=== PATIENT | female | born 1960 | race Caucasian/White ===

== ENCOUNTER 2017-10-07 12:30 | Outpatient (RCR) | payer MEDICAID, SELFPAY ==
--- NOTE | 2017-09-10 13:11 | HP.PTEVAL ---
Patient's Visit Information STACI LAZCANO is a 57 year old F referred to Physical Therapy by Kathy Marr with a diagnosis of R medial meniscus tear. Date of Evaluation: 09/10/17 Physical Therapist: Marques Sheikh - Visit Plan Frequency: 2-3x /Week Duration: 4-6 Weeks Plan: Start with quad re education strengthening, glute med strengthening, HS strengthening. R knee ROM, progress to CKC as tolerated, avoid deep squats and stairs until able to complete with minimal symptoms. May use modalities to aid in symptom relief. - Subjective Subjective: Pt. is here today for her initial evaluation S/P menisectomy DOS on 08/24/17. Pt. had trialed conservative treatment ultimately needing surgery. Pt. was found to have a torn medial meniscus, bone spurring and a medial plica formation. Pt. has all shaven down/removed. Pt. arrives today without AD with reports of minimal pain 2-310. Pt. 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 Pt. is very pleased about her reduction in symptoms since her surgery. Pt. denies N/T and has no pain in her distal LEs. Pt. is hopeful to get back to all work and recreational walking without issues. - Pain R knee Pain Intensity (Out of 10): 3 - Objective POSTURE: Pt. has normal knee positioning in stance. Normal iliac crest heights, she does have slight lateral lean to L side in stance with slight reduction in R TKE. PALPATION: Pt. has normal healing 2 anterior port holes, no signs of infection. Pt. has negative homans signs bilaterally. Pt. has mild increase in edema on R LE. NEUROLOGICAL: Pt. has has normal sensation to light and sharp touch bilaterally. Pt. has 2+ bilateral achilles and patellar DTR. Pt. is able to rise on heels and toes without issues or LOB. ROM: L knee- 0-0-136deg. R knee AROM 0-2-126deg. PROM 0-0-132deg. Pt. has mild increase in symptoms at end ranges of motions, increase NW. MMT: LLE- ankle/knee 5/5 throughout; hip- flexion 4+/5, abd 4/5, ext 4+/5. RLE- ankle 5/5 throughout; knee- ext 4/5, flexion 4-/5; hip- flexion 4/5, abd 4/5, ext 4/5. Core strength0 poor+. GAIT: Pt. ambulates with some mild issues. Pt. has slight lack in R TKE, has decreased step length bilaterally with slight antalgic pattern during R stance phase. Pt. has flat foot initial contact on R side. STAIRS: Pt. completed with step to pattern with 2 HR, pt. has increased pain if attempting to load RLE. - Goals Goal 1:: Pt. to be I with HEP. Goal Time Frame: 4-6 Weeks Goal 2:: Pt. to have full ROM, symmetrical to L without increase in symptoms. Goal Time Frame: 4-6 Weeks Goal 3:: Pt. to have increased RLE strength by 1/2 grade of all effected musculature allwoing for increased ability to complete all functional mobility. Goal Time Frame: 4-6 Weeks Goal 4:: Pt. to ambulate with normal gait pattern with 0-1/10 pain allowing for increased tolerance to work activities. Goal Time Frame: 4-6 Weeks Goal 5:: Pt. to negotiate steps with 1 HR with reciprocal pattern with 0-1/10 pain allowing for increased ease of functional mobility in home. Goal 6:: Pt. to return to work without issues. Goal Time Frame: 4-6 Weeks - Rehabilitation Potential Physical Therapy Diagnosis: Pt. presents S/P R medial menisectomy. She has increased edema, slight hypomiblity, weakness and difficult with gait. Pt. would benefit from PT to increase RLE strength, ROM, stability with gait and to decrease symptoms allowing for return to work and recreational activities without issues. Rehabilitation Potential: Excellent - Anticipated Interventions Patient/Client Instruction: Educate patient on: Condition, Plan of Care, Risk Factors, Benefits of Fitness Program For the Purpose of:: To reduce risk of recurrence, To improve safety, To improve health and function, To foster healthy habits, To improve decision making, To facilitate caregiver knowledge, To improve self management, To prevent re-injury, To improve ability to perform tasks related to life management, To improve tolerance to ADL's Therapeutic Exercise to Include: Strength training, Power training, Endurance training, Balance training, Body mechanics, Postural training, Passive ROM, Active ROM For the Purpose of:: To decrease pain, To decrease swelling/inflammation, To increase ROM, To improve nutrient delivery to tissue, To increase oxygenation perfusion, To improve muscle performance and motor function, To improve ability to perform ADL's, To improve gait and locomotor functions, To improve health of tissue, To decrease soft tissue restriction, To increase flexibility/ROM, To improve endurance, To improve balance, To improve safety with gait IF ES: Yes Cryotherapy (ice pack, ice massage): Yes Vasopneumatic device: Yes For the Purpose of:: To decrease pain, To decrease swelling/inflammation, To increase ROM Thank you for the opportunity to evaluate your patient. For Medicare and Medicare HMO plans, please review the plan of care and approve it. It will need to be FAXED BACK to us at [phone] for Medicare purposes. Please let me know if there are questions or concerns regarding this plan of care. Physician Signature: Date:
--- NOTE | 2018-04-06 16:39 | HP.PT.NRP ---
HP - Discharge Summary (1) - Patient Information STACI LAZCANO was seen in my office for initial evaluation on 09/10/17. The following Plan of Care was established for this patient: Initial Frequency: 2-3x /Week Initial Duration: 4-6 Weeks - Anticipated Interventions Patient/Client Instruction: Educate patient on: Condition, Plan of Care, Risk Factors, Benefits of Fitness Program For the Purpose of:: To reduce risk of recurrence, To improve safety, To improve health and function, To foster healthy habits, To improve decision making, To facilitate caregiver knowledge, To improve self management, To prevent re-injury, To improve ability to perform tasks related to life management, To improve tolerance to ADL's Therapeutic Exercise to Include: Strength training, Power training, Endurance training, Balance training, Body mechanics, Postural training, Passive ROM, Active ROM For the Purpose of:: To decrease pain, To decrease swelling/inflammation, To increase ROM, To improve nutrient delivery to tissue, To increase oxygenation perfusion, To improve muscle performance and motor function, To improve ability to perform ADL's, To improve gait and locomotor functions, To improve health of tissue, To decrease soft tissue restriction, To increase flexibility/ROM, To improve endurance, To improve balance, To improve safety with gait IF ES: Yes Cryotherapy (ice pack, ice massage): Yes Vasopneumatic device: Yes For the Purpose of:: To decrease pain, To decrease swelling/inflammation, To increase ROM This patient was last seen in our office 10/07/17. Pertinent comments regarding their Physical therapy will appear below: Pt. was seen for her meniscal debridement in her knee. Pt. progressed well with ROM and strengthening. At our last visit she was to continue woring on hip ER and glute med strength. She did not return to any subsequent visits. Pt. will be DC from PT at this point in time. At this point I will be discontinuing this patient from physical therapy. I would be happy to see this patient again in the future if found appropriate by the physician. Thank you! Marques Sheikh
== END 2017-10-07 19:00 | disposition home or self-care (01) ==
LOC: PT 12:30
PROVIDERS: Visit Provider Physician Assistant
DX: S83.241D Other tear of medial meniscus, current injury, right knee, subsequent encounter (principal)
CPT/HCPCS: 97014; 97110; 97161; 97530; G0283

== ENCOUNTER → 2017-10-15 10:27 | Outpatient (CLI) | payer MEDICAID, SELFPAY ==
[2017-10-15 09:15] VITALS: BP 117/81; BMI 35.6
[2017-10-15 13:17] LABS: Hemoglobin A1c 6.4 % (4.2-6.3)
== END ==
PROVIDERS: Family Provider Internal Medicine; PCP Internal Medicine; Visit Provider Nurse Practitioner Family
DX: E11.69 Type 2 diabetes mellitus with other specified complication (principal); E66.9 Obesity, unspecified
CPT/HCPCS: 36415; 83036

== ENCOUNTER 2017-10-19 14:25 | Outpatient (RCR) | payer MEDICAID, SELFPAY | END 2017-11-03 23:59 | LOC: NS 14:25 | PROVIDERS: Family Provider Internal Medicine; PCP Internal Medicine; Visit Provider Orthopaedic Surgery | DX: E66.9 Obesity, unspecified (principal); Z68.36 Body mass index [BMI] 36.0-36.9, adult; Z71.3 Dietary counseling and surveillance | CPT/HCPCS: 97802 ==

== ENCOUNTER 2017-11-10 14:00 | Outpatient (RCR) | payer MEDICAID, SELFPAY | END 2017-12-04 23:59 | LOC: NS 14:00 | PROVIDERS: Family Provider Internal Medicine; PCP Internal Medicine; Visit Provider Orthopaedic Surgery | DX: E66.9 Obesity, unspecified (principal); Z68.36 Body mass index [BMI] 36.0-36.9, adult; Z71.3 Dietary counseling and surveillance | CPT/HCPCS: 97803 ==

== ENCOUNTER 2017-11-15 11:56 | Emergency (ER) | payer MEDICAID, SELFPAY ==
[2017-11-15 11:58] VITALS: BP 148/73; PULSE 76; RESP 18; TEMP 36.8; O2SAT 100; BMI 33.3
--- NOTE | 2017-11-15 12:14 | CT_ITS ---
STUDY: CT ABDOMEN AND PELVIS WITHOUT CONTRAST REASON FOR EXAM: Female, 57 years old. Left lower quadrant pain with nausea. History of diverticulitis. RADIATION DOSAGE (If Supplied By Facility): CTDIvol = ( 16.45 ) mGy, DLP = ( 896.13 ) mGycm TECHNIQUE: Transaxial images were obtained from the dome of the diaphragm to the symphysis pubis without oral contrast, and without intravenous contrast. Sagittal and coronal images were reconstructed. Individualized dose optimization techniques were used for this CT. COMPARISON: Comparison is made with prior study dated June 30, 2017. FINDINGS: Stable mild degree of increased markings at the lung bases suggestive mild basilar atelectasis and/or scarring. The visualized portions of the heart are within normal limits. Normal liver. Normal gallbladder and extrahepatic biliary system. Normal spleen. Normal pancreas. Normal bilateral adrenal glands. Normal right kidney. Normal left kidney. There is a small hiatal hernia. Normal small intestine. There is diverticulosis, with thickening of the colon wall, and pericolonic inflammation changes consistent with acute diverticulitis. Diverticulosis of the right hemicolon is seen as well. The appendix is visualized and appears normal. Normal abdominal aorta. Normal inferior vena cava. Normal retroperitoneum. Normal urinary bladder. Normal abdominal wall. There are mild degenerative changes of the visualized lumbar spine. CT/Abdomen/Pelvis without Cont IMPRESSION: Mild degree of sigmoid diverticulitis without complications. Electronically Signed: Reagan Guerin MD at 13:23 EDT Tel [phone], Service support ,
[2017-11-15] MEDS: Ondansetron 4 MG/2 ML Vial IV (12:32)
[2017-11-15] MEDS: 0.9% Normal Saline 1,000 ML 1000 ML IV (12:32)
[2017-11-15 12:37] LABS: Absolute Lymphocyte Count 2.46 X10^3/ul (0.83-4.51); Absolute Neutrophil Count 4.8 X10^3/uL (2.0-7.7); Basophil# 0.02 X10^3/uL; Basophil% 0.3 % (0-1); Eosinophil# 0.11 X10^3/uL; Eosinophils% 1.4 % (0-5); Hematocrit 45.5 % (37-47); Hemoglobin 14.6 g/dl (12.0-15.0); Lymphocyte # 2.46 X10^3/ul (4.0); Lymphocyte % 31.9 % (19-41); Mean Corp Hgb Conc 32.1 g/gl (32-36); Mean Corpuscular Hgb 27.5 pg (27.0-32.0); Mean Corpuscular Volume 85.8 fL (81-99); Mean Platelet Vol. 10.2 fl (6.2-12.0); Monocyte# 0.32 X10^3/uL; Monocyte% 4.2 % (0-10); Neutrophil # 4.77 X10^3/uL (2.7-7.7); Neutrophil % 61.9 % (47-70); Platelet Count 259 K/mm3 (150-450); RBC Distribution Width CV 14.7 % (11.6-14.6); RBC Distribution Width SD 45.6 fl (35.1-43.9); White Blood Count 7.7 K/mm3 (4.4-11.0)
[2017-11-15 12:40] LABS: POSITIVE COUNT NO; POSITIVE DIFFERENTIAL NO; POSITIVE MORPHOLOGY NO
[2017-11-15 12:47] LABS: Anion Gap 9 (5-15); BUN 12 mg/dL (7-18); BUN/Creat Ratio 13.2 RATIO (10-20); Calcium,Total 8.8 mg/dL (8.5-10.1); Chloride 102 mmol/L (98-107); Creatinine, Serum 0.91 mg/dL (0.55-1.02); EST Glomerular Filtration Rate 68 mL/min (>60); Est Glom Filt Rate - Afr Amer 82 mL/min (>60); Estimated Creatinine Clearance 61.38 ml/min; Glucose 112 mg/dL (74-106); Potassium 4.1 mmol/L (3.5-5.1); Sodium Level 138 mmol/L (136-145)
--- NOTE | 2017-11-15 13:45 | ED.VISSUMM ---
- ER Visit Summary Date of Service: 11/15/17 Chief Complaint: Abdominal pain History of Present Illness: The patient is a [address] Guo. She reports that she has left lower quadrant abdominal pain began 2 weeks ago. It is an aching, stabbing pain Zeta 10 at worst and 5 out of 10 currently. Is worsened by nothing relieved by nothing. She has had nausea without vomiting. She reports that she has diarrhea that began yesterday. She has had a proximal me 30 episodes of this. No blood in her stools or black tarry stools. No dysuria or frequency. She reports she has similar symptoms previously with diverticulitis. She was last on Augmentin for this in approximately September of this year. Patient has had chills, but no fever. Physical Examination: Vitals: Stable. Afebrile. General: Well-nourished and well-developed. Head: Normocephalic atraumatic. Neck: Supple, no lymphadenopathy. No JVD. Nontender. Cardiovascular: Regular rate and rhythm. No murmurs. Respiratory: No respiratory distress. Clear to auscultation bilaterally. Abdominal: Soft, mild left lower quadrant tenderness to palpation, nondistended, normal bowel sounds. No guarding, rebound, or peritoneal signs. Back: Nontender. Extremities: Nontender, no edema. Skin: Normal color, no rash. Neurologic: Alert and oriented ?3. Cranial nerves II through XII are intact. Normal strength and sensation. Psych: Normal affect. Test Results: CBC is normal. Chem-7 is marked for glucose of 112. CT flank shows mild degree of sigmoid diverticulitis. No abscess or microperforation. Patient was unable to give a stool sample for C. difficile. Emergency Department Course and Treatment: Patient was treated morphine and Zofran IV. She is resting comfortably. I had a prolonged discussion with her about treatment options for this. She reports that she cannot tolerate Flagyl. She states that Augmentin has not worked for in the past. She is asking for admission for IV antibiotics. Discussed with her that that is not an appropriate way to treat uncomplicated diverticulitis. That she needs to try antibiotics as an outpatient and if this fails then she can be admitted for IV antibiotics. Treatment Plan: Patient is given a prescription for Avelox, which can be used as uni-therapy for diverticulitis, Zofran, and [place]. Instructed follow-up her primary care physician 1 week if not improving. Return to the emergency department for any worsening symptoms. Disposition: To home in improved and stable condition. Impression: 1. Diverticulitis. This note was generated with [employer] dictation software. It may contain incorrect words, spelling, and punctuation that were not noted in review of the chart prior to signing ED Disposition - Plan for ED Patient: Disposition: Home or Assisted Living Chief Complaint: Abd Pain Instructions: ED Diverticulitis Prescriptions: Hydrocodone Bitart/Apap 5-325 [[place] 5/325] 1 - 2 tablet PO Q4H PRN PRN 3 Days #12 tablet PRN Reason: Pain Ondansetron [Zofran Odt] 4 mg PO Q8H PRN PRN #10 tablet PRN Reason: Nausea Moxifloxacin HCl [Avelox] 400 mg PO DAILY #14 tablet Referrals: Roberto Guo MD [Primary Care Provider] - 1 Week
[2017-11-15 14:45] VITALS: BP 128/67; PULSE 56; RESP 18; O2SAT 100
== END 2017-11-15 14:46 | disposition home or self-care (01) ==
PROVIDERS: Emergency Provider Emergency Medicine; Family Provider Internal Medicine; PCP Internal Medicine
DX: K57.32 Diverticulitis of large intestine without perforation or abscess without bleeding (principal); E11.9 Type 2 diabetes mellitus without complications; F32.9 Major depressive disorder, single episode, unspecified; K58.9 Irritable bowel syndrome, unspecified; Z79.899 Other long term (current) drug therapy
CPT/HCPCS: 74176; 80048; 85025; 96361; 96374; 96375; 99283; J7030; J2405

== ENCOUNTER 2017-11-19 12:14 | Observation (INO) | payer MEDICAID, SELFPAY ==
[2017-11-19 12:13] VITALS: BMI 35.0; BMI 77.3
--- NOTE | 2017-11-19 12:17 | NURSING ---
Arrived to floor room 317 approximately 15 min ago. Stacy Charge Nurse in with pt at this time.
[2017-11-19 12:18] VITALS: BP 103/70; PULSE 60; RESP 18; TEMP 36.5; O2SAT 99
[2017-11-19 12:49] VITALS: BMI 40.8
--- NOTE | 2017-11-19 13:09 | NURSING ---
attempted iv start x2, pt particular about where she would like iv states she's a hard stick. pt refusing to allow lab to draw labs without drawing from iv site. primary RN informed, this nurse called IVT to evaluate for midline placement
--- NOTE | 2017-11-19 13:48 | PCM.HP.STD ---
Problem List (1) Sigmoid diverticulitis Status: Acute (2) Urinary, incontinence, stress female Status: Chronic (3) Insomnia Status: Chronic (4) Vitamin D deficiency, unspecified Status: Chronic (5) Arthritis Status: Chronic (6) Asthma Status: Chronic (7) Diabetes mellitus type 2 in obese Status: Chronic (8) Diverticulosis Status: Chronic (9) PTSD (post-traumatic stress disorder) Status: Chronic (10) IBS (irritable bowel syndrome) Status: Chronic (11) Obesity (BMI 30-39.9) Status: Chronic (12) HTN (hypertension) Status: Chronic Qualifiers: (13) HLD (hyperlipidemia) Status: Chronic Qualifiers: (14) Anxiety and depression Status: Chronic History of Present Illness Date of Admission: 11/19/17 Chief Complaint: Left lower quadrant abdominal pain for a week The patient is a 57 year old F with multiple comorbidities including diabetes mellitus type 2 and recurrent colonic diverticulitis about once in 1-2 years was sent for direct admit by Dr. Guo for sigmoid diverticulitis. Prior to that patient has left lower quadrant predominantly abdominal pain for 1 week along with nausea but no vomiting. Patient also has diarrhea. She denies GI bleeding including hematemesis, melena or hematochezia. She failed outpatient therapy with Avelox. She also had not responded to Augmentin in the past. Prior to that, she came to ER on 11/15/[address] abdomen which shows mild degree of sigmoid diverticulitis. No abscess or microperforation. She was discharged on prescription of Avelox. She took for 4 days but is still has abdominal pain and did not get better and therefore was sent for direct admit by PCP. [] Past Medical History Past Medical History (Chronic Problems): Chronic Problems (Last Reviewed 10/15/17 @ 11:55 by Giovanni Madden NP-[facility]) Urinary, incontinence, stress female (Chronic) Chronic recurrent sinusitis (Chronic) Insomnia (Chronic) Vitamin D deficiency, unspecified (Chronic) Arthritis (Chronic) Asthma (Chronic) Diabetes mellitus type 2 in obese (Chronic) Diverticulosis (Chronic) PTSD (post-traumatic stress disorder) (Chronic) IBS (irritable bowel syndrome) (Chronic) Obesity (BMI 30-39.9) (Chronic) HTN (hypertension) (Chronic) HLD (hyperlipidemia) (Chronic) Anxiety and depression (Chronic) Allergies eluxadoline [From Steven] Allergy (Severe, Verified 11/15/17 12:00) Other diverticulitis NSAIDS (Non-Steroidal Anti-Inflamma Allergy (Intermediate, Verified 11/15/17 12:00) Other GI bleeds Sulfa (Sulfonamide Antibiotics) Allergy (Verified 11/15/17 12:00) Rash albuterol Adverse Reaction (Severe, Verified 11/15/17 12:00) other increase heart rate metformin Adverse Reaction (Severe, Verified 11/15/17 12:00) Other diarreah inderal Allergy (Intermediate, Uncoded 11/15/17 12:00) Other hallucinations most antidepressants Adverse Reaction (Severe, Uncoded 11/15/17 12:00) Other varies from rash, to hallucinations, to shakes. Home Medications: Ambulatory Orders Medication Instructions Recorded Lorazepam [Ativan] 2 mg PO TID PRN PRN 06/30/17 Omeprazole 20 mg PO QHS 06/30/17 atenolol 50 mg tablet 50 mg PO QHS #90 tab 09/17/17 atorvastatin 20 mg tablet 20 mg PO QHS 09/17/17 cholecalciferol (vitamin D3) 2,000 2,000 unit PO DAILY 09/17/17 unit capsule estradiol 0.5 mg tablet 0.5 mg PO QHS #30 tab 09/17/17 levalbuterol HFA 45 mcg/actuation 2 inh INHALATION Q6H 09/17/17 aerosol inhaler metro cream 1 applic TOPICAL DAILY PRN PRN 09/17/17 blood sugar diagnostic strips See Dose Instructions .ROUTE 10/15/17 .MEDSUPPLY #50 ea blood-glucose meter kit See Dose Instructions .ROUTE 10/15/17 .MEDSUPPLY #1 ea desvenlafaxine succinate ER 50 mg 50 mg PO Q24H 10/15/17 tablet,extended release 24 hr Hydrocodone Bitart/Apap 5-325 1 - 2 tablet PO Q4H PRN PRN 3 Days 11/15/17 [[place] 5/325] #12 tablet ondansetron 4 mg disintegrating 4 mg PO Q8H PRN PRN #20 tab 11/16/17 tablet Amoxicillin/Potassium Clav [Amox 1 each PO BID 11/19/17 Tr-K Clv 875-125 mg Tab] Desvenlafaxine Succinate [Pristiq] 50 mg PO DAILY 11/19/17 Lisinopril [Zestril] 2.5 mg PO QHS 11/19/17 Multivitamin [Daily Multiple 1 tab PO QHS 11/19/17 Vitamin] Solifenacin Succinate [Vesicare] 5 mg PO QDAY 11/19/17 Zolpidem Tartrate [Ambien 5 mg PO QHS PRN PRN 11/19/17 (Generic)] Surgical History: - - Hysterectomy, L knee surgery for torn meniscus, L ulnar nerve surgery/carpal tunnel release. Psychiatric History: Anxiety, Depression BUSINESS CONTINUITY MANAGER History: No pertinent BUSINESS CONTINUITY MANAGER history Smoking Status: Never smoker - *Family History Maternal History Items: No pertinent history Paternal History Items: Heart Disease Review of Systems Constitutional: Denies: Chills, Fever, Weight Change HEENT: Denies: Head Aches, Sinus Congestion, Sinus Drainage Cardiovascular: Denies: Chest Pain, Palpitations Respiratory: Denies: Cough, Shortness of breath at rest, Sputum production Gastrointestinal: Reports: Diarrhea, Nausea. Denies: Abdominal Pain, Vomiting Genitourinary: Denies: Dysuria Musculoskeletal: Denies: Joint Pain, Joint Tenderness Skin: Denies: Rash, Wounds Neurological: Denies: Numbness, Tingling, Focal weakness Psychiatric: Reports: Anxiety, Depression. Denies: Homicidal Ideations, Suicidal Ideations Hematologic/ Lymphatic: Denies: Easy Bruising, Easy Bleeding VTE Information - Inpt Only VTE Present on Admission: No VTE Mechan Device Prophylaxis: SCD's VTE Pharm Prophylaxis ordered?: Yes Patient Problems: Active and Suspected Problems (Last Reviewed 10/15/17 @ 11:55 by Giovanni Madden NP-[facility]) Sigmoid diverticulitis (Acute) - Physical Exam General: Alert, Oriented x3, Cooperative HEENT: Atraumatic, PERRLA, EOMI, Normocephalic Neck: Supple, No JVD, Negative Carotid Bruits Lungs: Clear to auscultation, Normal air movement, No rhonchi, No wheeze, No rales Cardiovascular: Regular rate, Regular Rhythm, Normal S1, Normal S2, No murmurs Abdomen: Bowel Sounds Present, Soft, Non-Distended, Tender - Present in both lower quadrants, left more than right Extremities: No edema, Capillary Refill Less than 3 Seconds Skin: No rashes, No breakdown Musculoskeletal: No Tenderness to Palpation of Joints or Extremities Neurological: Cranial nerves II-XII grossly intact Psych/Mental Status: Normal Affect, Appropriate Vital Signs Temp Pulse Resp BP Pulse Ox 97.7 F L 60 18 103/70 99 11/19/17 12:18 18 12:18 11/19/17 12:18 11/19/17 12:18 11/19/17 12:18 Oxygen Delivery Method Room Air Weight: 210 lb 9.616 oz Body Mass Index (BMI) 40.8 Assessment/Plan Active and Suspected Problems (Last Reviewed 10/15/17 @ 11:55 by Giovanni Madden NP-[facility]) Sigmoid diverticulitis (Acute) The patient is a 57 year old F with multiple comorbidities including diabetes mellitus type 2 and recurrent colonic diverticulitis about once in 1-2 years was sent for direct admit by Dr. Guo for sigmoid diverticulitis. Prior to that patient has left lower quadrant predominantly abdominal pain for 1 week along with nausea but no vomiting. Patient also has diarrhea. She denies GI bleeding including hematemesis, melena or hematochezia. She failed outpatient therapy with Avelox. She also had not responded to Augmentin in the past. Prior to that, she came to ER on 11/15/[address] abdomen which shows mild degree of sigmoid diverticulitis. No abscess or microperforation. She was discharged on prescription of Avelox. She took for 4 days but is still has abdominal pain and did not get better and therefore was sent for direct admit by PCP. 1. Acute uncomplicated sigmoid diverticulitis: The patient is being directly admitted on the floor. Labs including CBC, CMP UA ordered. Patient had recent CT abdomen on 15 November as mentioned above. IV fluid normal saline at 100 mL/h. Started on IV Cipro and Flagyl. Pain control with IV morphine as needed and Zofran for nausea. Start the patient on clear liquid diet and advanced as per tolerated. 2. Diabetes mellitus type 2: On Accu-Chek in before meals and at bedtime and cover with NovoLog sliding scale. A1c tomorrow a.m. 3. Hypertension, dyslipidemia, asthma and chronic degenerative joint disease: Home medication reconciliation done. Only necessary medications are continued. Other chronic comorbidities include PTSD, anxiety and depression, stress urinary incontinence and insomnia: Stable. DVT prophylaxis: On Lovenox 40 mg subcu daily and bilateral SCDs. This note was generated with [employer] dictation software. Every effort was made to ensure accuracy, however computerized rf microwave engineer mistakes may persist. Code Visit Inpatient E&M: 68234 Init Hosp L2
[2017-11-19] MEDS: 0.9% Normal Saline 1,000 ML 100 ML IV (13:57)
--- NOTE | 2017-11-19 14:01 | HP.PCM_ITS ---
Problem List (1) Sigmoid diverticulitis Status: Acute (2) Urinary, incontinence, stress female Status: Chronic (3) Insomnia Status: Chronic (4) Vitamin D deficiency, unspecified Status: Chronic (5) Arthritis Status: Chronic (6) Asthma Status: Chronic (7) Diabetes mellitus type 2 in obese Status: Chronic (8) Diverticulosis Status: Chronic (9) PTSD (post-traumatic stress disorder) Status: Chronic (10) IBS (irritable bowel syndrome) Status: Chronic (11) Obesity (BMI 30-39.9) Status: Chronic (12) HTN (hypertension) Status: Chronic Qualifiers: (13) HLD (hyperlipidemia) Status: Chronic Qualifiers: (14) Anxiety and depression Status: Chronic History of Present Illness Date of Admission: 11/19/17 Chief Complaint: Left lower quadrant abdominal pain for a week The patient is a 57 year old F with multiple comorbidities including diabetes mellitus type 2 and recurrent colonic diverticulitis about once in 1-2 years was sent for direct admit by Dr. Guo for sigmoid diverticulitis. Prior to that patient has left lower quadrant predominantly abdominal pain for 1 week along with nausea but no vomiting. Patient also has diarrhea. She denies GI bleeding including hematemesis, melena or hematochezia. She failed outpatient therapy with Avelox. She also had not responded to Augmentin in the past. Prior to that, she came to ER on 11/15/[address] abdomen which shows mild degree of sigmoid diverticulitis. No abscess or microperforation. She was discharged on prescription of Avelox. She took for 4 days but is still has abdominal pain and did not get better and therefore was sent for direct admit by PCP. [] Past Medical History Past Medical History (Chronic Problems): Chronic Problems (Last Reviewed 10/15/17 @ 11:55 by Giovanni Madden NP-Twin) Urinary, incontinence, stress female (Chronic) Chronic recurrent sinusitis (Chronic) Insomnia (Chronic) Vitamin D deficiency, unspecified (Chronic) Arthritis (Chronic) Asthma (Chronic) Diabetes mellitus type 2 in obese (Chronic) Diverticulosis (Chronic) PTSD (post-traumatic stress disorder) (Chronic) IBS (irritable bowel syndrome) (Chronic) Obesity (BMI 30-39.9) (Chronic) HTN (hypertension) (Chronic) HLD (hyperlipidemia) (Chronic) Anxiety and depression (Chronic) Allergies eluxadoline [From Steven] Allergy (Severe, Verified 11/15/17 12:00) Other diverticulitis NSAIDS (Non-Steroidal Anti-Inflamma Allergy (Intermediate, Verified 11/15/17 12: 00) Other GI bleeds Sulfa (Sulfonamide Antibiotics) Allergy (Verified 11/15/17 12:00) Rash albuterol Adverse Reaction (Severe, Verified 11/15/17 12:00) other increase heart rate metformin Adverse Reaction (Severe, Verified 11/15/17 12:00) Other diarreah inderal Allergy (Intermediate, Uncoded 11/15/17 12:00) Other hallucinations most antidepressants Adverse Reaction (Severe, Uncoded 11/15/17 12:00) Other varies from rash, to hallucinations, to shakes. Home Medications: Ambulatory Orders Medication Instructions Recorded Lorazepam [Ativan] 2 mg PO TID PRN PRN 06/30/17 Omeprazole 20 mg PO QHS 06/30/17 atenolol 50 mg tablet 50 mg PO QHS #90 tab 09/17/17 atorvastatin 20 mg tablet 20 mg PO QHS 09/17/17 cholecalciferol (vitamin D3) 2,000 2,000 unit PO DAILY 09/17/17 unit capsule estradiol 0.5 mg tablet 0.5 mg PO QHS #30 tab 09/17/17 levalbuterol HFA 45 mcg/actuation 2 inh INHALATION Q6H 09/17/17 aerosol inhaler metro cream 1 applic TOPICAL DAILY PRN PRN 09/17/17 blood sugar diagnostic strips See Dose Instructions .ROUTE 10/15/17 .MEDSUPPLY #50 ea blood-glucose meter kit See Dose Instructions .ROUTE 10/15/17 .MEDSUPPLY #1 ea desvenlafaxine succinate ER 50 mg 50 mg PO Q24H 10/15/17 tablet,extended release 24 hr Hydrocodone Bitart/Apap 5-325 1 - 2 tablet PO Q4H PRN PRN 3 Days 11/15/17 [Elizabeth 5/325] #12 tablet ondansetron 4 mg disintegrating 4 mg PO Q8H PRN PRN #20 tab 11/16/17 tablet Amoxicillin/Potassium Clav [Amox 1 each PO BID 11/19/17 Tr-K Clv 875-125 mg Tab] Desvenlafaxine Succinate [Pristiq] 50 mg PO DAILY 11/19/17 Lisinopril [Zestril] 2.5 mg PO QHS 11/19/17 Multivitamin [Daily Multiple 1 tab PO QHS 11/19/17 Vitamin] Solifenacin Succinate [Vesicare] 5 mg PO QDAY 11/19/17 Zolpidem Tartrate [Ambien 5 mg PO QHS PRN PRN 11/19/17 (Generic)] Surgical History: - - Hysterectomy, L knee surgery for torn meniscus, L ulnar nerve surgery/carpal tunnel release. Psychiatric History: Anxiety, Depression [employer] History: No pertinent [employer] history Smoking Status: Never smoker - *Family History Maternal History Items: No pertinent history Paternal History Items: Heart Disease Review of Systems Constitutional: Denies: Chills, Fever, Weight Change HEENT: Denies: Head Aches, Sinus Congestion, Sinus Drainage Cardiovascular: Denies: Chest Pain, Palpitations Respiratory: Denies: Cough, Shortness of breath at rest, Sputum production Gastrointestinal: Reports: Diarrhea, Nausea. Denies: Abdominal Pain, Vomiting Genitourinary: Denies: Dysuria Musculoskeletal: Denies: Joint Pain, Joint Tenderness Skin: Denies: Rash, Wounds Neurological: Denies: Numbness, Tingling, Focal weakness Psychiatric: Reports: Anxiety, Depression. Denies: Homicidal Ideations, Suicidal Ideations Hematologic/ Lymphatic: Denies: Easy Bruising, Easy Bleeding VTE Information - Inpt Only VTE Present on Admission: No VTE Mechan Device Prophylaxis: SCD's VTE Pharm Prophylaxis ordered?: Yes Patient Problems: Active and Suspected Problems (Last Reviewed 10/15/17 @ 11:55 by Giovanni Madden NP- Twin) Sigmoid diverticulitis (Acute) - Physical Exam General: Alert, Oriented x3, Cooperative HEENT: Atraumatic, PERRLA, EOMI, Normocephalic Neck: Supple, No JVD, Negative Carotid Bruits Lungs: Clear to auscultation, Normal air movement, No rhonchi, No wheeze, No rales Cardiovascular: Regular rate, Regular Rhythm, Normal S1, Normal S2, No murmurs Abdomen: Bowel Sounds Present, Soft, Non-Distended, Tender - Present in both lower quadrants, left more than right Extremities: No edema, Capillary Refill Less than 3 Seconds Skin: No rashes, No breakdown Musculoskeletal: No Tenderness to Palpation of Joints or Extremities Neurological: Cranial nerves II-XII grossly intact Psych/Mental Status: Normal Affect, Appropriate Vital Signs Temp Pulse Resp BP Pulse Ox 97.7 F L 60 18 103/70 99 11/19/17 12:18 18 12:18 11/19/17 12:18 11/19/17 12:18 11/19/17 12:18 Oxygen Delivery Method Room Air Weight: 210 lb 9.616 oz Body Mass Index (BMI) 40.8 Assessment/Plan Active and Suspected Problems (Last Reviewed 10/15/17 @ 11:55 by Giovanni Madden NP- Twin) Sigmoid diverticulitis (Acute) The patient is a 57 year old F with multiple comorbidities including diabetes mellitus type 2 and recurrent colonic diverticulitis about once in 1-2 years was sent for direct admit by Dr. Guo for sigmoid diverticulitis. Prior to that patient has left lower quadrant predominantly abdominal pain for 1 week along with nausea but no vomiting. Patient also has diarrhea. She denies GI bleeding including hematemesis, melena or hematochezia. She failed outpatient therapy with Avelox. She also had not responded to Augmentin in the past. Prior to that, she came to ER on 11/15/[address] abdomen which shows mild degree of sigmoid diverticulitis. No abscess or microperforation. She was discharged on prescription of Avelox. She took for 4 days but is still has abdominal pain and did not get better and therefore was sent for direct admit by PCP. 1. Acute uncomplicated sigmoid diverticulitis: The patient is being directly admitted on the floor. Labs including CBC, CMP UA ordered. Patient had recent CT abdomen on 15 November as mentioned above. IV fluid normal saline at 100 mL/h. Started on IV Cipro and Flagyl. Pain control with IV morphine as needed and Zofran for nausea. Start the patient on clear liquid diet and advanced as per tolerated. 2. Diabetes mellitus type 2: On Accu-Chek in before meals and at bedtime and cover with NovoLog sliding scale. A1c tomorrow a.m. 3. Hypertension, dyslipidemia, asthma and chronic degenerative joint disease: Home medication reconciliation done. Only necessary medications are continued. Other chronic comorbidities include PTSD, anxiety and depression, stress urinary incontinence and insomnia: Stable. DVT prophylaxis: On Lovenox 40 mg subcu daily and bilateral SCDs. This note was generated with [employer] dictation software. Every effort was made to ensure accuracy, however computerized harmonica maker mistakes may persist. Code Visit Inpatient E&M: 04423 Init Hosp L2
[2017-11-19 14:26] LABS: Absolute Lymphocyte Count 2.68 X10^3/ul (0.83-4.51); Absolute Neutrophil Count 5.7 X10^3/uL (2.0-7.7); Basophil# 0.02 X10^3/uL; Basophil% 0.2 % (0-1); Eosinophil# 0.12 X10^3/uL; Eosinophils% 1.3 % (0-5); Hematocrit 45.1 % (37-47); Hemoglobin 14.3 g/dl (12.0-15.0); Lymphocyte # 2.68 X10^3/ul (4.0); Lymphocyte % 29.9 % (19-41); Mean Corp Hgb Conc 31.7 g/gl (32-36); Mean Corpuscular Hgb 27.3 pg (27.0-32.0); Mean Corpuscular Volume 86.2 fL (81-99); Mean Platelet Vol. 10.4 fl (6.2-12.0); Monocyte# 0.47 X10^3/uL; Monocyte% 5.2 % (0-10); Neutrophil # 5.65 X10^3/uL (2.7-7.7); Neutrophil % 63.2 % (47-70); Platelet Count 260 K/mm3 (150-450); RBC Distribution Width CV 14.4 % (11.6-14.6); RBC Distribution Width SD 44.9 fl (35.1-43.9); Red Blood Count 5.23 M/mm3 (4.2-5.4)
[2017-11-19 14:27] LABS: POSITIVE COUNT NO; POSITIVE DIFFERENTIAL NO; POSITIVE MORPHOLOGY NO
[2017-11-19 14:29] LABS: International Normalized Ratio 0.9; Prothrombin Time (Protime)PT. 12.5 SECONDS (11.7-14.9)
[2017-11-19 14:35] LABS: AST(SGOT) 18 U/L (15-37); Alanine Aminotransfer ALT/SGPT 24 U/L (13-56); Albumin, Serum 3.4 g/dL (3.2-5.0); Alkaline Phosphatase 133 U/L (45-117); Bilirubin, Direct 0.08 mg/dL (0.00-0.30); Protein, Total 7.4 g/dL (6.4-8.2)
[2017-11-19 14:41] LABS: Lactic Acid 1.6 mmol/L (0.4-2.0)
[2017-11-19] MEDS: Ondansetron 4 MG/2 ML Vial IV ×2 (14:59→21:01)
[2017-11-19] MEDS: 0.9% NaCl Peripheral Flush Adult/Peds IV ×2 (15:00→18:49)
[2017-11-19] MEDS: Enoxaparin 40 MG/0.4 ML Syringe SC (16:03)
[2017-11-19 19:31] LABS: Bedside Glucose 103 mg/dL (70-110)
[2017-11-19] MEDS: Zolpidem Tartrate 5 MG Tablet PO (21:01)
[2017-11-19 21:04] VITALS: BP 122/72; PULSE 60; RESP 16; TEMP 36.8; O2SAT 98
[2017-11-19] MEDS: Atenolol 50 MG Tablet PO (21:12)
[2017-11-19] MEDS: Atorvastatin Calcium 20 MG Tablet PO (21:12)
[2017-11-19] MEDS: Pantoprazole Sodium 20 MG Tablet PO (21:12)
[2017-11-20] MEDS: 0.9% Normal Saline 1,000 ML 100 ML IV ×2 (00:05→10:58)
[2017-11-20 03:16] VITALS: BP 115/70; PULSE 50; RESP 16; TEMP 36.6; O2SAT 95
[2017-11-20 09:01] LABS: Absolute Lymphocyte Count 3.28 X10^3/ul (0.83-4.51); Basophil# 0.02 X10^3/uL; Basophil% 0.3 % (0-1); Eosinophil# 0.12 X10^3/uL; Eosinophils% 1.5 % (0-5); Hematocrit 38.8 % (37-47); Hemoglobin 11.9 g/dl (12.0-15.0); Lymphocyte # 3.28 X10^3/ul (4.0); Lymphocyte % 41.5 % (19-41); Mean Corp Hgb Conc 30.7 g/gl (32-36); Mean Corpuscular Hgb 27.1 pg (27.0-32.0); Mean Corpuscular Volume 88.4 fL (81-99); Mean Platelet Vol. 10.6 fl (6.2-12.0); Monocyte% 6.3 % (0-10); Neutrophil # 3.97 X10^3/uL (2.7-7.7); Neutrophil % 50.3 % (47-70); Platelet Count 221 K/mm3 (150-450); RBC Distribution Width CV 14.6 % (11.6-14.6); RBC Distribution Width SD 46.5 fl (35.1-43.9); Red Blood Count 4.39 M/mm3 (4.2-5.4); White Blood Count 7.9 K/mm3 (4.4-11.0)
[2017-11-20 09:05] LABS: POSITIVE COUNT NO; POSITIVE DIFFERENTIAL NO; POSITIVE MORPHOLOGY NO
[2017-11-20 09:23] LABS: Anion Gap 6 (5-15); BUN 10 mg/dL (7-18); BUN/Creat Ratio 11.6 RATIO (10-20); Calcium,Total 8.1 mg/dL (8.5-10.1); Chloride 109 mmol/L (98-107); Creatinine, Serum 0.86 mg/dL (0.55-1.02); EST Glomerular Filtration Rate 72 mL/min (>60); Est Glom Filt Rate - Afr Amer 87 mL/min (>60); Estimated Creatinine Clearance 64.94 ml/min; Glucose 97 mg/dL (74-106); Potassium 3.9 mmol/L (3.5-5.1); Sodium Level 142 mmol/L (136-145)
[2017-11-20] MEDS: Enoxaparin 40 MG/0.4 ML Syringe SC (10:54)
[2017-11-20 10:55] VITALS: PULSE 48
[2017-11-20 12:16] VITALS: BP 112/61; PULSE 49; RESP 18; TEMP 36.4; O2SAT 98
[2017-11-20] MEDS: Tolterodine Tartrate 2 MG CAP.SA PO (12:19)
[2017-11-20] MEDS: 0.9% NaCl Peripheral Flush Adult/Peds IV ×3 (12:40→18:44)
[2017-11-20 12:41] LABS: Bedside Glucose 86 mg/dL (70-110)
--- NOTE | 2017-11-20 13:11 | PCM.PN.HOSP ---
Patient Problems: Active and Suspected Problems (Last Reviewed 10/15/17 @ 11:55 by Giovanni Madden NP-Twin) Sigmoid diverticulitis (Acute) Subjective: Patient does not have fever, chills. Still complaining of abdominal pain predominantly left lower quadrant. On clear liquid diet, advance to soft diet. Patient cannot tolerate oral antibiotic; especially Flagyl. Vitals/I&O's: Vital Signs Temp Pulse Resp BP Pulse Ox 97.6 F L 49 L 18 112/61 98 11/20/17 12:16 11/20/17 12:16 11/20/17 12:16 11/20/17 12:16 11/20/17 12:16 Oxygen Delivery Method Room Air Weight: 210 lb 9.616 oz Body Mass Index (BMI) 40.8 Intake and Output for Last 24 Hours 11/18/17 11/19/17 11/20/17 23:59 23:59 23:59 Intake Total 789 / 789 3120 / 3120 Balance 789 / 789 3120 / 3120 General: Alert, Oriented x3, Cooperative HEENT: Atraumatic, PERRLA, EOMI, Normocephalic Neck: Supple, No JVD, Negative Carotid Bruits Lungs: Clear to auscultation, Normal air movement, No rhonchi, No wheeze, No rales Cardiovascular: Regular rate, Regular Rhythm, Normal S1, Normal S2, No murmurs Abdomen: Bowel Sounds Present, Soft, Tender - Tenderness present over left > right lower quadrant Extremities: No edema, Capillary Refill Less than 3 Seconds Skin: No rashes, No breakdown Musculoskeletal: No Tenderness to Palpation of Joints or Extremities Neurological: Cranial nerves II-XII grossly intact Psych/Mental Status: Normal Affect, Appropriate Laboratory Results 11/19/17 14:00: WBC 9.0, RBC 5.23, Hgb 14.3, Hct 45.1, MCV 86.2, MCH 27.3, MCHC 31.7 L, RDW 14.4, RDW Differential 44.9 H, Plt Count 260, MPV 10.4, Immature Gran % (Auto) 0.200, Neut % (Auto) 63.2, Lymph % (Auto) 29.9, [place] % (Auto) 5.2, Eos % (Auto) 1.3, Baso % (Auto) 0.2, Absolute Neuts (auto) 5.7, Absolute Lymphs (auto) 2.68, Total Counted Not Reportable 11/19/17 14:00: PT 12.5, INR 0.9 11/19/17 14:00: Total Bilirubin 0.40, Direct Bilirubin 0.08, AST 18, ALT 24, Alkaline Phosphatase 133 H, Total Protein 7.4, Albumin 3.4, Globulin 4.0 11/19/17 14:00: Lactic Acid 1.6 11/19/17 18:35: POC Glucose 103 11/20/17 08:46: WBC 7.9, RBC 4.39, Hgb 11.9 L, Hct 38.8, MCV 88.4, MCH 27.1, MCHC 30.7 L, RDW 14.6, RDW Differential 46.5 H, Plt Count 221, MPV 10.6, Immature Gran % (Auto) 0.100, Neut % (Auto) 50.3, Lymph % (Auto) 41.5 H, [place] % (Auto) 6.3, Eos % (Auto) 1.5, Baso % (Auto) 0.3, Absolute Neuts (auto) 4.0, Absolute Lymphs (auto) 3.28, Total Counted Not Reportable 11/20/17 08:46: Sodium 142, Potassium 3.9, Chloride 109 H, Carbon Dioxide 27.0, Anion Gap 6, BUN 10, Creatinine 0.86, Estim Creat Clear Calc 64.94, Est GFR (MDRD) Af Amer 87, Est GFR (MDRD) Non-Af 72, BUN/Creatinine Ratio 11.6, Glucose 97, Calcium 8.1 L 11/20/17 12:31: POC Glucose 86 Current Medications Acetaminophen (Tylenol) 650 mg PO Q4H PRN PRN PRN Reason: pain/Fever Al Hydroxide/Mg Hydroxide (Mylanta Ii) 30 ml PO Q6H PRN PRN PRN Reason: Gastric burning Albuterol Sulfate (Ventolin Aerosols) 2.5 mg INHALATION Q6HWA.RT [facility] Last Admin: 11/20/17 07:30 Dose: Not Given Atenolol (Tenormin (Beta Catalina)) 50 mg PO QHS [facility] Last Admin: 11/19/17 21:12 Dose: 50 mg Atorvastatin Calcium (Lipitor) 20 mg PO QHS [facility] Last Admin: 11/19/17 21:12 Dose: 20 mg Enoxaparin Sodium (Lovenox) 40 mg SC DAILY@1000 [facility] Last Admin: 11/20/17 10:54 Dose: 40 mg Ciprofloxacin 400 mg/ N/A 200 mls @ 200 mls/hr IV Q12 [facility] Last Admin: 11/20/17 10:52 Dose: 200 mls/hr Metronidazole 500 mg/ N/A 100 mls @ 100 mls/hr IV Q8 [facility] Last Admin: 11/20/17 05:56 Dose: 100 mls/hr Sodium Chloride () 1,000 mls @ 50 mls/hr IV .Q20H [facility] Morphine Sulfate () 2 mg IV Q3H PRN PRN PRN Reason: SEVERE PAIN (6-06/15) Last Admin: 11/20/17 12:40 Dose: 2 mg Nutritional Formula (Lactose Free) (Ensure Clear) 120 ml PO 4X/DAY [facility] Last Admin: 11/20/17 10:54 Dose: 120 ml Ondansetron HCl (Zofran) 4 mg IV Q6H PRN PRN PRN Reason: NAUSEA Last Admin: 11/19/17 21:01 Dose: 4 mg Pantoprazole Sodium (Protonix) 20 mg PO QHS [facility] Last Admin: 11/19/17 21:12 Dose: 20 mg Promethazine HCl (Phenergan (Ll)) 12.5 mg IV Q6H PRN PRN PRN Reason: NAUSEA/VOMITING Last Admin: 11/20/17 06:02 Dose: 12.5 mg Sodium Chloride () 5 - 30 ml IV UD PRN PRN Reason: SALINE FLUSH Last Admin: 11/20/17 12:40 Dose: 10 ml Tolterodine Tartrate (Detrol La) 2 mg PO DAILY [facility] Last Admin: 11/20/17 12:19 Dose: 2 mg Zolpidem Tartrate (Ambien (Generic)) 5 mg PO QHS PRN PRN PRN Reason: INSOMNIA Last Admin: 11/19/17 21:01 Dose: 5 mg Medical Necessity - Tobacco Use Smoking Status: Never smoker Assessment/Plan Active and Suspected Problems (Last Reviewed 10/15/17 @ 11:55 by Giovanni Madden NP-C) Sigmoid diverticulitis (Acute) The patient is a 57 year old F with multiple comorbidities including diabetes mellitus type 2 and recurrent colonic diverticulitis about once in 1-2 years was sent for direct admit by Dr. Guo for sigmoid diverticulitis. Prior to that patient has left lower quadrant predominantly abdominal pain for 1 week along with nausea but no vomiting. Patient also has diarrhea. She denies GI bleeding including hematemesis, melena or hematochezia. She failed outpatient therapy with Avelox. She also had not responded to Augmentin in the past. Prior to that, she came to ER on 11/15/[address] abdomen which shows mild degree of sigmoid diverticulitis. No abscess or microperforation. She was discharged on prescription of Avelox. She took for 4 days but is still has abdominal pain and did not get better and therefore was sent for direct admit by PCP. 1. Acute uncomplicated sigmoid diverticulitis: The patient is being directly admitted on the floor on the observation status. Labs including CBC, CMP UA reviewed. No leukocytosis. LFTs within normal limits except mild elevated alkaline phosphatase, probably from the bowel origin. Lactic acid normal. Patient had recent CT abdomen on 15 November as mentioned above. Started on IV Cipro and Flagyl. Pain control with IV morphine as needed and Zofran for nausea. Start the patient on clear liquid diet and advanced to soft diet. Taper down the IV fluid gradually with regard to oral intake. 2. Diabetes mellitus type 2: On Accu-Chek in before meals and at bedtime and cover with NovoLog sliding scale. A1c tomorrow 3. Hypertension, dyslipidemia, asthma and chronic degenerative joint disease: Home medication reconciliation done. Only necessary medications are continued. Other chronic comorbidities include PTSD, anxiety and depression, stress urinary incontinence and insomnia: Stable. DVT prophylaxis: On Lovenox 40 mg subcu daily and bilateral SCDs. This note was generated with [employer] dictation software. Every effort was made to ensure accuracy, however computerized bellperson mistakes may persist. Laboratory Results 11/19/17 14:00: WBC 9.0, RBC 5.23, Hgb 14.3, Hct 45.1, MCV 86.2, MCH 27.3, MCHC 31.7 L, RDW 14.4, RDW Differential 44.9 H, Plt Count 260, MPV 10.4, Immature Gran % (Auto) 0.200, Neut % (Auto) 63.2, Lymph % (Auto) 29.9, [place] % (Auto) 5.2, Eos % (Auto) 1.3, Baso % (Auto) 0.2, Absolute Neuts (auto) 5.7, Absolute Lymphs (auto) 2.68, Total Counted Not Reportable 11/19/17 14:00: PT 12.5, INR 0.9 11/19/17 14:00: Total Bilirubin 0.40, Direct Bilirubin 0.08, AST 18, ALT 24, Alkaline Phosphatase 133 H, Total Protein 7.4, Albumin 3.4, Globulin 4.0 11/19/17 14:00: Lactic Acid 1.6 11/19/17 18:35: POC Glucose 103 11/20/17 08:46: WBC 7.9, RBC 4.39, Hgb 11.9 L, Hct 38.8, MCV 88.4, MCH 27.1, MCHC 30.7 L, RDW 14.6, RDW Differential 46.5 H, Plt Count 221, MPV 10.6, Immature Gran % (Auto) 0.100, Neut % (Auto) 50.3, Lymph % (Auto) 41.5 H, [place] % (Auto) 6.3, Eos % (Auto) 1.5, Baso % (Auto) 0.3, Absolute Neuts (auto) 4.0, Absolute Lymphs (auto) 3.28, Total Counted Not Reportable 11/20/17 08:46: Sodium 142, Potassium 3.9, Chloride 109 H, Carbon Dioxide 27.0, Anion Gap 6, BUN 10, Creatinine 0.86, Estim Creat Clear Calc 64.94, Est GFR (MDRD) Af Amer 87, Est GFR (MDRD) Non-Af 72, BUN/Creatinine Ratio 11.6, Glucose 97, Calcium 8.1 L 11/20/17 12:31: POC Glucose 86 Code Visit OBSV E&M: 82643 Subsequent observation care L2
--- NOTE | 2017-11-20 13:16 | PN_ITS ---
Patient Problems: Active and Suspected Problems (Last Reviewed 10/15/17 @ 11:55 by Giovanni Madden NP- Twin) Sigmoid diverticulitis (Acute) Subjective: Patient does not have fever, chills. Still complaining of abdominal pain predominantly left lower quadrant. On clear liquid diet, advance to soft diet. Patient cannot tolerate oral antibiotic; especially Flagyl. Vitals/I&O's: Vital Signs Temp Pulse Resp BP Pulse Ox 97.6 F L 49 L 18 112/61 98 11/20/17 12:16 11/20/17 12:16 11/20/17 12:16 11/20/17 12:16 11/20/17 12:16 Oxygen Delivery Method Room Air Weight: 210 lb 9.616 oz Body Mass Index (BMI) 40.8 Intake and Output for Last 24 Hours 11/18/17 11/19/17 11/20/17 23:59 23:59 23:59 Intake Total 789 / 789 3120 / 3120 Balance 789 / 789 3120 / 3120 General: Alert, Oriented x3, Cooperative HEENT: Atraumatic, PERRLA, EOMI, Normocephalic Neck: Supple, No JVD, Negative Carotid Bruits Lungs: Clear to auscultation, Normal air movement, No rhonchi, No wheeze, No rales Cardiovascular: Regular rate, Regular Rhythm, Normal S1, Normal S2, No murmurs Abdomen: Bowel Sounds Present, Soft, Tender - Tenderness present over left > right lower quadrant Extremities: No edema, Capillary Refill Less than 3 Seconds Skin: No rashes, No breakdown Musculoskeletal: No Tenderness to Palpation of Joints or Extremities Neurological: Cranial nerves II-XII grossly intact Psych/Mental Status: Normal Affect, Appropriate Laboratory Results 11/19/17 14:00: WBC 9.0, RBC 5.23, Hgb 14.3, Hct 45.1, MCV 86.2, MCH 27.3, MCHC 31.7 L, RDW 14.4, RDW Differential 44.9 H, Plt Count 260, MPV 10.4, Immature Gran % (Auto) 0.200, Neut % (Auto) 63.2, Lymph % (Auto) 29.9, Winston % (Auto) 5.2 , Eos % (Auto) 1.3, Baso % (Auto) 0.2, Absolute Neuts (auto) 5.7, Absolute Lymphs (auto) 2.68, Total Counted Not Reportable 11/19/17 14:00: PT 12.5, INR 0.9 11/19/17 14:00: Total Bilirubin 0.40, Direct Bilirubin 0.08, AST 18, ALT 24, Alkaline Phosphatase 133 H, Total Protein 7.4, Albumin 3.4, Globulin 4.0 11/19/17 14:00: Lactic Acid 1.6 11/19/17 18:35: POC Glucose 103 11/20/17 08:46: WBC 7.9, RBC 4.39, Hgb 11.9 L, Hct 38.8, MCV 88.4, MCH 27.1, MCHC 30.7 L, RDW 14.6, RDW Differential 46.5 H, Plt Count 221, MPV 10.6, Immature Gran % (Auto) 0.100, Neut % (Auto) 50.3, Lymph % (Auto) 41.5 H, Winston % (Auto) 6.3, Eos % (Auto) 1.5, Baso % (Auto) 0.3, Absolute Neuts (auto) 4.0, Absolute Lymphs (auto) 3.28, Total Counted Not Reportable 11/20/17 08:46: Sodium 142, Potassium 3.9, Chloride 109 H, Carbon Dioxide 27.0, Anion Gap 6, BUN 10, Creatinine 0.86, Estim Creat Clear Calc 64.94, Est GFR ( MDRD) Af Amer 87, Est GFR (MDRD) Non-Af 72, BUN/Creatinine Ratio 11.6, Glucose 97, Calcium 8.1 L 11/20/17 12:31: POC Glucose 86 Current Medications Acetaminophen (Tylenol) 650 mg PO Q4H PRN PRN PRN Reason: pain/Fever Al Hydroxide/Mg Hydroxide (Mylanta Ii) 30 ml PO Q6H PRN PRN PRN Reason: Gastric burning Albuterol Sulfate (Ventolin Aerosols) 2.5 mg INHALATION Q6HWA.RT [facility] Last Admin: 11/20/17 07:30 Dose: Not Given Atenolol (Tenormin (Beta Catalina)) 50 mg PO QHS [facility] Last Admin: 11/19/17 21:12 Dose: 50 mg Atorvastatin Calcium (Lipitor) 20 mg PO QHS [facility] Last Admin: 11/19/17 21:12 Dose: 20 mg Enoxaparin Sodium (Lovenox) 40 mg SC DAILY@1000 [facility] Last Admin: 11/20/17 10:54 Dose: 40 mg Ciprofloxacin 400 mg/ N/A 200 mls @ 200 mls/hr IV Q12 [facility] Last Admin: 11/20/17 10:52 Dose: 200 mls/hr Metronidazole 500 mg/ N/A 100 mls @ 100 mls/hr IV Q8 [facility] Last Admin: 11/20/17 05:56 Dose: 100 mls/hr Sodium Chloride () 1,000 mls @ 50 mls/hr IV .Q20H [facility] Morphine Sulfate () 2 mg IV Q3H PRN PRN PRN Reason: SEVERE PAIN (6-06/15) Last Admin: 11/20/17 12:40 Dose: 2 mg Nutritional Formula (Lactose Free) (Ensure Clear) 120 ml PO 4X/DAY [facility] Last Admin: 11/20/17 10:54 Dose: 120 ml Ondansetron HCl (Zofran) 4 mg IV Q6H PRN PRN PRN Reason: NAUSEA Last Admin: 11/19/17 21:01 Dose: 4 mg Pantoprazole Sodium (Protonix) 20 mg PO QHS [facility] Last Admin: 11/19/17 21:12 Dose: 20 mg Promethazine HCl (Phenergan (Ll)) 12.5 mg IV Q6H PRN PRN PRN Reason: NAUSEA/VOMITING Last Admin: 11/20/17 06:02 Dose: 12.5 mg Sodium Chloride () 5 - 30 ml IV UD PRN PRN Reason: SALINE FLUSH Last Admin: 11/20/17 12:40 Dose: 10 ml Tolterodine Tartrate (Detrol La) 2 mg PO DAILY [facility] Last Admin: 11/20/17 12:19 Dose: 2 mg Zolpidem Tartrate (Ambien (Generic)) 5 mg PO QHS PRN PRN PRN Reason: INSOMNIA Last Admin: 11/19/17 21:01 Dose: 5 mg Medical Necessity - Tobacco Use Smoking Status: Never smoker Assessment/Plan Active and Suspected Problems (Last Reviewed 10/15/17 @ 11:55 by Giovanni Madden NP- C) Sigmoid diverticulitis (Acute) The patient is a 57 year old F with multiple comorbidities including diabetes mellitus type 2 and recurrent colonic diverticulitis about once in 1-2 years was sent for direct admit by Dr. Guo for sigmoid diverticulitis. Prior to that patient has left lower quadrant predominantly abdominal pain for 1 week along with nausea but no vomiting. Patient also has diarrhea. She denies GI bleeding including hematemesis, melena or hematochezia. She failed outpatient therapy with Avelox. She also had not responded to Augmentin in the past. Prior to that, she came to ER on 11/15/[address] abdomen which shows mild degree of sigmoid diverticulitis. No abscess or microperforation. She was discharged on prescription of Avelox. She took for 4 days but is still has abdominal pain and did not get better and therefore was sent for direct admit by PCP. 1. Acute uncomplicated sigmoid diverticulitis: The patient is being directly admitted on the floor on the observation status. Labs including CBC, CMP UA reviewed. No leukocytosis. LFTs within normal limits except mild elevated alkaline phosphatase, probably from the bowel origin. Lactic acid normal. Patient had recent CT abdomen on 15 November as mentioned above. Started on IV Cipro and Flagyl. Pain control with IV morphine as needed and Zofran for nausea. Start the patient on clear liquid diet and advanced to soft diet. Taper down the IV fluid gradually with regard to oral intake. 2. Diabetes mellitus type 2: On Accu-Chek in before meals and at bedtime and cover with NovoLog sliding scale. A1c tomorrow 3. Hypertension, dyslipidemia, asthma and chronic degenerative joint disease: Home medication reconciliation done. Only necessary medications are continued. Other chronic comorbidities include PTSD, anxiety and depression, stress urinary incontinence and insomnia: Stable. DVT prophylaxis: On Lovenox 40 mg subcu daily and bilateral SCDs. This note was generated with 1calendar dictation software. Every effort was made to ensure accuracy, however computerized wood carver mistakes may persist. Laboratory Results 11/19/17 14:00: WBC 9.0, RBC 5.23, Hgb 14.3, Hct 45.1, MCV 86.2, MCH 27.3, MCHC 31.7 L, RDW 14.4, RDW Differential 44.9 H, Plt Count 260, MPV 10.4, Immature Gran % (Auto) 0.200, Neut % (Auto) 63.2, Lymph % (Auto) 29.9, Winston % (Auto) 5.2 , Eos % (Auto) 1.3, Baso % (Auto) 0.2, Absolute Neuts (auto) 5.7, Absolute Lymphs (auto) 2.68, Total Counted Not Reportable 11/19/17 14:00: PT 12.5, INR 0.9 11/19/17 14:00: Total Bilirubin 0.40, Direct Bilirubin 0.08, AST 18, ALT 24, Alkaline Phosphatase 133 H, Total Protein 7.4, Albumin 3.4, Globulin 4.0 11/19/17 14:00: Lactic Acid 1.6 11/19/17 18:35: POC Glucose 103 11/20/17 08:46: WBC 7.9, RBC 4.39, Hgb 11.9 L, Hct 38.8, MCV 88.4, MCH 27.1, MCHC 30.7 L, RDW 14.6, RDW Differential 46.5 H, Plt Count 221, MPV 10.6, Immature Gran % (Auto) 0.100, Neut % (Auto) 50.3, Lymph % (Auto) 41.5 H, Winston % (Auto) 6.3, Eos % (Auto) 1.5, Baso % (Auto) 0.3, Absolute Neuts (auto) 4.0, Absolute Lymphs (auto) 3.28, Total Counted Not Reportable 11/20/17 08:46: Sodium 142, Potassium 3.9, Chloride 109 H, Carbon Dioxide 27.0, Anion Gap 6, BUN 10, Creatinine 0.86, Estim Creat Clear Calc 64.94, Est GFR ( MDRD) Af Amer 87, Est GFR (MDRD) Non-Af 72, BUN/Creatinine Ratio 11.6, Glucose 97, Calcium 8.1 L 11/20/17 12:31: POC Glucose 86 Code Visit OBSV E&M: 93680 Subsequent observation care L2
[2017-11-20] MEDS: Ondansetron 4 MG/2 ML Vial IV ×2 (14:16→23:22)
[2017-11-20 17:53] VITALS: BP 110/62; PULSE 58; RESP 18; TEMP 37.2; O2SAT 98
--- NOTE | 2017-11-20 18:04 | NURSING ---
HAS BEEN LAYING IN BED ALL DAY. THIS NURSE MADE PT GET OOB, AMBULATE TO BATHROOM, AMBULATE IN [place] AND NOW SITTING IN CHAIR. WILL MEDICATE FOR PAIN AND NAUSEA IN A SHORT WHILE.
[2017-11-20 18:15] LABS: Bedside Glucose 89 mg/dL (70-110)
[2017-11-20 18:35] LABS: Bacteria 0 SEEN /hpf (None Seen); Mucous, Urine 0 SEEN /hpf (<or=2+); Red Blood Cells-Urine 0 SEEN /hpf (0-5)
[2017-11-20 18:43] LABS: Color, Urine Yellow (Yellow); Glucose, Dipstick Normal (Normal); Ketone-Dipstick Negative (Negative); Leukocyte Esterase-Dipstick 25 /ul (Negative); Nitrite-Dipstick Negative (Negative); Occult Blood-Urine Negative /ul (Negative); Protein-Dipstick Negative (Negative); Urine Bilirubin Dipstick Negative (Negative); Urine Clarity Sl. Cloudy (Clear); Urine Urobilinogen Normal (Normal)
[2017-11-20 19:00] LABS: Amorphous Sediment 1+ URATE; Squamous Epithelial Cells - UA 0-5 SEEN /hpf (5-10); White Blood Cells 0-5 SEEN /hpf (0-5)
[2017-11-20 21:39] VITALS: BP 102/66; PULSE 62; RESP 16; TEMP 37.2; O2SAT 100
[2017-11-20] MEDS: Atorvastatin Calcium 20 MG Tablet PO (21:55)
[2017-11-20] MEDS: Pantoprazole Sodium 20 MG Tablet PO (21:55)
[2017-11-20] MEDS: Atenolol 50 MG Tablet PO (21:55)
[2017-11-20 23:21] LABS: Bedside Glucose 90 mg/dL (70-110)
[2017-11-20] MEDS: Zolpidem Tartrate 5 MG Tablet PO (23:57)
[2017-11-20] MEDS: Pramipexole Di-HCl 1 MG Tablet PO (23:58)
[2017-11-20] MEDS: Estradiol 0.5 MG Tablet PO (23:58)
[2017-11-21 03:19] VITALS: BP 101/60; PULSE 71; RESP 14; TEMP 37; O2SAT 98
[2017-11-21 06:26] LABS: Bedside Glucose 110 mg/dL (70-110)
[2017-11-21] MEDS: Ondansetron 4 MG/2 ML Vial IV ×2 (08:05→14:41)
[2017-11-21] MEDS: 0.9% NaCl Peripheral Flush Adult/Peds IV ×2 (08:06→14:41)
[2017-11-21 08:11] VITALS: BP 100/55; PULSE 64; RESP 16; TEMP 37.1; O2SAT 98
[2017-11-21] MEDS: Venlafaxine XR 37.5 MG Capsule PO (09:46)
[2017-11-21] MEDS: Enoxaparin 40 MG/0.4 ML Syringe SC (09:47)
[2017-11-21] MEDS: Tolterodine Tartrate 2 MG CAP.SA PO (09:47)
[2017-11-21] MEDS: Glucerna Shake 120 ML LIQUID PO ×2 (09:49→13:05)
--- NOTE | 2017-11-21 10:07 | PCM.DC ---
- Discharge Diagnoses Current Active Problems: Current Active and Chronic Problems (Last Reviewed 10/15/17 @ 11:55 by JORGE ALBERTO Kemp) Sigmoid diverticulitis (Acute) You will use the following diet at home:: Calorie/Carbohydrate Controlled (specify 1200, 1400, etc) - 1800 ADA, Cardiac Discharge Activity: Return to Normal Activity Allergies/Adverse Reactions: Allergies eluxadoline [From Viberzi] Allergy (Severe, Verified 11/15/17 12:00) Other diverticulitis NSAIDS (Non-Steroidal Anti-Inflamma Allergy (Intermediate, Verified 11/15/17 12:00) Other GI bleeds Sulfa (Sulfonamide Antibiotics) Allergy (Verified 11/15/17 12:00) Rash albuterol Adverse Reaction (Severe, Verified 11/15/17 12:00) other increase heart rate metformin Adverse Reaction (Severe, Verified 11/15/17 12:00) Other diarreah inderal Allergy (Intermediate, Uncoded 11/15/17 12:00) Other hallucinations most antidepressants Adverse Reaction (Severe, Uncoded 11/15/17 12:00) Other varies from rash, to hallucinations, to shakes. Medications to take at Discharge Lorazepam [Ativan] 2 mg PO TID PRN PRN 06/30/17 Omeprazole 20 mg PO QHS 06/30/17 atenolol 50 mg tablet 50 mg PO QHS #90 tab 09/17/17 atorvastatin 20 mg tablet 20 mg PO QHS 09/17/17 cholecalciferol (vitamin D3) 2,000 unit capsule 2,000 unit PO DAILY 09/17/17 estradiol 0.5 mg tablet 0.5 mg PO QHS #30 tab 09/17/17 levalbuterol HFA 45 mcg/actuation aerosol inhaler 2 inh INHALATION Q6H PRN 09/17/17 metro cream 1 applic TOPICAL DAILY PRN PRN 09/17/17 blood sugar diagnostic strips See Dose Instructions .ROUTE .MEDSUPPLY #50 ea 10/15/17 blood-glucose meter kit See Dose Instructions .ROUTE .MEDSUPPLY #1 ea 10/15/17 desvenlafaxine succinate ER 50 mg tablet,extended release 24 hr 50 mg PO Q24H 10/15/17 Hydrocodone Bitart/Apap 5-325 [[place] 5/325] 1 - 2 tablet PO Q4H PRN PRN 3 Days #12 tablet 11/15/17 ondansetron 4 mg disintegrating tablet 4 mg PO Q8H PRN PRN #20 tab 11/16/17 Desvenlafaxine Succinate [Pristiq] 50 mg PO DAILY 11/19/17 Lisinopril [Zestril] 2.5 mg PO QHS 11/19/17 Multivitamin [Daily Multiple Vitamin] 1 tab PO QHS 11/19/17 Solifenacin Succinate [Vesicare] 5 mg PO QDAY 11/19/17 Zolpidem Tartrate [Ambien] 5 mg PO QHS PRN PRN 11/19/17 Pramipexole Di-HCl [Mirapex] 1 mg PO QHS 11/20/17 Ciprofloxacin [Cipro] 500 mg PO BID #10 tab 11/21/17 Metronidazole [Flagyl] 500 mg PO TID #6 tab 11/21/17 The following prescriptions were given: Ciprofloxacin [Cipro] 500 mg PO BID #10 tab Metronidazole [Flagyl] 500 mg PO TID #6 tab Primary Care Physician: Roberto Guo MD [Primary Care Provider] - Please follow up with your Primary Care Physician in: IN 2 WEEKS
--- NOTE | 2017-11-21 10:09 | PCM.DC.SUM ---
Discharge Date and Diagnosis - Problem List Patient Problems: Active and Suspected Problems (Last Reviewed 10/15/17 @ 11:55 by JORGE ALBERTO Kemp) Sigmoid diverticulitis (Acute) Date of Admission: 11/19/17 Date of Discharge: 11/21/17 - Primary Discharge Diagnosis Active and Suspected Problems (Last Reviewed 10/15/17 @ 11:55 by JORGE ALBERTO Kemp) Acute uncomplicated sigmoid diverticulitis: - Secondary Discharge Diagnosis Chronic Problems (Last Reviewed 10/15/17 @ 11:55 by JORGE ALBERTO Kemp) Urinary, incontinence, stress female (Chronic) Chronic recurrent sinusitis (Chronic) Insomnia (Chronic) Vitamin D deficiency, unspecified (Chronic) Arthritis (Chronic) Asthma (Chronic) Diabetes mellitus type 2 in obese (Chronic) Diverticulosis (Chronic) PTSD (post-traumatic stress disorder) (Chronic) IBS (irritable bowel syndrome) (Chronic) Obesity (BMI 30-39.9) (Chronic) HTN (hypertension) (Chronic) HLD (hyperlipidemia) (Chronic) Anxiety and depression (Chronic) Hospital Course and Treatment Operations: None Summary of Care Provided: [] The patient is a 57 year old F with multiple comorbidities including diabetes mellitus type 2 and recurrent colonic diverticulitis about once in 1-2 years was sent for direct admit by Dr. Guo for sigmoid diverticulitis. Prior to that patient has left lower quadrant predominantly abdominal pain for 1 week along with nausea but no vomiting. Patient also has diarrhea. She denies GI bleeding including hematemesis, melena or hematochezia. She failed outpatient therapy with Avelox. She also had not responded to Augmentin in the past. Prior to that, she came to ER on 11/15/[address] abdomen which shows mild degree of sigmoid diverticulitis. No abscess or microperforation. She was discharged on prescription of Avelox. She took for 4 days but is still has abdominal pain and did not get better and therefore was sent for direct admit by PCP. She was seen and examined today. Left lower abdominal pain still there but improved General: Alert, Oriented x3, Cooperative HEENT: Atraumatic, PERRLA, EOMI, Normocephalic Neck: Supple, No JVD, Negative Carotid Bruits Lungs: Clear to auscultation, Normal air movement, No rhonchi, No wheeze, No rales Cardiovascular: Regular rate, Regular Rhythm, Normal S1, Normal S2, No murmurs Abdomen: Bowel Sounds Present, Soft, mild tenderness present over left lower quadrant Extremities: No edema, Capillary Refill Less than 3 Seconds Skin: No rashes, No breakdown Musculoskeletal: No Tenderness to Palpation of Joints or Extremities Neurological: Cranial nerves II-XII grossly intact Psych/Mental Status: Normal Affect, Appropriate 1. Acute uncomplicated sigmoid diverticulitis: The patient is being directly admitted on the floor on the observation status. Labs including CBC, CMP UA reviewed. No leukocytosis. LFTs within normal limits except mild elevated alkaline phosphatase, probably from the bowel origin. Lactic acid normal. Patient had recent CT abdomen on 15 November as mentioned above. Started on IV Cipro and Flagyl. Pain control with IV morphine as needed and Zofran for nausea. Start the patient on clear liquid diet and advanced to soft diet. Patient tolerated soft diet. Patient Had about 3 days of IV antibiotics. Discharged on 5 more days of oral Cipro and Flagyl for 1 more day, patient can tolerate oral Flagyl. Prescription was given. 2. Diabetes mellitus type 2: On Accu-Chek in before meals and at bedtime and cover with NovoLog sliding scale. Blood sugars controlled. 3. Hypertension, dyslipidemia, asthma and chronic degenerative joint disease: Other chronic comorbidities include PTSD, anxiety and depression, stress urinary incontinence and insomnia: Stable. DVT prophylaxis: On Lovenox 40 mg subcu daily and bilateral SCDs. Discharge medication reconciliation done. Follow-up instructions completed. Follow with PCP in 2 days. Prescription sent to the pharmacy. This note was generated with Pop.it dictation software. Every effort was made to ensure accuracy, however computerized behavioral health aide mistakes may persist. Discharge Activity: Return to Normal Activity Home Medications: Medications to take at Discharge Lorazepam [Ativan] 2 mg PO TID PRN PRN 06/30/17 Omeprazole 20 mg PO QHS 06/30/17 atenolol 50 mg tablet 50 mg PO QHS #90 tab 09/17/17 atorvastatin 20 mg tablet 20 mg PO QHS 09/17/17 cholecalciferol (vitamin D3) 2,000 unit capsule 2,000 unit PO DAILY 09/17/17 estradiol 0.5 mg tablet 0.5 mg PO QHS #30 tab 09/17/17 levalbuterol HFA 45 mcg/actuation aerosol inhaler 2 inh INHALATION Q6H PRN 09/17/17 metro cream 1 applic TOPICAL DAILY PRN PRN 09/17/17 blood sugar diagnostic strips See Dose Instructions .ROUTE .MEDSUPPLY #50 ea 10/15/17 blood-glucose meter kit See Dose Instructions .ROUTE .MEDSUPPLY #1 ea 10/15/17 desvenlafaxine succinate ER 50 mg tablet,extended release 24 hr 50 mg PO Q24H 10/15/17 Hydrocodone Bitart/Apap 5-325 [[place] 5/325] 1 - 2 tablet PO Q4H PRN PRN 3 Days #12 tablet 11/15/17 ondansetron 4 mg disintegrating tablet 4 mg PO Q8H PRN PRN #20 tab 11/16/17 Desvenlafaxine Succinate [Pristiq] 50 mg PO DAILY 11/19/17 Lisinopril [Zestril] 2.5 mg PO QHS 11/19/17 Multivitamin [Daily Multiple Vitamin] 1 tab PO QHS 11/19/17 Solifenacin Succinate [Vesicare] 5 mg PO QDAY 11/19/17 Zolpidem Tartrate [Ambien] 5 mg PO QHS PRN PRN 11/19/17 Pramipexole Di-HCl [Mirapex] 1 mg PO QHS 11/20/17 Ciprofloxacin [Cipro] 500 mg PO BID #10 tab 11/21/17 Metronidazole [Flagyl] 500 mg PO TID #6 tab 11/21/17 Following Prescrptions Were Given to Patient: Ciprofloxacin [Cipro] 500 mg PO BID #10 tab Metronidazole [Flagyl] 500 mg PO TID #6 tab Primary Care Physician: Roberto Guo MD [Primary Care Provider] - Please follow up with your Primary Care Physician in: IN 2 WEEKS Medical Necessity - Tobacco Use Smoking Status: Never smoker Meaningful Use Info Meaningful Use Diagnoses (Choose all that apply): None applicable Code Visit OBSV E&M: 54953 Observation care discharge
[2017-11-21 12:26] LABS: Bedside Glucose 110 mg/dL (70-110)
[2017-11-21 14:38] VITALS: BP 109/52; PULSE 62; RESP 16; TEMP 37.1; O2SAT 96
--- NOTE | 2017-11-21 17:06 | NURSING ---
Pt is awake. This nurse going over discharge instructions, pt stated I can't take Cipro and Flagyl po they make me sick to my stomach and throw up. I need them both for 3 days total and I need them IV or I will be right by here. Pt talked with Dr. Camacho this morning about this and seemed to understand. Pt states she does not remember the conversation. Dr. Camacho paged, aware and coming to talk to pt.
== END 2017-11-21 17:57 | disposition home or self-care (01) ==
PROVIDERS: Admitting Provider Internal Medicine; Family Provider Internal Medicine; PCP Internal Medicine; Visit Provider Internal Medicine
DX: K57.32 Diverticulitis of large intestine without perforation or abscess without bleeding (principal); J45.909 Unspecified asthma, uncomplicated; F41.9 Anxiety disorder, unspecified; F32.9 Major depressive disorder, single episode, unspecified; E78.5 Hyperlipidemia, unspecified; I10 Essential (primary) hypertension; E66.9 Obesity, unspecified; Z71.3 Dietary counseling and surveillance; Z68.35 Body mass index [BMI] 35.0-35.9, adult; K58.9 Irritable bowel syndrome, unspecified; F43.12 Post-traumatic stress disorder, chronic; E11.9 Type 2 diabetes mellitus without complications; M19.90 Unspecified osteoarthritis, unspecified site; N39.3 Stress incontinence (female) (male); Z79.899 Other long term (current) drug therapy; E55.9 Vitamin D deficiency, unspecified
CPT/HCPCS: 36415; 80048; 80076; 81001; 82962; 83605; 85025; 85610; 87040; 96361; 96365; 96366; 96367; 96372; 96375; 96376; 97802; 99218; J7030; A4216; G0378; J0744; J2405

== ENCOUNTER → 2017-12-09 15:38 | Outpatient (CLI) | payer MEDICAID, SELFPAY ==
[2017-12-09 18:03] LABS: Absolute Lymphocyte Count 2.65 X10^3/ul (0.83-4.51); Absolute Neutrophil Count 5.5 X10^3/uL (2.0-7.7); Basophil# 0.03 X10^3/uL; Basophil% 0.3 % (0-1); Eosinophil# 0.13 X10^3/uL; Eosinophils% 1.5 % (0-5); Hematocrit 43.5 % (37-47); Hemoglobin 14.3 g/dl (12.0-15.0); Lymphocyte # 2.65 X10^3/ul (4.0); Lymphocyte % 30.5 % (19-41); Mean Corp Hgb Conc 32.9 g/gl (32-36); Mean Corpuscular Hgb 27.8 pg (27.0-32.0); Mean Corpuscular Volume 84.5 fL (81-99); Mean Platelet Vol. 11.9 fl (6.2-12.0); Monocyte# 0.41 X10^3/uL; Monocyte% 4.7 % (0-10); Neutrophil # 5.46 X10^3/uL (2.7-7.7); Neutrophil % 62.9 % (47-70); Platelet Count 274 K/mm3 (150-450); RBC Distribution Width CV 13.9 % (11.6-14.6); RBC Distribution Width SD 42.5 fl (35.1-43.9); Red Blood Count 5.15 M/mm3 (4.2-5.4); White Blood Count 8.7 K/mm3 (4.4-11.0)
[2017-12-09 18:09] LABS: ALB/GLOB Ratio 0.9 RATIO (0.9-2.4); AST(SGOT) 18 U/L (15-37); Alanine Aminotransfer ALT/SGPT 22 U/L (13-56); Albumin, Serum 3.4 g/dL (3.2-5.0); Alkaline Phosphatase 134 U/L (45-117); Anion Gap 7 (5-15); BUN 13 mg/dL (7-18); BUN/Creat Ratio 14.8 RATIO (10-20); Calcium,Total 8.4 mg/dL (8.5-10.1); Chloride 104 mmol/L (98-107); Creatinine, Serum 0.88 mg/dL (0.55-1.02); EST Glomerular Filtration Rate 70 mL/min (>60); Est Glom Filt Rate - Afr Amer 85 mL/min (>60); Globulin 3.8 g/dL (2.2-4.2); Glucose 117 mg/dL (74-106); Potassium 4.1 mmol/L (3.5-5.1); Protein, Total 7.2 g/dL (6.4-8.2); Sodium Level 138 mmol/L (136-145)
[2017-12-09 18:17] LABS: POSITIVE COUNT NO; POSITIVE DIFFERENTIAL NO; POSITIVE MORPHOLOGY NO
== END ==
PROVIDERS: Family Provider Internal Medicine; PCP Internal Medicine; Visit Provider Internal Medicine
DX: K57.92 Diverticulitis of intestine, part unspecified, without perforation or abscess without bleeding (principal)
CPT/HCPCS: 36415; 80053; 85025

== ENCOUNTER 2018-04-28 08:30 | Outpatient (RCR) | payer MEDICAID, SELFPAY | END 2018-05-06 23:59 | LOC: NS 08:30 | PROVIDERS: Family Provider Internal Medicine; PCP Internal Medicine; Visit Provider Orthopaedic Surgery | DX: E66.9 Obesity, unspecified (principal); Z68.36 Body mass index [BMI] 36.0-36.9, adult; Z71.3 Dietary counseling and surveillance ==

== ENCOUNTER → 2018-05-04 10:52 | Outpatient (CLI) | payer MEDICAID, SELFPAY ==
[2018-05-04 12:25] LABS: Anion Gap 8 (5-15); BUN 10 mg/dL (7-18); BUN/Creat Ratio 10.2 RATIO (10-20); Calcium,Total 9.2 mg/dL (8.5-10.1); Chloride 104 mmol/L (98-107); Creatinine, Serum 0.98 mg/dL (0.55-1.02); EST Glomerular Filtration Rate 62 mL/min (>60); Est Glom Filt Rate - Afr Amer 75 mL/min (>60); Glucose 119 mg/dL (74-106); Potassium 4.7 mmol/L (3.5-5.1); Sodium Level 139 mmol/L (136-145)
[2018-05-04 12:34] LABS: Hemoglobin A1c 6.3 % (4.2-6.3)
[2018-05-04 12:39] LABS: Vitamin D,25 Hydroxy 26.3 ng/mL (29.95-100.01)
== END ==
PROVIDERS: Family Provider Internal Medicine; PCP Internal Medicine; Visit Provider Internal Medicine
DX: K90.9 Intestinal malabsorption, unspecified (principal); E83.51 Hypocalcemia; E11.69 Type 2 diabetes mellitus with other specified complication; E66.9 Obesity, unspecified; E55.9 Vitamin D deficiency, unspecified
CPT/HCPCS: 36415; 80048; 82306; 83036

== ENCOUNTER 2018-05-25 10:30 | Outpatient (RCR) | payer MEDICAID, SELFPAY | END 2018-06-05 23:59 | LOC: NS 10:30 | PROVIDERS: Family Provider Internal Medicine; PCP Internal Medicine; Visit Provider Orthopaedic Surgery | DX: E66.9 Obesity, unspecified (principal); Z68.36 Body mass index [BMI] 36.0-36.9, adult; Z71.3 Dietary counseling and surveillance ==

== ENCOUNTER 2018-06-09 08:39 | Outpatient (RCR) | payer MEDICAID, SELFPAY | END 2018-07-06 23:59 | LOC: NS 08:39 | PROVIDERS: Family Provider Internal Medicine; PCP Internal Medicine; Referring Provider Orthopaedic Surgery; Visit Provider Orthopaedic Surgery | DX: E66.9 Obesity, unspecified (principal); Z68.36 Body mass index [BMI] 36.0-36.9, adult; Z71.3 Dietary counseling and surveillance ==

== ENCOUNTER 2018-08-21 01:02 | Observation (INO) | payer SELFPAY ==
[2018-08-21] VITALS (13 sets, daily range): BP systolic 117–138; BP diastolic 67–84; PULSE 64–95; RESP 14–28; TEMP 36.7–37.1; O2SAT 93–97; BMI 35.6; BMI 36.8; BMI 36.1; BMI 36.2
--- NOTE | 2018-08-21 01:21 | RAD_ITS ---
HISTORY: ASTHMA ATTACK HAD ONE ON WEDNESDAY BUT ONSET SEVERE TONIGHTHX OF PNEUMONIA EXAM: XR Chest 1 View: Portable COMPARISON: 12/21/2013 FINDINGS: EKG leads in place. Normal heart size. No vascular congestion, pleural effusion, or acute pulmonary infiltration. No pneumothorax. RAD/Chest 1 View (Portable) IMPRESSION: No acute cardiopulmonary disease. No significant interval change. at [id number] Reported and signed by: Brian Flaherty MD Electronically Signed: Brian Flaherty, at 2:35 EST Tel , Service support ,
[2018-08-21] MEDS: Ipratropium 0.5 MG/2.5 ML SOLUTION INHALATION ×6 (01:34→19:33)
[2018-08-21] MEDS: MethylPREDNISolone 125 MG/2 ML Vial IV (01:41)
[2018-08-21 01:50] LABS: Absolute Neutrophil Count 4.8 X10^3/uL (2.0-7.7); Basophil# 0.05 X10^3/uL; Basophil% 0.5 % (0-1); Eosinophil# 0.34 X10^3/uL; Eosinophils% 3.5 % (0-5); Hematocrit 38.7 % (37-47); Hemoglobin 12.6 g/dl (12.0-15.0); Lymphocyte % 41.3 % (19-41); Mean Corp Hgb Conc 32.6 g/gl (32-36); Mean Corpuscular Hgb 27.3 pg (27.0-32.0); Mean Corpuscular Volume 83.8 fL (81-99); Mean Platelet Vol. 11.2 fl (6.2-12.0); Monocyte# 0.44 X10^3/uL; Monocyte% 4.5 % (0-10); Neutrophil # 4.83 X10^3/uL (2.7-7.7); Neutrophil % 49.9 % (47-70); Platelet Count 286 K/mm3 (150-450); RBC Distribution Width CV 14.3 % (11.6-14.6); RBC Distribution Width SD 43.2 fl (35.1-43.9); Red Blood Count 4.62 M/mm3 (4.2-5.4); White Blood Count 9.7 K/mm3 (4.4-11.0)
[2018-08-21 01:52] LABS: POSITIVE COUNT NO; POSITIVE DIFFERENTIAL NO; POSITIVE MORPHOLOGY NO
[2018-08-21 01:59] LABS: Anion Gap 9 (5-15); BUN 12 mg/dL (7-18); BUN/Creat Ratio 14.3 RATIO (10-20); Calcium,Total 8.5 mg/dL (8.5-10.1); Chloride 106 mmol/L (98-107); Creatinine, Serum 0.84 mg/dL (0.55-1.02); EST Glomerular Filtration Rate 74 mL/min (>60); Est Glom Filt Rate - Afr Amer 89 mL/min (>60); Estimated Creatinine Clearance 65.69 ml/min; Glucose 116 mg/dL (74-106); Potassium 4.3 mmol/L (3.5-5.1); Sodium Level 140 mmol/L (136-145)
--- NOTE | 2018-08-21 03:06 | ED.DCSUM_ITS ---
- ER Visit Summary Date of Service: 08/21/18 Chief Complaint: Asthma History of Present Illness: The patient is a 58 F who presents with asthma and difficulty breathing. It initially began about 1 week ago. She transiently improved but has been worsening over the last couple of days and particularly tonight. She is severely short of breath. She reports productive cough. No fevers congestion rhinorrhea. No sore throat. No vomiting or diarrhea. Physical Examination: Afebrile respiratory rate 28 pulse ox 97% Moist mucous membranes Heart regular rate and rhythm Patient is tachypneic with retractions speaking short sentences with severe inspiratory and expiratory wheezing Abdomen soft Alert Test Results: CBC BMP unremarkable and chest x-ray shows no acute disease. Emergency Department Course and Treatment: Patient has an albuterol intolerance. We do not have xopenex available. He was treated with Atrovent aerosols and given IV Solu-Medrol. On reevaluation she has shown improvement but remains tachypneic with increased work of breathing and inspiratory and expiratory wheezing. I do not believe she can be discharged at this point. She will be discussed with the hospitalist and admitted for further management. Treatment Plan: [] Disposition: Admit Impression: Acute asthma exacerbation This note was generated with ZeeWhere dictation software. It may contain incorrect words, spelling, and punctuation that were not noted in review of the chart prior to signing ED Disposition - Plan for ED Patient: Chief Complaint: Asthma Referrals: Roberto Guo MD [Primary Care Provider] -
--- NOTE | 2018-08-21 03:38 | PCM.HP.STD ---
Problem List (1) Asthma exacerbation Status: Acute (2) Arthritis Status: Chronic (3) HTN (hypertension) Status: Chronic Qualifiers: History of Present Illness Date of Admission: 08/21/18 Chief Complaint: Asthma exacerbation The patient is a 58 year old female w/ h/o asthma, DMII and HTN is admitted for asthma exacerbation. She has SOB that started on Wednesday. Her SOB improved by Wednesday. For the next several days, she has intermittent SOB. The frequency and duration of SOB have gotten much longer. Her SOB was worse last night. She has a productive cough with her SOB. Nothing improved or worsened her SOB. She usually uses xopenex to help but it has not help. No fever. Past Medical History Past Medical History (Chronic Problems): Chronic Problems (Last Reviewed 06/14/18 @ 14:42 by Vaishnavi Burr) Malabsorption (Chronic) Low libido (Chronic) Hiatal hernia with GERD (Chronic) Urinary, incontinence, stress female (Chronic) Chronic recurrent sinusitis (Chronic) Insomnia (Chronic) Vitamin D deficiency, unspecified (Chronic) Arthritis (Chronic) Asthma (Chronic) Diabetes mellitus type 2 in obese (Chronic) Diverticulosis (Chronic) PTSD (post-traumatic stress disorder) (Chronic) IBS (irritable bowel syndrome) (Chronic) Obesity (BMI 30-39.9) (Chronic) HTN (hypertension) (Chronic) HLD (hyperlipidemia) (Chronic) Anxiety and depression (Chronic) Medical History: Medical History (Last Reviewed 08/21/18 @ 03:49 by Alejandro Holcomb MD) Insomnia (Chronic) G47.00 Vitamin D deficiency, unspecified (Chronic) E55.9 Arthritis (Chronic) M19.90 Asthma (Chronic) J45.909 History of hysterectomy Z98.890, Z90.710 History of hysterectomy Z90.710 Allergies eluxadoline [From Viberzi] Allergy (Severe, Verified 08/21/18 01:03) Other diverticulitis NSAIDS (Non-Steroidal Anti-Inflamma Allergy (Intermediate, Verified 08/21/18 01:03) Other GI bleeds Sulfa (Sulfonamide Antibiotics) Allergy (Verified 08/21/18 01:03) Rash albuterol Adverse Reaction (Severe, Verified 08/21/18 01:03) other increase heart rate metformin Adverse Reaction (Severe, Verified 08/21/18 01:03) Other diarreah inderal Allergy (Intermediate, Uncoded 08/21/18 01:03) Other hallucinations most antidepressants Adverse Reaction (Severe, Uncoded 08/21/18 01:03) Other varies from rash, to hallucinations, to shakes. Home Medications: Ambulatory Orders Medication Instructions Recorded Lorazepam [Ativan] 2 mg PO TID PRN PRN 06/30/17 atenolol 50 mg tablet 50 mg PO QHS #90 tab 09/17/17 atorvastatin 20 mg tablet 20 mg PO QHS 09/17/17 metro cream 1 applic TOPICAL DAILY PRN PRN 09/17/17 blood sugar diagnostic strips See Dose Instructions .ROUTE 10/15/17 .MEDSUPPLY #50 ea Multivitamin [Daily Multiple 1 tab PO QHS 11/19/17 Vitamin] Zolpidem Tartrate [Ambien] 5 mg PO QHS PRN PRN 11/19/17 omeprazole 20 mg capsule,delayed 40 mg PO QHS #90 cap 12/08/17 release duloxetine 60 mg capsule,delayed 120 mg PO QDAY #180 cap 01/10/18 release pramipexole 1 mg tablet 1 mg PO QHS #90 tab 01/10/18 solifenacin 5 mg tablet 5 mg PO QDAY #90 tab 01/26/18 cholecalciferol (vitamin D3) 5,000 5,000 unit PO DAILY #90 cap 05/05/18 unit capsule gabapentin 100 mg capsule 100 mg PO DAILY 05/05/18 exenatide ER 2 mg/0.85 mL 2 mg SC Q7D #3.4 ml 05/06/18 subcutaneous auto-injector estradiol 0.5 mg tablet See Rx Instructions PO DAILY #30 06/01/18 tab prednisone 20 mg tablet 40 mg PO QDAY #10 tab 06/14/18 cyclobenzaprine 10 mg tablet 5 - 10 mg PO TID PRN #30 tab 06/21/18 tramadol 50 mg tablet 50 mg PO Q12H PRN #14 tab 06/21/18 levalbuterol HFA 45 mcg/actuation 2 inh INHALATION Q6H PRN #15 g 08/03/18 aerosol inhaler Surgical History: Surgical History (Last Reviewed 08/21/18 @ 03:49 by Alejandro Holcomb MD) H/O left knee surgery Z98.890 H/O right knee surgery Z98.890 History of carpal tunnel release Z98.890 left hand nerve reconstruction Carpal tunnel syndrome, left G56.02 S/P left knee arthroscopy Z98.890 left arm ulnar nerve transposition left nerve reacttachment Surgical History: - - Hysterectomy, L knee surgery for torn meniscus, L ulnar nerve surgery/carpal tunnel release. 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 Lives: Spouse/ Significant Other Smoking Status: Never smoker Tobacco Use: Non-smoker Alcohol: None - *Family History Maternal Family History: Family History (Last Reviewed 08/21/18 @ 03:49 by Alejandro Holcomb MD) Mother Arthritis Dementia Cancer Depression Father CHF (congestive heart failure) Dementia Bowel disease Sister Breast cancer Sister Cancer History Items: No pertinent history Paternal Family History: Family History (Last Reviewed 08/21/18 @ 03:49 by Alejandro Holcomb MD) Mother Arthritis Dementia Cancer Depression Father CHF (congestive heart failure) Dementia Bowel disease Sister Breast cancer Sister Cancer History Items: Heart Disease Review of Systems Constitutional: Denies: Chills, Fever, Weight Change HEENT: Denies: Head Aches, Sinus Congestion, Sinus Drainage Cardiovascular: Denies: Chest Pain, Palpitations Respiratory: Reports: Cough, Shortness of breath at rest, Sputum production, Wheezing Gastrointestinal: Denies: Abdominal Pain, Nausea, Vomiting Genitourinary: Denies: Dysuria Musculoskeletal: Denies: Joint Pain, Joint Tenderness Skin: Denies: Rash, Wounds Neurological: Denies: Numbness, Tingling, Focal weakness Psychiatric: Denies: Anxiety, Depression, Homicidal Ideations, Suicidal Ideations Hematologic/ Lymphatic: Denies: Easy Bruising, Easy Bleeding VTE Information - Inpt Only VTE Present on Admission: No VTE Mechan Device Prophylaxis: SCD's VTE Pharm Prophylaxis ordered?: Yes Patient Problems: Active and Suspected Problems (Last Reviewed 06/14/18 @ 14:42 by Vaishnavi Burr) Asthma exacerbation (Acute) - Physical Exam General: Alert, Oriented x3, Cooperative HEENT: Atraumatic, PERRLA, EOMI, Normocephalic Neck: Supple, No JVD, Negative Carotid Bruits Lungs: Diminished, Tachypneic, Wheezes Cardiovascular: Regular rate, No murmurs Abdomen: Bowel Sounds Present, Soft, Non Tender Extremities: No edema, Capillary Refill Less than 3 Seconds Skin: No rashes, No breakdown Musculoskeletal: No Tenderness to Palpation of Joints or Extremities Neurological: Cranial nerves II-XII grossly intact Psych/Mental Status: Normal Affect, Appropriate Vital Signs Temp Pulse Resp BP Pulse Ox 98.1 F 69 16 138/84 H 93 08/21/18 01:03 08/21/18 02:45 08/21/18 02:45 08/21/18 01:03 08/21/18 02:31 Oxygen Flow Rate (L/min) 2 Oxygen Delivery Method Nasal Cannula Weight: 100.5 kg Body Mass Index (BMI) 36.8 Laboratory Tests Past 24 Hrs 08/21/18 08/21/18 01:40 01:40 WBC 9.7 RBC 4.62 Hgb 12.6 Hct 38.7 MCV 83.8 MCH 27.3 MCHC 32.6 RDW 14.3 RDW Differential 43.2 Plt Count 286 MPV 11.2 Immature Gran % (Auto) 0.300 Neut % (Auto) 49.9 Lymph % (Auto) 41.3 H [place] % (Auto) 4.5 Eos % (Auto) 3.5 Baso % (Auto) 0.5 Absolute Neuts (auto) 4.8 Absolute Lymphs (auto) 4.00 Total Counted Not Reportable Sodium 140 Potassium 4.3 Chloride 106 Carbon Dioxide 25.0 Anion Gap 9 BUN 12 Creatinine 0.84 Estim Creat Clear Calc 65.69 Est GFR (MDRD) Af Amer 89 Est GFR (MDRD) Non-Af 74 BUN/Creatinine Ratio 14.3 Glucose 116 H Calcium 8.5 Assessment/Plan All Active Problems (Last Reviewed 06/14/18 @ 14:42 by Vaishnavi Burr) Sigmoid diverticulitis (Acute) Asthma exacerbation (Acute) 58 year old female w/ h/o asthma, DMII and HTN is admitted for asthma exacerbation. 1) Asthma exacerbation: Will start bronchodilators and steroid. Will also start ceftriaxone and azithromycin until cultures given that her previous episode of severe exacerbation was from CAP. She also had subjective chill. Allergy reaction to albuterol noted. Cultures pending. Supportive care. 2) HTN: Will resume home meds. Monitor. 3) Lipidemia: Resume home meds. Monitor. 4) Prophylaxis: SCD / lovenox.
[2018-08-21] MEDS: 0.9% Normal Saline 1,000 ML 100 ML IV ×2 (05:28→18:29)
[2018-08-21 06:42] LABS: Absolute Lymphocyte Count 1.27 X10^3/ul (0.83-4.51); Absolute Neutrophil Count 9.6 X10^3/uL (2.0-7.7); Basophil# 0.02 X10^3/uL; Basophil% 0.2 % (0-1); Eosinophil# 0.07 X10^3/uL; Eosinophils% 0.6 % (0-5); Hematocrit 39.5 % (37-47); Hemoglobin 12.6 g/dl (12.0-15.0); Lymphocyte # 1.27 X10^3/ul (4.0); Lymphocyte % 11.5 % (19-41); Mean Corp Hgb Conc 31.9 g/gl (32-36); Mean Corpuscular Hgb 26.9 pg (27.0-32.0); Mean Corpuscular Volume 84.4 fL (81-99); Mean Platelet Vol. 11.1 fl (6.2-12.0); Monocyte# 0.07 X10^3/uL; Monocyte% 0.6 % (0-10); Neutrophil # 9.55 X10^3/uL (2.7-7.7); Neutrophil % 86.8 % (47-70); Platelet Count 243 K/mm3 (150-450); RBC Distribution Width CV 14.2 % (11.6-14.6); Red Blood Count 4.68 M/mm3 (4.2-5.4)
--- NOTE | 2018-08-21 06:48 | CT_ITS ---
STUDY: CTA CHEST REASON FOR EXAM: Female, 58 years old. Elevated d-dimer RADIATION DOSAGE (If Supplied By Facility): CTDIvol = ( 19.75 ) mGy, DLP = ( 659.44 ) mGycm TECHNIQUE: The examination was performed with the intravenous administration of 100ML ml of Isovue 370 contrast material. Post-processing of the angiographic images was performed, with multiplanar reformation and 3D reconstruction. Individualized dose optimization techniques were used for this CT. COMPARISON: None. FINDINGS: Normal enhancement of the main pulmonary artery and right and left pulmonary arteries. Normal enhancement of the bilateral peripheral pulmonary arteries. There is no demonstrated pulmonary embolism. Normal thoracic aorta and visualized great vessels. There is no demonstrated aortic dissection. Normal heart and pericardium. Normal mediastinum. Normal hilar regions. Normal visualized trachea and bronchi. The lungs are well expanded. Normal pulmonary parenchyma. Normal pleura. Normal chest wall structures. Mild spondylosis of the thoracic spine. The adrenal glands are not focally enlarged. CT/CTA Chest W/WO Contrast IMPRESSION: 1. No central or segmental pulmonary embolism. 2. No thoracic aortic aneurysm. Electronically Signed: Asher Acevedo MD at 8:29 EST , Service support ,
[2018-08-21 06:50] LABS: POSITIVE COUNT NO; POSITIVE DIFFERENTIAL NO; POSITIVE MORPHOLOGY NO
[2018-08-21 06:55] LABS: ALB/GLOB Ratio 0.8 RATIO (0.9-2.4); AST(SGOT) 24 U/L (15-37); Alanine Aminotransfer ALT/SGPT 26 U/L (13-56); Albumin, Serum 3.1 g/dL (3.2-5.0); Alkaline Phosphatase 132 U/L (45-117); Anion Gap 11 (5-15); BUN 12 mg/dL (7-18); BUN/Creat Ratio 12.8 RATIO (10-20); Calcium,Total 8.7 mg/dL (8.5-10.1); Chloride 105 mmol/L (98-107); Creatinine, Serum 0.94 mg/dL (0.55-1.02); EST Glomerular Filtration Rate 65 mL/min (>60); Est Glom Filt Rate - Afr Amer 79 mL/min (>60); Globulin 3.8 g/dL (2.2-4.2); Glucose 166 mg/dL (74-106); Potassium 4.1 mmol/L (3.5-5.1); Protein, Total 6.9 g/dL (6.4-8.2); Sodium Level 140 mmol/L (136-145)
[2018-08-21 07:46] LABS: BNP,B-Type NATRIURETIC PEPTIDE 33.3 pg/mL (0-100)
[2018-08-21] MEDS: Ceftriaxone 1 GM/50 ML BAG IV (08:16)
[2018-08-21] MEDS: Enoxaparin 40 MG/0.4 ML Syringe SC (08:24)
--- NOTE | 2018-08-21 08:36 | NURSING ---
Aware of Vital Signs that were taken by Ramon Mckeon around 0627 this morning.
--- NOTE | 2018-08-21 11:14 | PCM.PROGNOTE ---
Patient Problems: Active and Suspected Problems (Last Reviewed 08/21/18 @ 03:49 by Alejandro Holcomb MD) Asthma exacerbation (Acute) Subjective: Ms. Daugherty is a 58YOF with a past medical history of hypertension and asthma who presented to the emergency department at [facility] on 08/21/2018 complaining of increasing shortness of breath since Wednesday. She has been using her Xopenex inhaler more frequently this past week. She has a productive cough but has been unable to give a sputum sample. She was afebrile in the emergency department. White blood cell count was 9.7 with 41.3% lymphocytes. BMP was unremarkable. Chest x-ray showed no infiltrates, pleural effusions or pulmonary vascular congestion. D-dimer was increased at 0.6 and a CTA of the chest was done and showed no pulmonary embolus or infiltrates. She was admitted to the hospital with acute exacerbation of asthma and started on ceftriaxone, azithromycin and high-dose intravenous steroids. Afebrile since admission. Vital signs stable. 95% on room air today. All lab was personally reviewed. The white blood cell count is increased at 11,000 today with 87% neutrophils however this is likely secondary to steroids. BMP is unremarkable. FBS is 166 and this is probably due to steroids as well. She is feeling a little better today. Has not seen a [facility] since the s......only on Xopenex at home she has chest pain with coughing Objective: PHYSICAL EXAM: GENERAL: alert, oriented X 3, Cooperative, NAD ORAL: moist mucosa, no mucosal lesions NECK: No JVD, supple, trachea midline LUNGS: CTA, symmetric chest expansion, no conversational dyspnea, no accessory muscle use, breath sounds are diminished on the left side compared to the right and she has pain on the left side when she takes a deep breath. HEART: RRR, Normal S1 and S2, no rub, no gallop ABDOMEN: soft, NT, ND, BS present, no guarding with palpation, obese EXTREMITIES: no edema, no cyanosis, no calf tenderness SKIN: No rashes, no breakdown NEUROLOGIC: no focal neurologic deficits PSYCH: appropriate, normal affect, pleasant - Physical Exam Vital Signs Temp Pulse Resp BP Pulse Ox 98.3 F 87 16 124/74 H 95 08/21/18 06:27 08/21/18 07:34 08/21/18 07:34 08/21/18 06:27 08/21/18 07:34 Oxygen Flow Rate (L/min) 2 Oxygen Delivery Method Room Air Weight: 217 lb 6.012 oz Body Mass Index (BMI) 36.1 Intake and Output for Last 24 Hours 08/19/18 08/20/18 08/21/18 23:59 23:59 23:59 Intake Total 178 / 178 Balance 178 / 178 Microbiology Past 72 Hours 08/21/18 05:19 Influenza Types A,B Direct FA ([place]) - Final Mucosa - Nasopharyngeal Laboratory Tests Past 24 Hrs 08/21/18 08/21/18 08/21/18 01:40 01:40 05:50 WBC 9.7 RBC 4.62 Hgb 12.6 Hct 38.7 MCV 83.8 MCH 27.3 MCHC 32.6 RDW 14.3 RDW Differential 43.2 Plt Count 286 MPV 11.2 Immature Gran % (Auto) 0.300 Neut % (Auto) 49.9 Lymph % (Auto) 41.3 H [place] % (Auto) 4.5 Eos % (Auto) 3.5 Baso % (Auto) 0.5 Absolute Neuts (auto) 4.8 Absolute Lymphs (auto) 4.00 Total Counted Not Reportable D-Dimer Quant (PE/DVT) Sodium 140 Potassium 4.3 Chloride 106 Carbon Dioxide 25.0 Anion Gap 9 BUN 12 Creatinine 0.84 Estim Creat Clear Calc 65.69 Est GFR (MDRD) Af Amer 89 Est GFR (MDRD) Non-Af 74 BUN/Creatinine Ratio 14.3 Glucose 116 H Calcium 8.5 Total Bilirubin AST ALT Alkaline Phosphatase B-Natriuretic Peptide 33.3 Total Protein Albumin Globulin Albumin/Globulin Ratio 08/21/18 08/21/18 08/21/18 05:50 05:50 05:50 WBC 11.0 RBC 4.68 Hgb 12.6 Hct 39.5 MCV 84.4 MCH 26.9 L MCHC 31.9 L RDW 14.2 RDW Differential 43.0 Plt Count 243 MPV 11.1 Immature Gran % (Auto) 0.300 Neut % (Auto) 86.8 H Lymph % (Auto) 11.5 L [place] % (Auto) 0.6 Eos % (Auto) 0.6 Baso % (Auto) 0.2 Absolute Neuts (auto) 9.6 H Absolute Lymphs (auto) 1.27 Total Counted Not Reportable D-Dimer Quant (PE/DVT) 0.60 H* Sodium 140 Potassium 4.1 Chloride 105 Carbon Dioxide 24.0 Anion Gap 11 BUN 12 Creatinine 0.94 Estim Creat Clear Calc 58.70 Est GFR (MDRD) Af Amer 79 Est GFR (MDRD) Non-Af 65 BUN/Creatinine Ratio 12.8 Glucose 166 H Calcium 8.7 Total Bilirubin 0.40 AST 24 ALT 26 Alkaline Phosphatase 132 H B-Natriuretic Peptide Total Protein 6.9 Albumin 3.1 L Globulin 3.8 Albumin/Globulin Ratio 0.8 L Medical Necessity - Tobacco Use Smoking Status: Never smoker Tobacco Use: Non-smoker Assessment/Plan All Active Problems (Last Reviewed 08/21/18 @ 03:49 by Alejandro Holcomb MD) Sigmoid diverticulitis (Acute) Asthma exacerbation (Acute) Impressions 1. acute exacerbation asthma 2. DM II - managed with Diet. HGBA1C is 6.9 3. morbid obesity 4. depression/anxiety 5. HLD 6. HTN 7. GERD 8. IBS 9. PTSD 10. estrogen supplementation continue current orders transition to oral prednisone in the AM Overnight trending pulse ox....morbidly obese on a few sedating medications.. Including Ambien, gabapentin, cyclobenzaprine, tramadol and lorazepam. DC the antibiotics - no pneumonia on CXR ot CT and she is AF at admission with a normal WBC count Ambulatory pulse ox prior to discharge Follow-up with nurse practitioner in pulmonary office in 2 weeks post discharge pulmonary function tests and possible sleep study
[2018-08-21 12:10] LABS: Hemoglobin A1c 6.9 % (4.2-6.3)
[2018-08-21] MEDS: Acetaminophen 325 MG Tablet 650 MG PO ×3 (14:05→22:30)
[2018-08-21] MEDS: 0.9% NaCl Peripheral Flush Adult/Peds IV (14:05)
[2018-08-21] MEDS: Gabapentin 300 MG Capsule PO (22:24)
[2018-08-21] MEDS: Tolterodine Tartrate 2 MG CAP.SA PO (22:24)
[2018-08-21] MEDS: Atenolol 50 MG Tablet PO (22:24)
[2018-08-21] MEDS: Atorvastatin Calcium 20 MG Tablet PO (22:24)
[2018-08-21] MEDS: Zolpidem Tartrate 5 MG Tablet PO (22:25)
[2018-08-21] MEDS: guaiFENesin 1,200 MG Tablet 1200 MG PO (22:25)
[2018-08-21] MEDS: Pramipexole Di-HCl 1 MG Tablet PO (22:33)
[2018-08-21] MEDS: Estradiol 1 MG Tablet PO (22:33)
[2018-08-21] MEDS: LORazepam 1 MG Tablet PO (22:35)
[2018-08-21] MEDS: Ipratropium Bromide 0.06% NASAL SPRAY 2 SPRAY NASAL (22:51)
[2018-08-22] VITALS (8 sets, daily range): BP systolic 116–144; BP diastolic 70–85; PULSE 76–94; RESP 16–20; TEMP 36.8–37.3; O2SAT 91–95
[2018-08-22] MEDS: Ipratropium 0.5 MG/2.5 ML SOLUTION INHALATION ×3 (07:16→19:16)
[2018-08-22] MEDS: Enoxaparin 40 MG/0.4 ML Syringe SC (10:06)
[2018-08-22] MEDS: DULoxetine Hcl 60 MG Capsule 120 MG PO (10:07)
[2018-08-22] MEDS: Ipratropium Bromide 0.06% NASAL SPRAY 2 SPRAY NASAL ×2 (10:08→21:07)
[2018-08-22] MEDS: Multivitamins,Therapeutic Tablet 1 TABLET PO (10:11)
[2018-08-22] MEDS: guaiFENesin 1,200 MG Tablet 1200 MG PO ×2 (10:11→21:09)
--- NOTE | 2018-08-22 12:02 | CASEMGMT ---
Social Work Note Pt is listed as being self-pay. SW met with pt. Pt's present in room. Pt gave this worker permission to speak to her in front of her guest. SW introduced self and role at [facility]. Pt is alert and orientated x4. Pt states that she did have Medicaid and it was terminated beginning of August. Pt states that it was abruptly terminated due to her spouse now receiving social security. Pt states that she applied for insurance on the Market[employer] (pt states it is [employer]). Pt states that when she spoke with the insurance copy, they were willing to accept pt but when they entered the information on the computer, the computer had stated pt wasn't eligible. Pt states that she should be eligible in the speciality enrollment period as she was abruptly terminated by Medicaid. Pt states that the insurance company had mentioned her doing an appeal and if she wins the appeal then it could be backdated to this [facility] visit. SW encouraged pt to follow up on appeal to see if pt's visit is able to be covered by insurance. SW provided pt with financial resources including HCAP application, [employer], [employer], Mili Stevens, prescription assistance and RX program through [facility]. Pt states that she is able to fill out HCAP application. SW provided pt with PFS number if she would like assistance with HCAP application and once she completes it to call PFS to turn in the application. Pt states understanding. SW informed pt that this worker will follow along to assist with financial resources. SW also encouraged pt to call PFS if she has additional questions or concerns regarding Hospital stay. Renee Granda MUSIC LIBRARIAN, INFRASTRUCTURE DEVELOPER
--- NOTE | 2018-08-22 14:59 | NURSING ---
am vital signs obtained with shift assessment- and thought they were documented in computer- unsure as to why they are not in there.
--- NOTE | 2018-08-22 16:56 | PCM.PROGNOTE ---
Patient Problems: Active and Suspected Problems (Last Reviewed 08/21/18 @ 03:49 by Alejandro Holcomb MD) Asthma exacerbation (Acute) Subjective: All events of the past 24 hours been reviewed. Patient reports that her breathing is better. She has not received her first dose of prednisone and it will not be given till 5 PM this afternoon. The overnight trending pulse ox was not applied properly and we have no results. She remains afebrile. Vital signs are stable. She is 91-95% saturated on room air. Slept better with the Ambien last night Sputum had a lot of squamous epithelial cells and is considered saliva, not sputum Respiratory panel was negative and the influenza was negative also. Objective: General: Alert, oriented ?3, cooperative, pleasant and appropriate Neck: Supple, trachea midline, no enlarged cervical nodes, no enlarged supraclavicular nodes Lungs: Clear to auscultation, symmetric chest expansion, not tachypneic, no conversational dyspnea, no accessory muscle use Heart: Regular rate and rhythm, normal S1, normal S2, no murmur, no gallop, no rub Abdomen: Soft, NT, ND, bowel sounds present Extremities: No clubbing, no peripheral edema, no cyanosis - Physical Exam Vital Signs Temp Pulse Resp BP Pulse Ox 98.4 F 92 20 H 144/85 H 95 08/22/18 14:56 08/22/18 15:27 08/22/18 15:27 08/22/18 14:56 08/22/18 14:56 Oxygen Flow Rate (L/min) 2 Oxygen Delivery Method Room Air Weight: 217 lb 6.012 oz Body Mass Index (BMI) 36.1 Intake and Output for Last 24 Hours 08/20/18 08/21/18 08/22/18 23:59 23:59 23:59 Intake Total 1910 / 1910 1000 / 1000 Output Total 500 / 500 Balance 1410 / 1410 1000 / 1000 Microbiology Past 72 Hours 08/21/18 22:05 Gram Stain - Final Sputum, Expectorated/Coughed Respiratory Culture - Final 08/21/18 12:03 Respiratory Panel (PCR) - Final Mucosa - Nasopharyngeal 08/21/18 05:19 Influenza Types A,B Direct FA ([place]) - Final Mucosa - Nasopharyngeal Medical Necessity - Tobacco Use Smoking Status: Never smoker Tobacco Use: Non-smoker Assessment/Plan All Active Problems (Last Reviewed 08/21/18 @ 03:49 by Alejandro Holcomb MD) Sigmoid diverticulitis (Acute) Asthma exacerbation (Acute) Impressions 1. acute exacerbation asthma 2. DM II - managed with Diet. HGBA1C is 6.9 3. morbid obesity 4. depression/anxiety 5. HLD 6. HTN 7. GERD 8. IBS 9. PTSD 10. estrogen supplementation Reorder overnight trending pulse ox tonight-discussed with RT Ambulatory pulse ox on room air Probable discharge in the a.m. if she remains stable Code Visit OBSV E&M: [id number] Subsequent observation care L2
[2018-08-22] MEDS: predniSONE 20 MG Tablet 40 MG PO (17:30)
--- NOTE | 2018-08-22 20:45 | NURSING ---
Addendum entered by Ophelia Costello 08/23/18 04:30: 94% on room air. Original Note: pt ambulated in hallways with this RN x6 laps with spo2 94%.
[2018-08-22] MEDS: Tolterodine Tartrate 2 MG CAP.SA PO (21:07)
[2018-08-22] MEDS: Estradiol 1 MG Tablet PO (21:08)
[2018-08-22] MEDS: Pramipexole Di-HCl 1 MG Tablet PO (21:08)
[2018-08-22] MEDS: Atorvastatin Calcium 20 MG Tablet PO (21:08)
[2018-08-22] MEDS: Atenolol 50 MG Tablet PO (21:09)
[2018-08-22] MEDS: Gabapentin 300 MG Capsule PO (21:09)
[2018-08-22] MEDS: Zolpidem Tartrate 5 MG Tablet PO (23:01)
[2018-08-23 02:40] VITALS: BP 139/78; PULSE 72; RESP 17; TEMP 36.7; O2SAT 94
[2018-08-23 07:08] VITALS: PULSE 80; RESP 18
[2018-08-23] MEDS: Ipratropium 0.5 MG/2.5 ML SOLUTION INHALATION (07:08)
--- NOTE | 2018-08-23 07:38 | DCINST_ITS ---
- Discharge Diagnoses Current Active Problems: Current Active and Chronic Problems (Last Reviewed 08/21/18 @ 03:49 by Alejandro Holcomb MD) Asthma exacerbation (Acute) You will use the following diet at home:: Calorie/Carbohydrate Controlled (specify 1200, 1400, etc) - carbohydrate controlled Your food should be the consistency of: Regular Your liquids should be the consistency of: Regular/Thin Discharge Activity: - - Avoid exposure to any strong smells such as bleach, cleaning products, strong colognes or perfumes, paint fumes and smoke of any kind. Avoid sudden exposure to cold air because this can cause bronchospasm. You may want to cover your mouth when you go outside in the winter. Avoid exposure to anyone who is sick with a cough or sore throat. Call your doctor if you observe: Fever of 101 or Higher, Shortness of breath, Fainting spells Additional Instructions: The respiratory panel was negative for a viral infection and the flu swab was also negative. I think it would be safe for you to spend XMAS with your family. You are being dischaged on a prednisone taper. Sometimes women will get a vaginal yeast infection with steroids, shayne if they are diabetic. If you experience vaginal itching or discharge you can purchase monostat or a similar product over the counter at your pharmacy to treat the infection. Happy Holidays Allergies/Adverse Reactions: Allergies eluxadoline [From Viberzi] Allergy (Severe, Verified 08/21/18 01:03) Other diverticulitis NSAIDS (Non-Steroidal Anti-Inflamma Allergy (Intermediate, Verified 08/21/18 01:03) Other GI bleeds Sulfa (Sulfonamide Antibiotics) Allergy (Verified 08/21/18 01:03) Rash albuterol Adverse Reaction (Severe, Verified 08/21/18 01:03) other increase heart rate metformin Adverse Reaction (Severe, Verified 08/21/18 01:03) Other diarreah inderal Allergy (Intermediate, Uncoded 08/21/18 01:03) Other hallucinations most antidepressants Adverse Reaction (Severe, Uncoded 08/21/18 01:03) Other varies from rash, to hallucinations, to shakes. Medications to take at Discharge Lorazepam [Ativan] 1 mg PO TID PRN PRN 06/30/17 atorvastatin 20 mg tablet 20 mg PO QHS 09/17/17 Multivitamin [Daily Multiple Vitamin] 1 tab PO DAILY 11/19/17 Zolpidem Tartrate [Ambien] 5 - 10 mg PO QHS PRN PRN 11/19/17 omeprazole 20 mg capsule,delayed release 40 mg PO QHS #90 cap 12/08/17 gabapentin 100 mg capsule 300 mg PO QHS 05/05/18 levalbuterol HFA 45 mcg/actuation aerosol inhaler 2 inh INHALATION Q6H PRN #15 g 08/03/18 Atenolol [Tenormin (beta lex)] 50 mg PO QHS 08/21/18 Cholecalciferol (Vitamin D3) [Vitamin D3] 5,000 unit PO QHS 08/21/18 Duloxetine HCl 120 mg PO DAILY 08/21/18 Estradiol 1 mg PO QHS 08/21/18 Pramipexole Di-HCl [Mirapex] 1 mg PO QHS 08/21/18 Solifenacin Succinate [Vesicare] 5 mg PO QHS 08/21/18 Guaifenesin [Mucinex] 1,200 mg PO BID #20 tab 08/23/18 Prednisone 10 mg PO UD #30 tab 08/23/18 The following prescriptions were given: Prednisone 10 mg PO UD #30 tab Guaifenesin [Mucinex] 1,200 mg PO BID #20 tab Primary Care Physician: Roberto Guo MD [Primary Care Provider] - Please follow up with your Primary Care Physician in: 10-14 days Test Results: Test results from this visit will be discussed in further detail at your follow- up appointment, if applicable. Please Follow Up With: Kalia Arriaga DO When: appt with Jenise MCLEOD in 2 weeks Proposed Discharge Date: 08/23/18
[2018-08-23 08:40] VITALS: BP 140/83; PULSE 97; RESP 18; TEMP 36.9; O2SAT 97
[2018-08-23] MEDS: predniSONE 20 MG Tablet 40 MG PO (08:55)
[2018-08-23] MEDS: Ipratropium Bromide 0.06% NASAL SPRAY 2 SPRAY NASAL (08:55)
[2018-08-23] MEDS: Multivitamins,Therapeutic Tablet 1 TABLET PO (08:55)
[2018-08-23] MEDS: DULoxetine Hcl 60 MG Capsule 120 MG PO (08:56)
[2018-08-23] MEDS: guaiFENesin 1,200 MG Tablet 1200 MG PO (08:56)
--- NOTE | 2018-08-23 10:53 | DS.PCM_ITS ---
Discharge Date and Diagnosis - Problem List Patient Problems: Active and Suspected Problems (Last Reviewed 08/21/18 @ 03:49 by Alejandro Holcomb MD) Acute asthma exacerbation (Acute) Date of Admission: 08/21/18 Date of Discharge: 08/23/18 - Primary Discharge Diagnosis Active and Suspected Problems (Last Reviewed 08/21/18 @ 03:49 by Alejandro Holcomb MD) Asthma exacerbation (Acute) Abnormal overnight trending pulse ox - suspected TRINI - Secondary Discharge Diagnosis Chronic Problems (Last Reviewed 08/21/18 @ 03:49 by Alejandro Holcomb MD) DM type 2 (diabetes mellitus, type 2) (Chronic) Malabsorption (Chronic) Low libido (Chronic) Hiatal hernia with GERD (Chronic) Urinary, incontinence, stress female (Chronic) Chronic recurrent sinusitis (Chronic) Insomnia (Chronic) Vitamin D deficiency, unspecified (Chronic) Arthritis (Chronic) Asthma (Chronic) Diverticulosis (Chronic) PTSD (post-traumatic stress disorder) (Chronic) IBS (irritable bowel syndrome) (Chronic) Obesity (BMI 30-39.9) (Chronic) HTN (hypertension) (Chronic) HLD (hyperlipidemia) (Chronic) Anxiety and depression (Chronic) Hospital Course and Treatment Imaging Results: Clinical Impression(s) from Imaging Studies Chest X-Ray 08/21/18 01:21 IMPRESSION: No acute cardiopulmonary disease. No significant interval change. at 0237 Reported and signed by: Brian Flaherty MD Electronically Signed: Brian Flaherty, at 2:35 EST Tel , Service support , Chest CTA 08/21/18 06:48 IMPRESSION: 1. No central or segmental pulmonary embolism. 2. No thoracic aortic aneurysm. Electronically Signed: Asher Acevedo MD at 8:29 EST , Service support , Microbiology 08/21/18 22:05 Sputum, Expectorated/Coughed Gram Stain - Final 08/21/18 22:05 Sputum, Expectorated/Coughed Respiratory Culture - Final 08/21/18 12:03 Mucosa - Nasopharyngeal Respiratory Panel (PCR) - Final 08/21/18 05:19 Mucosa - Nasopharyngeal Influenza Types A,B Direct FA ([place]) - Final none Operations: None Procedures: None Summary of Care Provided: Ms. Daugherty is a 58YOF with a past medical history of hypertension and asthma who presented to the emergency department at [facility] on She c/o a productive cough. She was afebrile in the emergency department. White blood cell count was 9.7 with 41.3% lymphocytes. BMP was unremarkable. Chest x-ray showed no infiltrates, pleural effusions or pulmonary vascular congestion. D-dimer was increased at 0.6 and a CTA of the chest was done and showed no pulmonary embolus or infiltrates. She was admitted to the hospital with acute exacerbation of asthma and started on ceftriaxone, azithromycin and high-dose intravenous steroids. Respiratory panel was negative. Rapid influenza swab was negative. Sputum Gram stain showed greater than 25 epithelial cells and was considered contaminated and discarded. She was afebrile for the duration of her hospital stay. She improved significantly with IV Solu-Medrol and was transitioned to prednisone 40 mg at 5 PM on 08/22/2018. The following morning she felt well and denied shortness of breath. Her cough had resolved. A pulse ox on room air with ambulation was 94%. An overnight trending pulse ox was done on the night prior to discharge and was abnormal. She was discharged home with a tapering dose of prednisone. She will follow-up with her primary care physician in the next 7-10 days. She was instructed to follow-up with the nurse practitioner in the pulmonary office in 2 weeks to set up pulmonary function tests and a sleep study. Will follow up with Dr. Collins or Dr. Arriaga following completion of the tests. General: Alert, oriented ?3, cooperative, pleasant and appropriate Neck: Supple, trachea midline, no enlarged cervical nodes, no enlarged supraclavicular nodes Lungs: Clear to auscultation, symmetric chest expansion, not tachypneic, no conversational dyspnea, no accessory muscle use Heart: Regular rate and rhythm, normal S1, normal S2, no murmur, no gallop, no rub Abdomen: Soft, NT, ND, bowel sounds present, obese Extremities: No clubbing, no peripheral edema, no cyanosis Patient Problems: Active and Suspected Problems (Last Reviewed 08/21/18 @ 03:49 by Alejandro Holcomb MD) Acute asthma exacerbation (Acute) - Physical Exam Vital Signs Temp Pulse Resp BP Pulse Ox 98.4 F 97 18 140/83 H 97 08/23/18 08:40 08/23/18 08:40 08/23/18 08:40 08/23/18 08:40 08/23/18 08:40 Oxygen Flow Rate (L/min) [ 0 AMBULATING on Room Air] Oxygen Flow Rate (L/min) [At 0 REST on Room Air] Oxygen Flow Rate (L/min) 2 Oxygen Delivery Method Room Air Weight: 217 lb 6.012 oz Body Mass Index (BMI) 36.1 Intake and Output for Last 24 Hours 08/21/18 08/22/18 08/23/18 23:59 23:59 23:59 Intake Total 1910 / 1910 1900 / 1900 Output Total 500 / 500 500 / 500 Balance 1410 / 1410 1400 / 1400 Microbiology Past 72 Hours 08/21/18 22:05 Gram Stain - Final Sputum, Expectorated/Coughed Respiratory Culture - Final 08/21/18 12:03 Respiratory Panel (PCR) - Final Mucosa - Nasopharyngeal 08/21/18 05:19 Influenza Types A,B Direct FA ([place]) - Final Mucosa - Nasopharyngeal Discharge Activity: - - Avoid exposure to any strong smells such as bleach, cleaning products, strong colognes or perfumes, paint fumes and smoke of any kind. Avoid sudden exposure to cold air because this can cause bronchospasm. You may want to cover your mouth when you go outside in the winter. Avoid exposure to anyone who is sick with a cough or sore throat. Call your doctor if you observe: Fever of 101 or Higher, Shortness of breath, F ainting spells Home Medications: Medications to take at Discharge Lorazepam [Ativan] 1 mg PO TID PRN PRN 06/30/17 atorvastatin 20 mg tablet 20 mg PO QHS 09/17/17 Multivitamin [Daily Multiple Vitamin] 1 tab PO DAILY 11/19/17 Zolpidem Tartrate [Ambien] 5 - 10 mg PO QHS PRN PRN 11/19/17 omeprazole 20 mg capsule,delayed release 40 mg PO QHS #90 cap 12/08/17 gabapentin 100 mg capsule 300 mg PO QHS 05/05/18 levalbuterol HFA 45 mcg/actuation aerosol inhaler 2 inh INHALATION Q6H PRN #15 g 08/03/18 Atenolol [Tenormin (beta lex)] 50 mg PO QHS 08/21/18 Cholecalciferol (Vitamin D3) [Vitamin D3] 5,000 unit PO QHS 08/21/18 Duloxetine HCl 120 mg PO DAILY 08/21/18 Estradiol 1 mg PO QHS 08/21/18 Pramipexole Di-HCl [Mirapex] 1 mg PO QHS 08/21/18 Solifenacin Succinate [Vesicare] 5 mg PO QHS 08/21/18 Fluconazole [Diflucan] 150 mg PO X1 #1 tab 08/23/18 Guaifenesin [Mucinex] 1,200 mg PO BID #20 tab 08/23/18 Prednisone 10 mg PO UD #30 tab 08/23/18 Solifenacin Succinate [Vesicare] 10 mg PO DAILY #30 tab 08/23/18 Following Prescrptions Were Given to Patient: Fluconazole [Diflucan] 150 mg PO X1 #1 tab Prednisone 10 mg PO UD #30 tab Solifenacin Succinate [Vesicare] 10 mg PO DAILY #30 tab Guaifenesin [Mucinex] 1,200 mg PO BID #20 tab Primary Care Physician: Roberto Guo MD [Primary Care Provider] - Please follow up with your Primary Care Physician in: 10-14 days Please Follow Up With: Kalia Arriaga DO When: appt with Jenise MCLEOD in 2 weeks Medical Necessity - Tobacco Use Smoking Status: Never smoker Tobacco Use: Non-smoker Meaningful Use Info Meaningful Use Diagnoses (Choose all that apply): None applicable Code Visit Inpatient E&M: 19062 Disch Hosp
--- NOTE | 2018-08-23 12:00 | CASEMGMT ---
Social Work Note Pt's requesting to have this worker speak with him and pt. SW met with pt and pt's . Pt states that she had completed HCAP application and was informed to have this worker drop off HCAP application at [facility]. Pt also asked this worker about RX assistance program through [facility]. SW informed pt that this worker can figure out costs of prescriptions and if the cost is too great, then the RX program could be used as a last resort. SW also informed pt that pt was provided resources on [employer], [employer] and additional prescription resources that pt could look into using to help with costs for prescriptions. Pt states understanding. This worker and RN CM looked into pt's prescription costs and updated pt on costs. Pt states that she doesn't need RX assistance and will be going to pharmacy to picker / packer prescriptions. Renee Granda [employer], [employer] AND NURSERY SPECIALIST
== END 2018-08-23 14:03 | disposition home or self-care (01) ==
LOC: ED 02:44 → MS3 03:35
PROVIDERS: Admitting Provider Internal Medicine; Emergency Provider Emergency Medicine; Family Provider Internal Medicine; PCP Internal Medicine; Visit Provider Internal Medicine
DX: J45.901 Unspecified asthma with (acute) exacerbation (principal); M19.90 Unspecified osteoarthritis, unspecified site; I10 Essential (primary) hypertension; Z79.899 Other long term (current) drug therapy; E11.9 Type 2 diabetes mellitus without complications; F41.9 Anxiety disorder, unspecified; F32.9 Major depressive disorder, single episode, unspecified; E78.5 Hyperlipidemia, unspecified; E66.01 Morbid (severe) obesity due to excess calories; Z68.36 Body mass index [BMI] 36.0-36.9, adult; Z71.3 Dietary counseling and surveillance; K58.9 Irritable bowel syndrome, unspecified; F43.10 Post-traumatic stress disorder, unspecified; K21.9 Gastro-esophageal reflux disease without esophagitis
CPT/HCPCS: 36415; 71045; 71275; 80048; 80053; 83036; 83880; 85025; 85379; 87070; 87205; 87633; 87804; 94640; 94762; 96361; 96365; 96367; 96372; 96375; 96376; 97802; 99218; 99282; J7030; Q9967; A4216; G0378

== ENCOUNTER → 2018-09-27 09:06 | Outpatient (CLI) | payer OTHER, SELFPAY ==
[2018-09-14 09:21] VITALS: BMI 36.8
[2018-09-23 14:15] VITALS: BMI 36.8
--- NOTE | 2018-09-28 11:20 | PFTCOMP ---
COMPLETE PULMONARY FUNCTION TEST INTERPRETATION Brief HPI: Patient is a 58 year old female, currently under the care of Giovanni Madden, who presents to [facility] for complete pulmonary function tests secondary to diagnosis of asthma. Respiratory therapist reports good effort and reproducible results. Interpretation: Forced expiration spirometry shows no large airways obstructive ventilatory defect with an FEV1 of 90% predicted. There is no significant bronchodilator response in FVC or FEV1 by strict ATS criteria. Spirograms are of good quality and plateau normally. The respiratory flow volume loop shows decreased expiratory flow rates at high lung volumes consistent with small airways obstruction. Lung volumes by body plethysmography show a normal total lung capacity at 5.19 L, 102% predicted. All other lung volumes are within normal limits. Diffusion capacity by carbon monoxide is normal at 77% predicted. The airway resistance is normal. No previous pulmonary function tests were available for review. Impression: These pulmonary function tests are grossly within normal limits, but there is some subtle signs of possible small airways obstruction.
== END ==
PROVIDERS: Family Provider Internal Medicine; PCP Internal Medicine; Referring Provider Nurse Practitioner Family; Visit Provider Nurse Practitioner Family
DX: J45.909 Unspecified asthma, uncomplicated (principal)
CPT/HCPCS: 94060; 94726; 94729

== ENCOUNTER 2019-02-11 10:13 | Emergency (ER) | payer OTHER, SELFPAY ==
[2019-02-11 08:52] VITALS: BMI 36.8
[2019-02-11 10:15] VITALS: BP 132/83; PULSE 70; RESP 18; TEMP 36.4; O2SAT 100; BMI 34.5
--- NOTE | 2019-02-11 10:45 | ED.VIS.GEN ---
History of Present Illness Chief Complaint: Cellulitis Informant: Patient Onset: Weeks - one week Context: Gradual Onset Timing: Continuous Quality: redness Location: scalp Current Severity: Severe Maximum Severity: Severe Associated Symptoms: Right eyelid redness Narrative: 58-year-old female sent here to the emergency department today from an urgent care with cellulitis. 1 week ago the patient was outside working in her yard and noticed a bump on the top of her head, scalp, on the right side. Since that time it is gotten progressively more red and swollen. Urgent care sent her in because they were unsure if it was shingles versus cellulitis. Patient is having very mild pain and her concern is that the redness has increased in size. She has some redness above her right eyelid. She has no eye pain redness drainage swelling or any visual changes. She denies constitutional symptoms. She does not remember any specific injury or trauma to the area. She denies any other review of systems. She has not been on antibiotics, was seen for this. Prior similar symptoms: No Recent Illness/Hospitalization: Yes Past Medical History - Allergies and Home Meds Allergies/Adverse Reactions: Allergies eluxadoline [From Viberzi] Allergy (Severe, Verified 12/30/18 11:21) Other diverticulitis NSAIDS (Non-Steroidal Anti-Inflamma Allergy (Intermediate, Verified 12/30/18 11:21) Other GI bleeds Sulfa (Sulfonamide Antibiotics) Allergy (Verified 12/30/18 11:21) Rash albuterol Adverse Reaction (Severe, Verified 12/30/18 11:21) other increase heart rate metformin Adverse Reaction (Severe, Verified 12/30/18 11:21) Other diarreah inderal Allergy (Intermediate, Uncoded 12/30/18 11:21) Other hallucinations most antidepressants Adverse Reaction (Severe, Uncoded 12/30/18 11:21) Other varies from rash, to hallucinations, to shakes. Primary Care Physician: Roberto Guo MD [Primary Care Provider] - Surgical History: - - Hysterectomy, L knee surgery for torn meniscus, L ulnar nerve surgery/carpal tunnel release. Smoking Status: Never smoker - Family History Maternal Family History: Family History (Last Reviewed 02/11/19 @ 08:30 by Monica Gomez) Mother Arthritis Dementia Cancer Depression Father CHF (congestive heart failure) Dementia Bowel disease Sister Breast cancer Sister Cancer Family History: Reports: No pertinent history Paternal Family History: Family History (Last Reviewed 02/11/19 @ 08:30 by Monica Gomez) Mother Arthritis Dementia Cancer Depression Father CHF (congestive heart failure) Dementia Bowel disease Sister Breast cancer Sister Cancer Family History: Reports: Heart Disease Review of Systems All systems negative except as indicated Skin: Reports: Rash Physical Exam Vital Signs/Narrative: Vital Signs Temp Pulse Resp BP Pulse Ox 02/11/19 10:15 97.5 F L 70 18 132/83 H 100 General: Well nourished, Well developed, No Acute Distress Head: Normocephalic, Atraumatic Eyes: Perrl, EOMI ENT: Moist mucous membranes Neck: Supple, Nontender, No lymphadenopathy Cardiovascular: Regular rate, Regular rhythm Respiratory: No distress, CTA bilaterally Abdomen: Soft, Nontender, Nondistended, Normal bowel sounds, No masses Back: Nontender Extremities: Nontender, No edema Skin: No rash - Patient has a mild scalp cellulitis on the right temporal area. There is a very small hair follicle in the center but there it is not indurated or fluctuant. There is no pustule. There is no rash. Neurological: Alert, Oriented x3 Diagnostic/Tx/Re-eval - Medical Decision Making Patient's scalp is consistent with cellulitis. There are no vesicles or signs of shingles and in addition it does cross the midline of her scalp. She is not failed antibiotic therapy therefore we do feel that she is appropriate to start outpatient antibiotic therapy. She has numerous antibiotic allergies therefore she will be placed on doxycycline. She was advised to have a 48-hour wound check with her doctor or return here to the emergency department for worsening symptoms which were discussed. ED Disposition - Plan for ED Patient: Disposition: Home or Assisted Living Diagnosis: Cellulitis of scalp Instructions: Discharge Instructions for Cellulitis Prescriptions: Doxycycline 100 mg PO BID #14 capsule Referrals: Roberto Guo MD [Primary Care Provider] -
[2019-02-11] MEDS: Doxycycline 100 MG CAPSULE PO (12:29)
[2019-02-11 12:33] VITALS: RESP 18
== END 2019-02-11 12:33 | disposition home or self-care (01) ==
PROVIDERS: Emergency Provider Physician Assistant Medical; Family Provider Internal Medicine; PCP Internal Medicine
DX: L03.811 Cellulitis of head [any part, except face] (principal)
CPT/HCPCS: 99283

== ENCOUNTER 2019-02-12 09:47 | Inpatient (IN) | payer OTHER, SELFPAY ==
[2019-02-12 09:47] VITALS: BMI 34.4
[2019-02-12 09:49] VITALS: BP 112/76; PULSE 76; RESP 16; TEMP 36.7; O2SAT 98; BMI 33.3
--- NOTE | 2019-02-12 10:18 | ED.VISSUMM ---
- ER Visit Summary Date of Service: 02/12/19 Chief Complaint: Facial redness History of Present Illness: The patient is a 58 F presenting with redness to the top of her scalp. This has been progressively worsening. She was seen in the ED yesterday. At that time she had redness to her scalp. She was started on doxycycline. She states that it worsened today. She called her primary care physician and was advised to come to the ED. She states there is more pain in the rash today than there was yesterday. She denies fever. Denies other complaints Physical Examination: Vitals are stable. Patient is afebrile. Alert no acute distress. HEENT exam PERRLA, EOMI. TMs normal bilaterally. She has erythema diffusely to the superior scalp. She has erythema to the right forehead down to the right upper eyelid. She has scattered small vesicles right forehead. Neck is supple. Lungs are clear and equal bilaterally. Heart is regular rate and rhythm. Abdomen is soft nontender nondistended. Extremities are unremarkable. Skin is warm and dry. No focal neurologic deficit. Remainder of exam is unremarkable. Emergency Department Course and Treatment: CBC, chemistries unremarkable. She was given acyclovir p.o. Due to concern for possible secondary cellulitis she was given Ancef IV. Discussed with the hospitalist for observation. Disposition: Admission Impression: Shingles concern for secondary cellulitis This note was generated with [employer] dictation software. It may contain incorrect words, spelling, and punctuation that were not noted in review of the chart prior to signing ED Disposition - Plan for ED Patient: Referrals: Roberto Guo MD [Primary Care Provider] -
--- NOTE | 2019-02-12 10:22 | ED.DCSUM_ITS ---
- ER Visit Summary Date of Service: 02/12/19 Chief Complaint: Facial redness History of Present Illness: The patient is a 58 F presenting with redness to the top of her scalp. This has been progressively worsening. She was seen in the ED yesterday. At that time she had redness to her scalp. She was started on doxycycline. She states that it worsened today. She called her primary care physician and was advised to come to the ED. She states there is more pain in the rash today than there was yesterday. She denies fever. Denies other complaints Physical Examination: Vitals are stable. Patient is afebrile. Alert no acute distress. HEENT exam PERRLA, EOMI. TMs normal bilaterally. She has erythema diffusely to the superior scalp. She has erythema to the right forehead down to the right upper eyelid. She has scattered small vesicles right forehead. Neck is supple. Lungs are clear and equal bilaterally. Heart is regular rate and rhythm. Abdomen is soft nontender nondistended. Extremities are unremarkable. Skin is warm and dry. No focal neurologic deficit. Remainder of exam is unremarkable. Emergency Department Course and Treatment: CBC, chemistries unremarkable. She was given acyclovir p.o. Due to concern for possible secondary cellulitis she was given Ancef IV. Discussed with the hospitalist for observation. Disposition: Admission Impression: Shingles concern for secondary cellulitis This note was generated with [employer] dictation software. It may contain incorrect words, spelling, and punctuation that were not noted in review of the chart meggan or to signing ED Disposition - Plan for ED Patient: Referrals: Roberto Guo MD [Primary Care Provider] -
[2019-02-12 10:37] LABS: Absolute Lymphocyte Count 1.46 X10^3/ul (0.83-4.51); Absolute Neutrophil Count 3.7 X10^3/uL (2.0-7.7); Basophil# 0.03 X10^3/uL; Basophil% 0.5 % (0-1); Eosinophil# 0.15 X10^3/uL; Eosinophils% 2.6 % (0-5); Hematocrit 42.5 % (37-47); Hemoglobin 13.7 g/dl (12.0-15.0); Lymphocyte # 1.46 X10^3/ul (4.0); Lymphocyte % 25.3 % (19-41); Mean Corp Hgb Conc 32.2 g/gl (32-36); Mean Corpuscular Hgb 26.5 pg (27.0-32.0); Mean Corpuscular Volume 82.2 fL (81-99); Mean Platelet Vol. 10.9 fl (6.2-12.0); Monocyte# 0.44 X10^3/uL; Monocyte% 7.6 % (0-10); Neutrophil # 3.68 X10^3/uL (2.7-7.7); Neutrophil % 63.8 % (47-70); POSITIVE COUNT NO; POSITIVE DIFFERENTIAL NO; POSITIVE MORPHOLOGY NO; Platelet Count 224 K/mm3 (150-450); RBC Distribution Width CV 15.1 % (11.6-14.6); RBC Distribution Width SD 44.8 fl (35.1-43.9); Red Blood Count 5.17 M/mm3 (4.2-5.4); White Blood Count 5.8 K/mm3 (4.4-11.0)
[2019-02-12] MEDS: Morphine 4 MG/ML Syringe IV ×2 (10:40→17:24)
[2019-02-12] MEDS: Ondansetron 4 MG/2 ML Vial IV (10:40)
[2019-02-12 10:51] LABS: BUN 9 mg/dL (7-18); BUN/Creat Ratio 10.8 RATIO (10-20); Chloride 106 mmol/L (98-107); Creatinine, Serum 0.83 mg/dL (0.55-1.02); EST Glomerular Filtration Rate 75 mL/min (>60); Est Glom Filt Rate - Afr Amer 90 mL/min (>60); Estimated Creatinine Clearance 66.48 ml/min; Glucose 96 mg/dL (74-106); Potassium 4.2 mmol/L (3.5-5.1); Sodium Level 143 mmol/L (136-145)
[2019-02-12 10:52] LABS: Anion Gap 8 (5-15)
[2019-02-12] MEDS: Acyclovir 800 MG Tablet PO ×2 (10:58→13:25)
[2019-02-12 11:52] VITALS: BP 136/74; PULSE 62; RESP 15; O2SAT 96
[2019-02-12 12:08] VITALS: BP 136/74; PULSE 62; RESP 18; O2SAT 98
[2019-02-12 12:20] VITALS: BP 120/80; PULSE 63; RESP 15; TEMP 37.1; O2SAT 100
[2019-02-12] MEDS: Cefazolin 1 GM/50 ML BAG IV (12:28)
[2019-02-12 13:06] VITALS: BMI 34.2; BMI 34.3
[2019-02-12 13:08] VITALS: BP 112/65; PULSE 59; RESP 18; TEMP 37.1; O2SAT 100
--- NOTE | 2019-02-12 13:08 | HP.PCM_ITS ---
Problem List (1) Chronic sinusitis Status: Chronic Qualifiers: (2) Urinary incontinence Status: Chronic (3) Diverticulitis Status: Chronic (4) Postmenopausal Status: Chronic (5) On hormone replacement therapy Status: Chronic (6) DM type 2 (diabetes mellitus, type 2) Status: Chronic (7) Acute asthma exacerbation Status: Acute (8) Asthma exacerbation Status: Acute (9) Malabsorption Status: Chronic (10) Low libido Status: Chronic (11) Hiatal hernia with GERD Status: Chronic (12) Urinary, incontinence, stress female Status: Chronic (13) Chronic recurrent sinusitis Status: Chronic (14) Insomnia Status: Chronic (15) Vitamin D deficiency, unspecified Status: Chronic (16) Arthritis Status: Chronic (17) Asthma Status: Chronic Qualifiers: (18) Diabetes mellitus type 2 in obese Status: Chronic (19) Diverticulosis Status: Chronic (20) PTSD (post-traumatic stress disorder) Status: Chronic (21) IBS (irritable bowel syndrome) Status: Chronic (22) Obesity (BMI 30-39.9) Status: Chronic (23) HTN (hypertension) Status: Chronic Qualifiers: (24) HLD (hyperlipidemia) Status: Chronic Qualifiers: (25) Anxiety and depression Status: Chronic History of Present Illness Date of Admission: 02/12/19 Chief Complaint: Scalp and facial redness/rash. The patient is a 58 year old F who presents the emergency room due to scalp redness which is now spread to her right facial area. She initially went to [facility] yesterday for right scalp rash involving the right face and upper eyelid. She was placed on doxycycline for suspected cellulitis. She was advised to go to the emergency room at that time for further evaluation and treatment. She states she wanted to attempt antibiotics for at least a day prior to going to ER for financial reasons. However, her symptoms worsened and she presented to emergency room today. Patient reports approximately 1 week ago she spent 8 hours working in her garden and later developed a red painful area on her scalp. Area of redness increased since that time and yesterday spread to her forehead and right eyelid. She states this morning her right eyelid was mostly swollen shut. She feels like her vision is intact however right eyelid is very painful and swollen. She complains of severe pain and tenderness of the skin with increased pain with minimal movement including raising of her eyebrows. She has not had similar rash or prior history of shingles. She complains of associated tenderness of neck glands. Shortly after initial scalp redness, she reports she had fever and generalized joint aching which has since resolved. She denies any known bug bites. She has a past medical history of type 2 diabetes mellitus, hypertension, hyperlipidemia, depression, PTSD, IBS, urinary incontinence, chronic maxillary sinusitis, chronic moderate persistent asthma, recurrent diverticulitis, obesity. Past Medical History Past Medical History (Chronic Problems): Chronic Problems (Last Reviewed 02/11/19 @ 08:30 by Monica Gomez) Chronic sinusitis (Chronic) Urinary incontinence (Chronic) Diverticulitis (Chronic) Postmenopausal (Chronic) On hormone replacement therapy (Chronic) DM type 2 (diabetes mellitus, type 2) (Chronic) Malabsorption (Chronic) Low libido (Chronic) Hiatal hernia with GERD (Chronic) Urinary, incontinence, stress female (Chronic) Chronic recurrent sinusitis (Chronic) Insomnia (Chronic) Vitamin D deficiency, unspecified (Chronic) Arthritis (Chronic) Asthma (Chronic) Diabetes mellitus type 2 in obese (Chronic) Diverticulosis (Chronic) PTSD (post-traumatic stress disorder) (Chronic) IBS (irritable bowel syndrome) (Chronic) Obesity (BMI 30-39.9) (Chronic) HTN (hypertension) (Chronic) HLD (hyperlipidemia) (Chronic) Anxiety and depression (Chronic) Medical History: Medical History (Last Reviewed 02/11/19 @ 08:30 by Monica Gomez) Insomnia (Chronic) G47.00 Vitamin D deficiency, unspecified (Chronic) E55.9 Arthritis (Chronic) M19.90 Asthma (Chronic) J45.909 History of hysterectomy Z90.710 Allergies eluxadoline [From Viberzi] Allergy (Severe, Verified 02/12/19 09:49) Other diverticulitis NSAIDS (Non-Steroidal Anti-Inflamma Allergy (Intermediate, Verified 02/12/19 09:49) Other GI bleeds Sulfa (Sulfonamide Antibiotics) Allergy (Verified 02/12/19 09:49) Rash albuterol Adverse Reaction (Severe, Verified 02/12/19 09:49) other increase heart rate metformin Adverse Reaction (Severe, Verified 02/12/19 09:49) Other diarreah inderal Allergy (Intermediate, Uncoded 02/12/19 09:49) Other hallucinations most antidepressants Adverse Reaction (Severe, Uncoded 06/09/19 09:49) Other varies from rash, to hallucinations, to shakes. Home Medications: Ambulatory Orders Medication Instructions Recorded Lorazepam [Ativan] 1 mg PO TID PRN PRN 06/30/17 Multivitamin [Daily Multiple 1 tab PO DAILY 11/19/17 Vitamin] Zolpidem Tartrate [Ambien] 5 - 10 mg PO QHS PRN PRN 11/19/17 Atenolol [Tenormin (beta lex)] 50 mg PO QHS 08/21/18 Cholecalciferol (Vitamin D3) 5,000 unit PO QHS 08/21/18 [Vitamin D3] Duloxetine HCl 120 mg PO DAILY 08/21/18 levalbuterol HFA 45 mcg/actuation 2 inh INHALATION Q6H PRN #15 g 09/14/18 aerosol inhaler atorvastatin 20 mg tablet 20 mg PO QHS #90 tab 09/23/18 dulaglutide 1.5 mg/0.5 mL 1.5 mg SC QWEEK #2 ml 09/23/18 subcutaneous pen injector ipratropium bromide 0.02 % 2.5 ml INHALATION Q6H PRN #62.5 ml 09/23/18 solution for inhalation fluticasone furoate 200 1 inh INHALATION DAILY #60 ea 10/06/18 mcg-vilanterol 25 mcg/dose inhalation powder fluticasone propionate 50 2 spray INTRANASAL DAILY PRN g 10/11/18 mcg/actuation nasal spray,suspension pramipexole 1 mg tablet 1 mg PO QHS #90 tab 10/11/18 omeprazole 20 mg capsule,delayed 40 mg PO QHS #90 cap 10/20/18 release Doxycycline 100 mg PO BID #14 capsule 02/11/19 Blood-Glucose Meter [Contour] 0 dose .ROUTE .MEDSUPPLY 02/12/19 Surgical History: Surgical History (Last Reviewed 02/12/19 @ 13:03 by JORGE ALBERTO Nicolas) H/O left knee surgery Z98.890 H/O right knee surgery Z98.890 History of carpal tunnel release Z98.890 History of hysterectomy Z98.890, Z90.710 left hand nerve reconstruction Carpal tunnel syndrome, left G56.02 S/P left knee arthroscopy Z98.890 left arm ulnar nerve transposition left nerve reacttachment Psychiatric History: Anxiety, Depression LEAF SIZE PICKER History: No pertinent LEAF SIZE PICKER history Lives: Spouse/ Significant Other Smoking Status: Never smoker Alcohol: Occasional Drugs: None - *Family History Maternal Family History: Family History (Last Reviewed 02/12/19 @ 13:03 by JORGE ALBERTO Nicolas) Mother Arthritis Dementia Cancer Depression Father CHF (congestive heart failure) Dementia Bowel disease Sister Breast cancer Sister Cancer History Items: No pertinent history Paternal Family History: Family History (Last Reviewed 02/12/19 @ 13:03 by JORGE ALBERTO Nicolas) Mother Arthritis Dementia Cancer Depression Father CHF (congestive heart failure) Dementia Bowel disease Sister Breast cancer Sister Cancer History Items: Heart Disease Review of Systems Constitutional: Reports: Chills, Fever, Malaise HEENT: Denies: Head Aches, Sinus Congestion, Sinus Drainage Cardiovascular: Denies: Chest Pain, Palpitations Respiratory: Denies: Cough, Shortness of breath at rest, Sputum production Gastrointestinal: Denies: Abdominal Pain, Nausea, Vomiting Genitourinary: Denies: Dysuria Musculoskeletal: Denies: Joint Pain, Joint Tenderness Skin: Reports: Rash - Involving scalp, forehead and right eye area. Neurological: Denies: Numbness, Tingling, Focal weakness Psychiatric: Reports: Anxiety, Depression Hematologic/ Lymphatic: Denies: Easy Bruising, Easy Bleeding VTE Information - Inpt Only VTE Present on Admission: No VTE Mechan Device Prophylaxis: None VTE Pharm Prophylaxis ordered?: Yes - Physical Exam General: Alert, Oriented x3, Cooperative HEENT: Atraumatic, PERRLA, EOMI, Normocephalic Neck: Supple, No JVD, Negative Carotid Bruits Lungs: Clear to auscultation, Normal air movement Cardiovascular: Regular rate, No murmurs Abdomen: Bowel Sounds Present, Soft, Non Tender, Non-Distended Extremities: No clubbing, No cyanosis, No edema, Capillary Refill Less than 3 Seconds Skin: - - Diffuse erythema of scalp extending to right side of forehead and right eyelid with edema. No open vesicles or open wound. Musculoskeletal: No Tenderness to Palpation of Joints or Extremities Neurological: Cranial nerves II-XII grossly intact, Neuro grossly intact Psych/Mental Status: Normal Affect, Appropriate Vital Signs Temp Pulse Resp BP Pulse Ox 98.7 F 63 15 120/80 100 02/12/19 12:20 02/12/19 12:20 02/12/19 12:20 02/12/19 12:20 02/12/19 12:20 Oxygen Delivery Method Room Air Weight: 200 lb Body Mass Index (BMI) 33.3 Laboratory Tests Past 24 Hrs 02/12/19 02/12/19 10:25 10:25 WBC 5.8 RBC 5.17 Hgb 13.7 Hct 42.5 MCV 82.2 MCH 26.5 L MCHC 32.2 RDW 15.1 H RDW Differential 44.8 H Plt Count 224 MPV 10.9 Immature Gran % (Auto) 0.200 Neut % (Auto) 63.8 Lymph % (Auto) 25.3 [place] % (Auto) 7.6 Eos % (Auto) 2.6 Baso % (Auto) 0.5 Absolute Neuts (auto) 3.7 Absolute Lymphs (auto) 1.46 Total Counted Not Reportable Sodium 143 Potassium 4.2 Chloride 106 Carbon Dioxide 29.0 Anion Gap 8 BUN 9 Creatinine 0.83 Estim Creat Clear Calc 66.48 Est GFR (MDRD) Af Amer 90 Est GFR (MDRD) Non-Af 75 BUN/Creatinine Ratio 10.8 Glucose 96 Calcium 9.0 Assessment/Plan All Active Problems (Last Reviewed 02/11/19 @ 08:30 by Monica Gomez) Acute asthma exacerbation (Acute) Asthma exacerbation (Acute) Sigmoid diverticulitis (Resolved) 1. Herpes zoster dermatitis involving the scalp, right forehead and right eyelid with possible superimposed bacterial cellulitis-IV acyclovir 500 mg every 8 hours, IV cefazolin. PRN pain regimen. Will need immediate ophthalmology evaluation if any eye involvement. 2. Type 2 diabetes mellitus-on Trulicity, hold. Accu-Cheks ACHS with sliding scale insulin. 3. Hypertension-stable, continue home atenolol regimen. 4. Hyperlipidemia-continue statin. 5. Depression/PTSD-continue home duloxetine, lorazepam regimen. 6. IBS 7. Urinary incontinence-referred to urology by PCP. 8. Chronic maxillary sinusitis-refer to ENT by PCP. 9. Chronic moderate persistent asthma-no acute exacerbation. As needed albuterol aerosol. 10. Recurrent diverticulitis-PCP recommended colonoscopy, outpatient follow-up. 11. Obesity-encouraged diet and lifestyle modifications. DVT prophylaxis-Lovenox subcu This patient was seen by JORGE ALBERTO Nicolas under the supervision of Dr. Carlos.
[2019-02-12] MEDS: Acetaminophen 500 MG Tablet 1000 MG PO ×2 (13:25→21:47)
[2019-02-12] MEDS: oxyCODONE 5 MG Tablet PO (14:00)
[2019-02-12 14:42] LABS: Erythrocyte Sedimentation Rate 19 mm/hr (0-30)
[2019-02-12] MEDS: 0.9% NaCl Peripheral Flush Adult/Peds IV (17:26)
[2019-02-12] MEDS: Dronabinol 2.5 MG Capsule PO (17:26)
[2019-02-12 18:57] LABS: Lyme Ab Screen Interpretation REF LAB
[2019-02-12 21:16] LABS: Bedside Glucose 124 mg/dL (70-110)
[2019-02-12 21:45] VITALS: BP 112/61; PULSE 70; RESP 16; TEMP 36.9; O2SAT 93
[2019-02-12] MEDS: Pramipexole Di-HCl 1 MG Tablet PO (21:47)
[2019-02-12] MEDS: Atorvastatin Calcium 20 MG Tablet PO (21:47)
[2019-02-12] MEDS: oxyCODONE 5 MG Tablet 10 MG PO (21:48)
[2019-02-12] MEDS: Atenolol 50 MG Tablet PO (21:48)
[2019-02-12 22:16] LABS: Bedside Glucose 130 mg/dL (70-110)
--- NOTE | 2019-02-12 22:53 | NURSING ---
Vibramycin sent back down to pharmacy d/t unable to reconstitute, awaiting new bag.
[2019-02-12] MEDS: Pantoprazole Sodium 40 MG Tablet PO (23:03)
[2019-02-13] MEDS: oxyCODONE 5 MG Tablet 10 MG PO ×4 (02:56→21:19)
[2019-02-13 03:00] VITALS: BP 95/57; PULSE 58; RESP 16; TEMP 36.4; O2SAT 94
[2019-02-13] MEDS: hydrOXYzine PAM 25 MG Capsule PO ×2 (04:13→11:48)
[2019-02-13] MEDS: Acetaminophen 500 MG Tablet 1000 MG PO ×3 (05:48→21:14)
[2019-02-13 06:41] LABS: Bedside Glucose 134 mg/dL (70-110)
[2019-02-13] MEDS: DULoxetine Hcl 60 MG Capsule 120 MG PO (07:51)
[2019-02-13] MEDS: Dronabinol 2.5 MG Capsule PO ×2 (07:52→17:12)
[2019-02-13] MEDS: Pantoprazole Sodium 40 MG Tablet PO (07:52)
[2019-02-13 08:00] VITALS: BP 98/53; PULSE 64; RESP 18; TEMP 36.8; O2SAT 93
[2019-02-13] MEDS: Gabapentin 100 MG Capsule PO ×2 (11:48→17:12)
[2019-02-13 11:55] LABS: Bedside Glucose 88 mg/dL (70-110)
--- NOTE | 2019-02-13 12:21 | PN_ITS ---
<Brenda Luque - Last Filed: 02/13/19 12:23> Subjective: Patient seen and examined. Feels rash is worsening. Complains of significant pain 8/10 of the right facial area, scalp area and right eyelid. - Physical Exam General: Alert, Oriented x3, Cooperative HEENT: Atraumatic, PERRLA, EOMI, Normocephalic Neck: Supple, No JVD, Negative Carotid Bruits Lungs: Clear to auscultation, Normal air movement Cardiovascular: Regular rate, Regular Rhythm, Normal S1, Normal S2, No murmurs Abdomen: Bowel Sounds Present, Soft, Non Tender Extremities: No clubbing, No cyanosis, No edema, Capillary Refill Less than 3 Seconds Skin: - - Diffuse erythema of scalp extending to right side of forehead and right eyelid with edema. No open vesicles or open wound. Musculoskeletal: No Tenderness to Palpation of Joints or Extremities Neurological: Cranial nerves II-XII grossly intact, Neuro grossly intact Psych/Mental Status: Normal Affect, Appropriate Vital Signs Temp Pulse Resp BP Pulse Ox 98.2 F 64 18 98/53 L 93 02/13/19 08:00 02/13/19 08:00 02/13/19 08:00 02/13/19 08:00 02/13/19 08:00 Oxygen Delivery Method Room Air Weight: 205 lb 14.588 oz Body Mass Index (BMI) 34.2 Intake and Output for Last 24 Hours 02/11/19 02/12/19 02/13/19 23:59 23:59 23:59 Intake Total 931 / 931 3 / 2093 Balance 931 / 931 2092 / 209 Laboratory Tests Past 24 Hrs 02/12/19 02/12/19 10:25 18:30 ESR 19 Lyme Total Antibody Pending Lyme Disease Interpret Pending POC Glucose 02/13/19 02/13/19 02/12/19 11:45 06:36 21:41 POC Glucose 88 134 H 130 H 02/12/19 17:30 POC Glucose 124 H Medical Necessity - Tobacco Use Smoking Status: Never smoker Assessment/Plan All Active Problems (Last Reviewed 02/11/19 @ 08:30 by Monica Gomez) Acute asthma exacerbation (Acute) Asthma exacerbation (Acute) Sigmoid diverticulitis (Resolved) 1. Herpes zoster dermatitis involving the scalp, right forehead and right eyelid with possible superimposed bacterial cellulitis, possible Lyme's disease?-IV acyclovir 500 mg every 8 hours, IV doxycycline 100 mg twice daily. PRN pain regimen. Given possible right eye involvement, will attempt to consult optometry. Lyme's antibodies pending. Gabapentin added for further pain control. 2. Type 2 diabetes mellitus-on Trulicity, hold. Accu-Cheks ACHS with sliding scale insulin. 3. Hypertension-stable, continue home atenolol regimen. 4. Hyperlipidemia-continue statin. 5. Depression/PTSD-continue home duloxetine, lorazepam regimen. 6. IBS 7. Urinary incontinence-referred to urology by PCP. 8. Chronic maxillary sinusitis-refer to ENT by PCP. 9. Chronic moderate persistent asthma-no acute exacerbation. As needed albuterol aerosol. 10. Recurrent diverticulitis-PCP recommended colonoscopy, outpatient follow-up. 11. Obesity-encouraged diet and lifestyle modifications. DVT prophylaxis-Lovenox subcu This patient was seen by JORGE ALBERTO Nicolas under the supervision of Dr. Lara. <Ed Lara F - Last Filed: 02/13/19 16:53> - Physical Exam Vital Signs Temp Pulse Resp BP Pulse Ox 98.2 F 64 18 98/53 L 93 02/13/19 08:00 02/13/19 08:00 02/13/19 08:00 02/13/19 08:00 02/13/19 08:00 Oxygen Delivery Method Room Air Weight: 205 lb 14.588 oz Body Mass Index (BMI) 34.2 Intake and Output for Last 24 Hours 02/11/19 02/12/19 02/13/19 23:59 23:59 23:59 Intake Total 931 / 931 2092 / 2092 Balance 931 / 931 2092 Laboratory Tests Past 24 Hrs 02/12/19 18:30 Lyme Total Antibody Pending Lyme Disease Interpret Pending POC Glucose 02/13/19 02/13/19 02/12/19 11:45 06:36 21:41 POC Glucose 88 134 H 130 H 02/12/19 17:30 POC Glucose 124 H Code Visit Addendum: Dr. Lara I personally examined the patient and reviewed the chart. I agree with the above. 58-year-old female with what appears to be shingles rash on her right forehead and right upper eyelid. Her extraocular muscles are intact without any pain or decrease in visual acuity. There are no vesicles on the eye itself. We will continue with IV acyclovir as well as doxycycline to cover for possible Lyme so that is unlikely, and possible cellulitis. Will add gabapentin 100 mg 3 times daily for her pain regimen. If she stable we will plan for discharge tomorrow on Valtrex and doxycycline, we did touch base with an dining room attendant cafeteria to given the physical exam findings was not concerned that she needed an immediate evaluation and could be seen later this week as an outpatient. Inpatient E&M: 44843 Subs Hosp L2
[2019-02-13] MEDS: 0.9% NaCl Peripheral Flush Adult/Peds IV ×4 (13:16→21:53)
--- NOTE | 2019-02-13 13:30 | CASEMGMT ---
RN SUSANNAH Face to Face with patient for initial transition planning/care coordination assessment. RN CM introduced self and role at [facility]. Patient lying in bed, alert and oriented. Patient willing to participate in assessment and is able to answer all questions appropriately. Care providers, pharmacy, and demographics verified. Patient wishes to discharge home, denies need for home health at this time. Patient states she has no further needs or concerns at this time. CM to follow for discharge planning needs that may arise. PCP: Sari Specialists: [facility]ress[facility] Preferred Pharmacy: [facility] Insurance: [employer] [place] Prescription Benefit: yes Living Will/HPOA: none LNOK: Living Arrangements: Patient lives with in 1 story home. Patient independent at home. Transportation: self/ DME/HHC: Patient has nebulizer Disposition Plan: Patient to discharge home with family support and follow-up plans in place. Renee BURKETT, RN, CM
--- NOTE | 2019-02-13 14:51 | CHAPLAIN ---
Type of Pastoral Visit _x__ Initial Visit ___ Follow-up Visit ___ On-call Visit ___ General Patient Visit ___ Spiritual Assessment ___ Family Conference ___ Bereavement ___ Rapid Response ___ Code Blue ___ Other (describe below) Pastoral Care Referral From _x__ Patient ___ Family ___ Nurse ___ Physician ___ Title I Coordinator ___ Burial Vault Maker ___ Other (describe below) Sacrament/Intervention _x__ Active listening ___ Anointing ___ Quaker ___ Bereavement ___ Communion _x__ Altagracia exploration ___ ___ Life review _x__ Prayer ___ Reconciliation ___ Sacrament of Sick _x__ Supportive presence ___ Wedding ___ Other (describe below) Pastoral Comments patient requested that a contact be make on her behalf to her outreach counselor/buddhism; completed; patient had questions about spiritual matters and in relation to current affairs
[2019-02-13 15:00] VITALS: BP 105/58; PULSE 70; RESP 16; TEMP 36.8; O2SAT 94
--- NOTE | 2019-02-13 17:05 | PCM.PROGNOTE ---
- Physical Exam Vital Signs Temp Pulse Resp BP Pulse Ox 98.2 F 64 18 98/53 L 93 02/13/19 08:00 02/13/19 08:00 02/13/19 08:00 02/13/19 08:00 02/13/19 08:00 Oxygen Delivery Method Room Air Weight: 205 lb 14.588 oz Body Mass Index (BMI) 34.2 Intake and Output for Last 24 Hours 02/11/19 02/12/19 02/13/19 23:59 23:59 23:59 Intake Total 931 / 931 2092 Balance 931 / 931 2092 Laboratory Tests Past 24 Hrs 02/12/19 18:30 Lyme Total Antibody Pending Lyme Disease Interpret Pending POC Glucose 02/13/19 02/13/19 02/12/19 11:45 06:36 21:41 POC Glucose 88 134 H 130 H 02/12/19 17:30 POC Glucose 124 H Medical Necessity - Tobacco Use Smoking Status: Never smoker Assessment/Plan All Active Problems (Last Reviewed 02/11/19 @ 08:30 by Monica Gomez) Acute asthma exacerbation (Acute) Asthma exacerbation (Acute) Sigmoid diverticulitis (Resolved)
[2019-02-13 18:56] LABS: Bedside Glucose 85 mg/dL (70-110)
[2019-02-13 21:00] VITALS: BP 103/62; PULSE 77; RESP 16; TEMP 36.8; O2SAT 94
[2019-02-13] MEDS: Pramipexole Di-HCl 1 MG Tablet PO (21:13)
[2019-02-13] MEDS: Atenolol 50 MG Tablet PO (21:13)
[2019-02-13] MEDS: Atorvastatin Calcium 20 MG Tablet PO (21:13)
[2019-02-13] MEDS: Neomycin/Polymyxin/Dexameth 5ML OPTH.BTL 2 DRP RIGHT EYE (21:55)
[2019-02-13 22:10] LABS: Bedside Glucose 102 mg/dL (70-110)
[2019-02-14] MEDS: 0.9% NaCl Peripheral Flush Adult/Peds IV ×3 (00:36→21:11)
[2019-02-14] MEDS: oxyCODONE 5 MG Tablet 10 MG PO ×5 (01:24→20:37)
[2019-02-14 02:00] VITALS: BP 127/77; PULSE 67; RESP 16; TEMP 36.6; O2SAT 93
[2019-02-14] MEDS: Acetaminophen 500 MG Tablet 1000 MG PO ×3 (06:32→22:14)
[2019-02-14] MEDS: Neomycin/Polymyxin/Dexameth 5ML OPTH.BTL 2 DRP RIGHT EYE ×3 (06:34→22:15)
[2019-02-14 06:51] LABS: Bedside Glucose 68 mg/dL (70-110)
[2019-02-14 07:31] LABS: Bedside Glucose 102 mg/dL (70-110)
[2019-02-14 08:00] VITALS: BP 110/71; PULSE 71; RESP 16; TEMP 37.6; O2SAT 99
[2019-02-14] MEDS: Gabapentin 100 MG Capsule PO ×3 (08:20→16:04)
[2019-02-14] MEDS: Dronabinol 2.5 MG Capsule PO ×2 (09:01→16:03)
[2019-02-14] MEDS: Pantoprazole Sodium 40 MG Tablet PO (09:02)
[2019-02-14] MEDS: Enoxaparin 40 MG/0.4 ML Syringe SC (09:02)
[2019-02-14] MEDS: DULoxetine Hcl 60 MG Capsule 120 MG PO (09:02)
[2019-02-14 11:26] LABS: Bedside Glucose 92 mg/dL (70-110)
--- NOTE | 2019-02-14 12:26 | PCM.PROGNOTE ---
<Brenda Luque - Last Filed: 02/14/19 12:30> Subjective: Patient seen and examined. Right eye with increased swelling today. She reports pain is slightly more improved today. Denies right eye vision changes. - Physical Exam General: Alert, Oriented x3, Cooperative HEENT: Atraumatic, PERRLA, EOMI, Normocephalic, - - Right eyelid with redness and edema, increased swelling underneath right eye. Right eye without redness or vesicles. Oral: Moist Mucosa Neck: Supple, No JVD, Negative Carotid Bruits Lungs: Clear to auscultation, Normal air movement Cardiovascular: Regular rate, Regular Rhythm, Normal S1, Normal S2, No murmurs Abdomen: Bowel Sounds Present, Soft, Non Tender, Non-Distended Extremities: No clubbing, No cyanosis, No edema, Capillary Refill Less than 3 Seconds Skin: - - Right forehead and right eyelid with erythema and now scabbed vesicles. Overall redness improving. Musculoskeletal: No Tenderness to Palpation of Joints or Extremities Neurological: Cranial nerves II-XII grossly intact, Neuro grossly intact Psych/Mental Status: Normal Affect, Appropriate Vital Signs Temp Pulse Resp BP Pulse Ox 99.7 F H 71 16 110/71 99 02/14/19 08:00 02/14/19 08:00 02/14/19 08:00 02/14/19 08:00 02/14/19 08:00 Oxygen Delivery Method Room Air Weight: 205 lb 14.588 oz Body Mass Index (BMI) 34.2 Intake and Output for Last 24 Hours 02/12/19 02/13/19 02/14/19 23:59 23:59 23:59 Intake Total 931 / 931 2725 / 2725 1341 / 1341 Balance 931 / 931 2725 / 2725 1341 / 1341 POC Glucose 02/14/19 02/14/19 02/14/19 11:20 07:24 06:29 POC Glucose 92 102 68 L 02/13/19 02/13/19 21:49 17:01 POC Glucose 102 85 Medical Necessity - Tobacco Use Smoking Status: Never smoker Assessment/Plan All Active Problems (Last Reviewed 02/11/19 @ 08:30 by Monica Gomez) Acute asthma exacerbation (Acute) Asthma exacerbation (Acute) Sigmoid diverticulitis (Resolved) 1. Herpes zoster dermatitis involving the scalp, right forehead and right eyelid with possible superimposed bacterial cellulitis, possible Lyme's disease?-IV acyclovir 500 mg every 8 hours, IV doxycycline 100 mg twice daily. PRN pain regimen. Given possible right eye involvement, discussed with optometry who recommended Maxitrol eyedrops 3 times daily and follow-up later this week as outpatient. Lyme's antibodies pending. Continue gabapentin regimen. Anticipate discharge tomorrow. 2. Type 2 diabetes mellitus-on Trulicity, hold. Accu-Cheks ACHS with sliding scale insulin. 3. Hypertension-stable, continue home atenolol regimen. 4. Hyperlipidemia-continue statin. 5. Depression/PTSD-continue home duloxetine, lorazepam regimen. 6. IBS 7. Urinary incontinence-referred to urology by PCP. 8. Chronic maxillary sinusitis-refer to ENT by PCP. 9. Chronic moderate persistent asthma-no acute exacerbation. As needed albuterol aerosol. 10. Recurrent diverticulitis-PCP recommended colonoscopy, outpatient follow-up. 11. Obesity-encouraged diet and lifestyle modifications. DVT prophylaxis-Lovenox subcu This patient was seen by JORGE ALBERTO Nicolas under the supervision of Dr. Lara. <Ed Lara F - Last Filed: 02/14/19 13:32> - Physical Exam Vital Signs Temp Pulse Resp BP Pulse Ox 99.7 F H 71 16 110/71 99 02/14/19 08:00 02/14/19 08:00 02/14/19 08:00 02/14/19 08:00 02/14/19 08:00 Oxygen Delivery Method Room Air Weight: 205 lb 14.588 oz Body Mass Index (BMI) 34.2 Intake and Output for Last 24 Hours 02/12/19 02/13/19 02/14/19 23:59 23:59 23:59 Intake Total 931 / 931 2725 / 2725 1341 / 1341 Balance 931 / 931 2725 / 2725 1341 / 1341 POC Glucose 02/14/19 02/14/19 02/14/19 11:20 07:24 06:29 POC Glucose 92 102 68 L 02/13/19 02/13/19 21:49 17:01 POC Glucose 102 85 Code Visit Addendum: Dr. Lara I personally examined the patient and reviewed the chart. I agree with the above. 58-year-old female with what appears to be shingles rash on her right forehead and right upper lid. Her extra ocular muscles are intact without any pain or decreased visual acuity and there are no vesicles on the eye itself. She does have dependent edema in the lower eyelid on the right, but no signs of infection there. The erythema has significantly improved, will continue with the doxycycline and acyclovir for today, will plan for discharge on p.o. doxy and p.o. Valtrex. Follow-up with outpatient ophthalmology on discharge. Inpatient E&M: 64417 Subs Hosp L2
[2019-02-14 14:00] VITALS: BP 101/60; PULSE 69; RESP 16; TEMP 36.8; O2SAT 95
[2019-02-14 16:41] LABS: Bedside Glucose 116 mg/dL (70-110)
[2019-02-14 20:00] VITALS: BP 135/80; PULSE 77; RESP 18; TEMP 36.6; O2SAT 100
[2019-02-14] MEDS: Atorvastatin Calcium 20 MG Tablet PO (22:14)
[2019-02-14] MEDS: Pramipexole Di-HCl 1 MG Tablet PO (22:15)
[2019-02-14] MEDS: Atenolol 50 MG Tablet PO (22:29)
[2019-02-14 22:41] LABS: Bedside Glucose 111 mg/dL (70-110)
[2019-02-15] MEDS: 0.9% NaCl Peripheral Flush Adult/Peds IV ×2 (00:40→08:52)
[2019-02-15] MEDS: oxyCODONE 5 MG Tablet 10 MG PO ×2 (00:41→07:29)
[2019-02-15 01:02] VITALS: BP 116/72; PULSE 73; RESP 18; TEMP 36.7; O2SAT 97
[2019-02-15 06:50] VITALS: BP 109/63; PULSE 65; RESP 16; TEMP 36.6; O2SAT 96
[2019-02-15] MEDS: Acetaminophen 500 MG Tablet 1000 MG PO (07:01)
[2019-02-15] MEDS: Neomycin/Polymyxin/Dexameth 5ML OPTH.BTL 2 DRP RIGHT EYE (07:01)
[2019-02-15] MEDS: Dronabinol 2.5 MG Capsule PO (07:02)
[2019-02-15 07:10] LABS: Bedside Glucose 95 mg/dL (70-110)
[2019-02-15] MEDS: Gabapentin 100 MG Capsule PO ×2 (08:52→11:06)
[2019-02-15] MEDS: Enoxaparin 40 MG/0.4 ML Syringe SC (09:08)
[2019-02-15] MEDS: Pantoprazole Sodium 40 MG Tablet PO (09:08)
[2019-02-15] MEDS: DULoxetine Hcl 60 MG Capsule 120 MG PO (09:08)
--- NOTE | 2019-02-15 10:43 | DCINST_ITS ---
You will use the following diet at home:: Calorie/Carbohydrate Controlled (specify 1200, 1400, etc) Discharge Activity: Return to Normal Activity, - - May not drive on pain regimen or while continued swelling/vision difficulty right eye. Call your doctor if you observe: Shortness of breath, Dizziness, Fainting spells, Chest pain Allergies/Adverse Reactions: Allergies eluxadoline [From Viberzi] Allergy (Severe, Verified 02/12/19 09:49) Other diverticulitis NSAIDS (Non-Steroidal Anti-Inflamma Allergy (Intermediate, Verified 02/12/19 09:49) Other GI bleeds Sulfa (Sulfonamide Antibiotics) Allergy (Verified 02/12/19 09:49) Rash albuterol Adverse Reaction (Severe, Verified 02/12/19 09:49) other increase heart rate metformin Adverse Reaction (Severe, Verified 02/12/19 09:49) Other diarreah inderal Allergy (Intermediate, Uncoded 02/12/19 09:49) Other hallucinations most antidepressants Adverse Reaction (Severe, Uncoded 02/12/19 09:49) Other varies from rash, to hallucinations, to shakes. Medications to take at Discharge Lorazepam [Ativan] 1 mg PO TID PRN PRN 06/30/17 Multivitamin [Daily Multiple Vitamin] 1 tab PO DAILY 11/19/17 Zolpidem Tartrate [Ambien] 5 - 10 mg PO QHS PRN PRN 11/19/17 Atenolol [Tenormin (beta lex)] 50 mg PO QHS 08/21/18 Cholecalciferol (Vitamin D3) [Vitamin D3] 5,000 unit PO QHS 08/21/18 Duloxetine HCl 120 mg PO DAILY 08/21/18 levalbuterol HFA 45 mcg/actuation aerosol inhaler 2 inh INHALATION Q6H PRN #15 g 09/14/18 atorvastatin 20 mg tablet 20 mg PO QHS #90 tab 09/23/18 dulaglutide 1.5 mg/0.5 mL subcutaneous pen injector 1.5 mg SC QWEEK #2 ml 09/23/18 ipratropium bromide 0.02 % solution for inhalation 2.5 ml INHALATION Q6H PRN #62.5 ml 09/23/18 fluticasone furoate 200 mcg-vilanterol 25 mcg/dose inhalation powder 1 inh INHALATION DAILY #60 ea 10/06/18 fluticasone propionate 50 mcg/actuation nasal spray,suspension 2 spray INTRANASAL DAILY PRN g 10/11/18 pramipexole 1 mg tablet 1 mg PO QHS #90 tab 10/11/18 omeprazole 20 mg capsule,delayed release 40 mg PO QHS #90 cap 10/20/18 Blood-Glucose Meter [Contour] 0 dose .ROUTE .MEDSUPPLY 02/12/19 Doxycycline 100 mg PO BID #14 capsule 02/15/19 Gabapentin [Neurontin] 100 mg PO TIDCM #90 capsule 02/15/19 Neomycin/Polymyxin B/Dexametha [Maxitrol Eye Drops] 2 drop RIGHT EYE TID #1 bottle 02/15/19 Oxycodone [Oxyir] 10 mg PO Q4H PRN PRN 2 Days #10 tablet 02/15/19 Valacyclovir HCl [Valacyclovir] 1,000 mg PO TID #15 tablet 02/15/19 The following prescriptions were given: Oxycodone [Oxyir] 10 mg PO Q4H PRN PRN 2 Days #10 tablet PRN Reason: Severe Pain (-06/15) Doxycycline 100 mg PO BID #14 capsule Gabapentin [Neurontin] 100 mg PO TIDCM #90 capsule Neomycin/Polymyxin B/Dexametha [Maxitrol Eye Drops] 2 drop RIGHT EYE TID #1 bottle Valacyclovir HCl [Valacyclovir] 1,000 mg PO TID #15 tablet Primary Care Physician: Roberto Guo MD [Primary Care Provider] - Please follow up with your Primary Care Physician in: 1 Week Test Results: Test results from this visit will be discussed in further detail at your follow- up appointment, if applicable. Please Follow Up With: Alex Wick MD - [phone] When: Ophthalmology, call for appointment this week. Proposed Discharge Date: 02/15/19
--- NOTE | 2019-02-15 11:00 | DS.PCM_ITS ---
<Brenda Luque - Last Filed: 02/15/19 11:01> Discharge Date and Diagnosis Date of Admission: 02/12/19 Date of Discharge: 02/15/19 - Primary Discharge Diagnosis 1. Herpes zoster dermatitis involving the scalp, right forehead and right eyelid with possible superimposed bacterial cellulitis vs possible Lyme's disease 2. Type 2 diabetes mellitus 3. Hypertension 4. Hyperlipidemia 5. Depression/PTSD 6. IBS 7. Urinary incontinence 8. Chronic maxillary sinusitis 9. Chronic moderate persistent asthma 10. Recurrent diverticulitis 11. Obesity - Secondary Discharge Diagnosis Chronic Problems (Last Reviewed 02/11/19 @ 08:30 by Monica Gomez) Chronic sinusitis (Chronic) Urinary incontinence (Chronic) Diverticulitis (Chronic) Postmenopausal (Chronic) On hormone replacement therapy (Chronic) DM type 2 (diabetes mellitus, type 2) (Chronic) Malabsorption (Chronic) Low libido (Chronic) Hiatal hernia with GERD (Chronic) Urinary, incontinence, stress female (Chronic) Chronic recurrent sinusitis (Chronic) Insomnia (Chronic) Vitamin D deficiency, unspecified (Chronic) Arthritis (Chronic) Asthma (Chronic) Diabetes mellitus type 2 in obese (Chronic) Diverticulosis (Chronic) PTSD (post-traumatic stress disorder) (Chronic) IBS (irritable bowel syndrome) (Chronic) Obesity (BMI 30-39.9) (Chronic) HTN (hypertension) (Chronic) HLD (hyperlipidemia) (Chronic) Anxiety and depression (Chronic) Hospital Course and Treatment Operations: None Procedures: None Summary of Care Provided: The patient is a 58 year old F admitted 02/12/2019 due to scalp and facial redness. 1. Herpes zoster dermatitis involving the scalp, right forehead and right eyelid with possible superimposed bacterial cellulitis, possible Lyme's disease?-IV acyclovir 500 mg every 8 hours and IV doxycycline 100 mg twice daily during admission. Discharge on valacyclovir 1000 mg 3 times daily and PO doxycycline twice daily to complete 10 days of antibiotic therapy and 7 days of antiviral. Given possible right eye involvement, discussed with optometry who recommended Maxitrol eyedrops 3 times daily and follow-up later this week as outpatient. Patient instructed to call [facility], Dr. Wick for appointment. Lyme's antibodies pending. Continue gabapentin regimen, 100 mg 3 times daily. Treated for Lyme's disease on admission given prior symptoms of joint aching, swollen glands, headache. Do suspect initial Lyme's antibodies will come back negative given completed shortly after onset. Recommend repeat antibodies by primary care provider. Patient was treated empirically with doxycycline. Follow-up with primary care provider in 1 week. 2. Type 2 diabetes mellitus-continue Trulicity regimen. 3. Hypertension-stable, continue home atenolol regimen. 4. Hyperlipidemia-continue statin. 5. Depression/PTSD-continue home duloxetine, lorazepam regimen. 6. IBS 7. Urinary incontinence-referred to urology by PCP. 8. Chronic maxillary sinusitis-refer to ENT by PCP. 9. Chronic moderate persistent asthma-no acute exacerbation. 10. Recurrent diverticulitis-PCP recommended colonoscopy, outpatient follow-up. 11. Obesity-encouraged diet and lifestyle modifications. General: Alert, Oriented x3, Cooperative HEENT: Atraumatic, PERRLA, EOMI, Normocephalic, - - Right eyelid with redness and edema, improved. Right eye without redness or vesicles. Oral: Moist Mucosa Neck: Supple, No JVD, Negative Carotid Bruits Lungs: Clear to auscultation, Normal air movement Cardiovascular: Regular rate, Regular Rhythm, Normal S1, Normal S2, No murmurs Abdomen: Bowel Sounds Present, Soft, Non Tender, Non-Distended Extremities: No clubbing, No cyanosis, No edema, Capillary Refill Less than 3 Seconds Skin: - - Right forehead and right eyelid with erythema and now scabbed vesicles. Overall redness improving. Musculoskeletal: No Tenderness to Palpation of Joints or Extremities Neurological: Cranial nerves II-XII grossly intact, Neuro grossly intact Psych/Mental Status: Normal Affect, Appropriate Patient seen and examined prior to discharge. Physical assessment as noted above. Patient is stable for discharge with follow up recommendations as noted above. This patient was seen by JORGE ALBERTO Nicolas under the supervision of Dr. Radha mckeon. - Physical Exam Vital Signs Temp Pulse Resp BP Pulse Ox 97.9 F 65 16 109/63 96 02/15/19 06:50 02/15/19 06:50 02/15/19 06:50 02/15/19 06:50 02/15/19 06:50 Oxygen Delivery Method Room Air Weight: 205 lb 14.588 oz Body Mass Index (BMI) 34.2 Intake and Output for Last 24 Hours 02/13/19 02/14/19 02/15/19 23:59 23:59 23:59 Intake Total 2725 / 2725 1341 / 1341 1222 / 1222 Balance 2725 / 2725 1341 / 1341 1222 / 1222 Microbiology Past 72 Hours 02/12/19 10:25 Blood Culture - Preliminary Blood Culture (Wb) - Anticubital Right No growth in 48 hours. 02/12/19 10:25 Blood Culture - Preliminary Blood Culture (Wb) - Anticubital Left No growth in 48 hours. POC Glucose 02/15/19 02/14/19 02/14/19 07:03 22:20 16:34 POC Glucose 95 111 H 116 H 02/14/19 11:20 POC Glucose 92 Discharge Diet: 1800 Calorie Control Diet, Carb Control Diet Discharge Activity: Return to Normal Activity, - - May not drive on pain regimen or while continued swelling/vision difficulty right eye. Call your doctor if you observe: Shortness of breath, Dizziness, Fainting spells, Chest pain Home Medications: Medications to take at Discharge Lorazepam [Ativan] 1 mg PO TID PRN PRN 06/30/17 Multivitamin [Daily Multiple Vitamin] 1 tab PO DAILY 11/19/17 Zolpidem Tartrate [Ambien] 5 - 10 mg PO QHS PRN PRN 11/19/17 Atenolol [Tenormin (beta lex)] 50 mg PO QHS 08/21/18 Cholecalciferol (Vitamin D3) [Vitamin D3] 5,000 unit PO QHS 08/21/18 Duloxetine HCl 120 mg PO DAILY 08/21/18 levalbuterol HFA 45 mcg/actuation aerosol inhaler 2 inh INHALATION Q6H PRN #15 g 09/14/18 atorvastatin 20 mg tablet 20 mg PO QHS #90 tab 09/23/18 dulaglutide 1.5 mg/0.5 mL subcutaneous pen injector 1.5 mg SC QWEEK #2 ml 09/23/18 ipratropium bromide 0.02 % solution for inhalation 2.5 ml INHALATION Q6H PRN #62.5 ml 09/23/18 fluticasone furoate 200 mcg-vilanterol 25 mcg/dose inhalation powder 1 inh INHALATION DAILY #60 ea 10/06/18 fluticasone propionate 50 mcg/actuation nasal spray,suspension 2 spray INTRANASAL DAILY PRN g 10/11/18 pramipexole 1 mg tablet 1 mg PO QHS #90 tab 10/11/18 omeprazole 20 mg capsule,delayed release 40 mg PO QHS #90 cap 10/20/18 Blood-Glucose Meter [Contour] 0 dose .ROUTE .MEDSUPPLY 02/12/19 Doxycycline 100 mg PO BID #14 capsule 02/15/19 Gabapentin [Neurontin] 100 mg PO TIDCM #90 capsule 02/15/19 Neomycin/Polymyxin B/Dexametha [Maxitrol Eye Drops] 2 drop RIGHT EYE TID #1 bottle 02/15/19 Oxycodone [Oxyir] 10 mg PO Q4H PRN PRN 2 Days #10 tablet 02/15/19 Valacyclovir HCl [Valacyclovir] 1,000 mg PO TID #15 tablet 02/15/19 Following Prescrptions Were Given to Patient: Oxycodone [Oxyir] 10 mg PO Q4H PRN PRN 2 Days #10 tablet PRN Reason: Severe Pain (-06/15) Doxycycline 100 mg PO BID #14 capsule Gabapentin [Neurontin] 100 mg PO TIDCM #90 capsule Neomycin/Polymyxin B/Dexametha [Maxitrol Eye Drops] 2 drop RIGHT EYE TID #1 bottle Valacyclovir HCl [Valacyclovir] 1,000 mg PO TID #15 tablet Primary Care Physician: Roberto Guo MD [Primary Care Provider] - Please follow up with your Primary Care Physician in: 1 Week Please Follow Up With: Alex Wick MD - [phone] When: Ophthalmology, call for appointment this week. Disposition: Home Minutes spent on discharge:: 35 Patient Condition:: Stable Medical Necessity - Tobacco Use Smoking Status: Never smoker Meaningful Use Info Meaningful Use Diagnoses (Choose all that apply): None applicable <Ed Lara - Last Filed: 02/15/19 12:46> Discharge Date and Diagnosis - Secondary Discharge Diagnosis Chronic Problems (Last Reviewed 02/11/19 @ 08:30 by Monica Gomez) Chronic sinusitis (Chronic) Urinary incontinence (Chronic) Diverticulitis (Chronic) Postmenopausal (Chronic) On hormone replacement therapy (Chronic) DM type 2 (diabetes mellitus, type 2) (Chronic) Malabsorption (Chronic) Low libido (Chronic) Hiatal hernia with GERD (Chronic) Urinary, incontinence, stress female (Chronic) Chronic recurrent sinusitis (Chronic) Insomnia (Chronic) Vitamin D deficiency, unspecified (Chronic) Arthritis (Chronic) Asthma (Chronic) Diabetes mellitus type 2 in obese (Chronic) Diverticulosis (Chronic) PTSD (post-traumatic stress disorder) (Chronic) IBS (irritable bowel syndrome) (Chronic) Obesity (BMI 30-39.9) (Chronic) HTN (hypertension) (Chronic) HLD (hyperlipidemia) (Chronic) Anxiety and depression (Chronic) Hospital Course and Treatment Summary of Care Provided: The patient is a 58 year old F [] - Physical Exam Vital Signs Temp Pulse Resp BP Pulse Ox 97.9 F 72 16 105/65 97 02/15/19 11:09 02/15/19 11:09 02/15/19 11:09 02/15/19 11:09 02/15/19 11:09 Oxygen Delivery Method Room Air Weight: 205 lb 14.588 oz Body Mass Index (BMI) 34.2 Intake and Output for Last 24 Hours 02/13/19 02/14/19 02/15/19 23:59 23:59 23:59 Intake Total 2725 / 2725 1341 / 1341 1222 / 1222 Balance 2725 / 2725 1341 / 1341 1222 / 1222 Microbiology Past 72 Hours 02/12/19 10:25 Blood Culture - Preliminary Blood Culture (Wb) - Anticubital Right No growth in 48 hours. 02/12/19 10:25 Blood Culture - Preliminary Blood Culture (Wb) - Anticubital Left No growth in 48 hours. Laboratory Tests Past 24 Hrs 02/12/19 18:30 Lyme Total Antibody <0.91 POC Glucose 02/15/19 02/15/19 02/14/19 10:59 07:03 22:20 POC Glucose 92 95 111 H 02/14/19 16:34 POC Glucose 116 H Code Visit Addendum: Dr. Lara I personally examined the patient and reviewed the chart. I agree with the above. 58-year-old female presenting with right forehead and scalp shingles with possible superimposed bacterial cellulitis. Lyme's titers are negative and even if they are or do become positive completing 10 days of doxycycline will treat most indications for Lyme disease. She has had significant improvement with IV acyclovir and IV doxycycline. She will be discharged on p.o. Valtrex and p.o. doxy to complete course. We did communicate with an manager fraud who felt that since she did not have any vesicles or pain with eye movement that she did not have an emergency and at that point could be seen as an outpatient. He did recommend some antibiotic and steroid eyedrops to be provided. She will be discharged with ophthalmology follow-up as well as gabapentin for her pain. She will not be discharged on any narcotics. Inpatient E&M: [id number] [facility]
[2019-02-15 11:09] VITALS: BP 105/65; PULSE 72; RESP 16; TEMP 36.6; O2SAT 97
[2019-02-15 11:14] LABS: Lyme Scn Total Ab w/Rflx <0.91 ISR (0.00-0.90)
[2019-02-15 11:15] LABS: Bedside Glucose 92 mg/dL (70-110)
--- NOTE | 2019-02-16 15:08 | CASEMGMT ---
[facility] CM DC PHONE CALL DC DATE: 02/15/19 DC Disposition: Home LACE/STRATA: 08/09 Call to home, message left (had name identifier) if pt had questions re: dc instructions, f/u or prescriptions. Elvira SIMMONSN RN ACM
== END 2019-02-15 12:41 | disposition home or self-care (01) | DRG 866 ==
LOC: ED 10:23 → MS3 12:16
PROVIDERS: Nurse Practitioner Family; Admitting Provider Internal Medicine; Emergency Provider Emergency Medicine; Family Provider Internal Medicine; PCP Internal Medicine; Visit Provider Family Medicine
DX: B02.8 Zoster with other complications (principal); L03.211 Cellulitis of face; A69.20 Lyme disease, unspecified; I10 Essential (primary) hypertension; E78.5 Hyperlipidemia, unspecified; E11.9 Type 2 diabetes mellitus without complications; J32.0 Chronic maxillary sinusitis; K58.9 Irritable bowel syndrome, unspecified; E66.9 Obesity, unspecified; Z68.34 Body mass index [BMI] 34.0-34.9, adult; B96.89 Other specified bacterial agents as the cause of diseases classified elsewhere; F32.9 Major depressive disorder, single episode, unspecified; F43.10 Post-traumatic stress disorder, unspecified; J45.40 Moderate persistent asthma, uncomplicated
CPT/HCPCS: 36415; 80048; 82962; 85025; 85652; 86618; 87040; 99284; J7040; A4216; J2405

== ENCOUNTER 2019-05-22 08:10 | Day surgery (SDC) | payer MEDICAID, SELFPAY ==
[2019-05-02 14:20] VITALS: BMI 35.1
--- NOTE | 2019-05-04 10:00 | HP_ITS ---
Intake Vital Signs 05/02/19 Body Mass Index (BMI) 35.1 05/02/19 Height 5 ft 5 in 05/02/19 Weight: 212 lb 05/02/19 Body Mass Index (BMI) 35.2 05/02/19 Blood Pressure 133/71 H 05/02/19 Blood Pressure Location Rt brachial 05/02/19 Blood Pressure Position Sitting 05/02/19 Respiratory Rate 18 05/02/19 Pulse Rate 72 05/02/19 Pulse Source Monitor 05/02/19 Temperature 98.2 F 05/02/19 Temperature Source Oral 05/02/19 Pulse Ox 97 05/02/19 Oxygen Delivery Method room air Intake Visit Reasons: diarrhea, diverticulitis, BRBPR Chief Complaint: 1 Mo FU Laminator Required: No Is patient in pain?: No Allergies eluxadoline [From Viberzi] Allergy (Severe, Verified 05/02/19 14:19) Other NSAIDS (Non-Steroidal Anti-Inflamma Allergy (Intermediate, Verified 05/02/19 14:19) Other Sulfa (Sulfonamide Antibiotics) Allergy (Verified 05/02/19 14:19) Rash albuterol Adverse Reaction (Severe, Verified 05/02/19 14:19) other metformin Adverse Reaction (Severe, Verified 05/02/19 14:19) Other inderal Allergy (Intermediate, Uncoded 04/25/19 13:38) Other most antidepressants Adverse Reaction (Severe, Uncoded 04/25/19 13:38) Other Medications Lorazepam [Ativan] 1 mg PO TID PRN PRN 06/30/17 [History Confirmed 05/02/19] Multivitamin [Daily Multiple Vitamin] 1 tab PO DAILY 11/19/17 [History Confirmed 05/02/19] Zolpidem Tartrate [Ambien] 5 - 10 mg PO QHS PRN PRN 11/19/17 [History Confirmed 05/02/19] Atenolol [Tenormin (beta lex)] 50 mg PO QHS 08/21/18 [History Confirmed 05/02/19] Duloxetine HCl 120 mg PO DAILY 08/21/18 [History Confirmed 05/02/19] levalbuterol HFA 45 mcg/actuation aerosol inhaler 2 inh INHALATION Q6H PRN #15 g 09/14/18 [Rx Confirmed 05/02/19] atorvastatin 20 mg tablet 20 mg PO QHS #90 tab 09/23/18 [Rx Confirmed 05/02/19] ipratropium bromide 0.02 % solution for inhalation 2.5 ml INHALATION Q6H PRN #62.5 ml 09/23/18 [Rx Confirmed 05/02/19] fluticasone propionate 50 mcg/actuation nasal spray,suspension 2 spray INTRANASAL DAILY PRN g 10/11/18 [History Confirmed 05/02/19] Blood-Glucose Meter [Contour] 0 dose .ROUTE .MEDSUPPLY 02/12/19 [History Confirmed 05/02/19] Neomycin/Polymyxin B/Dexametha [Maxitrol Eye Drops] 2 drp RIGHT EYE TID #1 bottle 02/15/19 [Rx Confirmed 05/02/19] dulaglutide 1.5 mg/0.5 mL subcutaneous pen injector 1.5 mg SC QWEEK #2 ml 02/28/19 [Rx Confirmed 05/02/19] oxycodone 10 mg tablet 10 mg PO TID PRN #20 tab 03/14/19 [Rx Confirmed 05/02/19] cholecalciferol (vitamin D3) 5,000 unit capsule 5,000 unit PO QHS #90 cap 03/31/19 [Rx Confirmed 05/02/19] omeprazole 20 mg capsule,delayed release 40 mg PO QHS #90 cap 03/31/19 [Rx Confirmed 05/02/19] gabapentin 300 mg capsule 600 mg PO .QID #120 cap 04/14/19 [Rx Confirmed 05/02/19] pramipexole 1 mg tablet 1 mg PO QHS #90 tab 04/14/19 [Rx Confirmed 05/02/19] dicyclomine 20 mg tablet 20 mg PO TID #42 tab 05/02/19 [Rx Confirmed 05/02/19] sodium,potassium,mag sulfates 17.5 gram-3.13 gram-1.6 gram oral soln 177 ml PO DAILY 0 Days #354 ml 05/02/19 [Rx Confirmed 05/02/19] sodium,potassium,mag sulfates 17.5 gram-3.13 gram-1.6 gram oral soln 180 ml PO DAILY 0 Days #354 ml 05/03/19 [Rx] [facility] Medical History (Updated 05/02/19 @ 14:18 by Mary Huynh) Shingles (Acute) Diverticulitis (Chronic) Postmenopausal (Chronic) On hormone replacement therapy (Chronic) DM type 2 (diabetes mellitus, type 2) (Chronic) Acute asthma exacerbation (Acute) Asthma exacerbation (Acute) Malabsorption (Chronic) Low libido (Chronic) Hiatal hernia with GERD (Chronic) Urinary, incontinence, stress female (Chronic) Chronic recurrent sinusitis (Chronic) Insomnia (Chronic) Vitamin D deficiency, unspecified (Chronic) Arthritis (Chronic) Asthma (Chronic) Diverticulosis (Chronic) PTSD (post-traumatic stress disorder) (Chronic) IBS (irritable bowel syndrome) (Chronic) Obesity (BMI 30-39.9) (Chronic) HTN (hypertension) (Chronic) HLD (hyperlipidemia) (Chronic) Anxiety and depression (Chronic) Abdominal pain (Acute) Acid reflux (Acute) Blood in stool (Acute) Depression with anxiety (Acute) Diabetes (Acute) Diarrhea (Acute) Diverticulitis (Acute) History of hysterectomy (Inactive) Surgical History H/O left knee surgery (Acute) H/O right knee surgery (Acute) History of carpal tunnel release (Acute) History of hysterectomy (Acute) left hand nerve reconstruction (Acute) Carpal tunnel syndrome, left (Inactive) S/P left knee arthroscopy (Inactive) left arm ulnar nerve transposition (Inactive) left nerve reacttachment (Inactive) Family History Mother Arthritis Dementia Cancer skin Depression Father CHF (congestive heart failure) Dementia Bowel disease Sister Breast cancer Sister Cancer leukemia Social History (Updated 05/04/19 @ 10:03 by Marsha Rodriguez MD) Smoking Status: Never smoker alcohol intake: current details: 3 per week substance use type: does not use caffeine: Yes what type of physical activity do you participate in: walking frequency: 1-2 times per week seatbelt use: always do you feel safe at home: Yes additional social history: - [employer]- 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 Patient states she was diagnosed with diverticulosis age 23 and throughout her colon. Patient states she has had IBS all of her life which is typically diarrhea which she states is life debilitating as she has urgency as well as pain associated with it. Patient states that she had about 5 episodes of diverticulitis last year however upon looking through the records I can only find one in November 2017 and then one in October 2018, which she was treated for and only the one in November had a CT which only showed some mild changes at the sigmoid colon. Patient states with the diverticulitis she is unable to tolerate the p.o. Flagyl with nausea vomiting has been admitted for the IV Flagyl in the past. Patient states that earlier this month she had 1 day of bright red blood per rectum and she also had pain in bilateral lower quadrants as well as in the back which did resolve in a couple days but the bleeding resolved by the next day. Patient's last EGD and colonoscopy was in [address] Belcher per patient colonoscopy was negative. Patient did have 2 previous ones as well in [place]. Patient denies any family history of colon cancer. patient has tried elimination diets but not noticed any change with her bowel movements. Patient states that some increased fiber can cause some increased diarrhea with her IBS. Patient states she does have multiple bowel movements daily will have lower abdominal pain about 80% of the time she waits it range from a 4 to a 10 out of 10. Patient states about twice a week she will have a 10 out of 10 pain with it. In the past patient states she had tried Bentyl which did not work she is unsure how often or how much she was taking at that time. She is interested in trying that again. ROS General General: Yes fatigue; no weight change, colon cancer, breast cancer or weakness HEENT HEENT: No difficulty swallowing, eye injury, eye surgery, swollen glands or hoarseness Endo Endocrine: Yes diabetes mellitus; no thyroid disease, thyroid cancer, Hair loss, heat intolerance or cold intolerance Skin Skin: Yes rash; no changing moles Breast Breast: No left breast lump, right breast lump, nipple discharge, breast pain, abnormal mammogram, abnormal US or breast enlargement Musc Musculoskeletal: Yes arthritis; no back problems, rheumatoid arthritis, gout or joint pain Cardio Cardiovascular: No murmur, pacemaker, heart disease, atrial fibrillation, high blood pressure, heart attack, heart stent, palpitations, shortness of breat with exertion or chest pain Psych Psychiatric: Yes depression and anxiety; no hearing voices Resp Respiratory: No shortness of breath, No sleep apnea, No cough, No COPD, Yes asthma, No emphysema, No wheezing Gastro Gastrointestinal: Yes abdominal pain, No nausea or vomiting, Yes diarrhea, No constipation, Yes blood in stool, Yes acid reflux, No hemorrhoids, No ulcers, No gallbladder problem, No black,tarry stools [place] Hematologic: No blood thinners, No blood disorders, No bleeding, No anemia, No blood clots Neuro Neurologic: No system reviewed and no additional complaints, except as docu, No as per HPI, No abnormal walking, No abnormal hearing, No abnormal movements, No abnormal speech, No behavioral changes, No burning sensations, No confusion, No seizure-like activity, No unsteadiness, No dizziness, No localized weakness, No frequent falls, No headache(s), No lack of coordination, No loss of vision, No memory loss, No numbness, No other visual disturbances, No radiating pain, No restless legs, No sensory deficit, No fainting, No tingling, No tremor(s), No weakness, No other Exam Const General: cooperative, comfortable, no acute distress Chest Breast Palpation: No nipple discharge Resp Effort & Inspection: normal respiratory effort Cardio Rate: regular rate Heart Sounds: no murmurs GI Inspection: non-distended Palpation: soft, no guarding, nontender Assessment & Plan Problems 1. Diarrhea R19.7 2. Blood per rectum K62.5 3. History of IBS Z87.19 Plan Patient also was interested in trying bentyl again- tried it decades ago and didn't think it helped but she is unsure how much or how often she took it. Pt states her IBS is worse now with mainly diarrhea, urgency & lower abd pain. Will get records from 2013 colonoscopy- Dr. Belcher, negative per pt. I have discussed the above with the patient. I have offered the patient colonoscopy for evaluation & will do random biopsies due to the diarrhea. I have explained the risks/benefits of the procedure and described the procedure. I have discussed the risks with the patient, including but not limited to: infection, bleeding, perforation of the GI tract requiring emergency surgery, inability to complete the procedure, injury to any internal organs, complications of anesthesia, etc. - the patient understands and agrees to proceed. I have answered all the patient's questions to the patient's satisfaction and the patient has no further questions. The patient has been given instructions for the colon cleansing preparation. Patient will do Suprep unless it is too expensive then she will do 1 day of clears, MiraLAX Dulcolax split prep. Marsha Rodriguez M.D. Pager: [phone] [facility] [address] [place] [address], [facility], [address] [place] [id number] Office: [phone] Orders Orders: Colonoscopy 05/02/19 Medications New: dicyclomine Take 30 minutes before meals 20 mg PO TID 42 tabs 1RF sodium,potassium,mag sulfates 17.5-3.13-1.6 gram (Suprep Bowel Prep Kit) as directed. 177 mL PO DAILY 2 doses 354 mL 0RF Plan Detail Follow Up We will schedule colonoscopy Coding Level of Care Code Off vis,new,level 3 Diagnoses Diarrhea R19.7 Blood per rectum K62.5 History of IBS Z87.19 05/04/19 1003 <Electronically signed by Marsha Pierce am, MD> Date _ Marsha Rodriguez MD I have examined the patient the following changes are noted: Patient states no further bleeding per rectum since office visit.
[2019-05-22] VITALS (7 sets, daily range): BP systolic 97–131; BP diastolic 61–84; PULSE 61–72; RESP 14–18; TEMP 36.1–36.4; O2SAT 94–98; BMI 34.9
[2019-05-22 09:05] LABS: Bedside Glucose 111 mg/dL (70-110)
[2019-05-22] MEDS: Lactated Ringers 1,000 ML 100 ML IV (09:14)
--- NOTE | 2019-05-22 09:30 | COLBX_PTH ---
PATIENT: STACI LAZCANO LOC: EN U#:[id number] AGE/SX: 59/F ROOM: RE05/22/[address]: Dr. Marsha Rodriguez MD : 1960 BED: DIS: 05/22/2019 SPEC #: [id number] RECD: 05/22/19 11:34 STATUS: KAREY SHANNAN #: [id number] DARIEN: 05/22/19 09:[address]: Marsha Rodriguez DEPT: SURGICAL PATHOLOGY RECD BY: Luigi Pratt ENTERED: 05/22/19 12:09 SP TYPE: COLON BX OTHR DR: Dr. Roberto Guo MD Tissues: Transverse colon Procedures: Surgery Specimen Level IV HEADER OPERATION: Colonoscopy (MAC) PRE-OP DIAGNOSIS: Blood per rectum TISSUE SUBMITTED: Proximal transverse biopsy MICROSCOPIC DIAGNOSIS Proximal transverse colon, biopsy: Fragment of benign colonic mucosa. AM:emilie 05/23/19 MICROSCOPIC DESCRIPTION Slides are reviewed. GROSS DESCRIPTION Received in fixative is one container labeled with the patient's name and designated proximal transverse biopsy. The specimen consists of multiple irregular fragments of light verdugo soft tissue that in aggregate measure 0.2 x 0.2 x 0.1 cm. The specimen is totally submitted in one cassette. / SJ:rg 05/22/19 TC:5 CPT: 15019
[2019-05-22] MEDS: Ipratropium 0.5 MG/2.5 ML SOLUTION INHALATION (10:54)
--- NOTE | 2019-05-23 10:05 | OP.ENDO_ITS ---
05/23/2019 Roberto Guo MD [address] [place] [address] [place] [address] Re : Colonoscopy procedure for Michelle Daugherty Dear Dr. Guo This procedure was performed on Wednesday, May 22, 2019. My impressions and recommendations are as follows: Impressions : - Diverticulosis in the entire examined colon. - Non-bleeding internal hemorrhoids. - One less than 5 mm polyp in the proximal transverse colon, removed with a cold biopsy forceps. Resected and retrieved. - The examination was otherwise normal. Recommendations : - Discharge patient to home. - High fiber diet. - Continue present medications. - Await pathology results. - Repeat colonoscopy in 3 - 5 years for surveillance based on pathology results. My findings are described in the full procedure note, which is enclosed. If I can be of further assistance, please feel free to contact me at Doctor phone number(s): , Work: . Sincerely, MD Marsha Armenta MD 05/22/2019 10:19:38 AM This report has been signed electronically.
== END 2019-05-22 12:26 | disposition home or self-care (01) ==
LOC: EN 08:13 → AC 08:15
PROVIDERS: Family Provider Internal Medicine; PCP Internal Medicine; Referring Provider Internal Medicine; Visit Provider Surgery
PROC: 0DJD8ZZ Inspection of Lower Intestinal Tract, Via Natural or Artificial Opening Endoscopic (ICD-10-PCS; CPT 45378; principal; 2019-05-22 09:25)
DX: D12.3 Benign neoplasm of transverse colon (principal); K57.30 Diverticulosis of large intestine without perforation or abscess without bleeding; K64.0 First degree hemorrhoids; K62.5 Hemorrhage of anus and rectum; K56.2 Volvulus; K21.9 Gastro-esophageal reflux disease without esophagitis; K58.0 Irritable bowel syndrome with diarrhea; I10 Essential (primary) hypertension; I34.1 Nonrheumatic mitral (valve) prolapse; E78.00 Pure hypercholesterolemia, unspecified; E11.9 Type 2 diabetes mellitus without complications; F32.9 Major depressive disorder, single episode, unspecified; F41.9 Anxiety disorder, unspecified; J45.909 Unspecified asthma, uncomplicated; E55.9 Vitamin D deficiency, unspecified; M19.90 Unspecified osteoarthritis, unspecified site; E66.9 Obesity, unspecified; Z68.34 Body mass index [BMI] 34.0-34.9, adult; Z79.4 Long term (current) use of insulin; Z79.899 Other long term (current) drug therapy
CPT/HCPCS: 45380; 82962; 88305; 94640; J7120; A4216; J2405

== ENCOUNTER 2019-05-22 16:33 | Inpatient (IN) | payer MEDICAID, SELFPAY ==
[2019-05-22 08:36] VITALS: BMI 34.9
[2019-05-22 16:34] VITALS: BP 123/67; PULSE 119; RESP 18; TEMP 39; O2SAT 95; BMI 34.1
--- NOTE | 2019-05-22 17:20 | ED.DCSUM_ITS ---
History of Present Illness Chief Complaint: Fever Informant: Patient, PCP - Carolee Rodrgiuez called and informed me that she performed a colonoscopy with biopsy earlier today. She informed me that temperature was 102 and patient complained of abdominal pain shortness of breath. She required aerosol treatment for exacerbation asthma status post colonoscopy. Onset: Today Context: Sudden Onset Timing: Continuous Quality: Shortness of breath, fever, abdominal pain Location: Chest and abdomen Current Severity: Mild Maximum Severity: Moderate Worsened by: Possibly movement Relieved by: Nothing Associated Symptoms: Temperature to 102.0 ?F Narrative: Vision is a 59-year-old woman who has history of diverticulosis, IBS who presents because of fever of 102.0 ?F, abdominal pain status post colonoscopy with biopsy. This is her 6 colonoscopy. She states with the last colonoscopy performed by gastrologist in [place] she had a fever. She states the pain is much worse than normal. She denies rhinorrhea, congestion and postnasal drainage. Denies sore throat. She does report slight cough. She also reports headache. She denies neck pain or neck stiffness. She denies nausea, vomiting diarrhea. She denies dysuria, frequency, urgency or hematuria. Prior similar symptoms: Yes - Last colonoscopy by Dr. Belcher Recent Illness/Hospitalization: Yes - Past Medical History (1) Anxiety and depression Status: Chronic (2) Arthritis Status: Chronic (3) Asthma Status: Chronic (4) Chronic recurrent sinusitis Status: Chronic (5) DM type 2 (diabetes mellitus, type 2) Status: Chronic (6) Diverticulitis Status: Chronic (7) HLD (hyperlipidemia) Status: Chronic (8) HTN (hypertension) Status: Chronic (9) Hiatal hernia with GERD Status: Chronic (10) IBS (irritable bowel syndrome) Status: Chronic (11) Insomnia Status: Chronic (12) Obesity (BMI 30-39.9) Status: Chronic (13) PTSD (post-traumatic stress disorder) Status: Chronic (14) Postmenopausal Status: Chronic (15) Urinary incontinence Status: Chronic Past Medical History - Allergies and Home Meds Allergies/Adverse Reactions: Allergies eluxadoline [From Viberzi] Allergy (Severe, Verified 05/22/19 16:34) Other diverticulitis NSAIDS (Non-Steroidal Anti-Inflamma Allergy (Intermediate, Verified 05/22/19 16:34) Other GI bleeds Sulfa (Sulfonamide Antibiotics) Allergy (Verified 05/22/19 16:34) Rash albuterol Adverse Reaction (Severe, Verified 05/22/19 16:34) other increase heart rate metformin Adverse Reaction (Severe, Verified 05/22/19 16:34) Other diarreah inderal Allergy (Intermediate, Uncoded 05/22/19 16:34) Other hallucinations most antidepressants Adverse Reaction (Severe, Uncoded 05/22/19 16:34) Other varies from rash, to hallucinations, to shakes. Primary Care Physician: Roberto Guo MD [Primary Care Provider] - Prior records reviewed: Yes Surgical History: - Lives: Spouse/ Significant Other Smoking Status: Never smoker Alcohol: None Drugs: None - Family History Maternal Family History: Family History (Last Reviewed 05/02/19 @ 14:15 by Mary Huynh) Mother Arthritis Dementia Cancer Depression Father CHF (congestive heart failure) Dementia Bowel disease Sister Breast cancer Sister Cancer Family History: Reports: No pertinent history Paternal Family History: Family History (Last Reviewed 05/02/19 @ 14:15 by Mary Huynh) Mother Arthritis Dementia Cancer Depression Father CHF (congestive heart failure) Dementia Bowel disease Sister Breast cancer Sister Cancer Family History: Reports: Heart Disease Review of Systems General: Reports: Chills, Fever, Malaise Eyes: Denies: Visual changes - bilaterally, Diplopia ENT: Denies: Rhinorrhea, Sore throat Cardiovascular: Denies: Chest pain, Palpitations Respiratory: Reports: Dyspnea, Cough. Denies: Sputum, Dyspnea on exertion, Orthopnea, Paroxysmal nocturnal dyspnea, -, - Gastrointestinal: Reports: Abdominal pain. Denies: Nausea, Vomiting, Diarrhea, Constipation, Melena, Hematochezia, -, - Genitourinary: Denies: Dysuria, Hematuria, Frequency Musculoskeletal: Denies: Back pain, Extremity Pain Skin: Denies: Rash, Abrasions, Wounds Neurological: Denies: Headache, Weakness, Parasthesia, Numbness Hematologic: Denies: Easy bruising, Easy bleeding Allergy: Denies: Uticaria, Swelling of the mouth Physical Exam Vital Signs/Narrative: Vital Signs Temp Pulse Resp BP Pulse Ox 05/22/19 16:34 102.2 F H 119 H 18 123/67 H 95 Inital Vital Signs reviewed: Yes General: Well nourished, Well developed, No Acute Distress Head: Normocephalic, Atraumatic Eyes: Perrl. Negative for: EOMI, Pale conjunctiva, Scleral icterus, - ENT: Moist mucous membranes, No rhinorrhea, TM's clear Neck: Supple, Nontender, No lymphadenopathy, No JVD Cardiovascular: Regular rhythm, No murmurs, Normal S1, Normal S2, Tachycardia Respiratory: No distress, CTA bilaterally, Chest nontender Abdomen: Soft, Nondistended, No masses, Tender, Hypoactive bowel sounds. Negative for: Guarding, Rebound tenderness, Pulsatile mass, Ventral hernia, Umbilical hernia Back: Nontender, Normal Inspection. Negative for: CVA tenderness Extremities: Nontender, No edema Skin: Normal color, No rash, No Trauma. Negative for: Cyanosis, Diaphoresis, Jaundice Neurological: Alert, Oriented x3, Cranial nerves II-XII grossly intact, Normal Strength, Normal Sensation Psychological: Normal affect, Normal Mood Diagnostic/Tx/Re-eval Chest X-Ray - ED: Read by ED Physician, - - View x-ray of the abdomen reveals an infiltrate involving the lingula and left lower lobe. There is no pneumoperitoneum. There is no ossific gas pattern noted. There is no effusion area 05/22/19 18:50 Acute Abdomen Inc Chest [RAD] Stat Laboratory Results 05/22/19 05/22/19 05/22/19 17:30 17:30 17:30 WBC 13.0 H RBC 5.02 Hgb 13.2 Hct 41.9 MCV 83.5 MCH 26.3 L MCHC 31.5 L RDW Std Deviation 43.9 RDW Coeff of Sara 14.6 Plt Count 221 MPV 10.7 Immature Gran % (Auto) 0.200 Neut % (Auto) 87.2 H Lymph % (Auto) 6.4 L Clare % (Auto) 4.1 Eos % (Auto) 1.9 Baso % (Auto) 0.2 Absolute Neuts (auto) 11.3 H Absolute Lymphs (auto) 0.83 Nucleated RBC % 0 Sodium 139 Potassium 3.5 Chloride 103 Carbon Dioxide 28.0 Anion Gap 8 BUN 11 Creatinine 1.11 H Estim Creat Clear Calc 49.10 Est GFR (MDRD) Af Amer 65 Est GFR (MDRD) Non-Af 53 L BUN/Creatinine Ratio 9.9 L Glucose 140 H Lactic Acid 2.9 H Calcium 9.0 - Medical Decision Making With history of biopsy and abdominal pain with fever need to entertain possibility of perforation. Abdominal series was obtained with upright chest to assess for pneumoperitoneum. Since she is complaining of cough and shortness of breath will evaluate for pneumonia. Also obtain urine to rule out UTI. After imaging and lab results are available for review will contact Dr. Rodriugez. Source of patient's symptoms are pneumonia. Will treat with Rocephin and azithromycin. ED Disposition - Plan for ED Patient: Disposition: Acute Care Hospital [facility] Diagnosis: Severe sepsis, Left lower lobe pneumonia, Sinus tachycardia seen on youth nutritional monitor, Exacerbation of asthma Referrals: Roberto Guo MD [Primary Care Provider] -
[2019-05-22] MEDS: 0.9% Normal Saline 1,000 ML 1000 ML IV (17:30)
[2019-05-22 17:54] LABS: Absolute Lymphocyte Count 0.83 X10^3/uL (0.83-4.51); Absolute Neutrophil Count 11.3 X10^3/uL (2.0-7.7); Basophil# 0.03 X10^3/uL; Basophil% 0.2 % (0-1); Eosinophil# 0.25 X10^3/uL; Eosinophils% 1.9 % (0-5); Hematocrit 41.9 % (37-47); Hemoglobin 13.2 g/dL (12.0-15.0); Lymphocyte # 0.83 X10^3/ul (4.0); Lymphocyte % 6.4 % (19-41); Mean Corp Hgb Conc 31.5 g/dL (32-36); Mean Corpuscular Hgb 26.3 pg (27.0-32.0); Mean Corpuscular Volume 83.5 fL (81-99); Mean Platelet Vol. 10.7 fl (6.2-12.0); Monocyte# 0.53 X10^3/uL; Monocyte% 4.1 % (0-10); NRBC Flagged by Analyzer 0 % (0-5); Neutrophil # 11.29 X10^3/uL (2.7-7.7); Neutrophil % 87.2 % (47-70); Platelet Count 221 K/mm3 (150-450); RBC Distribution Width CV 14.6 % (11.6-14.6); RBC Distribution Width SD 43.9 fl (35.1-43.9); Red Blood Count 5.02 M/mm3 (4.2-5.4)
[2019-05-22 18:12] LABS: Anion Gap 8 (5-15); BUN 11 mg/dL (7-18); BUN/Creat Ratio 9.9 RATIO (10-20); Chloride 103 mmol/L (98-107); Creatinine, Serum 1.11 mg/dL (0.55-1.02); EST Glomerular Filtration Rate 53 mL/min (>60); Est Glom Filt Rate - Afr Amer 65 mL/min (>60); Glucose 140 mg/dL (74-106); Potassium 3.5 mmol/L (3.5-5.1); Sodium Level 139 mmol/L (136-145)
[2019-05-22 18:20] LABS: Lactic Acid 2.9 mmol/L (0.4-2.0)
--- NOTE | 2019-05-22 18:20 | ED.RN ---
LACTIC 2.9 MD AWARE.
--- NOTE | 2019-05-22 18:50 | RAD_ITS ---
STUDY: X-RAY - ACUTE ABDOMINAL SERIES REASON FOR EXAM: Female, 59 years old. Fever TECHNIQUE: Single view of the chest. Supine, 3 view(s) of the abdomen were obtained. COMPARISON: X-ray chest August 21, 2018 FINDINGS: Left mid and lower lung zone infiltrates are present. The right lung is clear. There are no pleural effusions. There is no pneumothorax. The heart is normal in size. There is no bowel obstruction. There is air and stool to the level of the rectum. The visualized osseous structures are within normal limits. RAD/Acute Abdomen Inc Chest IMPRESSION: Left mid and lower lung zone infiltrates. Findings suggest pneumonia. No bowel obstruction. Electronically Signed: Cameron Crain, at 19:12 EDT Tel , Service support ,
[2019-05-22 19:00] VITALS: RESP 14
--- NOTE | 2019-05-22 19:16 | HP.PCM_ITS ---
Problem List (1) Community acquired pneumonia Status: Acute (2) Severe sepsis Status: Acute (3) DM type 2 (diabetes mellitus, type 2) Status: Chronic History of Present Illness Date of Admission: 05/22/19 Chief Complaint: shortness of breath The patient is a 59 year old F with a significant history of asthma; hypertension; hyperlipidemia; depression with anxiety; diverticulosis; and IBS who presented to emergency department with shortness of breath. Associated with symptoms is a fever of about 102.5 Fahrenheit while at home. Also she had nausea; and poor appetite; chest congestion and dry cough. Further, she had chills; rigors; lightheadedness; and vertigo. Her symptoms started on the same day of presentation. And on the same day of presentation she had a colonoscopy earlier in the day. She had a colonoscopy because of history of diverticulosis; IBS and hematochezia. Reportedly after colonoscopy she woke up having abdominal pain and shortness of breath for which she requested and was treated with aerosol. Past Medical History Past Medical History (Chronic Problems): Chronic Problems (Last Reviewed 05/23/19 @ 03:09 by Young Brown MD) Chronic sinusitis (Chronic) Urinary incontinence (Chronic) Diverticulitis (Chronic) Postmenopausal (Chronic) On hormone replacement therapy (Chronic) DM type 2 (diabetes mellitus, type 2) (Chronic) Malabsorption (Chronic) Low libido (Chronic) Hiatal hernia with GERD (Chronic) Urinary, incontinence, stress female (Chronic) Chronic recurrent sinusitis (Chronic) Insomnia (Chronic) Vitamin D deficiency, unspecified (Chronic) Arthritis (Chronic) Asthma (Chronic) Diabetes mellitus type 2 in obese (Chronic) Diverticulosis (Chronic) PTSD (post-traumatic stress disorder) (Chronic) IBS (irritable bowel syndrome) (Chronic) Obesity (BMI 30-39.9) (Chronic) HTN (hypertension) (Chronic) HLD (hyperlipidemia) (Chronic) Anxiety and depression (Chronic) Medical History: Medical History (Last Reviewed 05/23/19 @ 07:43 by Young Brown MD) Shingles (Inactive) B02.9 Diverticulitis (Chronic) K57.92 Postmenopausal (Chronic) Z78.0 On hormone replacement therapy (Chronic) Z79.890 DM type 2 (diabetes mellitus, type 2) (Chronic) E11.9 Acute asthma exacerbation (Inactive) J45.901 Asthma exacerbation (Inactive) J45.901 Malabsorption (Chronic) K90.9 Low libido (Chronic) R68.82 Hiatal hernia with GERD (Chronic) K21.9, K44.9 Urinary, incontinence, stress female (Chronic) N39.3 Chronic recurrent sinusitis (Chronic) J32.9 Insomnia (Chronic) G47.00 Vitamin D deficiency, unspecified (Chronic) E55.9 Arthritis (Chronic) M19.90 Asthma (Chronic) J45.909 Diverticulosis (Chronic) K57.90 PTSD (post-traumatic stress disorder) (Chronic) F43.10 IBS (irritable bowel syndrome) (Chronic) Obesity (BMI 30-39.9) (Chronic) E66.9 HTN (hypertension) (Chronic) I10 HLD (hyperlipidemia) (Chronic) E78.5 Anxiety and depression (Chronic) F41.8 Abdominal pain R10.9 Acid reflux K21.9 Blood in stool K92.1 Depression with anxiety F41.8 Diabetes E11.9 Diarrhea R19.7 Diverticulitis K57.92 History of hysterectomy Z90.710 Allergies eluxadoline [From Viberzi] Allergy (Severe, Verified 05/22/19 16:34) Other diverticulitis NSAIDS (Non-Steroidal Anti-Inflamma Allergy (Intermediate, Verified 05/22/19 16:34) Other GI bleeds Sulfa (Sulfonamide Antibiotics) Allergy (Verified 05/22/19 16:34) Rash albuterol Adverse Reaction (Severe, Verified 05/22/19 16:34) other increase heart rate metformin Adverse Reaction (Severe, Verified 05/22/19 16:34) Other diarreah inderal Allergy (Intermediate, Uncoded 05/22/19 16:34) Other hallucinations most antidepressants Adverse Reaction (Severe, Uncoded 05/22/19 16:34) Other varies from rash, to hallucinations, to shakes. Home Medications: Ambulatory Orders Medication Instructions Recorded Lorazepam [Ativan] 1 mg PO TID PRN PRN 06/30/17 Zolpidem Tartrate [Ambien] 5 - 10 mg PO QHS PRN PRN 11/19/17 Atenolol [Tenormin (beta lex)] 50 mg PO QHS 08/21/18 Duloxetine HCl 120 mg PO DAILY 08/21/18 atorvastatin 20 mg tablet 20 mg PO QHS #90 tab 09/23/18 cholecalciferol (vitamin D3) 5,000 5,000 unit PO QHS #90 cap 03/31/19 unit capsule pramipexole 1 mg tablet 1 mg PO QHS #90 tab 04/14/19 Gabapentin [Neurontin] 600 mg PO BID 05/19/19 Dulaglutide [Trulicity] 1.5 mg SUBCUT MO 05/22/19 Levalbuterol Tartrate 2 inh INHALATION Q6H PRN PRN 05/22/19 [Levalbuterol Tartrate Hfa] Omeprazole 20 - 40 mg PO QHS PRN PRN 05/22/19 Surgical History: Surgical History (Last Reviewed 05/23/19 @ 07:43 by Young Brown MD) H/O left knee surgery Z98.890 H/O right knee surgery Z98.890 History of carpal tunnel release Z98.890 History of hysterectomy Z98.890, Z90.710 left hand nerve reconstruction Carpal tunnel syndrome, left G56.02 S/P left knee arthroscopy Z98.890 left arm ulnar nerve transposition left nerve reacttachment Surgical History: - Psychiatric History: Anxiety, 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 [employer] SALES [employer]ATE SEASONAL history Lives: Spouse/ Significant Other Smoking Status: Never smoker Alcohol: None Drugs: None - *Family History Maternal Family History: Family History (Last Reviewed 05/23/19 @ 07:43 by Young Brown MD) Mother Arthritis Dementia Cancer Depression Father CHF (congestive heart failure) Dementia Bowel disease Sister Breast cancer Sister Cancer History Items: No pertinent history Paternal Family History: Family History (Last Reviewed 05/23/19 @ 07:43 by Young Brown MD) Mother Arthritis Dementia Cancer Depression Father CHF (congestive heart failure) Dementia Bowel disease Sister Breast cancer Sister Cancer History Items: Heart Disease Review of Systems Constitutional: Denies: Chills, Fever, Weight Change HEENT: Denies: Head Aches, Sinus Congestion, Sinus Drainage Cardiovascular: Denies: Chest Pain, Palpitations Respiratory: Denies: Cough, Shortness of breath at rest, Sputum production Gastrointestinal: Denies: Abdominal Pain, Nausea, Vomiting Genitourinary: Denies: Dysuria Musculoskeletal: Denies: Joint Pain, Joint Tenderness Skin: Denies: Rash, Wounds Neurological: Denies: Numbness, Tingling, Focal weakness Psychiatric: Denies: Anxiety, Depression, Homicidal Ideations, Suicidal Ideations Hematologic/ Lymphatic: Denies: Easy Bruising, Easy Bleeding VTE Information - Inpt Only VTE Present on Admission: No VTE Mechan Device Prophylaxis: None VTE Pharm Prophylaxis ordered?: Yes Patient Problems: Active and Suspected Problems (Last Reviewed 05/23/19 @ 03:09 by Young Brown MD) Severe sepsis (Acute) Left lower lobe pneumonia (Acute) Sinus tachycardia seen on social service assistant (Acute) Community acquired pneumonia (Acute) - Physical Exam General: Alert, Oriented x3, Cooperative HEENT: Atraumatic, PERRLA, EOMI, Normocephalic Neck: Supple, No JVD, Negative Carotid Bruits Lungs: Clear to auscultation, Normal air movement Cardiovascular: No murmurs, Tachycardic Abdomen: Bowel Sounds Present, Soft, Non Tender Extremities: No edema, Capillary Refill Less than 3 Seconds Skin: No rashes, No breakdown Musculoskeletal: No Tenderness to Palpation of Joints or Extremities Neurological: Cranial nerves II-XII grossly intact Psych/Mental Status: Normal Affect, Appropriate Vital Signs Temp Pulse Resp BP Pulse Ox 102.2 F H 119 H 14 123/67 H 95 05/22/19 16:34 05/22/19 16:34 05/22/19 19:00 05/22/19 16:34 05/22/19 16:34 Oxygen Delivery Method Room Air Weight: 92.986 kg Body Mass Index (BMI) 34.1 Laboratory Tests Past 24 Hrs 05/22/19 05/22/19 05/22/19 17:30 17:30 17:30 WBC 13.0 H RBC 5.02 Hgb 13.2 Hct 41.9 MCV 83.5 MCH 26.3 L MCHC 31.5 L RDW Std Deviation 43.9 RDW Coeff of Sara 14.6 Plt Count 221 MPV 10.7 Immature Gran % (Auto) 0.200 Neut % (Auto) 87.2 H Lymph % (Auto) 6.4 L [place] % (Auto) 4.1 Eos % (Auto) 1.9 Baso % (Auto) 0.2 Absolute Neuts (auto) 11.3 H Absolute Lymphs (auto) 0.83 Nucleated RBC % 0 Sodium 139 Potassium 3.5 Chloride 103 Carbon Dioxide 28.0 Anion Gap 8 BUN 11 Creatinine 1.11 H Estim Creat Clear Calc 49.10 Est GFR (MDRD) Af Amer 65 Est GFR (MDRD) Non-Af 53 L BUN/Creatinine Ratio 9.9 L Glucose 140 H Lactic Acid 2.9 H Calcium 9.0 Assessment/Plan All Active Problems (Last Reviewed 05/23/19 @ 03:09 by Young Brown MD) Severe sepsis (Acute) Left lower lobe pneumonia (Acute) Sinus tachycardia seen on social service assistant (Acute) Community acquired pneumonia (Acute) Sigmoid diverticulitis (Resolved) The patient is a 59 year old F with a significant history of asthma; hypertension; hyperlipidemia; depression with anxiety; diverticulosis; and IBS who presented to emergency department with shortness of breath; fever; nausea; poor appetite; chest congestion; dry cough; chills; rigors; lightheadedness; and vertigo; and was found to have a fever of 102.2 at the hospital; tachycardia and also had leukocytosis and lactic acid of 2.9 consistent with severe sepsis secondary to pneumonia. Severe sepsis secondary to pneumonia. Etiology of her pneumonia could be community acquired pneumonia; it could also be aspiration pneumonia following sedation from colonoscopy. Blood cultures were obtained at the emergency department; follow Patient received IV fluid bolus in the emergency department nurse: Trend lactic acid At the emergency department patient received ceftriaxone and azithromycin. Will continue azithromycin. Will change ceftriaxone to Zosyn to cover aspiration pneumonia. Trend CBC and BMP Strep pneumonia antigen and Legionella urine antigen ordered. Patient has allergy to albuterol. PRN ipratropium ordered Diabetes mellitus At home patient is on dulaglutide weekly. On presentation her blood glucose on BMP was within goal. Hold dulaglutide in the hospital setting. Accu-Chek QA CHS. Correction scale insulin ordered. Depression and anxiety Ativan continued Cymbalta continued Hypertension On presentation her blood pressure was stable We will put parameters on atenolol as patient has severe sepsis and is at risk of hypotension. Hold atenolol for systolic blood pressure less than 120. Consider changing parameter when improved from her sepsis. Restless leg syndrome Mirapex continued DVT prophylaxis Subcutaneous Lovenox Code Visit Inpatient E&M: 20708 Init Hosp L3
[2019-05-22 19:21] VITALS: BMI 34.1
[2019-05-22 19:23] LABS: Bacteria 0 SEEN /hpf (None Seen); Mucous, Urine 0 SEEN /hpf (<or=2+); Red Blood Cells-Urine 0 SEEN /hpf (0-5); White Blood Cells 0 SEEN /hpf (0-5)
[2019-05-22 19:29] VITALS: BP 99/62; PULSE 106; RESP 20; O2SAT 95
[2019-05-22 19:44] LABS: Color, Urine Yellow (Yellow); Glucose, Dipstick Normal (Normal); Ketone-Dipstick 5 mg/dl (Negative); Leukocyte Esterase-Dipstick Negative /ul (Negative); Nitrite-Dipstick Negative (Negative); Occult Blood-Urine Negative /ul (Negative); Protein-Dipstick Negative (Negative); Urine Bilirubin Dipstick Negative (Negative); Urine Clarity Clear (Clear); Urine Urobilinogen Normal (Normal)
[2019-05-22 19:51] VITALS: PULSE 98
--- NOTE | 2019-05-22 19:51 | SEPSISNOTE ---
Sepsis Note - Physical Exam/Vitals Subjective: Patient with shortness of breath; fever; chills and abdominal pain. Objective: Acute Abdomen Series 05/22/19 18:50 IMPRESSION: Left mid and lower lung zone infiltrates. Findings suggest pneumonia. No bowel obstruction. Electronically Signed: Cameron Crain, at 19:12 EDT Tel , Service support , Temp Pulse Resp BP Pulse Ox 102.2 F H 106 H 20 H 99/62 95 05/22/19 16:34 05/22/19 19:29 05/22/19 19:29 05/22/19 19:29 05/22/19 19:29 05/22/19 05/22/19 05/22/19 19:10 17:30 17:30 WBC RBC Hgb Hct MCV MCH MCHC RDW Std Deviation RDW Coeff of Sara Plt Count MPV Immature Gran % (Auto) Neut % (Auto) Lymph % (Auto) [place] % (Auto) Eos % (Auto) Baso % (Auto) Absolute Neuts (auto) Absolute Lymphs (auto) Nucleated RBC % Sodium 139 Potassium 3.5 Chloride 103 Carbon Dioxide 28.0 Anion Gap 8 BUN 11 Creatinine 1.11 H Estim Creat Clear Calc 49.10 Est GFR (MDRD) Af Amer 65 Est GFR (MDRD) Non-Af 53 L BUN/Creatinine Ratio 9.9 L Glucose 140 H Lactic Acid 2.9 H Calcium 9.0 Urine Color Yellow Urine Clarity Clear Urine pH 5.0 Ur Specific [place] 1.020 Urine Protein Negative Urine Glucose (UA) Normal Urine Ketones 5 H Urine Occult Blood Negative Urine Nitrite Negative Urine Bilirubin Negative Urine Urobilinogen Normal Ur Leukocyte Esterase Negative Urine RBC Pending Urine WBC Pending Ur Squamous Epith Cells Pending Urine Bacteria Pending Urine Mucus Pending 05/22/19 17:30 WBC 13.0 H RBC 5.02 Hgb 13.2 Hct 41.9 MCV 83.5 MCH 26.3 L MCHC 31.5 L RDW Std Deviation 43.9 RDW Coeff of Sara 14.6 Plt Count 221 MPV 10.7 Immature Gran % (Auto) 0.200 Neut % (Auto) 87.2 H Lymph % (Auto) 6.4 L [place] % (Auto) 4.1 Eos % (Auto) 1.9 Baso % (Auto) 0.2 Absolute Neuts (auto) 11.3 H Absolute Lymphs (auto) 0.83 Nucleated RBC % 0 Sodium Potassium Chloride Carbon Dioxide Anion Gap BUN Creatinine Estim Creat Clear Calc Est GFR (MDRD) Af Amer Est GFR (MDRD) Non-Af BUN/Creatinine Ratio Glucose Lactic Acid Calcium Urine Color Urine Clarity Urine pH Ur Specific [place] Urine Protein Urine Glucose (UA) Urine Ketones Urine Occult Blood Urine Nitrite Urine Bilirubin Urine Urobilinogen Ur Leukocyte Esterase Urine RBC Urine WBC Ur Squamous Epith Cells Urine Bacteria Urine Mucus General: Alert, Oriented x3, Cooperative Lungs: Clear to auscultation, Normal air movement Cardiovascular: Tachycardic Capillary Refill: <3 seconds Peripheral Pulses: Normal Skin Color: [place] - Assessment/Plan Assessment and Plan The patient has severe sepsis and is not in septic shock. The patient received IV fluids bolus at the emergency department. Lactic acid was elevated; trend Blood cultures were ordered before antibiotics was begun Follow blood cultures. Patient received broad-spectrum antibiotics of ceftriaxone and azithromycin. We will continue patient on azithromycin. Will broaden antibiotics by starting Zosyn to cover for probable aspiration pneumonia.
[2019-05-22 19:54] VITALS: BP 126/66; PULSE 99; RESP 16; TEMP 38.5; O2SAT 94
[2019-05-22 19:59] VITALS: BMI 35.2
[2019-05-22 20:01] LABS: Squamous Epithelial Cells - UA 0-5 SEEN /hpf (5-10)
[2019-05-22] MEDS: 0.9% Normal Saline 1,000 ML 75 ML IV (20:05)
[2019-05-22 21:46] LABS: Reflex Lactate? Y
[2019-05-22 22:01] LABS: Bedside Glucose 137 mg/dL (70-110)
[2019-05-22] MEDS: Ceftriaxone 1 GM/50 ML BAG IV (22:05)
[2019-05-22] MEDS: guaiFENesin 1,200 MG Tablet 1200 MG PO (22:35)
[2019-05-22 22:36] VITALS: BP 112/66; PULSE 98; RESP 18; TEMP 38.7; O2SAT 94
[2019-05-22] MEDS: Atorvastatin Calcium 20 MG Tablet PO (22:36)
[2019-05-22] MEDS: Gabapentin 300 MG Capsule 600 MG PO (22:36)
[2019-05-22] MEDS: Zolpidem Tartrate 5 MG Tablet PO (22:36)
[2019-05-22] MEDS: Atenolol 50 MG Tablet PO (22:36)
[2019-05-22] MEDS: Acetaminophen 325 MG Tablet 650 MG PO (22:36)
[2019-05-22] MEDS: Pramipexole Di-HCl 1 MG Tablet PO (22:36)
[2019-05-22 22:46] LABS: Lactic Acid 1.6 mmol/L (0.4-2.0)
[2019-05-23] VITALS (10 sets, daily range): BP systolic 101–117; BP diastolic 61–67; PULSE 65–88; RESP 16–18; TEMP 36.6–37.1; O2SAT 95–97
[2019-05-23 05:48] LABS: Absolute Lymphocyte Count 4.21 X10^3/uL (0.83-4.51); Absolute Neutrophil Count 15.1 X10^3/uL (2.0-7.7); Basophil# 0.05 X10^3/uL; Basophil% 0.2 % (0-1); Eosinophil# 0.04 X10^3/uL; Eosinophils% 0.2 % (0-5); Hematocrit 37.3 % (37-47); Hemoglobin 11.7 g/dL (12.0-15.0); Lymphocyte # 4.21 X10^3/ul (4.0); Lymphocyte % 20.7 % (19-41); Mean Corp Hgb Conc 31.4 g/dL (32-36); Mean Corpuscular Hgb 26.4 pg (27.0-32.0); Mean Corpuscular Volume 84.2 fL (81-99); Mean Platelet Vol. 10.6 fl (6.2-12.0); Monocyte% 4.4 % (0-10); NRBC Flagged by Analyzer 0 % (0-5); Neutrophil # 15.08 X10^3/uL (2.7-7.7); Neutrophil % 74.1 % (47-70); Platelet Count 197 K/mm3 (150-450); RBC Distribution Width CV 14.7 % (11.6-14.6); RBC Distribution Width SD 44.9 fl (35.1-43.9); Red Blood Count 4.43 M/mm3 (4.2-5.4); White Blood Count 20.4 K/mm3 (4.4-11.0)
[2019-05-23 06:04] LABS: Anion Gap 8 (5-15); BUN 12 mg/dL (7-18); Chloride 107 mmol/L (98-107); Creatinine, Serum 0.92 mg/dL (0.55-1.02); EST Glomerular Filtration Rate 66 mL/min (>60); Est Glom Filt Rate - Afr Amer 80 mL/min (>60); Estimated Creatinine Clearance 59.25 ml/min; Glucose 103 mg/dL (74-106); Potassium 3.5 mmol/L (3.5-5.1); Sodium Level 141 mmol/L (136-145)
[2019-05-23 06:30] LABS: Bedside Glucose 109 mg/dL (70-110)
--- NOTE | 2019-05-23 07:18 | PCM.PN.BLA ---
Progress Note Patient is on 2 L nasal cannula this morning, and states her breathing is better than yesterday, fevers have resolved, white blood cell count did increase to 20 from 13, tachycardia has resolved. Patient is on IV Zosyn for left lower lobe pneumonia likely aspiration status post colonoscopy. Patient still states she has some discomfort in her abdomen but it is improved. Abdomen soft, nondistended minimal discomfort on exam, no peritoneal signs -Appreciate hospitalist assistance with the management of the left lower lobe pneumonia likely from aspiration, continue IV Zosyn
--- NOTE | 2019-05-23 08:14 | PCM.PN.HOSP ---
Patient Problems: Active and Suspected Problems (Last Reviewed 05/23/19 @ 07:43 by Young Brown MD) Severe sepsis (Acute) Left lower lobe pneumonia (Acute) Sinus tachycardia seen on child monitor (Acute) Community acquired pneumonia (Acute) Subjective: Patient was seen and examined. She feels much improved. She complains of headache that is worse behind her eyes. History of recent shingles in February and follows closely in the outpatient with registrar nurses' registry. Headache is usually improved with oxycodone. Denies any fever or chills. Cough is improved, minimal. Not on oxygen Vitals/I&O's: Vital Signs Temp Pulse Resp BP Pulse Ox 98.3 F 65 18 113/65 97 05/23/19 06:00 05/23/19 06:00 05/23/19 06:00 05/23/19 06:00 05/23/19 06:00 Oxygen Flow Rate (L/min) 2 Oxygen Delivery Method Nasal Cannula Weight: 95.9 kg Body Mass Index (BMI) 35.2 Intake and Output for Last 24 Hours 05/21/19 05/22/19 05/23/19 23:59 23:59 23:59 Intake Total 1837.5 / 1837.5 290 / 290 Balance 1837.5 / 1837.5 290 / 290 General: Alert, Oriented x3, Cooperative, No apparent distress HEENT: Atraumatic, PERRLA, EOMI, Normocephalic Oral: Moist Mucosa Neck: Supple Lungs: Diminished Cardiovascular: Regular rate, No murmurs Abdomen: Bowel Sounds Present, Soft, Non Tender, Non-Distended, No Hepato-splenomegaly, Obese Extremities: No edema Skin: No rashes, No breakdown Musculoskeletal: No Tenderness to Palpation of Joints or Extremities Lymphatic: No Cervical, Supraclavicular, or Inguinal Adenopathy Neurological: Cranial nerves II-XII grossly intact, Neuro grossly intact Psych/Mental Status: Normal Affect, Appropriate Microbiology Past 72 Hours 05/22/19 19:10 Urine, Clean Catch Streptococcus pneumoniae Antigen (M - Final 05/22/19 19:10 Urine, Clean Catch Legionella Antigen - Final Laboratory Results 05/22/19 17:30: WBC 13.0 H, RBC 5.02, Hgb 13.2, Hct 41.9, MCV 83.5, MCH 26.3 L, MCHC 31.5 L, RDW Std Deviation 43.9, RDW Coeff of Sara 14.6, Plt Count 221, MPV 10.7, Immature Gran % (Auto) 0.200, Neut % (Auto) 87.2 H, Lymph % (Auto) 6.4 L, [place] % (Auto) 4.1, Eos % (Auto) 1.9, Baso % (Auto) 0.2, Absolute Neuts (auto) 11.3 H, Absolute Lymphs (auto) 0.83, Nucleated RBC % 0 05/22/19 17:30: Sodium 139, Potassium 3.5, Chloride 103, Carbon Dioxide 28.0, Anion Gap 8, BUN 11, Creatinine 1.11 H, Estim Creat Clear Calc 49.10, Est GFR (MDRD) Af Amer 65, Est GFR (MDRD) Non-Af 53 L, BUN/Creatinine Ratio 9.9 L, Glucose 140 H, Calcium 9.0 05/22/19 17:30: Lactic Acid 2.9 H 05/22/19 19:10: Urine Color Yellow, Urine Clarity Clear, Urine pH 5.0, Ur Specific [place] 1.020, Urine Protein Negative, Urine Glucose (UA) Normal, Urine Ketones 5 H, Urine Occult Blood Negative, Urine Nitrite Negative, Urine Bilirubin Negative, Urine Urobilinogen Normal, Ur Leukocyte Esterase Negative, Urine RBC 0 SEEN, Urine WBC 0 SEEN, Ur Squamous Epith Cells 0-5 SEEN, Urine Bacteria 0 SEEN, Urine Mucus 0 SEEN 05/22/19 21:55: POC Glucose 137 H 05/22/19 22:10: Lactic Acid 1.6 05/23/19 05:10: Sodium 141, Potassium 3.5, Chloride 107, Carbon Dioxide 26.0, Anion Gap 8, BUN 12, Creatinine 0.92, Estim Creat Clear Calc 59.25, Est GFR (MDRD) Af Amer 80, Est GFR (MDRD) Non-Af 66, BUN/Creatinine Ratio 13.0, Glucose 103, Calcium 8.0 L 05/23/19 05:10: WBC 20.4 H, RBC 4.43, Hgb 11.7 L, Hct 37.3, MCV 84.2, MCH 26.4 L, MCHC 31.4 L, RDW Std Deviation 44.9 H, RDW Coeff of Sara 14.7 H, Plt Count 197, MPV 10.6, Immature Gran % (Auto) 0.400, Neut % (Auto) 74.1 H, Lymph % (Auto) 20.7, [place] % (Auto) 4.4, Eos % (Auto) 0.2, Baso % (Auto) 0.2, Absolute Neuts (auto) 15.1 H, Absolute Lymphs (auto) 4.21, Nucleated RBC % 0 05/23/19 06:23: POC Glucose 109 Current Medications Acetaminophen (Tylenol) 650 mg PO Q6H PRN PRN PRN Reason: Mild pain 1-3/Temp > 100.7 F Last Admin: 05/22/19 22:36 Dose: 650 mg Documented by: Atenolol (Tenormin (Beta [place])) 50 mg PO QHS [facility] Last Admin: 05/22/19 22:36 Dose: 50 mg Documented by: Atorvastatin Calcium (Lipitor) 20 mg PO QHS [facility] Last Admin: 05/22/19 22:36 Dose: 20 mg Documented by: Cholecalciferol (Vitamin D) 5,000 unit PO QHS [facility] Last Admin: 05/22/19 22:35 Dose: 5,000 unit Documented by: Dextrose (D50w Syringe) 0 gm IV X1 PRN; Protocol PRN Reason: Hypoglycemia Dextrose (D50w Syringe) 0 gm IV X1 PRN; Protocol PRN Reason: Hypoglycemia Duloxetine HCl (Cymbalta) 120 mg PO DAILY [facility] Enoxaparin Sodium (Lovenox) 40 mg SC DAILY@1000 ANNI Gabapentin (Neurontin) 600 mg PO BID [facility] Last Admin: 05/22/19 22:36 Dose: 600 mg Documented by: Glucagon () 1 mg IM .X1 PRN PRN Reason: Hypoglycemia Glucagon () 1 mg IM .X1 PRN PRN Reason: Hypoglycemia Guaifenesin (Mucinex) 1,200 mg PO BID [facility] Last Admin: 05/22/19 22:35 Dose: 1,200 mg Documented by: Sodium Chloride () 1,000 mls @ 75 mls/hr IV .[id number] [facility] Stop: 05/23/19 09:09 Last Infusion: 05/22/19 23:59 Dose: 75 mls/hr Documented by: Piperacillin Sod/Tazobactam (Sod 3.375 gm/ Sodium Chloride) 50 mls @ 12.5 mls/hr IV Q8 [facility] Last Admin: 05/23/19 06:11 Dose: 12.5 mls/hr Documented by: Azithromycin 500 mg/ Dextrose 255 mls @ 250 mls/hr IV Q24H ANNI Insulin Human Lispro (Humalog Kwikpen (Bkc)) 0 unit SC ACHS [facility]; Protocol Last Admin: 05/23/19 06:52 Dose: Not Given Documented by: Ipratropium [place] (Atrovent) 0.5 mg INHALATION Q4H.RT PRN PRN Reason: sob/wheezing Lorazepam (Ativan) 1 mg PO TID PRN PRN PRN Reason: ANXIETY Nutritional Formula (Lactose Free) (Glucerna Shake) 120 ml PO TIDCM ANNI Ondansetron HCl (Zofran) 4 mg IV Q8H PRN PRN PRN Reason: NAUSEA/VOMITING Pramipexole Dihydrochloride (Mirapex) 1 mg PO QHS ANNI Last Admin: 05/22/19 22:36 Dose: 1 mg Documented by: Sodium Chloride () 10 - 40 ml IV UD PRN PRN Reason: SALINE FLUSH Zolpidem Tartrate (Ambien (Generic)) 5 mg PO QHS PRN PRN PRN Reason: INSOMNIA Last Admin: 05/22/19 22:36 Dose: 5 mg Documented by: Medical Necessity - Tobacco Use Smoking Status: Never smoker Tobacco Use: Non-smoker Assessment/Plan All Active Problems (Last Reviewed 05/23/19 @ 07:43 by Young Brown MD) Severe sepsis (Acute) Left lower lobe pneumonia (Acute) Sinus tachycardia seen on child monitor (Acute) Community acquired pneumonia (Acute) Sigmoid diverticulitis (Resolved) 59-year-old female past medical history of hypertension, hyperlipidemia, anxiety/depression, asthma who was admitted with progressive shortness of breath as well as fever. Patient had had a colonoscopy done yesterday. 1. Severe sepsis secondary to community-acquired pneumonia versus aspiration pneumonia, improved Lactic acid improved from 2.9-1.6. Patient is clinically improving. Not on oxygen Blood cultures are pending, urine streptococcal and Legionella antigen negative Continue on Zosyn for now, labs in a.m. 2. Acute kidney injury, prerenal secondary to dehydration, resolved, creatinine back to baseline, repeat labs in am 3. Hypertension, controlled, on atenolol, will continue to monitor 3. Type II DM, blood sugars are controlled, will continue with Accu-Cheks and insulin sliding scale 4. Anxiety/depression, continue on Cymbalta, lorazepam 5. DVT prophylaxis with Lovenox subcu Code Visit Inpatient E&M: 22244 Subs Hosp L2
[2019-05-23] MEDS: DULoxetine Hcl 60 MG Capsule 120 MG PO (08:44)
[2019-05-23] MEDS: Enoxaparin 40 MG/0.4 ML Syringe SC (08:45)
[2019-05-23] MEDS: guaiFENesin 1,200 MG Tablet 1200 MG PO ×2 (08:45→23:45)
[2019-05-23] MEDS: Gabapentin 300 MG Capsule 600 MG PO ×2 (08:46→23:45)
[2019-05-23] MEDS: Glucerna Shake 120 ML LIQUID PO (08:46)
[2019-05-23] MEDS: Acetaminophen 325 MG Tablet 650 MG PO (08:50)
[2019-05-23 11:05] LABS: Bedside Glucose 117 mg/dL (70-110)
[2019-05-23] MEDS: oxyCODONE 5 MG Tablet PO ×3 (13:35→23:51)
--- NOTE | 2019-05-23 14:17 | CASEMGMT ---
RN CM Assessment Patient resting and easily aroused. Introduced role of RN CM to patient.?Patient is alert, oriented and able?to participate in RN CM Assessment. ?Care providers, pharmacy, and demographics verified. Presentation: Yesterday had a Colonoscopy with biopsy done- Dr Rodriguez called d/t Temp 102 and C/o Abd pain and SOB. Admit Dx: Severe Sepsis Re-Admit: No, Inpt 02/12-02/15/19 for Herpes Zoster of Head with secondary Cellulitis Barriers/Issues: None. States that she has a few Health issues within the past year. States both her and her are Self Employed. PCP: Roberot Guo Specialists: Psych- Tressa Damon with [facility] Preferred [facility]acy: [facility] Insurance: [facility] Rx Benefit: Yes? ?LNOK: Mychal Daugherty LW/HPOA: None, Would like to speak with SAHRA for completion on this admission. SAHRA Smith made aware. Living Arrangements:?Lives with her in a SS Duplex, 1 step to enter home. 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 States that she was just getting ready to start driving but then became ill with this episode. Her has been transporting and will upon DC. DME: Nebulizer, denies any other DME HHC: None SNF: None Goal: Home and does not think will have any needs. Denies any concerns, issues or questions with DC planning at this time. Aware CM remains available for any emerging needs. DC PLAN: Home with no anticipated needs identified at this time. NARA Tabor
--- NOTE | 2019-05-23 16:51 | CHAPLAIN ---
Type of Pastoral Visit _x__ Initial Visit ___ Follow-up Visit ___ On-call Visit ___ General Patient Visit ___ Spiritual Assessment ___ Family Conference ___ Bereavement ___ Rapid Response ___ Code Blue ___ Other (describe below) Pastoral Care Referral From _x__ Patient ___ Family ___ Nurse ___ Physician ___ Manager Program ___ Hotel Night Auditor ___ Other (describe below) Sacrament/Intervention _x__ Active listening ___ Anointing ___ Sikh ___ Bereavement ___ Communion _x__ Altagracia exploration ___ _x__ Life review _x__ Prayer ___ Reconciliation ___ Sacrament of Sick _x__ Supportive presence ___ Wedding ___ Other (describe below) Pastoral Comments patient had a sudden change in health and was admitting that she was seeking spiritual reasons and meaning behind it all; spouse of pt came into room soon after visit started and joined in the conversation; pt welcomes support and prayer
[2019-05-23 17:01] LABS: Bedside Glucose 103 mg/dL (70-110)
[2019-05-23] MEDS: Atorvastatin Calcium 20 MG Tablet PO (23:45)
[2019-05-23] MEDS: Pramipexole Di-HCl 1 MG Tablet PO (23:45)
[2019-05-23] MEDS: Atenolol 50 MG Tablet PO (23:46)
[2019-05-23] MEDS: Zolpidem Tartrate 5 MG Tablet PO (23:51)
[2019-05-23] MEDS: 0.9% NaCl Peripheral Flush Adult/Peds IV (23:58)
[2019-05-24] VITALS (7 sets, daily range): BP systolic 99–110; BP diastolic 56–73; PULSE 56–88; RESP 14–16; TEMP 36.6–36.7; O2SAT 94–97
[2019-05-24 00:11] LABS: Bedside Glucose 108 mg/dL (70-110)
[2019-05-24] MEDS: Pantoprazole Sodium 20 MG Tablet PO (02:05)
[2019-05-24] MEDS: Acetaminophen 325 MG Tablet 650 MG PO (04:17)
[2019-05-24 05:31] LABS: Absolute Lymphocyte Count 2.83 X10^3/uL (0.83-4.51); Absolute Neutrophil Count 7.6 X10^3/uL (2.0-7.7); Basophil# 0.04 X10^3/uL; Basophil% 0.4 % (0-1); Eosinophil# 0.22 X10^3/uL; Hematocrit 35.4 % (37-47); Hemoglobin 10.8 g/dL (12.0-15.0); Lymphocyte # 2.83 X10^3/ul (4.0); Lymphocyte % 25.4 % (19-41); Mean Corp Hgb Conc 30.5 g/dL (32-36); Mean Corpuscular Hgb 26.4 pg (27.0-32.0); Mean Corpuscular Volume 86.6 fL (81-99); Mean Platelet Vol. 10.8 fl (6.2-12.0); Monocyte# 0.45 X10^3/uL; NRBC Flagged by Analyzer 0 % (0-5); Neutrophil # 7.58 X10^3/uL (2.7-7.7); Neutrophil % 67.8 % (47-70); Platelet Count 196 K/mm3 (150-450); RBC Distribution Width CV 14.8 % (11.6-14.6); RBC Distribution Width SD 47.3 fl (35.1-43.9); Red Blood Count 4.09 M/mm3 (4.2-5.4); White Blood Count 11.2 K/mm3 (4.4-11.0)
[2019-05-24 05:48] LABS: Anion Gap 6 (5-15); BUN 11 mg/dL (7-18); BUN/Creat Ratio 11.3 RATIO (10-20); Calcium,Total 8.3 mg/dL (8.5-10.1); Chloride 108 mmol/L (98-107); Creatinine, Serum 0.97 mg/dL (0.55-1.02); EST Glomerular Filtration Rate 62 mL/min (>60); Est Glom Filt Rate - Afr Amer 76 mL/min (>60); Estimated Creatinine Clearance 56.19 ml/min; Glucose 102 mg/dL (74-106); Potassium 3.7 mmol/L (3.5-5.1); Sodium Level 142 mmol/L (136-145)
[2019-05-24] MEDS: oxyCODONE 5 MG Tablet PO (06:50)
[2019-05-24 07:01] LABS: Bedside Glucose 88 mg/dL (70-110)
--- NOTE | 2019-05-24 07:45 | RAD_ITS ---
STUDY: X-RAY CHEST REASON FOR EXAM: Female, 59 years old. Shortness of breath/dyspnea. TECHNIQUE: AP and lateral views of the chest. COMPARISON: Comparison is made with prior study dated August 21, 2018. FINDINGS: EKG lead clips are seen. Infiltrates are seen in the left lower lobe as well as in the lingular segment of the left upper lobe. Follow-up is recommended. The right lung is clear. There is no demonstrated pleural abnormality. Normal size heart. Normal mediastinum and ranjit. Normal visualized pulmonary arteries. Normal visualized aortic arch and descending thoracic aorta. Normal visualized thoracic spine. Normal visualized ribs, clavicles, and shoulders. There is no demonstrated abnormality of the visualized soft tissue structures of the upper abdomen. RAD/Chest PA and Lateral IMPRESSION: Infiltrates are seen in the left lower lobe as well as in the lingular segment of the left upper lobe. Electronically Signed: Reagan Guerin, at 13:14 EDT , Service support ,
--- NOTE | 2019-05-24 09:32 | PCM.DC ---
- Discharge Diagnoses Current Active Problems: Current Active and Chronic Problems (Last Reviewed 05/23/19 @ 07:43 by Young Brown MD) Severe sepsis (Acute) Left lower lobe pneumonia (Acute) Sinus tachycardia seen on director of cardiac cath lab (Acute) Community acquired pneumonia (Acute) Reason(s) for Visit for Discharge Instructions: Shortness of breath You will use the following diet at home:: Calorie/Carbohydrate Controlled (specify 1200, 1400, etc), Cardiac Your food should be the consistency of: Regular Your liquids should be the consistency of: Regular/Thin Discharge Activity: Return to Normal Activity Additional Instructions: Completed antibiotics. Continue to encourage use of incentive spirometer. Keep yourself hydrated. Follow-up with your primary care doctor within 1-2 weeks. Allergies/Adverse Reactions: Allergies aspirin Allergy (Severe, Verified 05/22/19 19:57) Other arrhyhtmia eluxadoline [From Viberzi] Allergy (Severe, Verified 05/22/19 16:34) Other diverticulitis NSAIDS (Non-Steroidal Anti-Inflamma Allergy (Intermediate, Verified 05/22/19 16:34) Other GI bleeds Sulfa (Sulfonamide Antibiotics) Allergy (Verified 05/22/19 16:34) Rash albuterol Adverse Reaction (Severe, Verified 05/22/19 16:34) other increase heart rate metformin Adverse Reaction (Severe, Verified 05/22/19 19:57) Other diarrhea inderal Allergy (Intermediate, Uncoded 05/22/19 16:34) Other hallucinations most antidepressants Adverse Reaction (Severe, Uncoded 05/22/19 16:34) Other varies from rash, to hallucinations, to shakes. Medications to take at Discharge Lorazepam [Ativan] 1 mg PO TID PRN PRN 17 Zolpidem Tartrate [Ambien] 5 - 10 mg PO QHS PRN PRN 11/19/17 Atenolol [Tenormin (beta lex)] 50 mg PO QHS 08/21/18 Duloxetine HCl 120 mg PO DAILY 08/21/18 atorvastatin 20 mg tablet 20 mg PO QHS #90 tab 09/23/18 cholecalciferol (vitamin D3) 5,000 unit capsule 5,000 unit PO QHS #90 cap 03/31/19 pramipexole 1 mg tablet 1 mg PO QHS #90 tab 04/14/19 Gabapentin [Neurontin] 600 mg PO BID 05/19/19 Dulaglutide [Trulicity] 1.5 mg SUBCUT MO 05/22/19 Levalbuterol Tartrate [Levalbuterol Tartrate Hfa] 2 inh INHALATION Q6H PRN PRN 05/22/19 Omeprazole 20 - 40 mg PO QHS PRN PRN 05/22/19 Amox/Clavulanate Tablet [Augmentin Tablet] 875 mg PO Q12H 5 Days #10 tab 05/24/19 Fluconazole [Diflucan] 150 mg PO DAILY #2 tab 05/24/19 The following prescriptions were given: Amox/Clavulanate Tablet [Augmentin Tablet] 875 mg PO Q12H 5 Days #10 tab Transmission Status: Received by [facility]/pharmacy #[id number] Fluconazole [Diflucan] 150 mg PO DAILY #2 tab Transmission Status: Pending to [facility]/pharmacy #[id number] Primary Care Physician: Roberto Guo MD [Primary Care Provider] - Please follow up with your Primary Care Physician in: within 1-2 weeks Test Results: Test results from this visit will be discussed in further detail at your follow-up appointment, if applicable. Proposed Discharge Date: 05/24/19
--- NOTE | 2019-05-24 09:38 | PCM.DC.SUM ---
Discharge Date and Diagnosis Date of Admission: 05/22/19 Date of Discharge: 05/24/19 - Primary Discharge Diagnosis Active and Suspected Problems (Last Reviewed 05/23/19 @ 07:43 by Young Brown MD) Severe sepsis Community-acquired pneumonia Possible aspiration pneumonia Acute kidney injury Ataxia, likely gabapentin side-effect - Secondary Discharge Diagnosis Chronic Problems (Last Reviewed 05/23/19 @ 07:43 by Young Brown MD) Chronic sinusitis (Chronic) Urinary incontinence (Chronic) Diverticulitis (Chronic) Postmenopausal (Chronic) On hormone replacement therapy (Chronic) DM type 2 (diabetes mellitus, type 2) (Chronic) Malabsorption (Chronic) Low libido (Chronic) Hiatal hernia with GERD (Chronic) Urinary, incontinence, stress female (Chronic) Chronic recurrent sinusitis (Chronic) Insomnia (Chronic) Vitamin D deficiency, unspecified (Chronic) Arthritis (Chronic) Asthma (Chronic) Diabetes mellitus type 2 in obese (Chronic) Diverticulosis (Chronic) PTSD (post-traumatic stress disorder) (Chronic) IBS (irritable bowel syndrome) (Chronic) Obesity (BMI 30-39.9) (Chronic) HTN (hypertension) (Chronic) HLD (hyperlipidemia) (Chronic) Anxiety and depression (Chronic) Hospital Course and Treatment Imaging Results: 05/24/19 07:45 Chest PA and Lateral [RAD] AM (NON MEDS) Clinical Impression(s) from Imaging Studies Acute Abdomen Series 05/22/19 18:50 IMPRESSION: Left mid and lower lung zone infiltrates. Findings suggest pneumonia. No bowel obstruction. Electronically Signed: Cameron Crain, at 19:12 EDT Tel , Service support , Chest X-Ray 05/24/19 07:45 IMPRESSION: Infiltrates are seen in the left lower lobe as well as in the lingular segment of the left upper lobe. Electronically Signed: Reagan Guerin, at 13:14 EDT , Service support , General surgery Operations: None Procedures: None Summary of Care Provided: 59-year-old female past medical history of hypertension, hyperlipidemia, anxiety/depression, asthma who was admitted with progressive shortness of breath as well as fever. Patient had colonoscopy done on that day and when she woke up she was short of breath and had a fever. Her management was as follows: 1. Severe sepsis secondary to community-acquired pneumonia versus aspiration pneumonia. X-ray showed a left-sided infiltrate. Admitting lactic acid was 2.9. Improved to 1.6. Patient was started on IV Zosyn. Urine legionella and streptococcal antigen were negative. Blood cultures were pending at time of discharge Patient was discharged on Augmentin to complete 1 week total antibiotics. 2. Acute kidney injury, prerenal secondary to dehydration. Her creatinine was 1.11 admission. Discharged with creatinine 0.97. Advised to keep hydrating herself 3. Hypertension, controlled, on atenolol, 3. Type II DM, diet controlled, managed with blood sugar checks and insulin sliding scale 4. Ataxia, noted on the last day of discharge, and admits to having ataxia since starting gabapentin patient was seen by PT and OT, wheeled walker recommended, prescription given for walker Recommended that patient decrease her gabapentin to 300 mg p.o. twice daily for 1 week and then 100 mg p.o. 3 times daily 5. Anxiety/depression, continue on Cymbalta, lorazepam Subjective: On the day of discharge, patient was seen and examined. Denied any new complaints. She was found to be ataxic when ambulating with physical therapy. Objective: Physical exam: General: Alert, Oriented x3, Cooperative, No apparent distress HEENT: Atraumatic, PERRLA, EOMI, Normocephalic Oral: Moist Mucosa Neck: Supple Lungs: Diminished Cardiovascular: Regular rate, No murmurs Abdomen: Bowel Sounds Present, Soft, Non Tender, Non-Distended, No Hepato-splenomegaly, Obese Extremities: No edema Skin: No rashes, No breakdown Musculoskeletal: No Tenderness to Palpation of Joints or Extremities Lymphatic: No Cervical, Supraclavicular, or Inguinal Adenopathy Neurological: Cranial nerves II-XII grossly intact, Neuro grossly intact Psych/Mental Status: Normal Affect, Appropriate - Physical Exam Vital Signs Temp Pulse Resp BP Pulse Ox 98.1 F 56 L 16 105/63 95 05/24/19 05:05 05/24/19 07:12 05/24/19 05:05 05/24/19 05:05 05/24/19 05:05 Oxygen Flow Rate (L/min) 2 Oxygen Delivery Method Room Air Weight: 95.9 kg Body Mass Index (BMI) 35.2 Intake and Output for Last 24 Hours 05/22/19 05/23/19 05/24/19 23:59 23:59 23:59 Intake Total 1837.5 / 1837.5 2297.5 / 2297.5 150 / 150 Balance 1837.5 / 1837.5 2297.5 / 2297.5 150 / 150 Microbiology Past 72 Hours 05/22/19 19:10 Streptococcus pneumoniae Antigen (M - Final Urine, Clean Catch 05/22/19 19:10 Legionella Antigen - Final Urine, Clean Catch Laboratory Tests Past 24 Hrs 05/24/19 05/24/19 05:15 05:15 WBC 11.2 H RBC 4.09 L Hgb 10.8 L Hct 35.4 L MCV 86.6 MCH 26.4 L MCHC 30.5 L RDW Std Deviation 47.3 H RDW Coeff of Sara 14.8 H Plt Count 196 MPV 10.8 Immature Gran % (Auto) 0.400 Neut % (Auto) 67.8 Lymph % (Auto) 25.4 Reeves % (Auto) 4.0 Eos % (Auto) 2.0 Baso % (Auto) 0.4 Absolute Neuts (auto) 7.6 Absolute Lymphs (auto) 2.83 Nucleated RBC % 0 Sodium 142 Potassium 3.7 Chloride 108 H Carbon Dioxide 28.0 Anion Gap 6 BUN 11 Creatinine 0.97 Estim Creat Clear Calc 56.19 Est GFR (MDRD) Af Amer 76 Est GFR (MDRD) Non-Af 62 BUN/Creatinine Ratio 11.3 Glucose 102 Calcium 8.3 L POC Glucose 05/24/19 05/23/19 05/23/19 06:53 23:01 16:56 POC Glucose 88 108 103 05/23/19 10:57 POC Glucose 117 H Discharge Diet: Low fat/ Low Cholesterol, 2000 mg Sodium Diet, Carb Control Diet Discharge Activity: Return to Normal Activity Home Medications: Medications to take at Discharge Lorazepam [Ativan] 1 mg PO TID PRN PRN 06/30/17 Zolpidem Tartrate [Ambien] 5 - 10 mg PO QHS PRN PRN 11/19/17 Atenolol [Tenormin (beta lex)] 50 mg PO QHS 08/21/18 Duloxetine HCl 120 mg PO DAILY 08/21/18 atorvastatin 20 mg tablet 20 mg PO QHS #90 tab 09/23/18 cholecalciferol (vitamin D3) 5,000 unit capsule 5,000 unit PO QHS #90 cap 03/31/19 pramipexole 1 mg tablet 1 mg PO QHS #90 tab 04/14/19 Dulaglutide [Trulicity] 1.5 mg SUBCUT MO 05/22/19 Levalbuterol Tartrate [Levalbuterol Tartrate Hfa] 2 inh INHALATION Q6H PRN PRN 05/22/19 Omeprazole 20 - 40 mg PO QHS PRN PRN 05/22/19 Amox/Clavulanate Tablet [Augmentin Tablet] 875 mg PO Q12H 5 Days #10 tab 05/24/19 Fluconazole [Diflucan] 150 mg PO DAILY #2 tab 05/24/19 Gabapentin [Neurontin] 100 mg PO TID 30 Days #90 cap 05/24/19 Following Prescrptions Were Given to Patient: Amox/Clavulanate Tablet [Augmentin Tablet] 875 mg PO Q12H 5 Days #10 tab Transmission Status: Received by [facility]/pharmacy #[id number] Fluconazole [Diflucan] 150 mg PO DAILY #2 tab Transmission Status: Received by [facility]/pharmacy #[id number] Gabapentin [Neurontin] 100 mg PO TID 30 Days #90 cap Transmission Status: Received by [facility]/pharmacy #[id number] Primary Care Physician: Roberto Guo MD [Primary Care Provider] - Please follow up with your Primary Care Physician in: within 1-2 weeks Disposition: Home Minutes spent on discharge:: 40 Patient Condition:: Stable Medical Necessity - Tobacco Use Smoking Status: Never smoker Tobacco Use: Non-smoker Meaningful Use Info Meaningful Use Diagnoses (Choose all that apply): None applicable Code Visit Inpatient E&M: 27849 Disch Hosp
[2019-05-24] MEDS: guaiFENesin 1,200 MG Tablet 1200 MG PO (10:01)
[2019-05-24] MEDS: Gabapentin 300 MG Capsule 600 MG PO (10:02)
[2019-05-24] MEDS: DULoxetine Hcl 60 MG Capsule 120 MG PO (10:02)
--- NOTE | 2019-05-24 12:17 | CASEMGMT ---
SW assisted pt in completing LW/POA forms, SW gave pt originals and copies, and copies placed on the chart. Pt put her as POA. YEMI Hwang
[2019-05-24 12:46] LABS: Bedside Glucose 81 mg/dL (70-110)
--- NOTE | 2019-05-24 15:15 | CASEMGMT ---
Therapy is recommending wheeled walker for pt and pt is unsure if she would like WW at this time. Pt given a script for WW at this time, if she decides that she wants it then she can go get on own. Ac BRAGA CM
--- NOTE | 2019-05-25 14:38 | CASEMGMT ---
OMI DAVALOS Discharge Follow-Up Phone Call. Lacblue: 12 Strata: 4 Discharge Date: 05/24/19 Adm Dx: Severe Sepsis Call to pt to inquire about how she has been doing since being discharged from the hospital. Pt stating, okay but then stated she has been having severe diarrhea. Pt states she has been able to drink fluids well but voices concern about becoming dehydrated. She states she was able to get the prescriptions given at discharge and has been taking them as prescribed. Pt states that she is aware some antibiotics can cause diarrhea. OMI DAVALOS advised her to not stop taking her medications unless talking with her PCP first. Pt voices understanding. She states she has an upcoming appt with Dr Guo on Tuesday 05/29 (this appt was pre-existing prior to past admission). OMI DAVALOS advised for pt to contact Dr Guo's office today and to notify them of her diarrhea and discuss her concerns with them. Also advised to see if she can get an appt with Dr Guo by tomorrow. Pt voices understanding and states she will do this. She has no further questions about the discharge instructions. Pt thanked OMI DAVALOS for calling her. OMI DAVALOS thanked pt for choosing [facility]. Emerita BURKETT RN, CM
== END 2019-05-24 14:59 | disposition home or self-care (01) | DRG 720 ==
LOC: ED 19:08 → PCU 19:38
PROVIDERS: Admitting Provider Hospitalist; Emergency Provider Emergency Medicine; Family Provider Internal Medicine; PCP Internal Medicine; Visit Provider Internal Medicine
DX: A41.9 Sepsis, unspecified organism (principal); J18.9 Pneumonia, unspecified organism; J69.0 Pneumonitis due to inhalation of food and vomit; R65.20 Severe sepsis without septic shock; N17.9 Acute kidney failure, unspecified; R27.0 Ataxia, unspecified; T42.6X5A Adverse effect of other antiepileptic and sedative-hypnotic drugs, initial encounter; Y92.9 Unspecified place or not applicable; J45.909 Unspecified asthma, uncomplicated; I10 Essential (primary) hypertension; E11.9 Type 2 diabetes mellitus without complications; E78.5 Hyperlipidemia, unspecified; F32.9 Major depressive disorder, single episode, unspecified; F41.9 Anxiety disorder, unspecified; E66.9 Obesity, unspecified; K58.9 Irritable bowel syndrome, unspecified; F43.12 Post-traumatic stress disorder, chronic; J32.9 Chronic sinusitis, unspecified; N39.3 Stress incontinence (female) (male); K21.9 Gastro-esophageal reflux disease without esophagitis; K44.9 Diaphragmatic hernia without obstruction or gangrene; E86.0 Dehydration; E55.9 Vitamin D deficiency, unspecified; G47.00 Insomnia, unspecified; K90.9 Intestinal malabsorption, unspecified; M19.90 Unspecified osteoarthritis, unspecified site; Z78.0 Asymptomatic menopausal state; Z68.35 Body mass index [BMI] 35.0-35.9, adult; Z79.890 Hormone replacement therapy; Z79.899 Other long term (current) drug therapy; D12.3 Benign neoplasm of transverse colon; K57.30 Diverticulosis of large intestine without perforation or abscess without bleeding; K64.0 First degree hemorrhoids; K62.5 Hemorrhage of anus and rectum; K58.0 Irritable bowel syndrome with diarrhea; I34.1 Nonrheumatic mitral (valve) prolapse; Z79.4 Long term (current) use of insulin
CPT/HCPCS: 36415; 71046; 74022; 80048; 81001; 82962; 83605; 85025; 87040; 87449; 88305; 94640; 94667; 97161; 97166; 97530; 97802; 99285; J7030; J7120; A4216; J2405

== ENCOUNTER → 2019-06-05 12:12 | Outpatient (CLI) | payer MEDICAID, SELFPAY ==
[2019-06-05 11:25] VITALS: BMI 35.2
[2019-06-05 12:49] LABS: Absolute Lymphocyte Count 3.55 X10^3/uL (0.83-4.51); Absolute Neutrophil Count 6.3 X10^3/uL (2.0-7.7); Basophil# 0.06 X10^3/uL; Basophil% 0.6 % (0-1); Eosinophil# 0.22 X10^3/uL; Eosinophils% 2.1 % (0-5); Hematocrit 44.6 % (37-47); Hemoglobin 13.7 g/dL (12.0-15.0); Lymphocyte # 3.55 X10^3/ul (4.0); Lymphocyte % 33.6 % (19-41); Mean Corp Hgb Conc 30.7 g/dL (32-36); Mean Corpuscular Hgb 25.8 pg (27.0-32.0); Mean Corpuscular Volume 83.8 fL (81-99); Mean Platelet Vol. 10.6 fl (6.2-12.0); Monocyte# 0.41 X10^3/uL; Monocyte% 3.9 % (0-10); NRBC Flagged by Analyzer 0 % (0-5); Neutrophil # 6.26 X10^3/uL (2.7-7.7); Neutrophil % 59.3 % (47-70); Platelet Count 358 K/mm3 (150-450); RBC Distribution Width CV 14.4 % (11.6-14.6); RBC Distribution Width SD 43.4 fl (35.1-43.9); Red Blood Count 5.32 M/mm3 (4.2-5.4); White Blood Count 10.6 K/mm3 (4.4-11.0)
[2019-06-05 13:12] LABS: Ferritin 15 ng/mL (8-252); Iron 48 ug/dL (50-170); Iron Binding Capacity,Total 382 ug/dL (250-450)
== END ==
PROVIDERS: Family Provider Internal Medicine; PCP Internal Medicine; Visit Provider Internal Medicine
DX: D64.9 Anemia, unspecified (principal)
CPT/HCPCS: 36415; 82728; 83540; 83550; 85025

== ENCOUNTER → 2019-07-13 12:47 | Outpatient (CLI) | payer MEDICAID, SELFPAY ==
[2019-06-05 11:25] VITALS: BMI 35.2
--- NOTE | 2019-07-13 12:48 | RAD_ITS ---
STUDY: X-RAY - RIGHT HAND, ATTENTION THUMB REASON FOR EXAM: Cyst in distal thumb below nail. TECHNIQUE: 3 view(s) of the finger were obtained. COMPARISON: None. FINDINGS: Normal metacarpal. Normal metacarpophalangeal joint. Normal proximal phalanx. Normal distal phalanx. There are small marginal osteophytes and mild joint space narrowing of the interphalangeal joint. RAD/Finger(s) Min 2 Views IMPRESSION: Mild arthrosis of the interphalangeal joint of the first digit. Electronically Signed: Alexander Domínguez MD at 13:51 EST Tel , Service support ,
== END ==
PROVIDERS: Family Provider Internal Medicine; PCP Internal Medicine; Referring Provider Orthopaedic Surgery; Visit Provider Orthopaedic Surgery
DX: M79.644 Pain in right finger(s) (principal)
CPT/HCPCS: 73140

== ENCOUNTER → 2019-08-07 13:13 | Outpatient (CLI) | payer MEDICAID, SELFPAY ==
[2019-07-31 11:34] VITALS: BMI 35.2
== END ==
PROVIDERS: Family Provider Internal Medicine; PCP Internal Medicine; Referring Provider Internal Medicine; Visit Provider Internal Medicine
DX: R00.2 Palpitations (principal)
CPT/HCPCS: 93225; 93226

== ENCOUNTER → 2019-10-27 10:05 | Outpatient (CLI) | payer MEDICAID, SELFPAY ==
[2019-10-27 09:23] VITALS: BMI 35.2
[2019-10-27 11:03] LABS: Anion Gap 5 (5-15); BUN 16 mg/dL (7-18); Chloride 104 mmol/L (98-107); Creatinine, Serum 0.94 mg/dL (0.55-1.02); EST Glomerular Filtration Rate 65 mL/min (>60); Est Glom Filt Rate - Afr Amer 78 mL/min (>60); Glucose 97 mg/dL (74-106); Magnesium 2.3 mg/dL (1.6-2.6); Potassium 3.7 mmol/L (3.5-5.1); Sodium Level 139 mmol/L (136-145)
== END ==
PROVIDERS: PCP Internal Medicine; Referring Provider Internal Medicine; Visit Provider Internal Medicine
DX: I49.9 Cardiac arrhythmia, unspecified (principal)
CPT/HCPCS: 36415; 80048; 83735

== ENCOUNTER → 2019-11-02 08:30 | Outpatient (CLI) | payer MEDICAID, SELFPAY ==
[2019-10-27 09:23] VITALS: BMI 35.2
[2019-11-01 13:49] VITALS: BMI 35.2
--- NOTE | 2019-11-02 08:31 | RAD_ITS ---
STUDY: AIR CONTRAST UPPER GI SERIES and esophagram REASON FOR EXAM: Female, 59 years old. Known hiatl hernia, difficulty swallowing liquids and solids, getting stuck lower esoph, pain COMPARISON: None. TECHNIQUE: 6 minutes and 54 seconds of fluoroscopy was performed in 139 spot fluoroscopic images were obtained. FINDINGS: Initially the patient was given thick liquid barium and air and an upper GI was performed. Endovaginal pharynx and stomach. The stomach filled and appeared to be normal no mucosal ulcerations were seen. The duodenal cap filled and also appear to be normal. Following oral ingestion of a second cup of thin liquid barium contrast esophagram was performed. The patient was able swallow barium which passed readily through the oropharynx to the thoracic inlet and eventually into the mid and distal esophagus and stomach. No hiatal hernia or gastroesophageal reflux was identified. The duodenal cap more completely filled and appeared to be normal. RAD/Upper GI w/BA Swallow IMPRESSION: 1. Normal esophagram. 2. Normal upper GI Electronically Signed: Thang Wallace, at 15:51 EST Tel , Service support ,
== END ==
PROVIDERS: PCP Internal Medicine; Referring Provider Surgery; Visit Provider Surgery
DX: R13.10 Dysphagia, unspecified (principal); K21.9 Gastro-esophageal reflux disease without esophagitis; K44.9 Diaphragmatic hernia without obstruction or gangrene
CPT/HCPCS: 74246

== ENCOUNTER → 2020-02-01 13:29 | Outpatient (CLI) | payer MEDICAID, SELFPAY ==
[2020-01-10 12:08] VITALS: BMI 35.2
--- NOTE | 2020-02-01 13:36 | CT_ITS ---
STUDY: CT FACIAL BONES WITHOUT CONTRAST REASON FOR EXAM: Female, 59 years old. CHRONIC FRONTAL SINUSITIS X YEARS RADIATION DOSAGE (If Supplied By Facility): CTDIvol = ( 33.45 ) mGy, DLP = ( 843.27 ) mGycm TECHNIQUE: The patient was scanned in a multi detector CT scanner. Sagittal and coronal images were reconstructed. Individualized dose optimization techniques were used for this CT. COMPARISON: None. FINDINGS: Normal soft tissue structures. Normal orbital raymundo and orbital contents. Normal nasal bones and anterior nasal spine. Normal facial bones. There is no demonstrated fracture. Mucosal thickening of the ethmoid sinuses bilaterally. The ostiomeatal complexes are patent bilaterally. 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 CT/Sinus/Facial Bone IMPRESSION: Mucosal thickening of the ethmoid sinuses bilaterally. Hypertrophy of the right inferior turbinate as well as conchal bullosa of the right middle turbinate. Electronically Signed: Reagan Guerin, at 14:55 EDT , Service support ,
== END ==
PROVIDERS: PCP Internal Medicine; Referring Provider Otolaryngology; Visit Provider Otolaryngology
DX: J32.1 Chronic frontal sinusitis (principal)
CPT/HCPCS: 70486

== ENCOUNTER → 2020-03-28 15:49 | Outpatient (CLI) | payer MEDICAID, SELFPAY ==
[2020-03-12 13:11] VITALS: BMI 34.4
--- NOTE | 2020-03-28 15:50 | BI_ITS ---
MAMMOGRAPHY - BILATERAL SCREENING 3-D TOMOSYNTHESIS REASON FOR EXAM: Female, 60 years old. Routine screening PERTINENT HISTORY: FAM HX SISTER AGE 37 AND AGING 43 -- GAINED 20# -- NO SX. TECHNIQUE: 2-D mammograms and 3-D Tomosynthesis of the breast (s) were performed. CAD was performed. COMPARISON: 2008 FINDINGS: The breast composition is composed of scattered fibroglandular density. Scattered benign calcifications are seen. No dense spiculated masses or suspicious microcalcifications are identified. No architectural distortion is identified. There is no skin thickening or retraction. There has been no significant change since the prior study. BI/SCREEN MAMM (CAD) W/ADAIR BILAT IMPRESSION: No mammographic signs of malignancy. Routine yearly mammograms recommended. ASSESSMENT CATEGORY: BIRADS Category 1: Negative. A letter regarding these results will be sent to the patient by the facility within 30 days. FOLLOW UP RECOMMENDATION: Yearly follow up mammogram recommended. (A) Approximately 10% of breast cancers are not detected by mammography. A normal mammogram should not delay biopsy of a clinically suspicious abnormality. Electronically Signed: Franko Gonzalez MD at 8:14 EDT , Service support ,
== END ==
PROVIDERS: PCP Internal Medicine; Referring Provider Internal Medicine; Visit Provider Internal Medicine
DX: Z12.31 Encounter for screening mammogram for malignant neoplasm of breast (principal)
CPT/HCPCS: 77063; 77067

== ENCOUNTER → 2020-04-29 20:58 | Outpatient (CLI) | payer MEDICAID, SELFPAY ==
[2020-03-12 13:11] VITALS: BMI 34.4
== END ==
PROVIDERS: PCP Internal Medicine; Visit Provider Internal Medicine
DX: G47.10 Hypersomnia, unspecified (principal)
CPT/HCPCS: 95810

== ENCOUNTER → 2020-05-23 20:30 | Outpatient (CLI) | payer MEDICAID, SELFPAY ==
[2020-05-17 12:21] VITALS: BMI 35.2
== END ==
PROVIDERS: PCP Internal Medicine; Visit Provider Nurse Practitioner Acute Care
DX: G47.33 Obstructive sleep apnea (adult) (pediatric) (principal)
CPT/HCPCS: 95811

== ENCOUNTER → 2020-06-06 10:00 | Outpatient (CLI) | payer MEDICAID, SELFPAY ==
[2020-05-17 12:21] VITALS: BMI 35.2
== END ==
PROVIDERS: PCP Internal Medicine; Visit Provider Nurse Practitioner Acute Care
DX: Z46.89 Encounter for fitting and adjustment of other specified devices (principal)

== ENCOUNTER → 2020-08-15 13:00 | Outpatient (CLI) | payer MEDICAID, SELFPAY ==
[2020-06-12 11:21] VITALS: BMI 37.0
== END ==
PROVIDERS: PCP Internal Medicine; Referring Provider Nurse Practitioner Acute Care; Visit Provider Nurse Practitioner Acute Care
DX: Z46.89 Encounter for fitting and adjustment of other specified devices (principal)
CPT/HCPCS: 98960; G0463

== ENCOUNTER → 2020-09-13 07:04 | Outpatient (CLI) | payer MEDICAID, SELFPAY ==
[2020-06-12 11:21] VITALS: BMI 37.0
--- NOTE | 2020-09-13 09:06 | TELEMED_ITS ---
[facility] Telemed has confirmed receipt of a request for visit. This document confirms receipt of the order initiating the consult. To find the results of the consultation, please view the patient's reports for the scanned Telemed Consult.
== END ==
PROVIDERS: PCP Internal Medicine; Referring Provider Psychiatry & Neurology Sleep Medicine; Visit Provider Psychiatry & Neurology Sleep Medicine
DX: R40.4 Transient alteration of awareness (principal); R56.9 Unspecified convulsions
CPT/HCPCS: 95819

== ENCOUNTER → 2020-09-13 11:09 | Outpatient (CLI) | payer MEDICAID, SELFPAY ==
[2020-09-13 10:47] VITALS: BMI 37.9
--- NOTE | 2020-09-13 11:38 | RAD_ITS ---
STUDY: X-RAY - LEFT KNEE REASON FOR EXAM: Left knee pain and limited range of motion, no specific injury. TECHNIQUE: 3 view(s) of the knee. COMPARISON: None. FINDINGS: Normal visualized distal femur. Normal visualized proximal tibia and fibula. Normal proximal tibiofibular articulation. There is moderate to severe joint space narrowing of the medial femorotibial compartment. Normal lateral femorotibial compartment. Normal patellofemoral articulation. The soft tissue structures are unremarkable. RAD/Knee 3 Views IMPRESSION: Arthrosis of the medial femorotibial compartment. Electronically Signed: Alexander Domínguez MD at 13:34 EST Tel , Service support ,
[2020-09-13 12:30] LABS: Absolute Lymphocyte Count 3.53 X10^3/uL (0.83-4.51); Absolute Neutrophil Count 5.4 X10^3/uL (2.0-7.7); Basophil# 0.06 X10^3/uL; Basophil% 0.6 % (0-1); Eosinophil# 0.23 X10^3/uL; Eosinophils% 2.4 % (0-5); Hematocrit 45.3 % (37-47); Hemoglobin 13.6 g/dL (12.0-15.0); Lymphocyte # 3.53 X10^3/ul (4.0); Mean Corpuscular Hgb 24.8 pg (27.0-32.0); Mean Corpuscular Volume 82.5 fL (81-99); Mean Platelet Vol. 10.1 fl (6.2-12.0); Monocyte# 0.32 X10^3/uL; Monocyte% 3.4 % (0-10); NRBC Flagged by Analyzer 0 % (0-5); Neutrophil # 5.37 X10^3/uL (2.7-7.7); Neutrophil % 56.2 % (47-70); Platelet Count 332 K/mm3 (150-450); RBC Distribution Width CV 15.5 % (11.6-14.6); RBC Distribution Width SD 46.3 fl (35.1-43.9); Red Blood Count 5.49 M/mm3 (4.2-5.4); White Blood Count 9.6 K/mm3 (4.4-11.0)
[2020-09-13 12:48] LABS: ALB/GLOB Ratio 0.8 RATIO (0.9-2.4); AST(SGOT) 25 U/L (15-37); Alanine Aminotransfer ALT/SGPT 35 U/L (13-56); Albumin, Serum 3.3 g/dL (3.2-5.0); Alkaline Phosphatase 174 U/L (45-117); Anion Gap 7 (5-15); BUN 12 mg/dL (7-18); BUN/Creat Ratio 12.1 RATIO (10-20); Calcium,Total 8.9 mg/dL (8.5-10.1); Chloride 103 mmol/L (98-107); Cholesterol 161 mg/dL (200); Creatinine, Serum 0.99 mg/dL (0.55-1.02); EST Glomerular Filtration Rate 61 mL/min (>60); Est Glom Filt Rate - Afr Amer 74 mL/min (>60); Globulin 4.2 g/dL (2.2-4.2); Glucose 124 mg/dL (74-106); High Density Lipoprotein 68 mg/dL; Potassium 3.8 mmol/L (3.5-5.1); Protein, Total 7.5 g/dL (6.4-8.2); Sodium Level 138 mmol/L (136-145); Triglycerides 177 mg/dL; Very Low Density Lipoprotein 35 mg/dL (5-40)
[2020-09-13 12:55] LABS: Hemoglobin A1c 6.6 % (3.8-5.6)
== END ==
PROVIDERS: PCP Internal Medicine; Referring Provider Internal Medicine; Visit Provider Internal Medicine
DX: E11.9 Type 2 diabetes mellitus without complications (principal); M25.562 Pain in left knee; R56.9 Unspecified convulsions
CPT/HCPCS: 36415; 73562; 80053; 80061; 83036; 85025; 95819

== ENCOUNTER → 2020-11-08 06:25 | Outpatient (CLI) | payer MEDICAID, SELFPAY ==
[2020-09-16 13:20] VITALS: BMI 38.2
== END ==
PROVIDERS: PCP Internal Medicine; Referring Provider Psychiatry & Neurology Sleep Medicine; Visit Provider Psychiatry & Neurology Sleep Medicine
DX: R40.4 Transient alteration of awareness (principal); R56.9 Unspecified convulsions
CPT/HCPCS: 95819

== ENCOUNTER → 2021-03-14 11:15 | Outpatient (CLI) | payer MEDICAID, SELFPAY ==
[2021-03-14 10:43] VITALS: BMI 37.5
[2021-03-14 12:26] LABS: Absolute Lymphocyte Count 2.85 X10^3/uL (0.83-4.51); Absolute Neutrophil Count 3.5 X10^3/uL (2.0-7.7); Basophil# 0.05 X10^3/uL; Basophil% 0.7 % (0-1); Eosinophil# 0.24 X10^3/uL; Eosinophils% 3.5 % (0-5); Hematocrit 44.3 % (37-47); Hemoglobin 13.6 g/dL (12.0-15.0); Lymphocyte # 2.85 X10^3/ul (0.83-4.51); Lymphocyte % 41.1 % (19-41); Mean Corp Hgb Conc 30.7 g/dL (32-36); Mean Corpuscular Hgb 25.9 pg (27.0-32.0); Mean Corpuscular Volume 84.4 fL (81-99); Mean Platelet Vol. 10.9 fl (6.2-12.0); Monocyte# 0.32 X10^3/uL; Monocyte% 4.6 % (0-10); NRBC Flagged by Analyzer 0 % (0-5); Neutrophil # 3.46 X10^3/uL (2.7-7.7); Neutrophil % 49.8 % (47-70); Platelet Count 289 K/mm3 (150-450); RBC Distribution Width CV 16.2 % (11.6-14.6); RBC Distribution Width SD 50.2 fl (35.1-43.9); Red Blood Count 5.25 M/mm3 (4.2-5.4); White Blood Count 6.9 K/mm3 (4.4-11.0)
[2021-03-14 13:00] LABS: Vitamin D,25 Hydroxy 63.8 ng/mL
[2021-03-14 13:02] LABS: ALB/GLOB Ratio 0.8 RATIO (0.9-2.4); AST(SGOT) 30 U/L (15-37); Alanine Aminotransfer ALT/SGPT 44 U/L (13-56); Alkaline Phosphatase 164 U/L (45-117); BUN 13 mg/dL (7-18); BUN/Creat Ratio 14.1 RATIO (10-20); Calcium,Total 8.8 mg/dL (8.5-10.1); Creatinine, Serum 0.92 mg/dL (0.55-1.02); EST Glomerular Filtration Rate 66 mL/min (>60); Est Glom Filt Rate - Afr Amer 80 mL/min (>60); Glucose 153 mg/dL (74-106)
[2021-03-14 13:03] LABS: Anion Gap 5 (5-15); Chloride 106 mmol/L (98-107); Sodium Level 138 mmol/L (136-145)
== END ==
PROVIDERS: PCP Internal Medicine; Referring Provider Internal Medicine; Visit Provider Internal Medicine
DX: I10 Essential (primary) hypertension (principal); E78.5 Hyperlipidemia, unspecified; E55.9 Vitamin D deficiency, unspecified
CPT/HCPCS: 36415; 80053; 82306; 85025

== ENCOUNTER 2021-07-07 23:59 | Inpatient (IN) | payer MEDICAID, SELFPAY ==
[2021-07-08] VITALS (14 sets, daily range): BP systolic 104–133; BP diastolic 47–81; PULSE 56–92; RESP 14–20; TEMP 35.7–37.3; O2SAT 89–99; BMI 37.5; BMI 36.8
--- NOTE | 2021-07-08 00:12 | EKG12_ITS ---
Test Reason : WEAKNESS Blood Pressure : / mmHG Vent. Rate : 069 BPM Atrial Rate : 069 BPM P-R Int : 140 ms QRS Dur : 076 ms QT Int : 430 ms P-R-T Axes : 022 -04 014 degrees QTc Int : 460 ms Normal sinus rhythm Normal ECG Confirmed by JENNIFER BHATT, MEENA ([id number]), research editor STEPHANIE LANDRUM ([id number]) on 07/09/2021 8:45:24 AM Referred By: Confirmed By:MEENA RODRIGUEZ MD
--- NOTE | 2021-07-08 00:12 | RAD_ITS ---
STUDY: X-RAY CHEST REASON FOR EXAM: Female, 61 years old. covid 19 cough TECHNIQUE: Single AP portable view of the chest. COMPARISON: 05/24/2019. FINDINGS: The lungs are clear and expanded. There is no demonstrated pleural abnormality. Normal size heart. Normal mediastinum and ranjit. Normal visualized pulmonary arteries. Normal visualized aortic arch and descending thoracic aorta. There are diffuse degenerative changes of the visualized thoracic spine. There is degenerative osteoarthritis of the bilateral shoulders. There is no demonstrated abnormality of the visualized soft tissue structures of the upper abdomen. RAD/Chest 1 View (Portable) IMPRESSION: No acute cardiopulmonary disease. Electronically Signed: Faye Hodgson MD at 1:28 EDT , Service support ,
--- NOTE | 2021-07-08 00:14 | EX.ED.DYSGE1 ---
HPI History of Present Illness Chief Complaint: Weakness Informant: patient and spouse/S.O. Narrative Narrative: 61-year-old female states that she is Covid positive. She states that she got symptomatic Wednesday night and [facility] where she had a positive COVID-19 test. She states that she was vaccinated the Brian & Brian vaccine in November. states that today she is globally weak and was unable to get herself up off the floor. She notes fevers cough. Decreased p.o. intake. Shortness of breath. Patient states that she is so fatigued she is unable to care for herself. [facility] Medical History Abdominal pain Acid reflux Acute asthma exacerbation Anxiety and depression Arthritis Asthma Asthma exacerbation Blood in stool Chronic recurrent sinusitis Depression with anxiety Diabetes Diarrhea Diverticulitis Diverticulitis Diverticulosis DM type 2 (diabetes mellitus, type 2) Health care maintenance Hiatal hernia with GERD HLD (hyperlipidemia) HTN (hypertension) IBS (irritable bowel syndrome) Insomnia Low libido Malabsorption Obesity (BMI 30-39.9) On hormone replacement therapy Postmenopausal PTSD (post-traumatic stress disorder) Shingles Type 2 diabetes mellitus Urinary, incontinence, stress female Vitamin D deficiency, unspecified Home Medications zolpidem 5 - 10 mg PO QHS PRN PRN 11/19/17 [History Last Taken 05/21/19] fluticasone propionate 50 mcg/actuation nasal spray,suspension 2 spray INTRANASAL DAILY #19.8 g 06/05/19 [Rx Last Taken Unknown] blood-glucose meter #1 ea 10/27/19 [Rx Last Taken Unknown] dulaglutide 1.5 mg/0.5 mL subcutaneous pen injector 1.5 mg SUBCUT QWEEK 90 Days #6.5 ml 08/12/20 [Rx Last Taken Unknown] epinephrine 0.3 mg/0.3 mL injection, auto-injector 0.3 mg IM Q10-15M #2 ea 08/12/20 [Rx Last Taken Unknown] sumatriptan succinate 25 mg tablet See Rx Instructions .ROUTE .COMPLEX #10 tab 08/12/20 [Rx Last Taken Unknown] budesonide-formoterol HFA 160 mcg-4.5 mcg/actuation aerosol inhaler 2 puff INHALATION Q12H #10.2 g 09/16/20 [Rx Last Taken Unknown] pramipexole 1 mg tablet See Rx Instructions .ROUTE .COMPLEX #30 tab 12/05/20 [Rx Last Taken Unknown] levomilnacipran 120 mg capsule,24 hr,extended release 120 mg PO DAILY 12/13/20 [History Last Taken Unknown] lorazepam 1 mg tablet 1 mg PO TID PRN PRN #14 tablet 12/13/20 [Rx Last Taken Unknown] metoprolol tartrate 50 mg tablet 75 mg PO BID #270 tab 01/07/21 [Rx Last Taken Unknown] atorvastatin 20 mg tablet 20 mg PO QHS #90 tab 02/17/21 [Rx Last Taken Unknown] solifenacin 10 mg tablet See Rx Instructions .ROUTE .COMPLEX #90 tab 02/18/21 [Rx Last Taken Unknown] gabapentin 300 mg capsule 600 mg PO BID #150 cap 04/23/21 [Rx Last Taken Unknown] levalbuterol tartrate 45 mcg/actuation aerosol inhaler 2 inh INHALATION Q6H PRN PRN #15 g 04/23/21 [Rx Last Taken Unknown] omeprazole 40 mg capsule,delayed release 40 mg PO DAILY #90 cap 04/23/21 [Rx Last Taken Unknown] cholecalciferol (vitamin D3) 125 mcg (5,000 unit) capsule 5,000 unit PO QHS #90 cap 05/19/21 [Rx Last Taken Unknown] celecoxib 100 mg capsule 100 mg PO BID PRN #60 cap 06/23/21 [Rx Last Taken Unknown] benzonatate 100 mg capsule 100 mg PO BID PRN #7 cap 07/06/21 [Rx Last Taken Unknown] guaifenesin 600 mg tablet, extended release 12 hr 600 mg PO Q12H 7 Days #14 tab 07/06/21 [Rx Last Taken Unknown] Allergy/AdvReac Type Severity Reaction Status Date / Time aspirin Allergy Severe Other Verified 07/08/21 00:07 eluxadoline [From Steven] Allergy Severe Other Verified 07/08/21 00:07 NSAIDS (Non-Steroidal Allergy Intermediate Other Verified 07/08/21 00:07 Anti-Inflamma Sulfa (Sulfonamide Allergy Rash Verified 07/08/21 00:07 Antibiotics) albuterol AdvReac Severe other Verified 07/08/21 00:07 metformin AdvReac Severe Other Verified 07/08/21 00:07 inderal Allergy Intermediate Other Uncoded 07/08/21 00:07 most antidepressants AdvReac Severe Other Uncoded 07/08/21 00:07 Family History Mother Arthritis Dementia Cancer skin Depression Father CHF (congestive heart failure) Dementia Bowel disease Sister Breast cancer Sister Cancer leukemia Surgical History Carpal tunnel syndrome, left H/O left knee surgery H/O right knee surgery History of carpal tunnel release History of hysterectomy History of hysterectomy left arm ulnar nerve transposition left hand nerve reconstruction left nerve reacttachment S/P left knee arthroscopy Social History Smoking Status: Never smoker alcohol intake: current details: 3 per week substance use type: does not use caffeine: Yes what type of physical activity do you participate in: walking frequency: 1-2 times per week seatbelt use: always do you feel safe at home: Yes additional social history: - [employer]- 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 ROS ROS ED ROS Narrative Global fatigue Constitutional Constitutional ED: Reports chills and fever(s); Denies weight loss Eyes Eyes: Denies change in vision or diplopia ENT ENT ED: Denies ear pain, rhinorrhea or sore throat Cardiovascular Cardiovascular: Denies chest pain, orthopnea, palpitations or racing heartbeat Respiratory/Chest Respiratory/Chest: Reports cough, dyspnea and dyspnea on exertion; Denies orthopnea Gastrointestinal Gastrointestinal: Reports diarrhea; Denies abdominal pain, nausea or vomiting Genitourinary Genitourinary ED: Denies dysuria, hematuria or urinary frequency Musculoskeletal Musculoskeletal: Reports myalgias; Denies arthralgias Integumentary Denies abscess or rash Neurologic Neurologic: Reports headache(s); Denies weakness Psychiatric Psychiatric: Denies anxiety, depression, suicidal ideation or suicidal thoughts Endocrine Endocrinology: Denies polydipsia, polyphagia or polyuria Allergic/Immunologic Allergic/Immunologic ED: Denies mouth swelling, tongue swelling or urticaria EXAM Physical Exam Const Vital Signs: 07/08/21 00:00 07/08/21 00:46 07/08/21 02:00 Temperature 96.2 F L Temperature Source Temporal Pulse Rate 65 91 Respiratory Rate 15 14 Respiratory Effort Normal Non-Labored Respiratory Pattern Normal Blood Pressure 117/66 Blood Pressure Mean 83 Pulse Ox 89 99 Oxygen Delivery Method Room Air Nasal Cannula Oxygen Flow Rate (L/min) 2 Positive well nourished, well developed and obese General Appearance ED: well developed Nutritional Appearance: obese HEENT Reports normocephalic, head/scalp atraumatic, TM's clear and moist mucous membranes Negative for trauma Tympanic Membrane ED: Yes TM's clear Eyes PERRL and EOMs intact bilaterally Neck no lymphadenopathy, supple and no JVD Resp normal respiratory effort and clear to auscultation bilaterally Cardio regular rate, regular rhythm and no murmurs GI normal to inspection, nondistended, normoactive bowel sounds and non-tender Palpation: soft Back/Spine no CVA tenderness and normal ROM Extremity normal to inspection General Extremety ED: Negative for edema General Extremity: Negative for edema Neuro oriented x3 and CN's II-XII intact bilaterally Sensorium / Orientation: alert Motor Exam: strength 5/5 throughout Psych mental status grossly normal Mood & Affect: Negative for depressed or tearful Skin no rashes or lesions noted and no wounds MDM MDM MDM Narrative Medical decision making narrative: Basic blood work was obtained. Creatinine 1.21 troponin is 7. White count 7.5. D-dimer 0.83. My interpretation of the chest x-ray is no acute process. Because elevated D-dimer and her Covid status a CTA of the chest was ordered. This demonstrated some pneumonitis in the right upper lobe. Patient seem to dose of Decadron. I discussed with the patient and her that we could get her set up for supplemental oxygen at home. Their concern is that she was unable to get off the floor at home and the was not strong enough to get her up. Patient is not able to ambulate here in the department. I will speak with our hospitalist. Lab Data Attestation: I reviewed the patient's lab results. Labs: Laboratory Results - last 24 hr 07/08/21 07/08/21 07/08/21 00:40 00:40 00:40 WBC 7.5 RBC 5.41 H Hgb 14.1 Hct 45.8 MCV 84.7 MCH 26.1 L MCHC 30.8 L RDW Std Deviation 44.1 H RDW Coeff of Sara 14.5 Plt Count 205 MPV 10.3 Immature Gran % (Auto) 0.500 Neut % (Auto) 79.2 H Lymph % (Auto) 14.5 L [place] % (Auto) 5.4 Eos % (Auto) 0.1 Baso % (Auto) 0.3 Absolute Neuts (auto) 5.9 Absolute Lymphs (auto) 1.08 Nucleated RBC % 0 PT 13.3 INR 1.1 APTT 28.1 D-Dimer Quant (PE/DVT) 0.83 H* Sodium 136 Potassium 3.9 Chloride 102 Carbon Dioxide 29.0 Anion Gap 5 BUN 12 Creatinine 1.21 H Estim Creat Clear Calc 43.93 Est GFR (MDRD) Af Amer 58 L Est GFR (MDRD) Non-Af 48 L BUN/Creatinine Ratio 9.9 L Glucose 163 H Lactic Acid Calcium 8.7 Total Bilirubin 0.50 AST 41 H ALT 42 Alkaline Phosphatase 163 H Troponin I High Sens 7 Total Protein 7.4 Albumin 3.0 L Globulin 4.4 H Albumin/Globulin Ratio 0.7 L 07/08/21 00:40 WBC RBC Hgb Hct MCV MCH MCHC RDW Std Deviation RDW Coeff of Sara Plt Count MPV Immature Gran % (Auto) Neut % (Auto) Lymph % (Auto) [place] % (Auto) Eos % (Auto) Baso % (Auto) Absolute Neuts (auto) Absolute Lymphs (auto) Nucleated RBC % PT INR APTT D-Dimer Quant (PE/DVT) Sodium Potassium Chloride Carbon Dioxide Anion Gap BUN Creatinine Estim Creat Clear Calc Est GFR (MDRD) Af Amer Est GFR (MDRD) Non-Af BUN/Creatinine Ratio Glucose Lactic Acid 1.1 Calcium Total Bilirubin AST ALT Alkaline Phosphatase Troponin I High Sens Total Protein Albumin Globulin Albumin/Globulin Ratio Radiography Diagnostic Testing: Clinical Impression(s) from Imaging Studies Chest X-Ray 07/08/21 00:12 IMPRESSION: No acute cardiopulmonary disease. Electronically Signed: Faye Hodgson MD at 1:28 EDT , Service support , Chest CTA 07/08/21 01:35 IMPRESSION: Negative CTA chest examination, without a demonstrated pulmonary embolism or arterial dissection. Minimal posterior dependent atelectasis. Multifocal right upper lobe pneumonitis. No pleural effusion or pneumothorax. Electronically Signed: Faye Hodgson MD at 2:59 EDT , Service support , EKG Initial EKG: Attestation: I personally reviewed and interpreted this EKG as follows: Comments: Sinus rhythm ventricular rate of 69 bpm Discharge Plan Dx/Rx/DC Orders Clinical Impression: COVID-19, Obesity (BMI 30-39.9), Generalized weakness, Acute hypoxemic respiratory failure due to COVID-19 Disposition Disposition: Acute Care Hospital [facility]
[2021-07-08 00:48] LABS: Absolute Lymphocyte Count 1.08 X10^3/uL (0.83-4.51); Absolute Neutrophil Count 5.9 X10^3/uL (2.0-7.7); Basophil# 0.02 X10^3/uL; Basophil% 0.3 % (0-1); Eosinophil# 0.01 X10^3/uL; Eosinophils% 0.1 % (0-5); Hematocrit 45.8 % (37-47); Hemoglobin 14.1 g/dL (12.0-15.0); Lymphocyte # 1.08 X10^3/ul (0.83-4.51); Lymphocyte % 14.5 % (19-41); Mean Corp Hgb Conc 30.8 g/dL (32-36); Mean Corpuscular Hgb 26.1 pg (27.0-32.0); Mean Corpuscular Volume 84.7 fL (81-99); Mean Platelet Vol. 10.3 fl (6.2-12.0); Monocyte% 5.4 % (0-10); NRBC Flagged by Analyzer 0 % (0-5); Neutrophil # 5.91 X10^3/uL (2.7-7.7); Neutrophil % 79.2 % (47-70); Platelet Count 205 K/mm3 (150-450); RBC Distribution Width CV 14.5 % (11.6-14.6); RBC Distribution Width SD 44.1 fl (35.1-43.9); Red Blood Count 5.41 M/mm3 (4.2-5.4); White Blood Count 7.5 K/mm3 (4.4-11.0)
[2021-07-08 01:11] LABS: Lactic Acid 1.1 mmol/L (0.4-1.9)
[2021-07-08 01:13] LABS: ALB/GLOB Ratio 0.7 RATIO (0.9-2.4); AST(SGOT) 41 U/L (15-37); Alanine Aminotransfer ALT/SGPT 42 U/L (13-56); Alkaline Phosphatase 163 U/L (45-117); Anion Gap 5 (5-15); BUN 12 mg/dL (7-18); BUN/Creat Ratio 9.9 RATIO (10-20); Calcium,Total 8.7 mg/dL (8.5-10.1); Chloride 102 mmol/L (98-107); Creatinine, Serum 1.21 mg/dL (0.55-1.02); EST Glomerular Filtration Rate 48 mL/min (>60); Est Glom Filt Rate - Afr Amer 58 mL/min (>60); Estimated Creatinine Clearance 43.93 ml/min; Globulin 4.4 g/dL (2.2-4.2); Glucose 163 mg/dL (74-106); Potassium 3.9 mmol/L (3.5-5.1); Protein, Total 7.4 g/dL (6.4-8.2); Sodium Level 136 mmol/L (136-145); Troponin-I HS 7 pg/mL (3.0-54.0)
[2021-07-08 01:30] LABS: International Normalized Ratio 1.1; Prothrombin Time (Protime)PT. 13.3 SECONDS (11.7-14.9)
[2021-07-08 01:31] LABS: Partial Thromboplast Time 28.1 Seconds (24.1-36.2)
[2021-07-08 01:35] LABS: D-Dimer Quantitative (DVT/PE) 0.83 FEU/ug/m (0.27-0.49)
--- NOTE | 2021-07-08 01:35 | CT_ITS ---
STUDY: CTA CHEST REASON FOR EXAM: Female, 61 years old. pulmonary embolism RADIATION DOSAGE (If Supplied By Facility): CTDIvol = ( 16.23 ) mGy, DLP = ( 509.38 ) mGycm TECHNIQUE: The examination was performed with the intravenous administration of IV 100mL Isovue-370. Post-processing of the angiographic images was performed, with multiplanar reformation and 3D reconstruction. Individualized dose optimization techniques were used for this CT. COMPARISON: 08/21/2018. FINDINGS: Normal enhancement of the main pulmonary artery and right and left pulmonary arteries. Normal enhancement of the bilateral peripheral pulmonary arteries. There is no demonstrated pulmonary embolism. Normal thoracic aorta and visualized great vessels. There is no demonstrated aortic dissection. Normal heart and pericardium. Normal mediastinum. Normal hilar regions. Normal visualized trachea and bronchi. The lungs are well expanded. Mild posterior dependent atelectasis. There are small foci of groundglass opacities within the right upper lobe concerning for multifocal pneumonitis. Normal pleura. Normal chest wall structures. Normal osseous structures. Unremarkable visualized upper abdomen. CT/CTA Chest W/WO Contrast IMPRESSION: Negative CTA chest examination, without a demonstrated pulmonary embolism or arterial dissection. Minimal posterior dependent atelectasis. Multifocal right upper lobe pneumonitis. No pleural effusion or pneumothorax. Electronically Signed: Faye Hodgson MD at 2:59 EDT , Service support ,
[2021-07-08] MEDS: dexAMETHasone 4 MG Tablet 6 MG PO (03:25)
--- NOTE | 2021-07-08 04:01 | PCS.PANDOC ---
PANDEMIC DOCUMENTATION INITIATED: Date: 07/08/21 Time: 399
--- NOTE | 2021-07-08 04:08 | HP.PCM.HOS_ITS ---
HPI - General General Date of Admission: 07/08/21 Date of Service: 07/08/21 Chief Complaint: weakness. cough HPI Narrative STACI LAZCANO, is a 61 F who presents feeling ill since July 05. Went to urgent care on and tested positive for COVID-19. Patient had fallen when she felt dizzy upon standing. Difficulty getting up and came to the emergency room. Patient pulse ox of 89%. She had an elevated D-dimer and had a CT angiogram of the chest that was fairly unremarkable. She received dexamethasone for COVID-19. Patient was vaccinated with Brian & Brian vaccine back in November 2020. She does have a myriad of complaints, including rhinitis, anosmia, dysgeusia, cough, chest pain when she takes a deep breath or coughs, abdominal pain, nausea, vomiting and diarrhea. [facility] Medical History Abdominal pain Acid reflux Acute asthma exacerbation Anxiety and depression Arthritis Asthma Asthma exacerbation Blood in stool Chronic recurrent sinusitis Depression with anxiety Diabetes Diarrhea Diverticulitis Diverticulitis Diverticulosis DM type 2 (diabetes mellitus, type 2) Health care maintenance Hiatal hernia with GERD HLD (hyperlipidemia) HTN (hypertension) IBS (irritable bowel syndrome) Insomnia Low libido Malabsorption Obesity (BMI 30-39.9) On hormone replacement therapy Postmenopausal PTSD (post-traumatic stress disorder) Shingles Type 2 diabetes mellitus Urinary, incontinence, stress female Vitamin D deficiency, unspecified Home Medications zolpidem 5 - 10 mg PO QHS PRN PRN 11/19/17 [History Last Taken 05/21/19] fluticasone propionate 50 mcg/actuation nasal spray,suspension 2 spray INTRANASAL DAILY #19.8 g 06/05/19 [Rx Last Taken Unknown] blood-glucose meter #1 ea 10/27/19 [Rx Last Taken Unknown] dulaglutide 1.5 mg/0.5 mL subcutaneous pen injector 1.5 mg SUBCUT QWEEK 90 Days #6.5 ml 08/12/20 [Rx Last Taken Unknown] epinephrine 0.3 mg/0.3 mL injection, auto-injector 0.3 mg IM Q10-15M #2 ea 08/12/20 [Rx Last Taken Unknown] sumatriptan succinate 25 mg tablet See Rx Instructions .ROUTE .COMPLEX #10 tab 08/12/20 [Rx Last Taken Unknown] budesonide-formoterol HFA 160 mcg-4.5 mcg/actuation aerosol inhaler 2 puff INHALATION Q12H #10.2 g 09/16/20 [Rx Last Taken Unknown] pramipexole 1 mg tablet See Rx Instructions .ROUTE .COMPLEX #30 tab 12/05/20 [Rx Last Taken Unknown] levomilnacipran 120 mg capsule,24 hr,extended release 120 mg PO DAILY 12/13/20 [History Last Taken Unknown] lorazepam 1 mg tablet 1 mg PO TID PRN PRN #14 tablet 12/13/20 [Rx Last Taken Unknown] metoprolol tartrate 50 mg tablet 75 mg PO BID #270 tab 01/07/21 [Rx Last Taken Unknown] atorvastatin 20 mg tablet 20 mg PO QHS #90 tab 02/17/21 [Rx Last Taken Unknown] solifenacin 10 mg tablet See Rx Instructions .ROUTE .COMPLEX #90 tab 02/18/21 [Rx Last Taken Unknown] gabapentin 300 mg capsule 600 mg PO BID #150 cap 04/23/21 [Rx Last Taken Unknown] levalbuterol tartrate 45 mcg/actuation aerosol inhaler 2 inh INHALATION Q6H PRN PRN #15 g 04/23/21 [Rx Last Taken Unknown] omeprazole 40 mg capsule,delayed release 40 mg PO DAILY #90 cap 04/23/21 [Rx Last Taken Unknown] cholecalciferol (vitamin D3) 125 mcg (5,000 unit) capsule 5,000 unit PO QHS #90 cap 05/19/21 [Rx Last Taken Unknown] celecoxib 100 mg capsule 100 mg PO BID PRN #60 cap 06/23/21 [Rx Last Taken Unknown] benzonatate 100 mg capsule 100 mg PO BID PRN #7 cap 07/06/21 [Rx Last Taken Unknown] guaifenesin 600 mg tablet, extended release 12 hr 600 mg PO Q12H 7 Days #14 tab 07/06/21 [Rx Last Taken Unknown] Allergy/AdvReac Type Severity Reaction Status Date / Time aspirin Allergy Severe Other Verified 07/08/21 00:07 eluxadoline [From Steven] Allergy Severe Other Verified 07/08/21 00:07 NSAIDS (Non-Steroidal Allergy Intermediate Other Verified 07/08/21 00:07 Anti-Inflamma Sulfa (Sulfonamide Allergy Rash Verified 07/08/21 00:07 Antibiotics) albuterol AdvReac Severe other Verified 07/08/21 00:07 metformin AdvReac Severe Other Verified 07/08/21 00:07 inderal Allergy Intermediate Other Uncoded 07/08/21 00:07 most antidepressants AdvReac Severe Other Uncoded 07/08/21 00:07 Family History Mother Arthritis Dementia Cancer skin Depression Father CHF (congestive heart failure) Dementia Bowel disease Sister Breast cancer Sister Cancer leukemia Surgical History Carpal tunnel syndrome, left H/O left knee surgery H/O right knee surgery History of carpal tunnel release History of hysterectomy History of hysterectomy left arm ulnar nerve transposition left hand nerve reconstruction left nerve reacttachment S/P left knee arthroscopy Social History Smoking Status: Never smoker alcohol intake: current details: 3 per week substance use type: does not use caffeine: Yes what type of physical activity do you participate in: walking frequency: 1-2 times per week seatbelt use: always do you feel safe at home: Yes additional social history: - [employer]- 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 Vital Signs Vital Signs Vital Signs: 07/08/21 00:00 07/08/21 00:46 07/08/21 02:00 Temperature 35.7 C L Temperature Source Temporal Pulse Rate 65 91 Respiratory Rate 15 14 Respiratory Effort Normal Non-Labored Respiratory Pattern Normal Blood Pressure 117/66 Blood Pressure Mean 83 Pulse Ox 89 99 Oxygen Delivery Method Room Air Nasal Cannula Oxygen Flow Rate (L/min) 2 07/08/21 03:28 07/08/21 03:42 Temperature 36.6 C Temperature Source Temporal Pulse Rate 92 92 Respiratory Rate 20 H 20 H Respiratory Effort Respiratory Pattern Blood Pressure 118/47 L 122/65 H Blood Pressure Mean 70 84 Pulse Ox 98 97 Oxygen Delivery Method Nasal Cannula Nasal Cannula Oxygen Flow Rate (L/min) 2 Weight Weight: 102.4 kg Body Mass Index (BMI) 37.5 Physical Exam Const alert and no apparent distress General Appearance: cooperative HEENT normocephalic, head/scalp atraumatic and moist oral mucous membranes Eyes Eyes Narrative: No icterus Resp normal respiratory effort, no retractions, no use of accessory muscles and clear to auscultation bilaterally Cardio regular rate, regular rhythm, S1 normal heart sound and S2 normal heart sound GI normal to inspection, nondistended, normoactive bowel sounds, soft to palpation, non-tender, non-distended and hepatosplenomegaly Extremity normal to inspection Neuro Sensorium / Orientation: awake and alert Psych affect normal Results Lab / Micro Data Attestation: I reviewed the patient's lab results. Result Diagrams: 07/08/21 00:40 07/08/21 00:40 Labs: Laboratory Results - last 24 hr 07/08/21 00:40: WBC 7.5, RBC 5.41 H, Hgb 14.1, Hct 45.8, MCV 84.7, MCH 26.1 L, MCHC 30.8 L, RDW Std Deviation 44.1 H, RDW Coeff of Sara 14.5, Plt Count 205, MPV 10.3, Immature Gran % (Auto) 0.500, Neut % (Auto) 79.2 H, Lymph % (Auto) 14.5 L, [place] % (Auto) 5.4, Eos % (Auto) 0.1, Baso % (Auto) 0.3, Absolute Neuts (auto) 5.9, Absolute Lymphs (auto) 1.08, Nucleated RBC % 0 07/08/21 00:40: PT 13.3, INR 1.1, APTT 28.1, D-Dimer Quant (PE/DVT) 0.83 H* 07/08/21 00:40: Sodium 136, Potassium 3.9, Chloride 102, Carbon Dioxide 29.0, Anion Gap 5, BUN 12, Creatinine 1.21 H, Estim Creat Clear Calc 43.93, Est GFR (MDRD) Af Amer 58 L, Est GFR (MDRD) Non-Af 48 L, BUN/Creatinine Ratio 9.9 L, Glucose 163 H, Calcium 8.7, Total Bilirubin 0.50, AST 41 H, ALT 42, Alkaline Phosphatase 163 H, Troponin I High Sens 7, Total Protein 7.4, Albumin 3.0 L, Globulin 4.4 H, Albumin/Globulin Ratio 0.7 L 07/08/21 00:40: Lactic Acid 1.1 EKG Initial EKG: Attestation: I personally reviewed and interpreted this EKG as follows: Prior EKG tracings: available for review EKG Rhythm Intrepretation: Sinus Rhythm Radiology Impression Chest X-Ray 07/08/21 00:12 IMPRESSION: No acute cardiopulmonary disease. Electronically Signed: Faye Hodgson MD at 1:28 EDT , Service support , Chest CTA 07/08/21 01:35 IMPRESSION: Negative CTA chest examination, without a demonstrated pulmonary embolism or arterial dissection. Minimal posterior dependent atelectasis. Multifocal right upper lobe pneumonitis. No pleural effusion or pneumothorax. Electronically Signed: Faye Hodgson MD at 2:59 EDT , Service support , Assessment & Plan Assessment/Plan (1) COVID-19: (2) Generalized weakness: PLAN: 1. Acute COVID-19 * Onset was July 05, being that she is 89% room air, patient will need to quarantine for a total of 20 days through July 24 * We will start the patient on dexamethasone as well as remdesivir. * Patient not a candidate for baricitinib so we will hold off infectious disease consultation at this time. * Patient has been vaccinated with the Brian & Brian vaccine back in November. 2. Failure to thrive * Patient fell at home * PT OT evaluate and treat * Hopefully, the patient can feel well enough soon to get home but if not then she may be in the hospital until we can get her into facility that would accept COVID-19 patients. Patient advised that this may not be feasible but if we are able to find a place that that facility may not be nearby. 3. Diabetes mellitus type 2 * Sliding scale insulin for now * Hold dulaglutide for now 4. VTE prophylaxis: Low molecular weight heparin Any documentation from the emergency room the stipulates other diagnoses those diagnoses if not in this documentation are essentially ruled out. Charges/Coding Visit Charges Inpatient E&M: 47367 Init Hosp L3
[2021-07-08] MEDS: 0.9% Saline Lock 10 ML Syringe IV ×3 (04:40→22:30)
[2021-07-08] MEDS: Acetaminophen 325 MG Tablet 650 MG PO ×3 (04:40→22:37)
[2021-07-08] MEDS: Celecoxib 100 MG Capsule PO (05:27)
[2021-07-08 06:49] LABS: Absolute Lymphocyte Count 0.94 X10^3/uL (0.83-4.51); Absolute Neutrophil Count 7.1 X10^3/uL (2.0-7.7); Basophil# 0.02 X10^3/uL; Basophil% 0.2 % (0-1); Hematocrit 41.5 % (37-47); Hemoglobin 13.3 g/dL (12.0-15.0); Lymphocyte # 0.94 X10^3/ul (0.83-4.51); Lymphocyte % 11.3 % (19-41); Mean Corpuscular Hgb 26.8 pg (27.0-32.0); Mean Corpuscular Volume 83.7 fL (81-99); Mean Platelet Vol. 10.5 fl (6.2-12.0); Monocyte# 0.26 X10^3/uL; Monocyte% 3.1 % (0-10); NRBC Flagged by Analyzer 0 % (0-5); Neutrophil # 7.05 X10^3/uL (2.7-7.7); Neutrophil % 84.9 % (47-70); Platelet Count 174 K/mm3 (150-450); RBC Distribution Width CV 14.6 % (11.6-14.6); RBC Distribution Width SD 44.1 fl (35.1-43.9); Red Blood Count 4.96 M/mm3 (4.2-5.4); White Blood Count 8.3 K/mm3 (4.4-11.0)
[2021-07-08 07:13] LABS: BUN 14 mg/dL (7-18); Creatinine, Serum 0.96 mg/dL (0.55-1.02); Estimated Creatinine Clearance 55.38 ml/min; Glucose 167 mg/dL (74-106)
[2021-07-08 07:14] LABS: ALB/GLOB Ratio 0.7 RATIO (0.9-2.4); AST(SGOT) 35 U/L (15-37); Alanine Aminotransfer ALT/SGPT 38 U/L (13-56); Albumin, Serum 2.7 g/dL (3.2-5.0); Alkaline Phosphatase 141 U/L (45-117); Anion Gap 8 (5-15); BUN/Creat Ratio 14.6 RATIO (10-20); Calcium,Total 8.2 mg/dL (8.5-10.1); Chloride 102 mmol/L (98-107); EST Glomerular Filtration Rate 63 mL/min (>60); Est Glom Filt Rate - Afr Amer 76 mL/min (>60); Globulin 4.1 g/dL (2.2-4.2); Potassium 3.9 mmol/L (3.5-5.1); Protein, Total 6.8 g/dL (6.4-8.2); Sodium Level 134 mmol/L (136-145)
--- NOTE | 2021-07-08 07:14 | PCM.PN.HOSP ---
Subjective Subjective Patient is a 61-year-old lady with multiple comorbidities including diabetes mellitus type 2 vaccinated against COVID-19 with J&J who presented with progressive shortness of breath and generalized weakness. CTA demonstrated multifocal right upper lobe pneumonitis. She had apparently tested positive for COVID-19 on 07/06/2021 and had been started on Decadron Objective Data Objective Data Vital Signs: Vital Signs Temp Pulse Resp BP Pulse Ox 99.1 F 87 18 133/74 H 95 07/08/21 04:45 07/08/21 04:45 07/08/21 04:45 07/08/21 04:45 07/08/21 04:45 Oxygen Flow Rate (L/min) 2 Oxygen Delivery Method Nasal Cannula Weight: 100.471 kg Body Mass Index (BMI) 36.8 Intake & Output: Intake and Output for Last 24 Hours 07/06/21 07/07/21 07/08/21 23:59 23:59 23:59 Intake Total 750 / 750 Balance 750 / 750 Lab / Micro Data Result Diagrams: 07/08/21 06:32 07/08/21 06:32 Labs: Laboratory Results - last 24 hr 07/08/21 00:40: WBC 7.5, RBC 5.41 H, Hgb 14.1, Hct 45.8, MCV 84.7, MCH 26.1 L, MCHC 30.8 L, RDW Std Deviation 44.1 H, RDW Coeff of Sara 14.5, Plt Count 205, MPV 10.3, Immature Gran % (Auto) 0.500, Neut % (Auto) 79.2 H, Lymph % (Auto) 14.5 L, [place] % (Auto) 5.4, Eos % (Auto) 0.1, Baso % (Auto) 0.3, Absolute Neuts (auto) 5.9, Absolute Lymphs (auto) 1.08, Nucleated RBC % 0 07/08/21 00:40: PT 13.3, INR 1.1, APTT 28.1, D-Dimer Quant (PE/DVT) 0.83 H* 07/08/21 00:40: Sodium 136, Potassium 3.9, Chloride 102, Carbon Dioxide 29.0, Anion Gap 5, BUN 12, Creatinine 1.21 H, Estim Creat Clear Calc 43.93, Est GFR (MDRD) Af Amer 58 L, Est GFR (MDRD) Non-Af 48 L, BUN/Creatinine Ratio 9.9 L, Glucose 163 H, Calcium 8.7, Total Bilirubin 0.50, AST 41 H, ALT 42, Alkaline Phosphatase 163 H, Troponin I High Sens 7, Total Protein 7.4, Albumin 3.0 L, Globulin 4.4 H, Albumin/Globulin Ratio 0.7 L 07/08/21 00:40: Lactic Acid 1.1 07/08/21 06:32: Sodium 134 L, Potassium 3.9, Chloride 102, Carbon Dioxide 24.0, Anion Gap 8, BUN 14, Creatinine 0.96, Estim Creat Clear Calc 55.38, Est GFR (MDRD) Af Amer 76, Est GFR (MDRD) Non-Af 63, BUN/Creatinine Ratio 14.6, Glucose 167 H, Calcium 8.2 L, Total Bilirubin 0.50, AST 35, ALT 38, Alkaline Phosphatase 141 H, Total Protein 6.8, Albumin 2.7 L, Globulin 4.1, Albumin/Globulin Ratio 0.7 L 07/08/21 06:32: WBC 8.3, RBC 4.96, Hgb 13.3, Hct 41.5, MCV 83.7, MCH 26.8 L, MCHC 32.0, RDW Std Deviation 44.1 H, RDW Coeff of Sara 14.6, Plt Count 174, MPV 10.5, Immature Gran % (Auto) 0.500, Neut % (Auto) 84.9 H, Lymph % (Auto) 11.3 L, [place] % (Auto) 3.1, Eos % (Auto) 0.0, Baso % (Auto) 0.2, Absolute Neuts (auto) 7.1, Absolute Lymphs (auto) 0.94, Nucleated RBC % 0 Radiography Diagnostic Testing: Radiology Impression Chest X-Ray 07/08/21 00:12 IMPRESSION: No acute cardiopulmonary disease. Electronically Signed: Faye Hodgson MD at 1:28 EDT , Service support , Chest CTA 07/08/21 01:35 IMPRESSION: Negative CTA chest examination, without a demonstrated pulmonary embolism or arterial dissection. Minimal posterior dependent atelectasis. Multifocal right upper lobe pneumonitis. No pleural effusion or pneumothorax. Electronically Signed: Faye Hodgson MD at 2:59 EDT , Service support , Physical Exam Narrative GENERAL: cooperative but appears ill looking HEENT: Atraumatic; EYES; Anicteric, Normal Conjunctiva NECK; supple, normal thyroid, RESPIRATORY: Diminished to auscultation CARDIOVASCULAR: Regular S1 S2, GI: soft, normoactive bowel sounds, : No Renal angle tenderness; EXTREMITIES: No edema, no clubbing, MUSCULOSKELETAL: no muscle waisting NEURO: Awake; no lateralizing signs. SKIN: No Rash PSYCH; Flat affect Assessment & Plan Assessment/Plan (1) COVID-19: (2) Generalized weakness: PLAN: Patient is a 61-year-old lady with multiple comorbidities including diabetes mellitus type 2 vaccinated against COVID-19 with J&J who presented with progressive shortness of breath and generalized weakness. CTA demonstrated multifocal right upper lobe pneumonitis. She had apparently tested positive for COVID-19 on 07/06/2021 and had been started on Decadron 1. Acute hypoxic respiratory failure secondary to SARS-CoV-2 pneumonia ?CTA obtained demonstrated multifocal right upper lobe pneumonitis. Patient currently being managed with Decadron as well as as well as remdesivir in addition to supplemental oxygen 2. Acute viral gastroenteritis ?Secondary to SARS-CoV-2 infection. Did order for stool studies to rule out other infectious etiology 3. Diabetes mellitus type II -patient's oral hypoglycemics held. Placed on long acting insulin, Accu-Cheks a.c. and at bedtime and covered with sliding scale insulin 4. Dyslipidemia -Patient is on statin therapy, continued at home dose 5. Obesity with BMI of 36.9 ?Weight loss advised 6. Hypertension - Blood pressure controlled, home medications continued with dose adjustment as needed 7. GERD ?On PPI 8. Mild intermittent asthma ?Aerosol treatments as needed 9. Irritable bowel syndrome ?Per history 10. DVT prophylaxis ?Patient has been started on low molecular weight heparin however this had to be stopped after patient complained of blood in the stool will use JUAN hoses and SCDs for now 11. Mild hyponatremia ?Daily BMPs ordered for subsequent monitoring Advance planning; did discuss with the patient regarding advanced directives as well as CODE STATUS. Did explain the various scenarios involved ( FULL CODE, DNR CCA, DNR CCA with no intubation, and DNR CC and what each meant) patient elected to full code with CPR and intubation if warranted. Order was placed. Time spent on discussion 18 minutes. Total time spent evaluating patient review of labs as well as subsequent management orders; 55-minute Charges/Coding Visit Charges Inpatient E&M: 87366 Subs Hosp L3 Procedures Hospitalists Procedures: [id number] Prolonged InPt Service; first hour
[2021-07-08] MEDS: Insulin Lispro 100 UNIT/ML INSULN.PEN SC ×3 (08:49→15:44)
[2021-07-08] MEDS: Fluticasone/Salmeterol 232-14 Inhaler 1 PUFF INHALATION ×2 (08:50→22:35)
[2021-07-08] MEDS: guaiFENesin 600 MG Tablet PO ×2 (08:52→22:37)
[2021-07-08] MEDS: Gabapentin 600 MG Tablet PO ×2 (08:52→22:37)
[2021-07-08] MEDS: Metoprolol Tartrate 25 MG Tablet 75 MG PO ×2 (08:52→22:37)
[2021-07-08 10:40] LABS: Bedside Glucose 243 mg/dL (70-110)
[2021-07-08] MEDS: oxyCODONE 5 MG Tablet PO (12:38)
[2021-07-08 13:40] LABS: Bedside Glucose 246 mg/dL (70-110)
[2021-07-08] MEDS: Ondansetron 4 MG/2 ML Vial IV (15:43)
[2021-07-08 16:45] LABS: Bedside Glucose 185 mg/dL (70-110)
[2021-07-08] MEDS: Atorvastatin Calcium 20 MG Tablet PO (22:36)
[2021-07-08] MEDS: Cholecalciferol (VIT D3) 25 MCG TABLET (1,000 UNITS) 125 MCG PO (22:36)
[2021-07-08] MEDS: Pantoprazole Sodium 40 MG Tablet PO (22:37)
[2021-07-08] MEDS: Pramipexole Di-HCl 1 MG Tablet PO (22:37)
[2021-07-09] VITALS (10 sets, daily range): BP systolic 114–132; BP diastolic 67–76; PULSE 55–69; RESP 16–18; TEMP 36.5–36.7; O2SAT 92–99
[2021-07-09 00:30] LABS: Bedside Glucose 212 mg/dL (70-110)
[2021-07-09] MEDS: Acetaminophen 325 MG Tablet 650 MG PO ×2 (04:33→19:47)
[2021-07-09] MEDS: Ondansetron 4 MG/2 ML Vial IV (04:46)
[2021-07-09] MEDS: 0.9% Saline Lock 10 ML Syringe IV (04:46)
--- NOTE | 2021-07-09 07:32 | PCM.PN.HOSP ---
Subjective Subjective Since seen appears to be improving clinically currently not on oxygen Objective Data Objective Data Vital Signs: Vital Signs Temp Pulse Resp BP Pulse Ox 97.7 F L 55 L 16 132/76 H 92 07/09/21 04:30 07/09/21 06:16 07/09/21 04:30 07/09/21 04:30 07/09/21 06:16 Oxygen Flow Rate (L/min) 2 Oxygen Delivery Method Room Air Weight: 100.471 kg Body Mass Index (BMI) 36.8 Intake & Output: Intake and Output for Last 24 Hours 07/07/21 07/08/21 07/09/21 23:59 23:59 23:59 Intake Total 965 / 965 285 / 285 Output Total 700 / 700 Balance 265 / 265 285 / 285 Lab / Micro Data Result Diagrams: 07/08/21 06:32 07/08/21 06:32 Labs: Laboratory Results - last 24 hr 07/08/21 08:38: POC Glucose 243 H 07/08/21 12:30: POC Glucose 246 H 07/08/21 15:41: POC Glucose 185 H 07/08/21 20:33: POC Glucose 212 H Physical Exam Narrative GENERAL: cooperative but appears ill looking HEENT: Atraumatic; EYES; Anicteric, Normal Conjunctiva NECK; supple, normal thyroid, RESPIRATORY: Diminished to auscultation CARDIOVASCULAR: Regular S1 S2, GI: soft, normoactive bowel sounds, : No Renal angle tenderness; EXTREMITIES: No edema, no clubbing, MUSCULOSKELETAL: no muscle waisting NEURO: Awake; no lateralizing signs. SKIN: No Rash PSYCH; Flat affect Assessment & Plan Assessment/Plan (1) COVID-19: (2) Generalized weakness: PLAN: Patient is a 61-year-old lady with multiple comorbidities including diabetes mellitus type 2 vaccinated against COVID-19 with J&J who presented with progressive shortness of breath and generalized weakness. CTA demonstrated multifocal right upper lobe pneumonitis. She had apparently tested positive for COVID-19 on 07/06/2021 and had been started on Decadron 1. Acute hypoxic respiratory failure secondary to SARS-CoV-2 pneumonia ?CTA obtained demonstrated multifocal right upper lobe pneumonitis. Patient currently being managed with Decadron as well as as well as remdesivir in addition to supplemental oxygen -07/09/2021; seen, currently off oxygen 2. Acute viral gastroenteritis ?Secondary to SARS-CoV-2 infection. Did order for stool studies to rule out other infectious etiology 3. Diabetes mellitus type II -patient's oral hypoglycemics held. Placed on long acting insulin, Accu-Cheks a.c. and at bedtime and covered with sliding scale insulin sliding ?07/09/2021; blood glucose control not optimal 4. Dyslipidemia -Patient is on statin therapy, continued at home dose 5. Obesity with BMI of 36.9 ?Weight loss advised 6. Hypertension - Blood pressure controlled, home medications continued with dose adjustment as needed 7. GERD ?On PPI 8. Mild intermittent asthma ?Aerosol treatments as needed 9. Irritable bowel syndrome ?Per history 10. DVT prophylaxis ?Patient has been started on low molecular weight heparin however this had to be stopped after patient complained of blood in the stool will use JUAN hoses and SCDs for now 11. Mild hyponatremia ?Daily BMPs ordered for subsequent monitoring 12. Physical deconditioning - Requested for PT OT eval and home health care social worker to assist with discharge planning Charges/Coding Visit Charges Inpatient E&M: 45221 Subs Hosp L3
[2021-07-09] MEDS: dexAMETHasone 2 MG TABLET 6 MG PO (10:08)
[2021-07-09] MEDS: Fluticasone/Salmeterol 232-14 Inhaler 1 PUFF INHALATION ×2 (10:09→21:58)
[2021-07-09] MEDS: Metoprolol Tartrate 25 MG Tablet 75 MG PO ×2 (10:11→21:57)
[2021-07-09] MEDS: Gabapentin 600 MG Tablet PO ×2 (10:13→21:57)
[2021-07-09] MEDS: guaiFENesin 600 MG Tablet PO ×2 (10:13→21:57)
[2021-07-09] MEDS: oxyCODONE 5 MG Tablet PO ×2 (10:18→19:46)
[2021-07-09 10:55] LABS: Bedside Glucose 109 mg/dL (70-110)
--- NOTE | 2021-07-09 11:45 | CASEMGMT ---
OMI DAVALOS Assessment: Face to Face with pt for initial transition planning/care coordination assessment. RN SUSANNAH introduced self and role at [facility], pt voices understanding and consents to assessment. Pt is A/O x4 and answers all questions appropriately at this time. Pt sitting up in chair on RA in no distress. Care providers, pharmacy, and demographics verified/updated. Admitting Dx: COVID 19 PCP: Sari Specialists: osvaldo Arthur; Elana Concepcion, psych at [facility] Preferred Pharmacy: [facility] Insurance: [facility] Prescription Benefit: yes LW/HPOA: Pt has a LW/DPOA on file at [facility]. Her DPOA is Mychal Daugherty. LNOK: Mychal Daugherty, Living Arrangements: Pt lives with in a single story house with 1 step to enter. Pt reports she is I in ADL's and denies concerns at home. Transportation: Pt drives self and denies concerns with transportation. DME/HHC/SNF: Pt has a BGM with strips and lancets. Pt states she does not check her blood sugars often. Pt has a CPAP. She denies previous HHC or SNF stays. Pt was first tested at the [facility] for COVID. Her is negative. She states she only has one bathroom at home and one bedroom as the other bedrooms are being used as offices. Encouraged pt to wear masks when near and sleep in separate bedrooms. Provided pt a list of local in network DME companies, pt chose [employer] should she need O2. Pt with questions regarding monoclonal antibodies. She states she will call her pulm to discuss. This RN CM to make hospitalist aware of pt questioning if she meets criteria. Pt does have family who can supply her with groceries and supplies. Pt states no concerns with going home at time of dc. Pt states no further concerns/needs. CM to follow. Advised pt to ask CM if any further question/concerns/needs arise, voices understanding. Pt Goal: Home Plan: Home
[2021-07-09 15:25] LABS: Bedside Glucose 139 mg/dL (70-110)
[2021-07-09 17:15] LABS: Bedside Glucose 147 mg/dL (70-110)
[2021-07-09] MEDS: Pramipexole Di-HCl 1 MG Tablet PO (21:57)
[2021-07-09] MEDS: Atorvastatin Calcium 20 MG Tablet PO (21:57)
[2021-07-09] MEDS: Pantoprazole Sodium 40 MG Tablet PO (21:57)
[2021-07-09] MEDS: Cholecalciferol (VIT D3) 25 MCG TABLET (1,000 UNITS) 125 MCG PO (21:57)
[2021-07-09 22:11] LABS: Bedside Glucose 176 mg/dL (70-110)
[2021-07-10] MEDS: Zolpidem Tartrate 5 MG Tablet PO (00:03)
[2021-07-10 01:58] VITALS: PULSE 57; O2SAT 90
[2021-07-10 05:07] VITALS: BP 115/59; PULSE 60; RESP 16; TEMP 36.9; O2SAT 94
[2021-07-10] MEDS: Acetaminophen 325 MG Tablet 650 MG PO (08:19)
[2021-07-10] MEDS: oxyCODONE 5 MG Tablet PO (08:20)
--- NOTE | 2021-07-10 08:27 | PCM.DC.SUM ---
Providers Date of Admission: 07/08/21 Primary Care Physician: Dr. Roberto Guo MD Reason For Visit: COVID 19 Diagnosis Discharge Diagnosis (1) COVID-19: Status: Acute Code(s): U07.1 - COVID-19 (2) Generalized weakness: Status: Acute Code(s): R53.1 - Weakness Medications at Discharge Home Medications zolpidem 5 - 10 mg PO QHS PRN PRN 11/19/17 fluticasone propionate 50 mcg/actuation nasal spray,suspension 2 spray INTRANASAL DAILY #19.8 g 06/05/19 blood-glucose meter #1 ea 10/27/19 dulaglutide 1.5 mg/0.5 mL subcutaneous pen injector 1.5 mg SUBCUT QWEEK 90 Days #6.5 ml 08/12/20 epinephrine 0.3 mg/0.3 mL injection, auto-injector 0.3 mg IM Q10-15M #2 ea 08/12/20 sumatriptan succinate 25 mg tablet See Rx Instructions .ROUTE .COMPLEX #10 tab 08/12/20 budesonide-formoterol HFA 160 mcg-4.5 mcg/actuation aerosol inhaler 2 puff INHALATION Q12H #10.2 g 09/16/20 pramipexole 1 mg tablet See Rx Instructions .ROUTE .COMPLEX #30 tab 12/05/20 levomilnacipran 120 mg capsule,24 hr,extended release 120 mg PO DAILY 12/13/20 lorazepam 1 mg tablet 1 mg PO TID PRN PRN #14 tablet 12/13/20 atorvastatin 20 mg tablet 20 mg PO QHS #90 tab 02/17/21 solifenacin 10 mg tablet See Rx Instructions .ROUTE .COMPLEX #90 tab 02/18/21 gabapentin 300 mg capsule 600 mg PO BID #150 cap 04/23/21 levalbuterol tartrate 45 mcg/actuation aerosol inhaler 2 inh INHALATION Q6H PRN PRN #15 g 04/23/21 omeprazole 40 mg capsule,delayed release 40 mg PO DAILY #90 cap 04/23/21 cholecalciferol (vitamin D3) 125 mcg (5,000 unit) capsule 5,000 unit PO QHS #90 cap 05/19/21 celecoxib 100 mg capsule 100 mg PO BID PRN #60 cap 06/23/21 benzonatate 100 mg capsule 100 mg PO BID PRN #7 cap 07/06/21 guaifenesin 600 mg tablet, extended release 12 hr 600 mg PO Q12H 7 Days #14 tab 07/06/21 metoprolol tartrate 50 mg PO DAILY 07/08/21 metoprolol tartrate 75 mg PO QHS 07/08/21 dexamethasone [Decadron] 6 mg PO DAILY #7 tab 07/10/21 Hospital Course Summary of Care Provided Minutes Spent on Discharge: 45 Hospital Course: Patient is a 61-year-old lady with multiple comorbidities including diabetes mellitus type 2 vaccinated against COVID-19 with J&J who presented with progressive shortness of breath and generalized weakness. CTA demonstrated multifocal right upper lobe pneumonitis. She had apparently tested positive for COVID-19 on 07/06/2021 and had been started on Decadron 1. Acute hypoxic respiratory failure secondary to SARS-CoV-2 pneumonia ?CTA obtained demonstrated multifocal right upper lobe pneumonitis. Patient currently being managed with Decadron as well as as well as remdesivir in addition to supplemental oxygen -07/09/2021; seen, currently off oxygen -07/10/2021; patient was assessed for home oxygen which she did not require. Was discharged home on Decadron. She was instructed to follow-up with PCP to arrange for COVID-19 Moderna booster shot 2. Acute viral gastroenteritis ?Secondary to SARS-CoV-2 infection. Did order for stool studies to rule out other infectious etiology 3. Diabetes mellitus type II -patient's oral hypoglycemics held. Placed on long acting insulin, Accu-Cheks a.c. and at bedtime and covered with sliding scale insulin sliding ?07/09/2021; blood glucose control not optimal 4. Dyslipidemia -Patient is on statin therapy, continued at home dose 5. Obesity with BMI of 36.9 ?Weight loss advised 6. Hypertension - Blood pressure controlled, home medications continued with dose adjustment as needed 7. GERD ?On PPI 8. Mild intermittent asthma ?Aerosol treatments as needed 9. Irritable bowel syndrome ?Per history 10. DVT prophylaxis ?Patient has been started on low molecular weight heparin however this had to be stopped after patient complained of blood in the stool will use JUAN hoses and SCDs for now 11. Mild hyponatremia ?Daily BMPs ordered for subsequent monitoring 12. Physical deconditioning - Requested for PT OT eval and child protective services social worker to assist with discharge planning Physical Exam Narrative GENERAL: cooperative HEENT: Atraumatic; EYES; Anicteric, Normal Conjunctiva NECK; supple, normal thyroid, RESPIRATORY: Diminished to auscultation CARDIOVASCULAR: Regular S1 S2, GI: soft, normoactive bowel sounds, : No Renal angle tenderness; EXTREMITIES: No edema, no clubbing, MUSCULOSKELETAL: no muscle waisting NEURO: Awake; no lateralizing signs. SKIN: No Rash PSYCH; Flat affect Weight / BMI Weight Weight: 100.471 kg Body Mass Index (BMI) 36.8 ABG / Lab / Microbiology Data Result Diagrams: 07/08/21 06:32 07/08/21 06:32 Laboratory: Laboratory Results - last 24 hr 07/09/21 08:46: POC Glucose 109 07/09/21 12:37: POC Glucose 139 H 07/09/21 17:08: POC Glucose 147 H 07/09/21 21:54: POC Glucose 176 H D/C Instructions Discharge Diet: No restrictions Discharge Activity: Return to Normal Activity Call your doctor if you observe: Fever of 101 or Higher, Shortness of breath, Fainting spells and Chest pain Meaningful Use Info Meaningful Use Diagnoses (Choose all that apply): None applicable Discharge Plan Admission Admit Date/Time: 07/08/21 03:59 Attending Provider: Haroon Cooper Primary Care Provider: Roberto Guo Discharge Orders/Prescriptions Prescriptions: New dexamethasone [Decadron] 6 mg tablet 6 mg PO DAILY Qty: 7 RF: 0 Continued fluticasone propionate [Flonase Allergy Relief] 50 mcg/actuation spray,suspension 2 spray INTRANASAL DAILY Qty: 19.8 RF: 2 budesonide-formoterol [Symbicort] 160-4.5 mcg/actuation HFA aerosol inhaler 2 puff INHALATION Q12H Qty: 10.2 RF: 6 Fetzima 120 mg capsule,extended release 24 hr 120 mg PO DAILY RF: 0 benzonatate 100 mg capsule 100 mg PO BID PRN (Reason: cough) Qty: 7 RF: 0 guaifenesin [Mucinex] 600 mg tablet extended release 12hr 600 mg PO Q12H 7 Days Qty: 14 RF: 0 zolpidem 5 MG tablet 5 - 10 mg PO QHS PRN PRN (Reason: Insomnia) RF: 0 metoprolol tartrate 50 mg Tablet 50 mg PO DAILY RF: 0 metoprolol tartrate 75 mg Tablet 75 mg PO QHS RF: 0 (DME) blood-glucose meter Kit See Rx Instructions .ROUTE .MEDSUPPLY Qty: 1 RF: 0 dulaglutide 1.5 mg/0.5 mL pen injector 1.5 mg subcut QWEEK 90 Days Qty: 6.5 RF: 3 epinephrine [EpiPen 2-Javier] 0.3 mg/0.3 mL auto-injector 0.3 mg IM Q10-15M Qty: 2 RF: 1 sumatriptan succinate 25 mg tablet See Rx Instructions .ROUTE .COMPLEX Qty: 10 RF: 4 pramipexole 1 mg tablet See Rx Instructions .ROUTE .COMPLEX Qty: 30 RF: 5 lorazepam 1 mg tablet 1 mg PO TID PRN PRN (Reason: Anxiety) Qty: 14 RF: 0 atorvastatin 20 mg tablet 20 mg PO QHS Qty: 90 RF: 3 solifenacin 10 mg tablet See Rx Instructions .ROUTE .COMPLEX Qty: 90 RF: 1 omeprazole 40 mg capsule,delayed release(DR/EC) 40 mg PO DAILY Qty: 90 RF: 1 levalbuterol tartrate 45 mcg/actuation HFA aerosol inhaler 2 inh inhalation Q6H PRN PRN (Reason: Asthma) Qty: 15 RF: 3 gabapentin 300 mg capsule 600 mg PO BID Qty: 150 RF: 2 cholecalciferol (vitamin D3) 125 mcg (5,000 unit) capsule 5,000 unit PO QHS Qty: 90 RF: 2 celecoxib [Celebrex] 100 mg capsule 100 mg PO BID PRN (Reason: pain) Qty: 60 RF: 2 Referrals / Follow Up: Roberto Guo MD [Primary Care Provider] - Within 1 Week (To arrange for Christi AZEVEDO-Everette discussion) Disposition Disposition (needs filled in before D/C Order can be placed): Home, Self Care Charges/Coding Visit Charges Inpatient E&M: 16715 Disch Hosp
[2021-07-10 08:31] LABS: Bedside Glucose 97 mg/dL (70-110)
[2021-07-10 09:16] VITALS: O2SAT 96
[2021-07-10 09:40] VITALS: O2SAT 85; O2SAT 91; O2SAT 93; O2SAT 97
--- NOTE | 2021-07-10 09:55 | CASEMGMT ---
Pt qualifies for home O2, faxed referral to [facility]. Portable tank taken from [employer]. TC to [facility], spoke with Avelino, she is aware of referral. Discussed monoclonal antibodies with Dr. Cooper, he prefers pt follow up with on outpt basis. Added to dc instructions and notified nurse Tricia as well.
[2021-07-10 10:15] VITALS: PULSE 80
[2021-07-10] MEDS: Fluticasone/Salmeterol 232-14 Inhaler 1 PUFF INHALATION (10:15)
[2021-07-10] MEDS: Metoprolol Tartrate 25 MG Tablet 75 MG PO (10:15)
[2021-07-10] MEDS: guaiFENesin 600 MG Tablet PO (10:16)
[2021-07-10] MEDS: Gabapentin 600 MG Tablet PO (10:39)
[2021-07-10] MEDS: dexAMETHasone 2 MG TABLET 6 MG PO (11:41)
[2021-07-10 13:01] VITALS: BP 133/80; PULSE 80; RESP 18; TEMP 36.4; O2SAT 98
--- NOTE | 2021-07-11 17:07 | CASEMGMT ---
OMI DAVALOS Discharge Follow Up Phone Call: Strata:3 Call Date: 07/11/21 Discharge Date: 07/10/2021 Time of Call:1706 Duration:<1 min Admitting Dx:COVID 19 OMI DAVALOS attempted to complete follow up phone call after recent hospitalization, left message on identified voicemail with call back information.
== END 2021-07-10 13:00 | disposition home or self-care (01) | DRG 137 ==
LOC: ED 07-08 01:37 → MS3 07-08 04:17
PROVIDERS: Emergency Provider Emergency Medicine; PCP Internal Medicine; Visit Provider Internal Medicine
DX: U07.1 COVID-19 (principal); E11.9 Type 2 diabetes mellitus without complications; J96.01 Acute respiratory failure with hypoxia; J12.82 Pneumonia due to coronavirus disease 2019; A08.39 Other viral enteritis; E78.5 Hyperlipidemia, unspecified; E87.1 Hypo-osmolality and hyponatremia; K21.9 Gastro-esophageal reflux disease without esophagitis; R62.7 Adult failure to thrive; M19.90 Unspecified osteoarthritis, unspecified site; J45.21 Mild intermittent asthma with (acute) exacerbation; I10 Essential (primary) hypertension; E55.9 Vitamin D deficiency, unspecified; N39.3 Stress incontinence (female) (male); F41.8 Other specified anxiety disorders; K58.9 Irritable bowel syndrome, unspecified; F43.10 Post-traumatic stress disorder, unspecified; E66.9 Obesity, unspecified; Z68.37 Body mass index [BMI] 37.0-37.9, adult; Z79.899 Other long term (current) drug therapy; Z79.51 Long term (current) use of inhaled steroids; Z91.81 History of falling
CPT/HCPCS: 36415; 71045; 71275; 80053; 82962; 83605; 84484; 85025; 85379; 85610; 85730; 93005; 97161; 97166; 97530; 99285; J7050; Q9967; A4216; J2405

== ENCOUNTER → 2021-08-26 09:33 | Outpatient (CLI) | payer MEDICAID, SELFPAY | PROVIDERS: PCP Internal Medicine; Referring Provider Physician Assistant Surgical; Visit Provider Physician Assistant Surgical | DX: Z11.52 Encounter for screening for COVID-19 (principal) | CPT/HCPCS: 87635; U0005; U0003 ==

== ENCOUNTER → 2022-03-20 | Outpatient (CLI) | payer MEDICAID, SELFPAY ==
[2022-03-20 12:31] LABS: Anion Gap 3 (5-15); BUN 12 mg/dL (7-18); BUN/Creat Ratio 13.8 RATIO (10-20); Calcium,Total 9.3 mg/dL (8.5-10.1); Chloride 105 mmol/L (98-107); Creatinine, Serum 0.87 mg/dL (0.55-1.02); EST Glomerular Filtration Rate 70 mL/min (>60); Est Glom Filt Rate - Afr Amer 85 mL/min (>60); Glucose 95 mg/dL (74-106); Potassium 4.3 mmol/L (3.5-5.1); Sodium Level 139 mmol/L (136-145)
== END | disposition home or self-care (01) ==
LOC: BIMLAB 10:03
PROVIDERS: Nurse Practitioner Family; PCP Internal Medicine; Referring Provider Internal Medicine; Visit Provider Internal Medicine
DX: I10 Essential (primary) hypertension (principal)
CPT/HCPCS: 36415; 80048

== ENCOUNTER → 2022-06-01 | Outpatient (CLI) | payer MEDICAID, SELFPAY | END | disposition home or self-care (01) | LOC: SL 20:17 | PROVIDERS: PCP Internal Medicine; Referring Provider Psychiatry & Neurology Sleep Medicine; Visit Provider Psychiatry & Neurology Sleep Medicine | DX: G47.33 Obstructive sleep apnea (adult) (pediatric) (principal) | CPT/HCPCS: 95811 ==

== ENCOUNTER → 2022-08-19 | Outpatient (CLI) | payer MEDICAID, SELFPAY ==
[2022-08-19 15:35] LABS: Absolute Lymphocyte Count 5.31 X10^3/uL (0.83-4.51); Absolute Neutrophil Count 6.6 X10^3/uL (2.0-7.7); Basophil# 0.05 X10^3/uL; Basophil% 0.4 % (0-1); Eosinophil# 0.07 X10^3/uL; Eosinophils% 0.5 % (0-5); Hematocrit 42.5 % (37-47); Hemoglobin 12.8 g/dL (12.0-15.0); Lymphocyte # 5.31 X10^3/ul (0.83-4.51); Lymphocyte % 41.5 % (19-41); Mean Corp Hgb Conc 30.1 g/dL (32-36); Mean Corpuscular Hgb 26.1 pg (27.0-32.0); Mean Corpuscular Volume 86.6 fL (81-99); Mean Platelet Vol. 11.2 fl (6.2-12.0); Monocyte# 0.63 X10^3/uL; Monocyte% 4.9 % (0-10); NRBC Flagged by Analyzer 0 % (0-5); Neutrophil # 6.63 X10^3/uL (2.7-7.7); POSITIVE DIFFERENTIAL YES; POSITIVE MORPHOLOGY YES; Platelet Count 318 K/mm3 (150-450); RBC Distribution Width CV 14.9 % (11.6-14.6); RBC Distribution Width SD 46.7 fl (35.1-43.9); Red Blood Count 4.91 M/mm3 (4.2-5.4); White Blood Count 12.8 K/mm3 (4.4-11.0)
[2022-08-19 15:47] LABS: Differential Indicated SCAN CRITERIA MET
[2022-08-19 16:08] LABS: ALB/GLOB Ratio 0.9 RATIO (0.9-2.4); AST(SGOT) 13 U/L (15-37); Alanine Aminotransfer ALT/SGPT 27 U/L (13-56); Albumin, Serum 3.1 g/dL (3.2-5.0); Alkaline Phosphatase 128 U/L (45-117); Anion Gap 4 (5-15); BUN 18 mg/dL (7-18); BUN/Creat Ratio 21.1 RATIO (10-20); Calcium,Total 9.1 mg/dL (8.5-10.1); Chloride 105 mmol/L (98-107); Cholesterol 141 mg/dL (200); Creatinine, Serum 0.86 mg/dL (0.55-1.02); EST Glomerular Filtration Rate 71 mL/min (>60); Est Glom Filt Rate - Afr Amer 86 mL/min (>60); Globulin 3.3 g/dL (2.2-4.2); Glucose 142 mg/dL (74-106); High Density Lipoprotein 77 mg/dL; Potassium 4.1 mmol/L (3.5-5.1); Protein, Total 6.4 g/dL (6.4-8.2); Sodium Level 140 mmol/L (136-145); Triglycerides 186 mg/dL; Very Low Density Lipoprotein 37 mg/dL (5-40)
[2022-08-19 16:18] LABS: BNP,B-Type NATRIURETIC PEPTIDE 103.5 pg/mL (0-100)
[2022-08-19 16:25] LABS: Differential Comment SCANNED
== END | disposition home or self-care (01) ==
LOC: BIMLAB 11:52
PROVIDERS: PCP Internal Medicine; Referring Provider Internal Medicine; Visit Provider Internal Medicine
DX: R06.02 Shortness of breath (principal); E11.9 Type 2 diabetes mellitus without complications
CPT/HCPCS: 36415; 80053; 80061; 83880; 85025

== ENCOUNTER → 2022-09-17 | Outpatient (CLI) | payer MEDICAID, SELFPAY ==
--- NOTE | 2022-09-17 08:01 | CDU_ITS ---
Reason For Study: remote infarct Rt. Velocities/BP Lt. Velocities/BP Prox CCA 110.9/27.4 cm/sec. Prox CCA 126.6/26.1 cm/sec. Mid CCA 107.2/18.8 cm/sec. Mid CCA 128.4/26.1 cm/sec. Dist CCA 98.6/22.5 cm/sec. Dist CCA 122.9/27.9 cm/sec. Prox ICA 57.9/18.2 cm/sec. Prox ICA 65.2/17.7 cm/sec. Mid ICA 102.5/33.3 cm/sec. Mid ICA 87.6/33.5 cm/sec. Dist ICA 73.1/20.8 cm/sec. Dist ICA 107.2/32.3 cm/sec. Rt. ICA/CCA = 1.0. Lt. ICA/CCA = .8. Prox ECA 128.4/24.3 cm/sec. Prox ECA 113.3/15.1 cm/sec. Rt. Vert. 64.1/16.8 cm/sec. Lt. Vert. 47.0/11.4 cm/sec. Right Extracranial There is intimal thickening but no significant atherosclerotic plaque noted in the right common carotid artery. There is intimal thickening but no significant atherosclerotic plaque noted in the right internal carotid artery. There is intimal thickening but no significant atherosclerotic plaque noted in the right external carotid artery. Antegrade flow is noted in the right vertebral artery. Left Extracranial There is intimal thickening but no significant atherosclerotic plaque noted in the left common carotid artery. There is intimal thickening but no significant atherosclerotic plaque noted in the left internal carotid artery. There is intimal thickening but no significant atherosclerotic plaque noted in the left external carotid artery. Antegrade flow is noted in the left vertebral artery. Procedure Carotid Duplex [id number]. This is a Carotid Duplex examination using B-mode, color flow and specral Doppler. The exam was diagnostic. Exam performed in department. VL/Carotid Duplex Ultrasound Interpretation Summary Normal right extracranial internal carotid. Normal left extracranial internal carotid. Patent and antegrade vertebrals bilaterally. Ordering Physician: Lisa Cruz Performed By: Edwin Rodney RVT
== END | disposition home or self-care (01) ==
PROVIDERS: PCP Internal Medicine; Visit Provider Physician Assistant
DX: I63.81 Other cerebral infarction due to occlusion or stenosis of small artery (principal)
CPT/HCPCS: 93225; 93226; 93880

== ENCOUNTER 2023-01-06 12:03 | Emergency (ER) | payer MEDICAID, SELFPAY ==
[2023-01-06 12:04] VITALS: BP 160/93; PULSE 80; RESP 18; TEMP 36.3; O2SAT 99; BMI 40.1
--- NOTE | 2023-01-06 12:53 | EDS_ITS ---
HPI History of Present Illness Chief Complaint: Lower Extremity Injury Detail of Chief Complaint: Pain region of the left greater trochanteric bursa Informant: patient Occured/Mechanism Comment: Atraumatic Onset/Context/Timing Onset: Days (Onset 4 to 5 days ago) Context: Sudden Onset Timing: Continuous and Waxes and wanes Quality of Pain: Dull Location: Left greater trochanteric region Current Severity: Mild Maximum Severity: Moderate Worsened by: Movement and palpation Relieved by: Remaining still Associated Symptoms Associated Symptoms: Negative for Parasthesia, Weakness or Loss of Funtion Narrative Narrative: Patient is a 60-year-old woman with history of 3 strokes. Strokes were unknown to her. This was diagnosed on MRI when she was under the care of Dr. Herman for linnea NM . Patient was sent to the emergency room to rule out DVT. Patient denies history of PE or DVT. Patient denies recent travel, surgery, hospitalization, immobilization. She localizes the pain to the left greater trochanteric region. She is diabetic. She denies fever, chills night sweats. She denies paresthesia, anesthesia or motor weakness of her extremity. She states in the area of discomfort she does not feel things. She states this started 4 to 5 days ago. She has not noted a rash. She denies swelling of her ankles or knees. Patient denies history of greater trochanteric bursitis. Patient's had no problems with her blood sugars recently. Tetanus Immunization: Unknown Prior similar symptoms: No Recent Illness/Hospitalization: No PFSH PFSH Medical History Abdominal pain Abnormal finding on MRI of brain Acid reflux Acute asthma exacerbation Anemia Anxiety Anxiety and depression Arthritis Asthma Asthma Asthma exacerbation Blood in stool Chronic dental infection Chronic recurrent sinusitis Cough CPAP (continuous positive airway pressure) dependence Depression Depression with anxiety Diabetes Diabetes Diarrhea Diverticulitis Diverticulitis Diverticulosis DM type 2 (diabetes mellitus, type 2) Fatigue Health care maintenance Hiatal hernia with GERD HLD (hyperlipidemia) HTN (hypertension) Hypersomnolence Hypertension IBS (irritable bowel syndrome) Insomnia Low libido Malabsorption Migraines Obesity (BMI 30-39.9) On hormone replacement therapy Post covid-19 condition, unspecified Post viral syndrome Postmenopausal PTSD (post-traumatic stress disorder) Shingles Shortness of breath Sleep apnea Type 2 diabetes mellitus Urinary, incontinence, stress female Vitamin D deficiency, unspecified Home Medications zolpidem 5 mg tablet 5 - 10 mg PO QHS PRN PRN Insomnia 11/19/17 [History Last Taken 05/21/19] fluticasone propionate 50 mcg/actuation nasal spray,suspension (Flonase Allergy Relief) 2 spray intranasal DAILY #19.8 grams 06/05/19 [Rx Last Taken Unknown] blood-glucose meter #1 ea 10/27/19 [Rx Last Taken Unknown] budesonide-formoterol HFA 160 mcg-4.5 mcg/actuation aerosol inhaler (Symbicort) 2 puff inhalation Q12H #10.2 grams 09/16/20 [Rx Last Taken Unknown] pramipexole 1 mg tablet See Rx Instructions .Route .COMPLEX #30 tabs 12/05/20 [Rx Last Taken Unknown] levomilnacipran 120 mg capsule,24 hr,extended release (Fetzima) 120 mg PO DAILY 12/13/20 [History Last Taken Unknown] lorazepam 1 mg tablet 1 mg PO TID PRN PRN Anxiety #14 tabs 12/13/20 [Rx Last Taken Unknown] blood sugar diagnostic (OneTouch Ultra Test strips) #200 ea 10/02/21 [Rx Last Taken Unknown] lancets 30 gauge (Easy Comfort Lancets) #200 ea 10/02/21 [Rx Last Taken Unknown] epinephrine 0.3 mg/0.3 mL injection, auto-injector 0.3 mg (0.3 mL) IM Q10-15M #2 ea 10/06/21 [Rx Last Taken Unknown] cetirizine 10 mg capsule 10 mg PO DAILY #90 caps 01/15/22 [Rx Last Taken Unknown] levalbuterol HCl 1.25 mg/3 mL solution for nebulization (Xopenex) 1.25 mg (3 mL) inhalation Q4H #72 mL 01/15/22 [Rx Last Taken Unknown] atorvastatin 20 mg tablet 20 mg PO QHS HIGH CHOLESTERSOL #90 tabs 02/05/22 [Rx Last Taken Unknown] cholecalciferol (vitamin D3) 125 mcg (5,000 unit) capsule 5,000 unit PO QHS #90 caps 02/26/22 [Rx Last Taken Unknown] levalbuterol tartrate 45 mcg/actuation aerosol inhaler 2 inh inhalation Q6H PRN PRN Asthma #15 grams 04/06/22 [Rx Last Taken Unknown] omeprazole 40 mg capsule,delayed release 40 mg PO DAILY #90 caps 05/05/22 [Rx Last Taken Unknown] losartan 50 mg tablet 50 mg PO DAILY #90 tabs 08/20/22 [Rx Last Taken Unknown] gabapentin 300 mg capsule 600 mg PO BID 09/10/22 [History Last Taken Unknown] solifenacin 10 mg tablet See Rx Instructions .Route .COMPLEX #90 tabs 10/27/22 [Rx Last Taken Unknown] clopidogrel 75 mg tablet (Plavix) 75 mg PO DAILY 11/19/22 [History Last Taken Unknown] celecoxib 100 mg capsule (Celebrex) 100 mg PO BID PRN pain #60 caps 12/04/22 [Rx Last Taken Unknown] metoprolol tartrate 50 mg tablet 75 mg PO BID Check with primary doctor 3 months #270 tabs 12/10/22 [Rx Last Taken Unknown] liraglutide 0.6 mg/0.1 mL (18 mg/3 mL) subcutaneous pen injector (Cocrystal Discovery 3-Javier) See Rx Instructions subcut .COMPLEX #9 mL 01/01/23 [Rx Last Taken Unknown] naproxen 500 mg tablet 500 mg PO BID #14 tabs 01/06/23 [Rx Last Taken Unknown] pen needle, diabetic 32 gauge x 5/32 (Pen Needle) #100 ea 01/06/23 [Rx Last Taken Unknown] Allergy/AdvReac Type Severity Reaction Status Date / Time aspirin Allergy Severe Other Verified 01/06/23 12:07 eluxadoline [From Viberzi] Allergy Severe Other Verified 01/06/23 12:07 NSAIDS (Non-Steroidal Allergy Intermediate Other Verified 01/06/23 12:07 Anti-Inflamma propranolol [From Inderal LA] Allergy hallucinati Verified 01/06/23 12:07 ons Sulfa (Sulfonamide Allergy Rash Verified 01/06/23 12:07 Antibiotics) albuterol AdvReac Severe other Verified 01/06/23 12:07 metformin AdvReac Severe Other Verified 01/06/23 12:07 Family History Mother Arthritis Dementia Cancer skin Depression Father CHF (congestive heart failure) Dementia Bowel disease Sister Breast cancer Sister Cancer leukemia Surgical History Carpal tunnel syndrome, left H/O left knee surgery H/O right knee surgery History of carpal tunnel release History of hysterectomy History of hysterectomy left arm ulnar nerve transposition left hand nerve reconstruction left nerve reacttachment S/P left knee arthroscopy Social History Smoking Status: Never smoker alcohol intake: current details: 3 per week substance use type: does not use caffeine: Yes what type of physical activity do you participate in: walking frequency: 1-2 times per week seatbelt use: always do you feel safe at home: Yes additional social history: - [employer]- 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 ROS ROS ED Constitutional Constitutional ED: Denies chills, fever(s), subjective, sweats or weight loss Eyes Eyes: Denies blurry vision, change in vision or diplopia ENT ENT ED: Denies ear pain, rhinorrhea or sore throat Cardiovascular Cardiovascular: Denies chest pain, palpitations or racing heartbeat Respiratory/Chest Respiratory/Chest: Denies cough, dyspnea or dyspnea on exertion Musculoskeletal Musculoskeletal: Denies arthralgias, back pain, myalgias or neck pain Integumentary Denies Abrasions or rash Neurologic Neurologic: Reports paresthesias LLE (In the area of the greater trochanteric bursa, left side); Denies weakness Endocrine Endocrinology: Denies polydipsia, polyphagia or polyuria Hematologic/Lymphatic Hematologic/Lymphatic: Denies easy bleeding or easy bruising EXAM Physical Exam Const Vital Signs: 01/06/23 12:04 Temperature 97.4 F L Temperature Source Temporal Pulse Rate 80 Respiratory Rate 18 Blood Pressure 160/93 H Blood Pressure Mean 115 Pulse Ox 99 Oxygen Delivery Method Room Air Positive well nourished, well developed and obese General Appearance ED: well developed and NAD Nutritional Appearance: obese HEENT Reports moist mucous membranes normocephalic and atraumatic Eyes PERRL Eyes Narrative: Extract muscle intact. Sclera is anicteric. Conjunctive is pink. Neck full ROM and supple Resp normal respiratory effort, no retractions and clear to auscultation bilaterally Cardio regular rate, regular rhythm, S1 normal heart sound, S2 normal heart sound and no murmurs Back/Spine no CVA tenderness Extremity normal to inspection and full ROM Extremity Narrative: Patient complains of pain over the left trochanteric bursa. There is no erythema, warmth, induration, inguinal lymphadenopathy or fluctuance. General Extremety ED: Negative for cyanosis or edema General Extremity: Negative for cyanosis or edema Neuro oriented x3, CN's II-XII intact bilaterally, moves all extremities and no sensory deficits noted Sensorium / Orientation: alert Motor Exam: strength 5/5 throughout Plantar Reflex: Downgoing: bilateral Psych mental status grossly normal Skin no wounds Lesions: no lesions Rashes: no rashes MDM MDM MDM Narrative Medical decision making narrative: Patient has a Wells score for DVT of -2. She is on Plavix for her prior strokes. Where patient is complaining of pain and has tenderness there are no deep veins. Therefore venous duplex study was not obtained. This may represent a greater trochanteric bursitis. We will not treat with steroids since patient is diabetic. Will obtain CBC to assess white count differential, ESR since she had symptoms for 5 days and BMP to assess renal function as well as glucose and anion gap. Lab Data Attestation: I reviewed the patient's lab results. Lab results narrative: CBC and differential are normal.. Basic metabolic panel reveals slight elevation of glucose, 112. Otherwise normal. Labs: Laboratory Results - last 24 hr 01/06/23 01/06/23 12:35 12:35 WBC 9.6 RBC 4.96 Hgb 12.8 Hct 41.2 MCV 83.1 MCH 25.8 L MCHC 31.1 L RDW Std Deviation 45.3 H RDW Coeff of Sara 15.2 H Plt Count 286 MPV 10.8 Immature Gran % (Auto) 0.600 Neut % (Auto) 55.9 Lymph % (Auto) 33.9 [place] % (Auto) 6.3 Eos % (Auto) 2.6 Baso % (Auto) 0.7 Absolute Neuts (auto) 5.4 Absolute Lymphs (auto) 3.26 Nucleated RBC % 0 ESR 30 Sodium 140 Potassium 4.6 Chloride 106 Carbon Dioxide 27.0 Anion Gap 7 BUN 15 Creatinine 0.88 Estim Creat Clear Calc 59.64 Est GFR (MDRD) Af Amer 83 Est GFR (MDRD) Non-Af 69 BUN/Creatinine Ratio 17.0 Glucose 112 H Calcium 9.2 Radiography Chest X-Ray - ED: Read by ED Physician (Three-view x-ray of the left hip was i ndependent reviewed interpreted by me at 1324 as negative. There is no fracture, periosteal elevation, soft tissue swelling or fluid collection noted. 3 views were obtained.) Diagnostic Testing: Clinical Impression(s) from Imaging Studies Hip/Pelvis X-Ray 01/06/23 13:13 IMPRESSION: Normal x-ray examination of the pelvis and hip. Electronically Signed: Reagan Guerin MD at 13:28 EDT , Treatment and Re-Evaluation Narrative: Patient was informed of her laboratory results and x-ray results. Her pain did improve with medication she received in the emergency department. Since was concerned this may represent a greater trochanteric bursitis patient was informed that steroids can be used and is considered a drug of choice however with her being diabetic and patient reporting trouble regulating her blood sugar on steroids will treat with NSAIDs and she has normal renal function. Discharge Plan Triage Chief Complaint: Lower Extremity Injury ED Provider: Artemio Crocker Dx/Rx/DC Orders Clinical Impression: Greater trochanteric bursitis of left hip, DM type 2 (diabetes mellitus, type 2), TRINI (obstructive sleep apnea) Instructions: ED Bursitis Prescriptions: New naproxen 500 mg tablet 500 mg PO BID Qty: 14 0RF No Action fluticasone propionate [Flonase Allergy Relief] 50 mcg/actuation spray,suspension 2 spray INTRANASAL DAILY Qty: 19.8 2RF Rx Instructions: administer into each nostril budesonide-formoterol [Symbicort] 160-4.5 mcg/actuation HFA aerosol inhaler 2 puff INHALATION Q12H Qty: 10.2 6RF Fetzima 120 mg capsule,extended release 24 hr 120 mg PO DAILY (DME) OneTouch Ultra Test Strip See Rx Instructions .ROUTE .MEDSUPPLY Qty: 200 2RF Rx Instructions: Check BID (DME) lancets [Easy Comfort Lancets] 30 gauge misc See Rx Instructions .ROUTE .MEDSUPPLY Qty: 200 3RF Rx Instructions: Check BID cholecalciferol (vitamin D3) 125 mcg (5,000 unit) capsule 5,000 unit PO QHS Qty: 90 3RF Rx Instructions: TAKE 1 CAPSULE BY MOUTH AT BEDTIME FOR SUPPLEMENT clopidogrel [Plavix] 75 mg tablet 75 mg PO DAILY zolpidem 5 MG tablet 5 - 10 mg PO QHS PRN PRN (Reason: Insomnia) (DME) blood-glucose meter Kit See Rx Instructions .ROUTE .MEDSUPPLY Qty: 1 0RF Rx Instructions: Check blood glucose daily for type 2 diabetes mellitus pramipexole 1 mg tablet See Rx Instructions .ROUTE .COMPLEX Qty: 30 5RF Dose Instruction: TAKE 1 TABLET BY MOUTH AT BEDTIME FOR DEPRESSION Rx Instructions: TAKE 1 TABLET BY MOUTH AT BEDTIME FOR DEPRESSION lorazepam 1 mg tablet 1 mg PO TID PRN PRN (Reason: Anxiety) Qty: 14 0RF epinephrine 0.3 mg/0.3 mL auto-injector 0.3 mg IM Q10-15M Qty: 2 1RF Rx Instructions: Until response levalbuterol HCl [Xopenex] 1.25 mg/3 mL solution for nebulization 1.25 mg inhalation Q4H Qty: 72 1RF cetirizine 10 mg capsule 10 mg PO DAILY Qty: 90 3RF atorvastatin 20 mg tablet 20 mg PO QHS Qty: 90 3RF levalbuterol tartrate 45 mcg/actuation HFA aerosol inhaler 2 inh inhalation Q6H PRN PRN (Reason: Asthma) Qty: 15 3RF omeprazole 40 mg capsule,delayed release(DR/EC) 40 mg PO DAILY Qty: 90 1RF losartan 50 mg tablet 50 mg PO DAILY Qty: 90 1RF solifenacin 10 mg tablet See Rx Instructions .ROUTE .COMPLEX Qty: 90 1RF Dose Instruction: TAKE ONE TABLET BY MOUTH EVERY DAY Rx Instructions: TAKE ONE TABLET BY MOUTH EVERY DAY celecoxib [Celebrex] 100 mg capsule 100 mg PO BID PRN (Reason: pain) Qty: 60 2RF metoprolol tartrate 50 mg tablet 75 mg PO BID 90 Days Qty: 270 1RF Victoza 3-Javier 0.6 mg/0.1 mL (18 mg/3 mL) pen injector See Rx Instructions subcut .COMPLEX Qty: 9 0RF Rx Instructions: inject 0.6mg subcutaneously once daily x 7 days; then 1.2mg daily, not to exceed 1.8mg/day subcut (DME) pen needle, diabetic [Pen Needle] 32 gauge x 5/32 needle See Rx Instructions .Route Qty: 100 3RF Rx Instructions: use once daily as directed to [facility] Victoza for type 2 DM. Primary Care Provider: Roberto Guo Referrals: Roberto Guo MD [Primary Care Provider] - 3-5 Days if not improving Disposition Disposition: Home, Self Care
[2023-01-06 12:54] LABS: Erythrocyte Sedimentation Rate 30 mm/hr (0-30)
[2023-01-06 12:57] LABS: Absolute Lymphocyte Count 3.26 X10^3/uL (0.83-4.51); Absolute Neutrophil Count 5.4 X10^3/uL (2.0-7.7); Basophil# 0.07 X10^3/uL; Basophil% 0.7 % (0-1); Eosinophil# 0.25 X10^3/uL; Eosinophils% 2.6 % (0-5); Hematocrit 41.2 % (37-47); Hemoglobin 12.8 g/dL (12.0-15.0); Lymphocyte # 3.26 X10^3/ul (0.83-4.51); Lymphocyte % 33.9 % (19-41); Mean Corp Hgb Conc 31.1 g/dL (32-36); Mean Corpuscular Hgb 25.8 pg (27.0-32.0); Mean Corpuscular Volume 83.1 fL (81-99); Mean Platelet Vol. 10.8 fl (6.2-12.0); Monocyte# 0.61 X10^3/uL; Monocyte% 6.3 % (0-10); NRBC Flagged by Analyzer 0 % (0-5); Neutrophil # 5.38 X10^3/uL (2.7-7.7); Neutrophil % 55.9 % (47-70); Platelet Count 286 K/mm3 (150-450); RBC Distribution Width CV 15.2 % (11.6-14.6); RBC Distribution Width SD 45.3 fl (35.1-43.9); Red Blood Count 4.96 M/mm3 (4.2-5.4); White Blood Count 9.6 K/mm3 (4.4-11.0)
[2023-01-06 13:07] LABS: Anion Gap 7 (5-15); BUN 15 mg/dL (7-18); Calcium,Total 9.2 mg/dL (8.5-10.1); Chloride 106 mmol/L (98-107); Creatinine, Serum 0.88 mg/dL (0.55-1.02); EST Glomerular Filtration Rate 69 mL/min (>60); Est Glom Filt Rate - Afr Amer 83 mL/min (>60); Estimated Creatinine Clearance 59.64 ml/min; Glucose 112 mg/dL (74-106); Potassium 4.6 mmol/L (3.5-5.1); Sodium Level 140 mmol/L (136-145)
--- NOTE | 2023-01-06 13:13 | RAD_ITS ---
STUDY: X-RAY - PELVIS AND LEFT HIP REASON FOR EXAM: Female, 62 years old. Pain following injury. TECHNIQUE: 3 views of the pelvis and hip. COMPARISON: None. FINDINGS: There is a non-specific bowel gas pattern. Normal visualized soft tissue structures. Normal bilateral iliac wings, sacroiliac joints and visualized sacrum. Normal bilateral superior and inferior pubic rami. Normal pubic symphysis. Normal bilateral ischial tuberosities. Normal visualized femoral head. Normal acetabulum. Normal hip joint. RAD/HIP, UNI W/ Pelvis 2-3 Views IMPRESSION: Normal x-ray examination of the pelvis and hip. Electronically Signed: Reagan Guerin MD at 13:28 EDT ,
== END 2023-01-06 14:37 | disposition home or self-care (01) ==
PROVIDERS: Emergency Provider Emergency Medicine; PCP Internal Medicine; Visit Provider Emergency Medicine
DX: M70.62 Trochanteric bursitis, left hip (principal); E11.9 Type 2 diabetes mellitus without complications; G47.33 Obstructive sleep apnea (adult) (pediatric); E66.9 Obesity, unspecified; Z86.73 Personal history of transient ischemic attack (TIA), and cerebral infarction without residual deficits; Z79.01 Long term (current) use of anticoagulants
CPT/HCPCS: 73502; 80048; 85025; 85652; 99283; A4216

== ENCOUNTER 2023-02-05 19:11 | Emergency (ER) | payer MEDICAID, SELFPAY ==
[2023-02-05 19:12] VITALS: BP 171/103; PULSE 110; RESP 21; TEMP 36.8; O2SAT 94; BMI 39.5
--- NOTE | 2023-02-05 19:15 | EKG12_ITS ---
Test Reason : SOB Blood Pressure : / mmHG Vent. Rate : 100 BPM Atrial Rate : 100 BPM P-R Int : 134 ms QRS Dur : 076 ms QT Int : 342 ms P-R-T Axes : 027 -07 027 degrees QTc Int : 441 ms Normal sinus rhythm Minimal voltage criteria for LVH, may be normal variant ( R in aVL ) Nonspecific ST abnormality Abnormal ECG Confirmed by SHAHNAZ BHATT, ALYSSA ([id number]), order editor STEPHANIE LANDRUM ([id number]) on 02/09/2023 7:58:54 AM Referred By: JARED Confirmed By:ALYSSA CHRISTIE MD
--- NOTE | 2023-02-05 19:15 | RAD_ITS ---
INDICATION: SOB EXAMINATION/TECHNIQUE: X-RAY - XR Chest 1 View COMPARISON: 07/08/2021 FINDINGS: LINES/DEVICES: None. LUNGS: No consolidation, edema or effusion. No pneumothorax. MEDIASTINUM AND CARDIOVASCULAR STRUCTURES: Cardiac silhouette not enlarged. Central airways and mediastinal contour are unremarkable. BONES AND SOFT TISSUES: Unremarkable. RAD/Chest 1 View (Portable) IMPRESSION: No radiographic evidence of acute cardiopulmonary disease. Electronically Signed: Dave Mota MD at 19:35 EDT ,
[2023-02-05 19:57] LABS: Absolute Lymphocyte Count 2.14 X10^3/uL (0.83-4.51); Absolute Neutrophil Count 5.5 X10^3/uL (2.0-7.7); Basophil# 0.05 X10^3/uL; Basophil% 0.6 % (0-1); Eosinophil# 0.29 X10^3/uL; Eosinophils% 3.4 % (0-5); Hematocrit 44.7 % (37-47); Hemoglobin 13.8 g/dL (12.0-15.0); Lymphocyte # 2.14 X10^3/ul (0.83-4.51); Lymphocyte % 24.9 % (19-41); Mean Corp Hgb Conc 30.9 g/dL (32-36); Mean Corpuscular Hgb 25.6 pg (27.0-32.0); Mean Corpuscular Volume 82.9 fL (81-99); Mean Platelet Vol. 10.1 fl (6.2-12.0); Monocyte# 0.57 X10^3/uL; Monocyte% 6.6 % (0-10); NRBC Flagged by Analyzer 0 % (0-5); Neutrophil # 5.52 X10^3/uL (2.7-7.7); Neutrophil % 64.2 % (47-70); Platelet Count 271 K/mm3 (150-450); RBC Distribution Width CV 15.2 % (11.6-14.6); RBC Distribution Width SD 45.2 fl (35.1-43.9); Red Blood Count 5.39 M/mm3 (4.2-5.4); White Blood Count 8.6 K/mm3 (4.4-11.0)
[2023-02-05 20:09] LABS: Anion Gap 6 (5-15); BUN 8 mg/dL (7-18); BUN/Creat Ratio 8.3 RATIO (10-20); Calcium,Total 9.8 mg/dL (8.5-10.1); Chloride 104 mmol/L (98-107); Creatinine, Serum 0.97 mg/dL (0.55-1.02); EST Glomerular Filtration Rate 62 mL/min (>60); Est Glom Filt Rate - Afr Amer 75 mL/min (>60); Estimated Creatinine Clearance 54.11 ml/min; Glucose 140 mg/dL (74-106); Potassium 3.8 mmol/L (3.5-5.1); Sodium Level 139 mmol/L (136-145)
--- NOTE | 2023-02-05 21:04 | EX.ED.VIS.UR ---
HPI HPI - URI History of Present Illness Chief Complaint: Shortness of Breath Narrative Narrative: 62-year-old female presenting with viral symptoms she has had recent family reunion and there was some sick contacts. She has had fevers, chills, body aches, cough, nausea, vomiting, diarrhea. The diarrhea started first. She started having respiratory symptoms yesterday. She states that she has a history of asthma, pneumonia, long COVID, sepsis. She states her Tmax at home was 102 ?F. she does not have any sharp pleuritic pain or pain with deep inspiration. Patient fevers resolved. She felt like she was wheezing yesterday but today she is not. She does have albuterol inhaler. ROS ROS ED Constitutional Constitutional ED: Reports chills and fever(s) Eyes Eyes: Denies change in vision or diplopia ENT ENT ED: Reports rhinorrhea Cardiovascular Cardiovascular: Denies chest pain Respiratory/Chest Respiratory/Chest: Reports cough and dyspnea Gastrointestinal Gastrointestinal: Reports diarrhea, nausea and vomiting Genitourinary Genitourinary ED: Denies dysuria or hematuria Musculoskeletal Musculoskeletal: Reports myalgias Neurologic Neurologic: Reports headache(s); Denies paresthesias Psychiatric Psychiatric: Denies anxiety or depression PFSH [facility] Medical History Abdominal pain Abnormal finding on MRI of brain Acid reflux Acute asthma exacerbation Anemia Anxiety Anxiety and depression Arthritis Asthma Asthma Asthma exacerbation Blood in stool Chronic dental infection Chronic recurrent sinusitis Cough CPAP (continuous positive airway pressure) dependence Depression Depression with anxiety Diabetes Diabetes Diarrhea Diverticulitis Diverticulitis Diverticulosis DM type 2 (diabetes mellitus, type 2) Fatigue Health care maintenance Hiatal hernia with GERD HLD (hyperlipidemia) HTN (hypertension) Hypersomnolence Hypertension IBS (irritable bowel syndrome) Insomnia Low libido Malabsorption Migraines Obesity (BMI 30-39.9) On hormone replacement therapy Post covid-19 condition, unspecified Post viral syndrome Postmenopausal PTSD (post-traumatic stress disorder) Shingles Shortness of breath Sleep apnea Type 2 diabetes mellitus Urinary, incontinence, stress female Vitamin D deficiency, unspecified Home Medications zolpidem 5 mg tablet 5 - 10 mg PO QHS PRN PRN Insomnia 11/19/17 [History Last Taken 05/21/19] blood-glucose meter #1 ea 02/21/20 [Rx Last Taken Unknown] levomilnacipran 120 mg capsule,24 hr,extended release (Fetzima) 120 mg PO DAILY 12/13/20 [History Last Taken Unknown] lorazepam 1 mg tablet 1 mg PO TID PRN PRN Anxiety #14 tabs 12/13/20 [Rx Last Taken Unknown] blood sugar diagnostic ([employer] Ultra Test strips) #200 ea 10/02/21 [Rx Last Taken Unknown] lancets 30 gauge (Easy Comfort Lancets) #200 ea 10/02/21 [Rx Last Taken Unknown] epinephrine 0.3 mg/0.3 mL injection, auto-injector 0.3 mg (0.3 mL) IM Q10-15M #2 ea 10/06/21 [Rx Last Taken Unknown] levalbuterol HCl 1.25 mg/3 mL solution for nebulization (Xopenex) 1.25 mg (3 mL) inhalation Q4H #72 mL 01/15/22 [Rx Last Taken Unknown] atorvastatin 20 mg tablet 20 mg PO QHS HIGH CHOLESTERSOL #90 tabs 02/05/22 [Rx Last Taken Unknown] cholecalciferol (vitamin D3) 125 mcg (5,000 unit) capsule 5,000 unit PO QHS #90 caps 02/26/22 [Rx Last Taken Unknown] levalbuterol tartrate 45 mcg/actuation aerosol inhaler 2 inh inhalation Q6H PRN PRN Asthma #15 grams 04/06/22 [Rx Last Taken Unknown] losartan 50 mg tablet 50 mg PO DAILY #90 tabs 08/20/22 [Rx Last Taken Unknown] gabapentin 300 mg capsule 600 mg PO BID 09/10/22 [History Last Taken Unknown] clopidogrel 75 mg tablet (Plavix) 75 mg PO DAILY 11/19/22 [History Last Taken Unknown] celecoxib 100 mg capsule (Celebrex) 100 mg PO BID PRN pain #60 caps 12/04/22 [Rx Last Taken Unknown] metoprolol tartrate 50 mg tablet 75 mg PO BID Check with primary doctor 3 months #270 tabs 12/10/22 [Rx Last Taken Unknown] liraglutide 0.6 mg/0.1 mL (18 mg/3 mL) subcutaneous pen injector (Theravasc 3-Javier) See Rx Instructions subcut .COMPLEX #9 mL 01/01/23 [Rx Last Taken Unknown] pen needle, diabetic 32 gauge x 5/32 (Pen Needle) #100 ea 01/06/23 [Rx Last Taken Unknown] cetirizine 10 mg tablet See Rx Instructions .Route .COMPLEX #90 TABLETS 01/19/23 [Rx Last Taken Unknown] pen needle, diabetic 32 gauge x 1/6 (NovoFine Plus) #100 ea 01/19/23 [Rx Last Taken Unknown] ondansetron 4 mg disintegrating tablet 4 mg PO Q8H PRN PRN Nausea #14 tabs 02/05/23 [Rx Last Taken Unknown] pramipexole 1 mg tablet 1 mg PO DAILY 02/05/23 [History Last Taken Unknown] solifenacin 10 mg tablet 10 mg PO DAILY 02/05/23 [History Last Taken Unknown] Allergy/AdvReac Type Severity Reaction Status Date / Time aspirin Allergy Severe Other Verified 01/06/23 12:07 eluxadoline [From Viberzi] Allergy Severe Other Verified 01/06/23 12:07 NSAIDS (Non-Steroidal Allergy Intermediate Other Verified 01/06/23 12:07 Anti-Inflamma propranolol [From Inderal LA] Allergy hallucinati Verified 01/06/23 12:07 ons Sulfa (Sulfonamide Allergy Rash Verified 01/06/23 12:07 Antibiotics) albuterol AdvReac Severe other Verified 01/06/23 12:07 metformin AdvReac Severe Other Verified 01/06/23 12:07 Family History Mother Arthritis Dementia Cancer skin Depression Father CHF (congestive heart failure) Dementia Bowel disease Sister Breast cancer Sister Cancer leukemia Surgical History Carpal tunnel syndrome, left H/O left knee surgery H/O right knee surgery History of carpal tunnel release History of hysterectomy History of hysterectomy left arm ulnar nerve transposition left hand nerve reconstruction left nerve reacttachment S/P left knee arthroscopy Social History Smoking Status: Never smoker alcohol intake: current details: 3 per week substance use type: does not use caffeine: Yes what type of physical activity do you participate in: walking frequency: 1-2 times per week seatbelt use: always do you feel safe at home: Yes additional social history: - [employer]- 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 EXAM Physical Exam Const Vital Signs: 02/05/23 19:12 02/05/23 20:18 02/05/23 20:19 Temperature 98.2 F Temperature Source Temporal Pulse Rate 110 H Respiratory Rate 21 H Respiratory Effort Normal Non-Labored Respiratory Depth Normal Respiratory Pattern Normal Blood Pressure 171/103 H Blood Pressure Mean 125 Pulse Ox 94 Oxygen Delivery Method Room Air Room Air Room Air 02/05/23 21:22 02/05/23 22:12 Temperature Temperature Source Pulse Rate Respiratory Rate 18 Respiratory Effort Respiratory Depth Respiratory Pattern Blood Pressure Blood Pressure Mean Pulse Ox 97 Oxygen Delivery Method Room Air Room Air Positive well nourished General Appearance ED: Negative for cyanotic, diaphoretic, NAD, pallor or other HEENT Reports moist mucous membranes normocephalic and atraumatic Eyes PERRL Resp normal respiratory effort Auscultation: Negative for rales, rhonchi or wheezes Cardio Rate: regular rate and tachycardic Extremity normal to inspection Neuro oriented x3 Sensorium / Orientation: alert Psych mental status grossly normal Skin General Skin Exam: Negative for jaundice or pallor MDM MDM MDM Narrative Medical decision making narrative: Patient presenting with fever, chills, body aches, shortness of breath. Recent travel to family reunion and there were sick contacts. Patient's vital signs are stable and she is afebrile. Most likely this is something viral because she got it from her family. I did obtain an EKG which on my interpretation. Chest x-ray on my interpretation shows no acute cardiopulmonary process. The radiologist interprets this and agrees. CBC and BMP unremarkable. Patient is given Zofran for her nausea and she is able to pass a p.o. challenge. I feel at this point she is stable for discharge. I do not believe she needs any further work-up. Impression: 1. Viral syndrome Lab Data Attestation: I reviewed the patient's lab results. Labs: Laboratory Results - last 24 hr 02/05/23 02/05/23 19:50 19:50 WBC 8.6 RBC 5.39 Hgb 13.8 Hct 44.7 MCV 82.9 MCH 25.6 L MCHC 30.9 L RDW Std Deviation 45.2 H RDW Coeff of Sara 15.2 H Plt Count 271 MPV 10.1 Immature Gran % (Auto) 0.300 Neut % (Auto) 64.2 Lymph % (Auto) 24.9 [place] % (Auto) 6.6 Eos % (Auto) 3.4 Baso % (Auto) 0.6 Absolute Neuts (auto) 5.5 Absolute Lymphs (auto) 2.14 Nucleated RBC % 0 Sodium 139 Potassium 3.8 Chloride 104 Carbon Dioxide 29.0 Anion Gap 6 BUN 8 Creatinine 0.97 Estim Creat Clear Calc 54.11 Est GFR (MDRD) Af Amer 75 Est GFR (MDRD) Non-Af 62 BUN/Creatinine Ratio 8.3 L Glucose 140 H Calcium 9.8 Radiography Diagnostic Testing: Clinical Impression(s) from Imaging Studies Chest X-Ray 02/05/23 19:15 IMPRESSION: No radiographic evidence of acute cardiopulmonary disease. Electronically Signed: Dave Mota MD at 19:35 EDT Reading Location ID and State: [address] [place] [address] Tel , Service support , Discharge Plan Triage Chief Complaint: Shortness of Breath ED Provider: Keon Matute Dx/Rx/DC Orders Instructions: ED Viral Syndrome (Adult) Prescriptions: New ondansetron 4 mg tablet,disintegrating 4 mg PO Q8H PRN PRN (Reason: Nausea) Qty: 14 0RF No Action Fetzima 120 mg capsule,extended release 24 hr 120 mg PO DAILY (DME) OneTouch Ultra Test Strip See Rx Instructions .ROUTE .MEDSUPPLY Qty: 200 2RF Rx Instructions: Check BID (DME) lancets [Easy Comfort Lancets] 30 gauge misc See Rx Instructions .ROUTE .MEDSUPPLY Qty: 200 3RF Rx Instructions: Check BID cholecalciferol (vitamin D3) 125 mcg (5,000 unit) capsule 5,000 unit PO QHS Qty: 90 3RF Rx Instructions: TAKE 1 CAPSULE BY MOUTH AT BEDTIME FOR SUPPLEMENT clopidogrel [Plavix] 75 mg tablet 75 mg PO DAILY gabapentin 300 mg capsule 600 mg PO BID zolpidem 5 MG tablet 5 - 10 mg PO QHS PRN PRN (Reason: Insomnia) pramipexole 1 mg tablet 1 mg PO DAILY solifenacin 10 mg tablet 10 mg PO DAILY (DME) blood-glucose meter Kit See Rx Instructions .ROUTE .MEDSUPPLY Qty: 1 0RF Rx Instructions: Check blood glucose daily for type 2 diabetes mellitus lorazepam 1 mg tablet 1 mg PO TID PRN PRN (Reason: Anxiety) Qty: 14 0RF epinephrine 0.3 mg/0.3 mL auto-injector 0.3 mg IM Q10-15M Qty: 2 1RF Rx Instructions: Until response levalbuterol HCl [Xopenex] 1.25 mg/3 mL solution for nebulization 1.25 mg inhalation Q4H Qty: 72 1RF atorvastatin 20 mg tablet 20 mg PO QHS Qty: 90 3RF levalbuterol tartrate 45 mcg/actuation HFA aerosol inhaler 2 inh inhalation Q6H PRN PRN (Reason: Asthma) Qty: 15 3RF losartan 50 mg tablet 50 mg PO DAILY Qty: 90 1RF celecoxib [Celebrex] 100 mg capsule 100 mg PO BID PRN (Reason: pain) Qty: 60 2RF metoprolol tartrate 50 mg tablet 75 mg PO BID 90 Days Qty: 270 1RF Victoza 3-Javier 0.6 mg/0.1 mL (18 mg/3 mL) pen injector See Rx Instructions subcut .COMPLEX Qty: 9 0RF Rx Instructions: inject 0.6mg subcutaneously once daily x 7 days; then 1.2mg daily, not to exceed 1.8mg/day subcut (DME) pen needle, diabetic [Pen Needle] 32 gauge x 5/32 needle See Rx Instructions .Route Qty: 100 3RF Rx Instructions: use once daily as directed to [facility] Victoza for type 2 DM. cetirizine 10 mg tablet See Rx Instructions .ROUTE .COMPLEX Qty: 90 3RF Dose Instruction: TAKE ONE TABLET BY MOUTH EVERY DAY Rx Instructions: TAKE ONE TABLET BY MOUTH EVERY DAY (DME) NovoFine Plus 32 gauge x 1/6 needle See Rx Instructions .Route Qty: 100 3RF Rx Instructions: use as directed to administer Victoza Primary Care Provider: Roberto Guo Referrals: Roberto Guo MD [Primary Care Provider] - Disposition Disposition: Home, Self Care
[2023-02-05] MEDS: Ondansetron 4 MG/2 ML Vial IV (21:19)
[2023-02-05] MEDS: Acetaminophen 500 MG Tablet 1000 MG PO (21:19)
[2023-02-05 21:22] VITALS: O2SAT 97
[2023-02-05 22:12] VITALS: RESP 18
--- NOTE | 2023-02-05 22:45 | ED.RN ---
pt refused cindyl. states it makes her jumpy.
== END 2023-02-05 23:10 | disposition home or self-care (01) ==
PROVIDERS: Emergency Provider Student in an Organized Health Care Education/Training Program; PCP Internal Medicine; Visit Provider Student in an Organized Health Care Education/Training Program
DX: B34.9 Viral infection, unspecified (principal); E11.9 Type 2 diabetes mellitus without complications; R11.2 Nausea with vomiting, unspecified; R06.02 Shortness of breath; R19.7 Diarrhea, unspecified; I10 Essential (primary) hypertension; E78.5 Hyperlipidemia, unspecified; R68.83 Chills (without fever)
CPT/HCPCS: 71045; 80048; 85025; 87811; 93005; 94760; 96374; 99283; A4216; J2405

== ENCOUNTER → 2023-10-06 | Outpatient (CLI) | payer MEDICAID, SELFPAY ==
[2023-10-06 15:36] LABS: Absolute Lymphocyte Count 2.82 X10^3/uL (0.83-4.51); Absolute Neutrophil Count 5.2 X10^3/uL (2.0-7.7); Basophil# 0.05 X10^3/uL; Basophil% 0.6 % (0-1); Eosinophil# 0.18 X10^3/uL; Eosinophils% 2.1 % (0-5); Hematocrit 39.9 % (37-47); Hemoglobin 11.7 g/dL (12.0-15.0); Lymphocyte # 2.82 X10^3/ul (0.83-4.51); Lymphocyte % 32.9 % (19-41); Mean Corp Hgb Conc 29.3 g/dL (32-36); Mean Corpuscular Hgb 24.5 pg (27.0-32.0); Mean Corpuscular Volume 83.6 fL (81-99); Mean Platelet Vol. 10.9 fl (6.2-12.0); Monocyte# 0.34 X10^3/uL; NRBC Flagged by Analyzer 0 % (0-5); Neutrophil # 5.15 X10^3/uL (2.7-7.7); Platelet Count 298 K/mm3 (150-450); RBC Distribution Width CV 15.8 % (11.6-14.6); RBC Distribution Width SD 47.5 fl (35.1-43.9); Red Blood Count 4.77 M/mm3 (4.2-5.4); White Blood Count 8.6 K/mm3 (4.4-11.0)
[2023-10-06 15:48] LABS: Vitamin D,25 Hydroxy 46.9 ng/mL
[2023-10-06 15:52] LABS: Hemoglobin A1c 6.6 % (3.8-5.6)
[2023-10-06 16:06] LABS: ALB/GLOB Ratio 0.8 RATIO (0.9-2.4); AST(SGOT) 28 U/L (15-37); Alanine Aminotransfer ALT/SGPT 36 U/L (13-56); Alkaline Phosphatase 157 U/L (45-117); Anion Gap 3 (5-15); BUN 8 mg/dL (7-18); BUN/Creat Ratio 9.1 RATIO (10-20); Calcium,Total 8.8 mg/dL (8.5-10.1); Chloride 110 mmol/L (98-107); Cholesterol 132 mg/dL (200); Creatinine, Serum 0.88 mg/dL (0.55-1.02); EST Glomerular Filtration Rate 69 mL/min (>60); Est Glom Filt Rate - Afr Amer 83 mL/min (>60); Globulin 3.9 g/dL (2.2-4.2); Glucose 112 mg/dL (74-106); High Density Lipoprotein 64 mg/dL; Potassium 3.8 mmol/L (3.5-5.1); Protein, Total 6.9 g/dL (6.4-8.2); Sodium Level 141 mmol/L (136-145); Triglycerides 141 mg/dL; Very Low Density Lipoprotein 28 mg/dL (5-40)
== END | disposition home or self-care (01) ==
LOC: BIMLAB 12:04
PROVIDERS: PCP Internal Medicine; Referring Provider Internal Medicine; Visit Provider Internal Medicine
DX: E11.9 Type 2 diabetes mellitus without complications (principal); E55.9 Vitamin D deficiency, unspecified
CPT/HCPCS: 36415; 80053; 80061; 82306; 83036; 85025

== ENCOUNTER → 2024-04-10 | Outpatient (CLI) | payer OTHER, SELFPAY ==
[2024-04-10 15:19] LABS: Absolute Lymphocyte Count 2.82 X10^3/uL (0.83-4.51); Absolute Neutrophil Count 6.2 X10^3/uL (2.0-7.7); Basophil# 0.06 X10^3/uL; Basophil% 0.6 % (0-1); Eosinophil# 0.17 X10^3/uL; Eosinophils% 1.7 % (0-5); Hematocrit 42.4 % (37-47); Hemoglobin 13.1 g/dL (12.0-15.0); Lymphocyte # 2.82 X10^3/ul (0.83-4.51); Lymphocyte % 28.5 % (19-41); Mean Corp Hgb Conc 30.9 g/dL (32-36); Mean Corpuscular Hgb 25.8 pg (27.0-32.0); Mean Corpuscular Volume 83.5 fL (81-99); Monocyte# 0.62 X10^3/uL; Monocyte% 6.3 % (0-10); NRBC Flagged by Analyzer 0 % (0-5); Neutrophil # 6.19 X10^3/uL (2.7-7.7); Neutrophil % 62.5 % (47-70); Platelet Count 338 K/mm3 (150-450); RBC Distribution Width CV 15.6 % (11.6-14.6); RBC Distribution Width SD 47.4 fl (35.1-43.9); Red Blood Count 5.08 M/mm3 (4.2-5.4); White Blood Count 9.9 K/mm3 (4.4-11.0)
[2024-04-10 15:34] LABS: ALB/GLOB Ratio 0.8 RATIO (0.9-2.4); AST(SGOT) 19 U/L (15-37); Alanine Aminotransfer ALT/SGPT 22 U/L (13-56); Albumin, Serum 3.3 g/dL (3.2-5.0); Alkaline Phosphatase 139 U/L (45-117); Anion Gap 4 (5-15); BUN 12 mg/dL (7-18); BUN/Creat Ratio 12.1 RATIO (10-20); Calcium,Total 9.4 mg/dL (8.5-10.1); Chloride 105 mmol/L (98-107); Creatinine, Serum 0.99 mg/dL (0.55-1.02); EST Glomerular Filtration Rate 60 mL/min (>60); Est Glom Filt Rate - Afr Amer 73 mL/min (>60); Glucose 115 mg/dL (74-106); Potassium 4.2 mmol/L (3.5-5.1); Protein, Total 7.3 g/dL (6.4-8.2); Sodium Level 138 mmol/L (136-145)
[2024-04-10 15:51] LABS: Microalbumin,Random Urine 21.4 mg/L (NO RANGE EST.); Microalbumin:Creatinine Ratio 6.1 mg/g CRE (<30 mg/g CRE)
== END | disposition home or self-care (01) ==
PROVIDERS: PCP Internal Medicine; Referring Provider Internal Medicine; Visit Provider Internal Medicine
DX: E11.9 Type 2 diabetes mellitus without complications (principal)
CPT/HCPCS: 36415; 80053; 82043; 82570; 85025

== ENCOUNTER → 2024-10-18 | Outpatient (CLI) | payer OTHER, SELFPAY ==
--- NOTE | 2024-10-18 13:10 | RAD_ITS ---
PROCEDURE: L/S SPINE MIN 4 VIEWS REASON FOR EXAM: Radiculopathy. TECHNIQUE: Four view lumbar spine series including bilateral oblique views. COMPARISON: None. RAD/L/S Spine Min 4 Views IMPRESSION: Thoracolumbar dextroscoliosis is seen, with compensatory lower lumbar levoscoli osis also noted. Mild sacroiliac joint degenerative changes are seen. Degenerative changes are seen throughout the lumbar spine, with moderate disc n arrowing at L1-L2, moderately severe disc narrowing at L2-L3 and L3-L4 levels. Lower lumbar posterior facet hypertrophy is also seen. No evidence of spondylolysis or spondylolisthesis. No fracture site is evident. Reading Location: [id number]
[2024-10-18 15:25] LABS: Absolute Lymphocyte Count 2.89 X10^3/uL (0.83-4.51); Absolute Neutrophil Count 5.3 X10^3/uL (2.0-7.7); Basophil# 0.05 X10^3/uL; Basophil% 0.6 % (0-1); Eosinophil# 0.14 X10^3/uL; Eosinophils% 1.6 % (0-5); Hematocrit 44.5 % (37-47); Hemoglobin 13.6 g/dL (12.0-15.0); Lymphocyte # 2.89 X10^3/ul (0.83-4.51); Lymphocyte % 32.3 % (19-41); Mean Corp Hgb Conc 30.6 g/dL (32-36); Mean Corpuscular Hgb 25.6 pg (27.0-32.0); Mean Corpuscular Volume 83.8 fL (81-99); Monocyte# 0.55 X10^3/uL; Monocyte% 6.2 % (0-10); NRBC Flagged by Analyzer 0 % (0-5); Neutrophil # 5.29 X10^3/uL (2.7-7.7); Neutrophil % 59.1 % (47-70); Platelet Count 333 K/mm3 (150-450); RBC Distribution Width CV 14.5 % (11.6-14.6); RBC Distribution Width SD 43.7 fl (35.1-43.9); Red Blood Count 5.31 M/mm3 (4.2-5.4); White Blood Count 8.9 K/mm3 (4.4-11.0)
[2024-10-18 15:44] LABS: ALB/GLOB Ratio 0.8 RATIO (0.9-2.4); AST(SGOT) 19 U/L (15-37); Alanine Aminotransfer ALT/SGPT 18 U/L (13-56); Albumin, Serum 3.3 g/dL (3.2-5.0); Alkaline Phosphatase 136 U/L (45-117); Anion Gap 8 (5-15); BUN 11 mg/dL (7-18); BUN/Creat Ratio 9.6 RATIO (10-20); Calcium,Total 9.2 mg/dL (8.5-10.1); Chloride 104 mmol/L (98-107); Cholesterol 118 mg/dL (200); Creatinine, Serum 1.15 mg/dL (0.55-1.02); EST Glomerular Filtration Rate 50 mL/min (>60); Est Glom Filt Rate - Afr Amer 61 mL/min (>60); Glucose 111 mg/dL (74-106); High Density Lipoprotein 65 mg/dL; Potassium 4.7 mmol/L (3.5-5.1); Protein, Total 7.3 g/dL (6.4-8.2); Sodium Level 137 mmol/L (136-145); Triglycerides 95 mg/dL; Very Low Density Lipoprotein 19 mg/dL (5-40)
== END | disposition home or self-care (01) ==
PROVIDERS: PCP Internal Medicine; Referring Provider Internal Medicine; Visit Provider Internal Medicine
DX: M54.16 Radiculopathy, lumbar region (principal); E78.5 Hyperlipidemia, unspecified; I10 Essential (primary) hypertension
CPT/HCPCS: 36415; 72110; 80053; 80061; 85025

== ENCOUNTER 2024-11-28 07:38 | Outpatient (RCR) | payer OTHER, SELFPAY ==
--- NOTE | 2024-11-28 10:24 | HP.PTEVAL ---
Patient's Visit Information Visit Information Visit Information: STACI LAZCANO is a 64 year old F referred to Physical Therapy by Dr. Ed Christiansen MD with a diagnosis of IT band syndrome L. Date of Evaluation: 11/28/24 Physical Therapist: LENI Tolbert Visit Plan Frequency: 2x /Week Duration: 3 Months Plan: AT 2X/ week for 8-12 weeks for core, hip strength, stretching of the L IT band, general mobility and general strengthening. Pt wants to work on her walking endurance as she has 2 trips planned that require a lot of walking HEP: LTR, bridges Subjective Subjective: Pt reports that she has L thigh pain. For a long time now she has had numbness along the lateral thigh and always felt like a band. She did not pay much attention to it. In Aug it started hurting and it got to the point that the pain was shooting down her leg and she could not walk. The pain starts in the hip and goes lateral thigh and then goes across the Quad. The pain does not go down to her knee. It feels like a knife stabbing her in the lateral thigh on the L. When it hits, it hits hard. She reports that it does hit her everyday now. She can press son the spot. She got an injection from Dr Christiansen in the L hip. It did not help. They are now thinking IT band syndrome. She can lay on her L side. The pain does not wake her up at night. It is painful on the stairs. Pt had COVID bad to the point of hospitalization and that turned into long covid. Everything hurts and brain fog.... 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 She still struggles with memory, speech (speaks more slowly). 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 She also started with intense PIERRE..ice pick PIERRE and that is the same sensation that she has in her thigh. She has no idea if it is related but she just knows it is the same feeling. Pain L lateral thigh pain: Pain Intensity (Out of 10): 3 Pain Intensity Range: 8 Objective Objective: Gait: Walks with occ veering, short strides, flexed trunk and rounded shoulders LE MMT: B hip flex 4-/5, B knee ext 4/5, B knee flex 4-/5 Pt is able to heel and toe raise holding onto the wall Pt has slight tight HS. She has slight tight B piriformis and slight tightness of L IT BAND. Pt could feel the pull in her leg with LTR Palpation: some tenderness along the L IT Band but no real tightness or restriction felt Balance/Special Test Scores Lower Extremity Functional Score: 36 Goals Goal 1:: I HEP Goal Time Frame: 8-12 Weeks Goal 2:: Pt to be able to walk around the grocery store without feeling she has to sit down Goal Time Frame: 8-12 Weeks Goal 3:: Decrease the frequency of painful episodes of L lateral IT band pain by 50% Goal Time Frame: 8-12 Weeks Rehabilitation Potential Rehabilitation Potential: Good Anticipated Interventions Patient/Client Instruction: Educate patient on: Condition and Plan of Care For the Purpose of:: To decrease pain, To improve nutrient delivery to tissue, To improve muscle performance and motor function, To improve ability to perform ADL's, To increase tolerance to activity/condition/position, To improve performance and independence with ADL's, To decrease level of supervision to perform tasks, To improve ability of physical actions for home/community/work/leisure, To improve gait and locomotor functions, To improve health of tissue, To decrease soft tissue restriction, To increase flexibility/ROM, To improve endurance and To improve safety with gait Therapeutic Exercise to Include: Strength training, Endurance training, Balance training, Body mechanics, Postural training, Flexibilty training, Gait and locomotor training, Neuromotor development, In an aquatic setting, Active ROM, Dynamic Lumbar Stabilization and Scapular Strength/Stabilization For the Purpose of:: To decrease pain, To increase ROM, To improve nutrient delivery to tissue, To increase oxygenation perfusion, To improve muscle performance and motor function, To improve ability to perform ADL's, To increase tolerance to activity/condition/position, To improve performance and independence with ADL's, To decrease level of supervision to perform tasks, To improve ability of physical actions for home/community/work/leisure, To improve gait and locomotor functions, To improve health of tissue, To decrease soft tissue restriction, To increase flexibility/ROM, To improve endurance and To improve balance Functional Training to Include: Gait training For the Purpose of:: To improve gait and locomotor functions Text: Thank you for the opportunity to evaluate your patient. For Medicare and Medicare HMO plans, please review the plan of care and approve it. It will need to be FAXED BACK to us at [phone] for Medicare purposes. For Medicare only, by signing this I certify the plan of care. Please let me know if there are questions or concerns regarding this plan of care. Physician Signature: Date:
--- NOTE | 2025-02-26 08:36 | HP.PT.NRP ---
Patient Information Patient Information: STACI LAZCANO was seen in my office for initial evaluation on 11/28/24. The following Plan of Care was established for this patient: POC Established Initial Frequency: 2x /Week Initial Duration: 3 Months Anticipated Interventions Patient/Client Instruction: Educate patient on: Condition and Plan of Care For the Purpose of:: To decrease pain, To improve nutrient delivery to tissue, To improve muscle performance and motor function, To improve ability to perform ADL's, To increase tolerance to activity/condition/position, To improve performance and independence with ADL's, To decrease level of supervision to perform tasks, To improve ability of physical actions for home/community/work/leisure, To improve gait and locomotor functions, To improve health of tissue, To decrease soft tissue restriction, To increase flexibility/ROM, To improve endurance and To improve safety with gait Therapeutic Exercise to Include: Strength training, Endurance training, Balance training, Body mechanics, Postural training, Flexibilty training, Gait and locomotor training, Neuromotor development, In an aquatic setting, Active ROM, Dynamic Lumbar Stabilization and Scapular Strength/Stabilization For the Purpose of:: To decrease pain, To increase ROM, To improve nutrient delivery to tissue, To increase oxygenation perfusion, To improve muscle performance and motor function, To improve ability to perform ADL's, To increase tolerance to activity/condition/position, To improve performance and independence with ADL's, To decrease level of supervision to perform tasks, To improve ability of physical actions for home/community/work/leisure, To improve gait and locomotor functions, To improve health of tissue, To decrease soft tissue restriction, To increase flexibility/ROM, To improve endurance and To improve balance Functional Training to Include: Gait training For the Purpose of:: To improve gait and locomotor functions Last Seen Last Seen: This patient was last seen in our office 11/28/24. Pertinent comments regarding their Physical therapy will appear below: [facility] PT as pt did not schedule additional visits past the initial eval At this point I will be discontinuing this patient from physical therapy. I would be happy to see this patient again in the future if found appropriate by the physician. Thank you! Cassie Strickland, MPT Balance/Gait/Functional tests Balance/Special Test Scores Lower Extremity Functional Score: 36
== END 2024-11-28 19:00 | disposition home or self-care (01) ==
LOC: PT 07:38
PROVIDERS: PCP Internal Medicine; Referring Provider Anesthesiology; Visit Provider Anesthesiology
DX: M76.32 Iliotibial band syndrome, left leg (principal)
CPT/HCPCS: 97162

== ENCOUNTER 2025-01-14 16:42 | Emergency (ER) | payer OTHER, SELFPAY ==
[2025-01-14 16:42] VITALS: BP 95/61; PULSE 64; RESP 18; TEMP 36.8; O2SAT 100
--- NOTE | 2025-01-14 17:10 | CT_ITS ---
PROCEDURE: SPINE CERVICAL WITHOUT CONTRAS 01/14/2025 REASON FOR EXAM: FALL TECHNIQUE: Cervical spine CT without contrast. Coronal and Sagittal reconstruction series were provided. One or more dose reduction techniques were used (e.g., Automated exposure control, adjustment of the mA and/or kV according to patient size, use of iterative reconstruction technique COMPARISON: None FINDINGS: Alignment: Straightening of the cervical lordosis. Vertebrae: Vertebral body heights are maintained. Atlantoaxial interval is maintained. Mild loss of disc space at C5-C6 and C6-C7. Otherwise, disc spaces are maintained. No acute fracture or traumatic subluxation. Scattered degenerative changes without high-grade canal stenosis or neural foraminal narrowing. Soft Tissues: Soft tissues are unremarkable. Imaged lung martinez are clear. CT/Spine Cervical without Contras IMPRESSION: No acute fracture or traumatic subluxation. Scattered degenerative changes without high-grade canal stenosis or neural fora oleg narrowing. Replaces the Reading Location: [facility]
--- NOTE | 2025-01-14 17:10 | CT_ITS ---
PROCEDURE: BRAIN/HEAD WITHOUT CONTRAST 01/14/2025 REASON FOR EXAM: FALL TECHNIQUE: Head CT without intravenous contrast. Coronal and Sagittal reconstruction series were provided. One or more dose reduction techniques were used (e.g., Automated exposure control, adjustment of the mA and/or kV according to patient size, use of iterative reconstruction technique. COMPARISON: None FINDINGS: * ACUTE: No acute infarct or hemorrhage. No mass effect or herniation. * BRAIN PARENCHYMA: Signal intensities are within normal limits for age. * VENTRICLES/EXTRA-AXIAL SPACES: No hydrocephalus or extra-axial fluid collections. * EXTRACRANIAL STRUCTURES: Visualized osseous structures are normal. Soft tissues are normal. CT/Brain/Head without Contrast IMPRESSION: No acute intracranial abnormality. Reading Location: [facility]
[2025-01-14] MEDS: oxyCODONE 5 MG Tablet PO ×2 (17:15→20:08)
[2025-01-14 17:16] VITALS: BMI 31.2
--- NOTE | 2025-01-14 17:50 | RAD_ITS ---
PROCEDURE: SHOULDER MIN 2 VIEWS 01/14/2025 REASON FOR EXAM: FALL TECHNIQUE: Three views of the left shoulder COMPARISON: None FINDINGS: No acute fracture or dislocation. Mild degenerative changes of the glenohumeral and acromioclavicular joints. No focal soft tissue abnormality. No suspicious lytic or blastic lesions RAD/Shoulder min 2 Views IMPRESSION: No acute fracture or dislocation. Mild osteoarthritis. Reading Location: [facility]
--- NOTE | 2025-01-14 17:50 | RAD_ITS ---
PROCEDURE: CHEST 1 VIEW (PORTABLE) 01/14/2025 REASON FOR EXAM: FALL TECHNIQUE: Frontal view of the chest. COMPARISON: 02/05/2023 FINDINGS: Hardware: None Heart: Cardiac and mediastinal contours are stable. Lungs: No focal consolidation. No pneumothorax. No pleural effusion. Bones: The bones are unremarkable. Other: RAD/Chest 1 View (Portable) IMPRESSION: No Acute Findings. Reading Location: [facility]
--- NOTE | 2025-01-14 17:50 | RAD_ITS ---
PROCEDURE: HIP, UNI W/ PELVIS 2-3 VIEWS 01/14/2025 REASON FOR EXAM: FALL TECHNIQUE: Three views of the right hip COMPARISON: 01/06/2023 FINDINGS: No acute fracture or dislocation. Joint spaces are maintained. No focal soft tissue abnormality. No suspicious lytic or blastic lesion. RAD/HIP, UNI W/ Pelvis 2-3 Views IMPRESSION: No acute findings. Reading Location: [facility]
[2025-01-14 18:42] VITALS: BP 115/72; PULSE 55; RESP 16; O2SAT 97
--- NOTE | 2025-01-14 19:52 | EX.ED.DYSGE1 ---
HPI History of Present Illness Chief Complaint: Fall Informant: patient Onset/Context/Timing Onset: Yesterday Location: Left side Worsened by: Movement and use Associated Symptoms Associated Symptoms: None Narrative Narrative: Patient fell yesterday while she was out of town. She fell on a deck and is not sure why but she lost her balance fell back into a wall and then hit the ground. She complains of pain from her head down on the left side. No loss of function, weakness, numbness. No loss of consciousness. Worse with use and movement. She normally walks without assistance but has found walking difficult. Prior similar symptoms: No Recent Illness/Hospitalization: No PFSH PFS Medical History Pain of left lateral upper thigh Flu vaccine need Vision changes Brain fog Localized skin mass, lump, or swelling Lumbar radiculopathy Bilateral lower extremity edema Chronic diarrhea Osteoarthritis of both knees Abnormal finding on MRI of brain Shortness of breath Cough Chronic dental infection Fatigue Hypersomnolence Post covid-19 condition, unspecified Post viral syndrome Anemia Anxiety Depression Diabetes CPAP (continuous positive airway pressure) dependence Sleep apnea Asthma Hypertension Migraines Health care maintenance Type 2 diabetes mellitus Diverticulitis Acid reflux Blood in stool Diarrhea Abdominal pain Depression with anxiety Diabetes Shingles Diverticulitis Postmenopausal On hormone replacement therapy DM type 2 (diabetes mellitus, type 2) Acute asthma exacerbation Asthma exacerbation Malabsorption Low libido Hiatal hernia with GERD Urinary, incontinence, stress female Chronic recurrent sinusitis Insomnia Vitamin D deficiency, unspecified Arthritis Asthma Diverticulosis PTSD (post-traumatic stress disorder) IBS (irritable bowel syndrome) Anxiety and depression HLD (hyperlipidemia) HTN (hypertension) Obesity (BMI 30-39.9) Home Medications ?Medication ?Instructions ?Recorded ?Last Taken ?Type blood-glucose meter #1 ea 10/27/19 Unknown Rx lancets 30 gauge (Easy Comfort #200 ea 10/02/21 Unknown Rx Lancets) epinephrine 0.3 mg/0.3 mL 0.3 mg (0.3 mL) IM Q10-15M #2 ea 10/06/21 Unknown Rx injection, auto-injector levalbuterol tartrate 45 2 inh inhalation Q6H PRN PRN 04/06/22 Unknown Rx mcg/actuation aerosol inhaler Asthma #15 grams pen needle, diabetic 32 gauge x #100 ea 01/06/23 Unknown Rx (Pen Needle) cetirizine 10 mg tablet See Rx Instructions .Route 01/19/23 01/14/25 Rx .COMPLEX #90 TABLETS pen needle, diabetic 32 gauge x #100 ea 01/19/23 Unknown Rx 09/11 (NovoFine Plus) blood sugar diagnostic (OneTouch #200 ea 08/17/23 Unknown Rx Ultra Test strips) clopidogrel 75 mg tablet (Plavix) 75 mg PO DAILY #90 tabs 07/20/24 01/13/25 Rx losartan 50 mg tablet See Rx Instructions .Route 08/19/24 Unknown Rx .COMPLEX #90 tabs solifenacin 10 mg tablet See Rx Instructions .Route 08/31/24 01/14/25 Rx .COMPLEX #90 TABLETS metoprolol tartrate 50 mg tablet 75 mg (1.5 x 50 mg) PO BID Check 09/25/24 01/14/25 Rx with primary doctor 3 months #270 tabs cholecalciferol (vitamin D3) 125 5,000 unit PO QHS #90 caps 10/18/24 01/13/25 Rx mcg (5,000 unit) capsule gabapentin 300 mg capsule 300 mg PO BID 3 months #180 caps 10/18/24 01/14/25 Rx pantoprazole 40 mg tablet,delayed 40 mg PO DAILY #90 tabs 11/28/24 01/13/25 Rx release atorvastatin 40 mg tablet 40 mg PO QHS HIGH CHOLESTERSOL #90 01/05/25 01/13/25 Rx tabs tirzepatide 7.5 mg/0.5 mL See Rx Instructions .Route 01/09/25 01/07/25 Rx subcutaneous pen injector .COMPLEX 3 months #6.5 mL baclofen 5 mg tablet 5 mg PO BID PRN 01/14/25 Unknown History coenzyme Q10 100 mg capsule 100 mg PO DAILY 01/14/25 01/13/25 History duloxetine 60 mg capsule,delayed 60 mg PO BID 01/14/25 01/14/25 History release melatonin 3 mg tablet 3 mg PO QHS PRN PRN insomnia 01/14/25 01/13/25 History Allergy/AdvReac Type Severity Reaction Status Date / Time aspirin Allergy Severe Other Verified 01/14/25 16:42 eluxadoline (From Steven) Allergy Severe Other Verified 01/14/25 16:42 NSAIDS (Non-Steroidal Allergy Intermediate Other Verified 01/14/25 16:42 Anti-Inflamma propranolol (From Inderal LA) Allergy hallucinati Verified 01/14/25 16:42 ons Sulfa (Sulfonamide Allergy Rash Verified 01/14/25 16:42 Antibiotics) albuterol AdvReac Severe other Verified 01/14/25 16:42 metformin AdvReac Severe Other Verified 01/14/25 16:42 diphenhydramine (From AdvReac Other Verified 01/14/25 16:42 Benadryl) Family History Mother Arthritis Dementia Cancer skin Depression Father CHF (congestive heart failure) Dementia Bowel disease Sister Breast cancer Sister Cancer leukemia Surgical History left hand nerve reconstruction History of carpal tunnel release History of hysterectomy H/O left knee surgery H/O right knee surgery History of hysterectomy left nerve reacttachment Carpal tunnel syndrome, left left arm ulnar nerve transposition S/P left knee arthroscopy Social History Smoking Status: Never smoker alcohol intake: current details: 3 per week substance use type: does not use caffeine: Yes what type of physical activity do you participate in: walking frequency: 1-2 times per week seatbelt use: always do you feel safe at home: Yes additional social history: - [employer]- 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 [employer] ED Constitutional Constitutional ED: Denies chills or fever(s) Eyes Eyes: Denies blurry vision ENT ENT ED: Denies rhinorrhea Cardiovascular Cardiovascular: Denies chest pain Respiratory/Chest Respiratory/Chest: Denies cough or dyspnea Gastrointestinal Gastrointestinal: Denies abdominal pain, nausea or vomiting Genitourinary Genitourinary ED: Denies dysuria Musculoskeletal Musculoskeletal: Reports arthralgias, back pain, myalgias and neck pain Integumentary Denies abscess, Abrasions or rash Neurologic Neurologic: Reports headache(s); Denies paresthesias or weakness Hematologic/Lymphatic Hematologic/Lymphatic: Reports systems reviewed and no addt'l complaints, except as documented EXAM Physical Exam Const Vital Signs: 01/14/25 16:42 01/14/25 16:55 01/14/25 18:42 Temperature 98.2 F Temperature Source Oral Pulse Rate 64 55 L Respiratory Rate 18 16 Respiratory Effort Normal Respiratory Depth Normal Respiratory Pattern Normal Blood Pressure 95/61 115/72 Blood Pressure Mean 72 86 Pulse Ox 100 97 Oxygen Delivery Method Room Air Room Air Room Air Positive well nourished and well developed General Appearance ED: well developed HEENT Reports TM's clear and moist mucous membranes Negative for trauma or tenderness Tympanic Membrane ED: Yes TM's clear Eyes PERRL and EOMs intact bilaterally Neck no lymphadenopathy General: Negative for tenderness Chest Wall inspection of chest normal and palpation of chest normal Resp normal respiratory effort and clear to auscultation bilaterally Cardio regular rate and regular rhythm GI normal to inspection, nondistended, normoactive bowel sounds Back/Spine no CVA tenderness Cervical Spine: Negative for cervical spine tenderness Thoracic Spine / Upper Back: Negative for thoracic spinal tenderness Lumbar Spine / Lower Back: Negative for lumbar spinal tenderness Extremity normal to inspection General Extremety ED: Negative for tenderness Neuro oriented x3 and CN's II-XII intact bilaterally Sensorium / Orientation: alert Motor Exam: strength 5/5 throughout Psych mental status grossly normal Skin no rashes or lesions noted and no wounds MDM MDM MDM Narrative Medical decision making narrative: Patient had what sounds like a mechanical fall. Patient does not have any objective trauma findings. I imaged her injured areas including her head, neck, chest, hip, pelvis, shoulder and all of her imaging was unremarkable. Plan will be symptomatic treatment. Rest, ice, elevate injured areas. Follow-up with primary care. Return for any new or worsening issues. Patient will be ambulated to ensure safety prior to discharge. Radiography Chest X-Ray - ED: 1 View, Read by ED Physician and Normal X-Ray: Left Hip, Read by ED Physician and Normal Bony Alignment Diagnostic Testing: Clinical Impression(s) from Imaging Studies Brain CT 01/14/25 17:10 IMPRESSION: No acute intracranial abnormality. Reading Location: [facility] Cervical Spine CT 01/14/25 17:10 IMPRESSION: No acute fracture or traumatic subluxation. Scattered degenerative changes without high-grade canal stenosis or neural foraminal narrowing. Replaces the Reading Location: [facility] Chest X-Ray 01/14/25 17:50 IMPRESSION: No Acute Findings. Reading Location: [facility] Hip/Pelvis X-Ray 01/14/25 17:50 IMPRESSION: No acute findings. Reading Location: [facility] Shoulder X-Ray 01/14/25 17:50 IMPRESSION: No acute fracture or dislocation. Mild osteoarthritis. Reading Location: [facility] Discharge Plan Triage Chief Complaint: Fall ED Provider: Agustin Majano Dx/Rx/DC Orders Clinical Impression: Accident due to mechanical fall without injury Instructions: ED Fall Prevention Prescriptions: No Action (DME) lancets [Easy Comfort Lancets] 30 gauge misc See Rx Instructions .ROUTE .MEDSUPPLY Qty: 200 3RF Rx Instructions: Check BID cholecalciferol (vitamin D3) 125 mcg (5,000 unit) capsule 5,000 unit PO QHS Qty: 90 3RF Rx Instructions: TAKE 1 CAPSULE BY MOUTH AT BEDTIME FOR SUPPLEMENT gabapentin 300 mg capsule 300 mg PO BID 90 Days Qty: 180 2RF baclofen 5 mg tablet 5 mg PO BID PRN melatonin 3 mg tablet 3 mg PO QHS PRN PRN (Reason: insomnia) coenzyme Q10 100 mg capsule 100 mg PO DAILY duloxetine 60 mg capsule,delayed release(DR/EC) 60 mg PO BID (DME) blood-glucose meter Kit See Rx Instructions .ROUTE .MEDSUPPLY Qty: 1 0RF Rx Instructions: Check blood glucose daily for type 2 diabetes mellitus epinephrine 0.3 mg/0.3 mL auto-injector 0.3 mg IM Q10-15M Qty: 2 1RF Rx Instructions: Until response levalbuterol tartrate 45 mcg/actuation HFA aerosol inhaler 2 inh inhalation Q6H PRN PRN (Reason: Asthma) Qty: 15 3RF (DME) pen needle, diabetic [Pen Needle] 32 gauge x 5/32 needle See Rx Instructions .Route Qty: 100 3RF Rx Instructions: [facility] for type 2 DM. cetirizine 10 mg tablet See Rx Instructions .ROUTE .COMPLEX Qty: 90 3RF Dose Instruction: TAKE ONE TABLET BY MOUTH EVERY DAY Rx Instructions: TAKE ONE TABLET BY MOUTH EVERY DAY (DME) NovoFine Plus 32 gauge x 1/6 needle See Rx Instructions .Route Qty: 100 3RF Rx Instructions: use as directed to administer Victoza (DME) OneTouch Ultra Test Strip See Rx Instructions .ROUTE .MEDSUPPLY Qty: 200 2RF Rx Instructions: Check BID clopidogrel [Plavix] 75 mg tablet 75 mg PO DAILY Qty: 90 2RF losartan 50 mg tablet See Rx Instructions .ROUTE .COMPLEX Qty: 90 3RF Dose Instruction: TAKE ONE TABLET BY MOUTH EVERY DAY Rx Instructions: TAKE ONE TABLET BY MOUTH EVERY DAY solifenacin 10 mg tablet See Rx Instructions .ROUTE .COMPLEX Qty: 90 1RF Dose Instruction: TAKE ONE TABLET BY MOUTH EVERY DAY Rx Instructions: TAKE ONE TABLET BY MOUTH EVERY DAY metoprolol tartrate 50 mg tablet 75 mg PO BID 90 Days Qty: 270 1RF pantoprazole 40 mg tablet,delayed release (DR/EC) 40 mg PO DAILY Qty: 90 1RF atorvastatin 40 mg tablet 40 mg PO QHS Qty: 90 2RF tirzepatide 7.5 mg/0.5 mL pen injector See Rx Instructions .ROUTE .COMPLEX 90 Days Qty: 6.5 1RF Dose Instruction: INJECT 0.5ML UNDER THE SKIN ONCE WEEKLY Rx Instructions: INJECT 0.5ML UNDER THE SKIN ONCE WEEKLY Primary Care Provider: Roberto Guo Referrals: Roberto Gou MD [Primary Care Provider] - Print Language: Indian Disposition Disposition: Home, Self Care
[2025-01-14 19:59] VITALS: BP 117/92; PULSE 67; RESP 18; TEMP 36.8; O2SAT 99
== END 2025-01-14 20:09 | disposition home or self-care (01) ==
PROVIDERS: Emergency Provider Emergency Medicine; PCP Internal Medicine; Visit Provider Emergency Medicine
DX: R51.9 Headache, unspecified (principal); E11.9 Type 2 diabetes mellitus without complications; E78.5 Hyperlipidemia, unspecified; I10 Essential (primary) hypertension; G47.30 Sleep apnea, unspecified; Z79.899 Other long term (current) drug therapy; Z79.01 Long term (current) use of anticoagulants; Z86.16 Personal history of COVID-19; W19.XXXA Unspecified fall, initial encounter
CPT/HCPCS: 70450; 71045; 72125; 73030; 73502; 99282

== ENCOUNTER → 2025-02-16 | Outpatient (CLI) | payer OTHER, SELFPAY ==
[2025-02-16 16:48] LABS: Absolute Lymphocyte Count 3.03 X10^3/uL (0.83-4.51); Absolute Neutrophil Count 3.7 X10^3/uL (2.0-7.7); Basophil# 0.05 X10^3/uL; Basophil% 0.7 % (0-1); Eosinophil# 0.11 X10^3/uL; Eosinophils% 1.5 % (0-5); Hematocrit 39.1 % (37-47); Hemoglobin 12.4 g/dL (12.0-15.0); Lymphocyte # 3.03 X10^3/ul (0.83-4.51); Lymphocyte % 41.8 % (19-41); Mean Corp Hgb Conc 31.7 g/dL (32-36); Mean Corpuscular Hgb 27.4 pg (27.0-32.0); Mean Corpuscular Volume 86.5 fL (81-99); Mean Platelet Vol. 10.6 fl (6.2-12.0); Monocyte# 0.36 X10^3/uL; NRBC Flagged by Analyzer 0 % (0-5); Neutrophil # 3.68 X10^3/uL (2.7-7.7); Neutrophil % 50.7 % (47-70); Platelet Count 290 K/mm3 (150-450); RBC Distribution Width CV 15.3 % (11.6-14.6); RBC Distribution Width SD 48.3 fl (35.1-43.9); Red Blood Count 4.52 M/mm3 (4.2-5.4); White Blood Count 7.3 K/mm3 (4.4-11.0)
[2025-02-16 17:15] LABS: ALB/GLOB Ratio 1.3 RATIO (0.9-2.4); AST(SGOT) 21 U/L (<=31); Alanine Aminotransfer ALT/SGPT 11 U/L (<=34); Albumin, Serum 3.8 g/dL (3.4-4.8); Alkaline Phosphatase 114 U/L (35-104); Anion Gap 11 (5-15); BUN 17 mg/dL (4-19); BUN/Creat Ratio 15.4 RATIO (10-20); Calcium,Total 9.2 mg/dL (7.6-11.0); Carbon Dioxide 24.1 mmol/L (21.0-32.0); Chloride 103 mmol/L (98-108); Creatinine, Serum 1.13 mg/dL (0.70-1.20); EST Glomerular Filtration Rate 54 (>60); Globulin 2.9 g/dL (2.2-4.2); Glucose 113 mg/dL (70-99); Potassium 4.2 mmol/L (3.3-5.1); Protein, Total 6.6 g/dL (5.9-8.4); Sodium Level 138 mmol/L (133-145); Total Bilirubin 0.39 mg/dL (0.00-1.30)
[2025-02-18 13:07] LABS: Rubeola IgG Ab > 300.0 AU/mL (Immune >16.4)
[2025-02-19 12:08] LABS: ANTINUCLEAR ANTIBODIES DIRECT Negative (Negative)
== END | disposition home or self-care (01) ==
LOC: BIMLAB 15:42
PROVIDERS: PCP Internal Medicine; Referring Provider Internal Medicine; Visit Provider Internal Medicine
DX: Z01.84 Encounter for antibody response examination (principal); I10 Essential (primary) hypertension
CPT/HCPCS: 36415; 80053; 84439; 84443; 85025; 86038; 86225; 86765